=== PATIENT | female | born 1940 | race Caucasian/White ===

== ENCOUNTER 2021-05-24 17:17 | Outpatient (REF) | payer OTHER, MEDICAID, SELFPAY ==
[2021-05-24 17:56] LABS: Abs Immature Grans 0.02 10^3/uL (0.0-0.06); Absolute Basophil Count 0.03 10^3/uL (0.0-0.2); Absolute Eosinophil Count 0.39 10^3/uL (0.0-0.7); Absolute Lymphocyte Count 1.34 10^3/uL (1.2-3.4); Absolute Monocyte Count 0.63 10^3/uL (0.1-0.8); Absolute Neutrophil Count 3.69 10^3/uL (1.2-6.7); Basophils % 0.5; Eosinophils % 6.4; HCT 33.7 % (36.0-46.0); HGB 10.4 g/dL (11.2-15.7); Immature Grans % 0.3; MCH 30.5 pg (27.0-33.0); MCHC 30.9 % (32.0-36.0); MCV 98.8 fL (80-95); MPV 11.2 fL (8.0-11.0); Monocytes % 10.3; Neutrophils % 60.5; Nucleated RBC 0 %; Platelet Count 188 10^3/uL (130-400); RBC 3.41 10^6/uL (3.93-5.22); RDW 14.2 % (11.7-14.6); RDW-SD 51.1 fL
[2021-05-24 18:10] LABS: Iron 56 ug/dL (50-170); Total Iron Binding Capacity 322 ug/dL (250-450); Transferrin Sat 17 % (15-50)
[2021-05-24 18:13] LABS: Hemoglobin A1C 7.8 % (<5.7)
[2021-05-24 18:39] LABS: ALT 56 U/L (14-59); AST 16 U/L (15-37); Albumin 3.3 g/dL (3.4-5.0); Alkaline Phosphatase 119 U/L (46-116); Anion Gap 5.8 mmol/L (3-11); BUN 16 mg/dL (7-18); Bilirubin, Total 0.7 mg/dL (0.2-1.0); CO2 33.2 mmol/L (21.0-32.0); CREATININE 1.4 mg/dL (0.55-1.02); Calcium 8.9 mg/dL (8.5-10.1); Chloride 106 mmol/L (98-107); Estimated GFR 36.27 (mL/min/1.73m2); Folate 9.8 ng/mL (8.6-20.0); Glucose 148 mg/dL (74-106); Potassium 4.9 mmol/L (3.5-5.1); Sodium 145 mmol/L (136-145); TSH (W/Ref FT4) 1.74 uIU/mL (0.36-3.74); Total Protein 6.1 g/dL (6.4-8.2); Vitamin B12 306 pg/mL (193-986)
[2021-05-25 17:13] LABS: Magnesium 1.9 mg/dL (1.7-2.8)
== END 2021-05-24 17:18 | disposition home or self-care (01) ==
LOC: LBN 17:17
PROVIDERS: Visit Provider Nurse Practitioner Gerontology
DX: I50.33 Acute on chronic diastolic (congestive) heart failure (principal); E11.40 Type 2 diabetes mellitus with diabetic neuropathy, unspecified; I25.10 Atherosclerotic heart disease of native coronary artery without angina pectoris
CPT/HCPCS: 80053; 82607; 82746; 83036; 83540; 83550; 83735; 84443; 85025

== ENCOUNTER 2021-05-29 15:47 | Outpatient (REF) | payer OTHER, MEDICAID, SELFPAY ==
[2021-05-29 16:46] LABS: Anion Gap 3.2 mmol/L (3-11); BUN 17 mg/dL (7-18); CO2 35.8 mmol/L (21.0-32.0); CREATININE 1.2 mg/dL (0.55-1.02); Calcium 9.2 mg/dL (8.5-10.1); Chloride 107 mmol/L (98-107); Estimated GFR 43.34 (mL/min/1.73m2); Glucose 112 mg/dL (74-106); NT-proBNP 669 pg/mL (<300); Potassium 4.4 mmol/L (3.5-5.1); Sodium 146 mmol/L (136-145)
== END 2021-05-29 15:48 | disposition home or self-care (01) ==
LOC: LBN 15:47
PROVIDERS: Visit Provider Nurse Practitioner Gerontology
DX: I50.33 Acute on chronic diastolic (congestive) heart failure (principal); I25.10 Atherosclerotic heart disease of native coronary artery without angina pectoris; I73.9 Peripheral vascular disease, unspecified
CPT/HCPCS: 80048; 83880

== ENCOUNTER 2021-06-09 13:41 | Outpatient (CLI) | payer OTHER, MEDICAID, SELFPAY ==
--- NOTE | 2021-06-09 13:45 | RT.EKG_ITS ---
APPROVED REPORT Exam: Resting ECG Reason for Exam: HF, afib Patient Location: O HR:68 bpm ECG Measurements Heart Rate 68 AXIS [place] 205 P 21 QRSd 135 QRS -19 QT 441 T 28 QTc 470 Conclusion Sinus rhythm...normal P axis, V-rate 50- 99 Right bundle branch block...QRSd>120, terminal axis(90,270)
== END 2021-06-09 13:42 | disposition home or self-care (01) ==
LOC: DI.CARD 13:51
PROVIDERS: Visit Provider Internal Medicine Cardiovascular Disease
DX: I10 Essential (primary) hypertension (principal); I48.0 Paroxysmal atrial fibrillation; I50.30 Unspecified diastolic (congestive) heart failure
CPT/HCPCS: 93010

== ENCOUNTER → 2021-06-09 13:41 | Outpatient (BNVA) | payer OTHER, MEDICAID, SELFPAY | PROVIDERS: Visit Provider Internal Medicine Cardiovascular Disease | DX: I48.0 Paroxysmal atrial fibrillation (principal); I11.0 Hypertensive heart disease with heart failure; I50.30 Unspecified diastolic (congestive) heart failure; G47.30 Sleep apnea, unspecified; I25.10 Atherosclerotic heart disease of native coronary artery without angina pectoris | CPT/HCPCS: 93005; 99203 ==

== ENCOUNTER 2021-06-11 16:51 | Outpatient (REF) | payer OTHER, MEDICAID, SELFPAY ==
[2021-06-11 17:44] LABS: ALT 22 U/L (14-59); AST 5 U/L (15-37); Albumin 3.4 g/dL (3.4-5.0); Alkaline Phosphatase 101 U/L (46-116); Anion Gap 6.9 mmol/L (3-11); BUN 23 mg/dL (7-18); Bilirubin, Total 0.6 mg/dL (0.2-1.0); CO2 29.1 mmol/L (21.0-32.0); CREATININE 1.2 mg/dL (0.55-1.02); Calcium 8.9 mg/dL (8.5-10.1); Chloride 104 mmol/L (98-107); Estimated GFR 43.34 (mL/min/1.73m2); Glucose 315 mg/dL (74-106); Potassium 4.4 mmol/L (3.5-5.1); Sodium 140 mmol/L (136-145); Total Protein 6.1 g/dL (6.4-8.2)
== END 2021-06-11 16:52 | disposition home or self-care (01) ==
LOC: LBN 16:51
PROVIDERS: Visit Provider Internal Medicine
DX: I50.33 Acute on chronic diastolic (congestive) heart failure (principal); I25.10 Atherosclerotic heart disease of native coronary artery without angina pectoris; I73.9 Peripheral vascular disease, unspecified
CPT/HCPCS: 80053

== ENCOUNTER 2021-06-28 23:26 | Outpatient (REF) | payer MEDICARE, MEDICAID, SELFPAY ==
[2021-06-28 23:42] LABS: Abs Immature Grans 0.01 10^3/uL (0.0-0.06); Absolute Basophil Count 0.04 10^3/uL (0.0-0.2); Absolute Lymphocyte Count 1.46 10^3/uL (1.2-3.4); Absolute Monocyte Count 0.59 10^3/uL (0.1-0.8); Absolute Neutrophil Count 3.57 10^3/uL (1.2-6.7); Basophils % 0.7; HCT 38.4 % (36.0-46.0); HGB 12.2 g/dL (11.2-15.7); Immature Grans % 0.2; Lymphocytes % 24.5; MCH 29.8 pg (27.0-33.0); MCHC 31.8 % (32.0-36.0); MCV 93.9 fL (80-95); MPV 10.7 fL (8.0-11.0); Monocytes % 9.9; Neutrophils % 59.7; Nucleated RBC 0 %; Platelet Count 246 10^3/uL (130-400); RBC 4.09 10^6/uL (3.93-5.22); RDW 13.1 % (11.7-14.6); WBC 5.97 10^3/uL (4.4-10.8)
[2021-06-28 23:56] LABS: Anion Gap 6.9 mmol/L (3-11); BUN 20 mg/dL (7-18); CO2 30.1 mmol/L (21.0-32.0); CREATININE 1.4 mg/dL (0.55-1.02); Calcium 9.4 mg/dL (8.5-10.1); Chloride 103 mmol/L (98-107); Estimated GFR 36.27 (mL/min/1.73m2); Glucose 182 mg/dL (74-106); Potassium 4.3 mmol/L (3.5-5.1); Sodium 140 mmol/L (136-145)
== END 2021-06-28 23:27 | disposition home or self-care (01) ==
LOC: LBN 23:26
PROVIDERS: Visit Provider Nurse Practitioner Gerontology
DX: I50.33 Acute on chronic diastolic (congestive) heart failure (principal)
CPT/HCPCS: 80048; 85025

== ENCOUNTER 2021-08-02 16:57 | Outpatient (REF) | payer MEDICAID, SELFPAY ==
[2021-08-02 17:39] LABS: Abs Immature Grans 0.03 10^3/uL (0.0-0.06); Absolute Basophil Count 0.04 10^3/uL (0.0-0.2); Absolute Eosinophil Count 0.36 10^3/uL (0.0-0.7); Absolute Lymphocyte Count 1.35 10^3/uL (1.2-3.4); Absolute Monocyte Count 0.48 10^3/uL (0.1-0.8); Absolute Neutrophil Count 3.58 10^3/uL (1.2-6.7); Basophils % 0.7; Eosinophils % 6.2; HCT 38.9 % (36.0-46.0); HGB 12.6 g/dL (11.2-15.7); Immature Grans % 0.5; Lymphocytes % 23.1; MCH 30.7 pg (27.0-33.0); MCHC 32.4 % (32.0-36.0); MCV 94.6 fL (80-95); MPV 10.9 fL (8.0-11.0); Monocytes % 8.2; Neutrophils % 61.3; Nucleated RBC 0 %; Platelet Count 274 10^3/uL (130-400); RBC 4.11 10^6/uL (3.93-5.22); RDW 12.9 % (11.7-14.6); RDW-SD 44.1 fL; WBC 5.84 10^3/uL (4.4-10.8)
[2021-08-02 23:27] LABS: Vitamin B12 925 pg/mL (193-986)
[2021-08-02 23:35] LABS: Hemoglobin A1C 9.2 % (<5.7)
== END 2021-08-02 16:58 | disposition home or self-care (01) ==
LOC: LBN 16:57
PROVIDERS: Visit Provider Internal Medicine
DX: E11.40 Type 2 diabetes mellitus with diabetic neuropathy, unspecified (principal)
CPT/HCPCS: 82306; 82607; 83036; 85025

== ENCOUNTER 2021-09-06 15:23 | Outpatient (REF) | payer MEDICARE, SELFPAY ==
[2021-09-06 17:13] LABS: Abs Immature Grans 0.02 10^3/uL (0.0-0.06); Absolute Basophil Count 0.02 10^3/uL (0.0-0.2); Absolute Eosinophil Count 0.15 10^3/uL (0.0-0.7); Absolute Lymphocyte Count 1.26 10^3/uL (1.2-3.4); Absolute Neutrophil Count 3.29 10^3/uL (1.2-6.7); Basophils % 0.4; Eosinophils % 2.8; HCT 37.9 % (36.0-46.0); HGB 11.9 g/dL (11.2-15.7); Immature Grans % 0.4; Lymphocytes % 23.6; MCH 29.5 pg (27.0-33.0); MCHC 31.4 % (32.0-36.0); MPV 10.9 fL (8.0-11.0); Monocytes % 11.2; Neutrophils % 61.6; Nucleated RBC 0 %; Platelet Count 235 10^3/uL (130-400); RBC 4.03 10^6/uL (3.93-5.22); RDW 13.3 % (11.7-14.6); RDW-SD 45.8 fL; WBC 5.34 10^3/uL (4.4-10.8)
[2021-09-06 18:00] LABS: Anion Gap 10.9 mmol/L (3-11); BUN 29 mg/dL (7-18); CO2 24.1 mmol/L (21.0-32.0); CREATININE 1.4 mg/dL (0.55-1.02); Chloride 107 mmol/L (98-107); Estimated GFR 36.27 (mL/min/1.73m2); Glucose 263 mg/dL (74-106); Potassium 4.6 mmol/L (3.5-5.1); Sodium 142 mmol/L (136-145); TSH (W/Ref FT4) 0.87 uIU/mL (0.36-3.74)
[2021-09-06 18:37] LABS: Hemoglobin A1C 8.3 % (<5.7)
== END 2021-09-06 15:24 | disposition home or self-care (01) ==
LOC: LBN 15:23
PROVIDERS: Visit Provider Internal Medicine
DX: F41.1 Generalized anxiety disorder; R11.2 Nausea with vomiting, unspecified; I50.33 Acute on chronic diastolic (congestive) heart failure
CPT/HCPCS: 80048; 83036; 84443; 85025

== ENCOUNTER 2021-09-19 11:04 | Inpatient (IN) | payer MEDICARE, MEDICAID, SELFPAY ==
[2021-09-19] VITALS (45 sets, daily range): BP systolic 112–147; BP diastolic 55–81; PULSE 66–97; RESP 11–24; TEMP 36.1–36.6; O2SAT 93–99
--- NOTE | 2021-09-19 10:45 | RT.EKG_ITS ---
APPROVED REPORT Exam: Resting ECG Reason for Exam: weakness Patient Location: E HR:78 bpm ECG Measurements Heart Rate 78 AXIS ID [id number] P [id number] QRSd 103 QRS -21 QT 366 T 49 QTc 418 Conclusion unable to appreciate P waves, accele'd V-rate Inferior infarct, old...Q >35mS, II III aVF
--- NOTE | 2021-09-19 11:00 | DI.CT_ITS ---
Exam(s) CT ABDOMEN PELVIS W EXAM: CT ABDOMEN PELVIS W CLINICAL HISTORY: RLQ pain, diarrhea. TECHNIQUE: Imaging Protocol: Axial computed tomography images with coronal and sagittal reformatted images were created and reviewed CONTRAST MATERIAL: Intravenous: Omnipaque 100cc Oral: None COMPARISON: No exams were available for comparison FINDINGS: VISUALIZED LUNG BASES: No nodules nor pleural effusions evident. ABDOMEN: There is free intraperitoneal air. LIVER: There are no focal hepatic lesions evident . GALLBLADDER/BILIARY: The gallbladder surgically absent. CBD diameter is commensurate with patient's post cholecystectomy status. PANCREAS: Pancreas is atrophic. There is a suggestion of a 10 x 9 millimeter cystic structure in the pancreatic body (series 4/image 23). Pancreatic duct is not dilated. SPLEEN: Spleen is not enlarged. No obvious intrasplenic lesions. Splenic and portal veins are paten t. There is no air within the portal venous system. No air within the superior mesenteric vein. ADRENALS: There are no significant adrenal masses. KIDNEYS:No cysts evident. No solid renal masses. No calculi nor hydronephrosis.. ABDOMINAL AORTA: Abdominal aorta is not enlarged. Is peripherally calcified. No aneurysm. Retroaor tic left renal vein is incidentally noted. Celiac artery is patent. Superior mesenteric artery is p atent. It exhibits some calcified plaque on its posterior wall a few cm distal to its origin but no tight stenosis nor embolus evident within this vessel. The in fear year mesenteric artery is patent. LYMPH NODES:There is no retroperitoneal nor paraaortic adenopathy. ABDOMINAL WALL: Simple fat only containing umbilical hernia. No bowel loops therein. There is some subcutaneous air left of center in the abdomen which is most probably related to subcutaneous injecti on. There is fascial left versus suture material over pannus level. No abnormal fluid collection at this level. No significant inguinal hernias. GI: No evidence of bowel obstruction. There is sigmoid diverticulosis. No obvious acute diverticuli tis. The appendix is not seen separate structure there is no obvious appendicitis. However, there a re numerous abnormal appearing small bowel loops which exhibit pneumatosis intestinalis. PELVIS: LYMPH NODES: There is no intrapelvic nor inguinal adenopathy. REPRODUCTIVE: Uterus is surgically absent. There are no abnormal adnexal masses. URINARY BLADDER: No calculi nor obvious masses evident OSSEOUS: No significant osseous lesions. IMPRESSION: 1. Main finding here is free intraperitoneal air and numerous abnormal appearing small bowel loops wh ich exhibit pneumatosis intestinalis. Mesenteric arteries appear patent, including the inferior mese nteric artery. There is no gas within the superior mesenteric vein, portal vein confluence, main por cristopher vein, nor intrahepatic portal veins. 2. There is diverticulosis of the left side of the colon and sigmoid but no obvious acute diverticuli tis 3. Surgical consultation recommended Findings discussed by myself with the ER provider following completion of the study 09/19/2021. RADIATION DOSE DELIVERED: 1,413.6mGy.cm Total DLP DATA REPOSITORY: All CT scans at this facility are submitted to the National Radiology Data Registry (NRDR) Dose Index Registry (DIR) with the [employer] (ACR). RADIATION OPTIMIZATION: All CT scans at this facility use at least one of these dose optimization te chniques: automated exposure control; mA and/or kV adjustment per patient size (includes targeted exa ms where dose is matched to clinical indication); or iterative reconstruction.
--- NOTE | 2021-09-19 11:13 | ED.GENADUL_ITS ---
Discharge Plan Disposition Patient Disposition: [facility] INPATIENT Condition: Serious Discharge Details Clinical Impression: Free intraperitoneal air, Perforated bowel Admit Date/Time: 09/19/21 15:49 Admit Provider: Yaneli Aguilera Attending Provider: Yaneli Aguilera Primary Care Provider: Unknown,Unknown ED Provider: Cristin Arzola Discharge Data Discharge Date/Time-TO BE ENTERED AT DEPARTURE: 09/19/21 16:20 Medical Decision Making Patient is a pleasant 80-year-old female brought in via EMS from [facility]. She is coming in today after having 3 weeks of diarrhea. States that it has been increasing recently. States that she has been having some right lower abdominal discomfort. Denies any vomiting. However, does report that she has been having nausea after eating. Denies any fevers or chills. Past surgical history is pertinent for cholecystectomy, appendectomy, hysterectomy. No change in urinary habits. Denies any blood in her stool. States that she is passing flatus normally. Has been more fatigued recently. Does not believe she has had any antibiotics recently. Patient has tried Imodium for the past 2 days #5, has continued to have multiple bowel movements. States that she had 5 liquid bowel movements today which have been dark in color. Chart review does indicate that patient has had issues with this historically and is questioning if some of this may be associate with an xiety. Past medical history is pertinent for atrial fibrillation, anticoagulated, diastolic heart failure, hypertension, CAD with stent placement, sleep apnea, anxiety. On exam, patient appears nontoxic. She appears slightly dry. Her abdomen is quite round but there really distended or can phonetics. She has hypoactive bowel sounds. Nontender with palpation. She does indicate the right lower quadrant is area of discomfort. I am concerned about potential electrolyte imbalance given the length of time the patient has been having the symptoms. Will obtain baseline labs. She has been having the right lower quadrant pain considered diverticulitis or mass leading to the diarrhea and will obtain CT. With the oral contrast. Patient is comfortable at this time, will not give any further medication but will give small bolus of fluid. As the patient does have a history of CHF, will give a 500 cc bolus and reassess. Patient did not have any pulmonary crackles or lower extremity edema at this time Labs reviewed. No leukocytosis, stable H&H. Creatinine elevated at 1.4, this is baseline for the patient. Troponin WNL. No sigfnicant abnromalities on CMP. Urine without evidence of infection. Contacted by radiologist. He advised that the patient does have free air on imaging. He notes pneumatosis of the small bowel as well as multiple inflamed diverticuli. Questioning patient has a small bowel perforation advises surgical abdomen. We will begin the patient on Zosyn and contact general surgery. Consulted with Dr. Aguilera who advised to admit patient and she will come in to evaluate. Contacted surgery again, she will see patient on the floor and recommended admitting to med surg. Patient has been accompanied by daughter, Mary Tsai today, she can be reached at [phone]. Patient remains stable, comfortable. She received fluids, IV abx and is NPO. HPI General Mode of arrival: EMS . Date/Time Provider Initiated Documentation: 09/19/21 11:10 . Limitations to Documentation: no limitations . Information obtained by: patient, family, RN/MD, EMS, RN notes reviewed and old records reviewed . History of Present Illness 80 year old F presents to the emergency department with the chief complaint of abdminal discomfort, diarrhea, described as moderate, with intensity rated at 4. Quality is described as aching, and is localized to the abdomen. Patient reports no radiation. Patient started experiencing this week(s) (3) and it has been intermittent. No relieving factors improve symptom(s), No exacerbating factors reported . Patient notes loss of appetite and shortness of breath; denies chest pain, cough, fever/chills, headaches, nausea/vomiting and rash. Patient did receive the following treatments prior to arrival, other (immodium) Related Data Home Medications Medication Instructions Recorded Confirmed albuterol sulfate 90 mcg/actuation 2 inh INHALATION Q4H PRN 05/23/21 09/19/21 aerosol inhaler aspirin 81 mg tablet,delayed 81 mg PO DAILY 05/23/21 09/19/21 release atorvastatin 40 mg tablet 40 mg PO DAILY 05/23/21 09/19/21 cetirizine 10 mg tablet 5 mg PO DAILY PRN 05/23/21 09/19/21 cholecalciferol (vitamin D3) 50 100 mcg PO DAILY 05/23/21 09/19/21 mcg (2,000 unit) capsule famotidine 20 mg tablet 20 mg PO DAILY 05/23/21 09/19/21 ferrous sulfate 325 mg (65 mg 325 mg PO DAILY 05/23/21 09/19/21 iron) tablet fluticasone propionate 50 2 spray INTRANASAL DAILY PRN 05/23/21 09/19/21 mcg/actuation nasal spray,suspension insulin aspart U-100 100 unit/mL See Rx Instructions SUBCUT DAILY 05/23/21 09/19/21 (3 mL) subcutaneous pen isosorbide mononitrate 30 mg 30 mg PO DAILY 05/23/21 09/19/21 tablet,extended release 24 hr losartan 25 mg tablet 25 mg PO DAILY 05/23/21 09/19/21 metoclopramide HCl 5 mg tablet 5 mg PO QACHS 05/23/21 09/19/21 nabumetone 750 mg tablet 500 mg PO BID 05/23/21 09/19/21 nitroglycerin 0.4 mg sublingual 0.4 mg SUBLINGUAL Q5-15M PRN 05/23/21 09/19/21 tablet apixaban 2.5 mg tablet 2.5 mg PO BID 06/09/21 09/19/21 budesonide-formoterol HFA 160 2 inh INHALATION BID 06/09/21 09/19/21 mcg-4.5 mcg/actuation aerosol inhaler furosemide 20 mg tablet 20 mg PO DAILY 06/09/21 09/19/21 labetalol 100 mg tablet 100 mg PO TID tab 06/09/21 09/19/21 pregabalin 300 mg capsule 150 mg PO BID cap 06/09/21 09/19/21 tiotropium bromide 2.5 2 inh INHALATION BID g 06/09/21 09/19/21 mcg/actuation mist for inhalation acetaminophen 500 mg PO QHS 09/19/21 09/19/21 acetaminophen 650 mg PO QID 09/19/21 09/19/21 buspirone [BuSpar] 5 mg PO BID 09/19/21 09/19/21 cholestyramine (with sugar) 4 g PO DAILY 09/19/21 09/19/21 [Questran] cyanocobalamin (vitamin B-12) 1,000 mcg SUBCUT QMONTH 09/19/21 09/19/21 [Vitamin B-12] dulaglutide [Trulicity] 3 mg SUBCUT QWEEK 09/19/21 09/19/21 insulin aspart U-100 10 unit SUBCUT AC 09/19/21 09/19/21 insulin detemir U-100 [Levemir 10 unit SUBCUT QHS 09/19/21 09/19/21 Flexpen] insulin detemir U-100 [Levemir 20 unit SUBCUT QAM 09/19/21 09/19/21 U-100 Insulin] melatonin 6 mg PO HS 09/19/21 09/19/21 spironolactone 25 mg PO DAILY 09/19/21 09/19/21 Allergies Allergy/AdvReac Type Severity Reaction Status Date / Time codeine AdvReac Intermediate rash Verified 09/19/21 11:33 General Stated Complaint: Nausea/Vomit/Diar JENNIFER: 3 Review of Systems Constitutional Constitutional: Reports as per HPI, Denies chills, Reports fatigue, Denies fever(s) and Denies headache(s) ENT Ears, Nose, Mouth, and Throat: Denies headache(s) Cardiovascular Cardiovascular: Reports as per HPI, Denies chest pain and Denies dyspnea Respiratory Respiratory: Reports as per HPI, Denies cough and Denies dyspnea Gastrointestinal Gastrointestinal: Reports as per HPI, Reports abdominal pain, Reports change in bowel habits, Reports fecal incontinence, Denies nausea and Denies vomiting Musculoskeletal Musculoskeletal: Reports as per HPI and Denies back pain Integumentary/Breasts Skin/Breast: Reports as per HPI and Denies rash Neurologic Neurologic: Reports as per HPI and Denies headache(s) Endocrine Endocrine: Reports fatigue PFSH All Active Problems (Updated 09/20/21 @ 03:02 by Yaneli Aguilera DO) Free intraperitoneal air (Acute) Perforated bowel (Acute) Sleep apnea (Acute) Coronary artery disease (Chronic) Sleep apnea (Acute) Diastolic heart failure (Acute) Obesity (Chronic) PAF (paroxysmal atrial fibrillation) (Acute) Acute on chronic heart failure (Acute) Retinopathy (Acute) Diabetes mellitus (Chronic) Vitamin D deficiency (Acute) Mixed hyperlipidemia (Acute) JASON (generalized anxiety disorder) (Acute) Depressive disorder (Chronic) HTN (hypertension) with goal to be determined (Acute) Social History Smoking/Tobacco Use Status: Former Tobacco Use Smoking risk assessment performed?: Yes Alcohol Intake: never Drug use: Never Substance use type: does not use Do you feel safe at home: Yes Exam Const General: cooperative, healthy appearing, comfortable, no acute distress, well developed and anxious Nutritional Appearance: well nourished and overweight Orientation: alert and awake [facility] Head: normal to inspection Mouth: mucous membranes dry (appears dry) Resp Effort & Inspection: normal respiratory effort, able to speak in complete sentences and no respiratory distress Auscultation: clear to auscultation bilaterally, no rales, no rhonchi and no wheezes Cardio Rate: regular rate Rhythm: regular rhythm Heart Sounds: S1 normal and S2 normal GI Inspection: normal to inspection, incision (well healed surgical incisions) and obesity Palpation: soft, no hepatosplenomegaly, not firm, no guarding, no masses, no pulsatile masses, nontender and No ascites Percussion: normal to percussion Auscultation: hypoactive bowel sounds Back/Spine/Pelvis Back: no CVA tenderness Skin General skin exam: no rashes or lesions noted Trauma: no lacerations or abrasions Neuro General: patient alert and patient awake Cognition: normal cognition Speech: speech normal Extrem General: normal to inspection, no pedal edema and no calf tenderness Psych Appearance: grossly normal and well kempt Mental Status: mental status grossly normal Speech and Movement: speech and movement normal Course Vital Signs Vital signs: Vital Signs Temperature 36.3 C L 09/19/21 11:06 Pulse 81 09/19/21 11:06 Respiratory Rate 16 09/19/21 11:06 Blood Pressure 132/64 09/19/21 11:06 Pulse Oximetry 95 09/19/21 11:06 Temperature 36.3 C L 09/19/21 11:06 Temperature Source Temporal Artery Scan 09/19/21 11:06 Pulse 81 09/19/21 11:06 Respiratory Rate 16 09/19/21 11:06 Blood Pressure 132/64 09/19/21 11:06 Blood Pressure Position Supine 09/19/21 11:06 Pulse Oximetry 95 09/19/21 11:06 Oxygen Delivery Method Room Air 09/19/21 11:06 Oxygen Flow Rate 0 09/19/21 11:06 Pain Level 4 09/19/21 11:06
[2021-09-19 11:30] LABS: Abs Immature Grans 0.04 10^3/uL (0.0-0.06); Absolute Basophil Count 0.02 10^3/uL (0.0-0.2); Absolute Eosinophil Count 0.23 10^3/uL (0.0-0.7); Absolute Lymphocyte Count 1.44 10^3/uL (1.2-3.4); Absolute Monocyte Count 0.64 10^3/uL (0.1-0.8); Absolute Neutrophil Count 5.52 10^3/uL (1.2-6.7); Basophils % 0.3; Eosinophils % 2.9; HCT 34.9 % (36.0-46.0); HGB 11.4 g/dL (11.2-15.7); Immature Grans % 0.5; Lymphocytes % 18.3; MCH 30.8 pg (27.0-33.0); MCHC 32.7 % (32.0-36.0); MCV 94.3 fL (80-95); MPV 9.7 fL (8.0-11.0); Monocytes % 8.1; Neutrophils % 69.9; Nucleated RBC 0 %; Platelet Count 232 10^3/uL (130-400); RDW 13.3 % (11.7-14.6); RDW-SD 45.5 fL; WBC 7.89 10^3/uL (4.4-10.8)
[2021-09-19 11:50] LABS: ALT 12 U/L (14-59); AST 8 U/L (15-37); Albumin 3.1 g/dL (3.4-5.0); Alkaline Phosphatase 92 U/L (46-116); Anion Gap 9.1 mmol/L (3-11); BUN 29 mg/dL (7-18); Bilirubin, Total 0.7 mg/dL (0.2-1.0); CO2 22.9 mmol/L (21.0-32.0); CREATININE 1.4 mg/dL (0.55-1.02); Calcium 9.2 mg/dL (8.5-10.1); Chloride 108 mmol/L (98-107); Estimated GFR 36.27 (mL/min/1.73m2); Glucose 149 mg/dL (74-106); Magnesium 1.7 mg/dL (1.8-2.4); Potassium 4.2 mmol/L (3.5-5.1); Sodium 140 mmol/L (136-145); Total Protein 6.4 g/dL (6.4-8.2); Troponin I < 50 ng/L (<or=60)
[2021-09-19] MEDS: Lactated Ringers 1,000 ML 500 ML IV (11:52)
[2021-09-19 13:28] LABS: Bilirubin Negative (Negative); Blood Negative (Negative); Clarity Clear (Clear); Glucose Negative (Negative); Ketones Negative (Negative); Leukocyte Esterase Trace (Negative); Nitrite Negative (Negative); Urobilinogen 0.2 EU/dL (Up TO 0.2); pH 5.5 (5-8)
[2021-09-19 13:34] LABS: Bacteria Few HPF (Negative); C & S Indicated? Yes; Casts Negative LPF (Negative); Crystals Negative HPF (Negative); Epithelial Cells Few HPF (Negative); Mucus Negative (Negative); RBC 0-2 HPF (0-2)
[2021-09-19] MEDS: Omnipaque 350 MG/ML 100 ML BTL IJ (13:48)
[2021-09-19] MEDS: Normal Saline Flush 10 ML SYR IVP ×2 (13:49→21:33)
[2021-09-19] MEDS: PIPERACILLIN/TAZO 3.375 GM in Normal Saline 50 ML IVPB (14:56)
[2021-09-19 16:08] LABS: Source Nasal/Nares
[2021-09-19 16:55] LABS: COVID-19 PCR Negative (Negative)
--- NOTE | 2021-09-19 19:08 | W.PM.HP.N ---
Date of service: 09/19/21 Time of Service: 16:53 Assessment and Plan Assessment and plan (1) Free intraperitoneal air: Status: Acute Assessment and plan: -NPO, IVF and bowel rest -IV abx, Zosyn ordered -Re-examine in AM, currently has a benign abdominal exam -Patient understands she may need surgical intervention if she shows signs of clinical decompensation -Consider repeat CT A/P -Hold OAC, type and screen ordered -AM labs ordered -Hospitalist consulted for assistance with medical management (2) Sleep apnea: Status: Acute Qualifiers: Sleep apnea type: unspecified type Qualified Code(s): G47.30 - Sleep apnea, unspecified (3) Coronary artery disease: Status: Chronic Qualifiers: Associated angina: unspecified whether angina present Coronary Disease-Associated Artery/Lesion type: unspecified vessel or lesion type [place] vs. transplanted heart: [place] heart Qualified Code(s): I25.10 - Atherosclerotic heart disease of [place] coronary artery without angina pectoris (4) Sleep apnea: Status: Acute Qualifiers: Sleep apnea type: unspecified type Qualified Code(s): G47.30 - Sleep apnea, unspecified (5) Diastolic heart failure: Status: Acute Qualifiers: Heart failure chronicity: unspecified Qualified Code(s): I50.30 - Unspecified diastolic (congestive) heart failure (6) Obesity: Status: Chronic Qualifiers: Obesity classification: unspecified obesity classification Obesity type: due to excess calories Serious obesity comorbidity presence: unspecified whether serious comorbidity present Qualified Code(s): E66.09 - Other obesity due to excess calories (7) PAF (paroxysmal atrial fibrillation): Status: Acute (8) Diabetes mellitus: Status: Chronic Qualifiers: Diabetes mellitus complication status: with other specified complication Diabetes mellitus shelter insulin use: with parts counterman use Diabetes mellitus type: type 2 Qualified Code(s): E11.69 - Type 2 diabetes mellitus with other specified complication; Z79.4 - termite control service representative (current) use of insulin (9) Vitamin D deficiency: Status: Acute (10) Mixed hyperlipidemia: Status: Acute (11) JASON (generalized anxiety disorder): Status: Acute History of Present Illness Narrative: 80 year old female who was brought to the ER from custodial after 3 weeks of diarrhea and post-prandial nausea. Patient denies any significant abdominal pain but does report some mild discomfort within her lower abdomen. She underwent basic laboratory studies in the ER as well as a CT of her abdomen and pelvis revealing evidence of small bowel pneumatosis as well as a small amount of free air. She did have PO contrast, there is no evidence of extraluminal contrast. Radiologist questioned if this was related to subcutaneous injection and based on the patient's benign clinical appearance could be possible. PFSH All Active Problems (Updated 09/20/21 @ 03:02 by Yaneli Aguilera DO) Free intraperitoneal air (Acute) Perforated bowel (Acute) Sleep apnea (Acute) Coronary artery disease (Chronic) Sleep apnea (Acute) Diastolic heart failure (Acute) Obesity (Chronic) PAF (paroxysmal atrial fibrillation) (Acute) Acute on chronic heart failure (Acute) Retinopathy (Acute) Diabetes mellitus (Chronic) Vitamin D deficiency (Acute) Mixed hyperlipidemia (Acute) JASON (generalized anxiety disorder) (Acute) Depressive disorder (Chronic) HTN (hypertension) with goal to be determined (Acute) Social History Smoking/Tobacco Use Status: Former Tobacco Use Smoking risk assessment performed?: Yes Alcohol Intake: never Drug use: Never Substance use type: does not use Do you feel safe at home: Yes Meds Allergies and Home Medications Allergies Allergy/AdvReac Type Severity Reaction Status Date / Time codeine AdvReac Intermediate rash Verified 09/19/21 11:33 Home Medications Medication Instructions Recorded Confirmed Type albuterol sulfate 90 mcg/actuation 2 inh INHALATION Q4H PRN 05/23/21 09/19/21 History aerosol inhaler aspirin 81 mg tablet,delayed 81 mg PO DAILY 05/23/21 09/19/21 History release atorvastatin 40 mg tablet 40 mg PO DAILY 05/23/21 09/19/21 History cetirizine 10 mg tablet 5 mg PO DAILY PRN 05/23/21 09/19/21 History cholecalciferol (vitamin D3) 50 100 mcg PO DAILY 05/23/21 09/19/21 History mcg (2,000 unit) capsule famotidine 20 mg tablet 20 mg PO DAILY 05/23/21 09/19/21 History ferrous sulfate 325 mg (65 mg 325 mg PO DAILY 05/23/21 09/19/21 History iron) tablet fluticasone propionate 50 2 spray INTRANASAL DAILY PRN 05/23/21 09/19/21 History mcg/actuation nasal spray,suspension insulin aspart U-100 100 unit/mL See Rx Instructions SUBCUT DAILY 05/23/21 09/19/21 History (3 mL) subcutaneous pen isosorbide mononitrate 30 mg 30 mg PO DAILY 05/23/21 09/19/21 History tablet,extended release 24 hr losartan 25 mg tablet 25 mg PO DAILY 05/23/21 09/19/21 History metoclopramide HCl 5 mg tablet 5 mg PO QACHS 05/23/21 09/19/21 History nabumetone 750 mg tablet 500 mg PO BID 05/23/21 09/19/21 History nitroglycerin 0.4 mg sublingual 0.4 mg SUBLINGUAL Q5-15M PRN 05/23/21 09/19/21 History tablet apixaban 2.5 mg tablet 2.5 mg PO BID 06/09/21 09/19/21 History budesonide-formoterol HFA 160 2 inh INHALATION BID 06/09/21 09/19/21 History mcg-4.5 mcg/actuation aerosol inhaler furosemide 20 mg tablet 20 mg PO DAILY 06/09/21 09/19/21 History labetalol 100 mg tablet 100 mg PO TID tab 06/09/21 09/19/21 History pregabalin 300 mg capsule 150 mg PO BID cap 06/09/21 09/19/21 History tiotropium bromide 2.5 2 inh INHALATION BID g 06/09/21 09/19/21 History mcg/actuation mist for inhalation acetaminophen 500 mg PO QHS 09/19/21 09/19/21 History acetaminophen 650 mg PO QID 09/19/21 09/19/21 History buspirone [BuSpar] 5 mg PO BID 09/19/21 09/19/21 History cholestyramine (with sugar) 4 g PO DAILY 09/19/21 09/19/21 History [Questran] cyanocobalamin (vitamin B-12) 1,000 mcg SUBCUT QMONTH 09/19/21 09/19/21 History [Vitamin B-12] dulaglutide [Trulicity] 3 mg SUBCUT QWEEK 09/19/21 09/19/21 History insulin aspart U-100 10 unit SUBCUT AC 09/19/21 09/19/21 History insulin detemir U-100 [Levemir 10 unit SUBCUT Q 09/19/21 09/19/21 History Flexpen] insulin detemir U-100 [Levemir 20 unit SUBCUT QAM 09/19/21 09/19/21 History U-100 Insulin] melatonin 6 mg PO HS 09/19/21 09/19/21 History spironolactone 25 mg PO DAILY 09/19/21 09/19/21 History Exam Const General: cooperative, comfortable and no acute distress Resp Effort & Inspection: normal respiratory effort, no audible wheezes, no cough and no respiratory distress Cardio Jugular venous pressure: no JVD GI Inspection: normal to inspection and non-distended Palpation: soft, no guarding and nontender Percussion: normal to percussion Skin General skin exam: no rashes or lesions noted Results Labs Result diagrams: 09/19/21 11:21 09/19/21 11:21 Labs: Laboratory Results - last 24 hr 09/19/21 09/19/21 09/19/21 11:21 11:21 13:18 WBC 7.89 RBC 3.70 L Hgb 11.4 Hct 34.9 L MCV 94.3 MCH 30.8 MCHC 32.7 RDW 13.3 Plt Count 232 MPV 9.7 Immature Gran % 0.5 Neutrophils % 69.9 Lymphocytes % 18.3 Monocytes % 8.1 Eosinophils % 2.9 Basophils % 0.3 Nucleated RBC % 0 Absolute Neutrophils 5.52 Absolute Lymphocytes 1.44 Absolute Monocytes 0.64 Absolute Eosinophils 0.23 Absolute Basophils 0.02 Sodium 140 Potassium 4.2 Chloride 108 H Carbon Dioxide 22.9 Anion Gap 9.1 BUN 29 H Creatinine 1.4 H Estimated GFR/1.73 m2 36.27 Glucose 149 H Calcium 9.2 Magnesium 1.7 L Total Bilirubin 0.7 AST 8 L ALT 12 L Alkaline Phosphatase 92 Troponin I < 50 Total Protein 6.4 Albumin 3.1 L Urine Color Yellow Urine Clarity Clear Urine pH 5.5 Ur Specific [place] 1.020 Urine Protein Negative Urine Ketones Negative Urine Blood Negative Urine Nitrite Negative Urine Bilirubin Negative Urine Urobilinogen 0.2 Ur Leukocyte Esterase Trace H Urine RBC 0-2 Urine WBC 5-10 Ur Epithelial Cells Few Urine Crystals Negative Urine Bacteria Few Urine Casts Negative Urine Mucus Negative Ur Culture Indicated? Yes Urine Glucose Negative COVID-19 Source SARS-CoV-2 (PCR) 09/19/21 16:00 WBC RBC Hgb Hct MCV MCH MCHC RDW Plt Count MPV Immature Gran % Neutrophils % Lymphocytes % Monocytes % Eosinophils % Basophils % Nucleated RBC % Absolute Neutrophils Absolute Lymphocytes Absolute Monocytes Absolute Eosinophils Absolute Basophils Sodium Potassium Chloride Carbon Dioxide Anion Gap BUN Creatinine Estimated GFR/1.73 m2 Glucose Calcium Magnesium Total Bilirubin AST ALT Alkaline Phosphatase Troponin I Total Protein Albumin Urine Color Urine Clarity Urine pH Ur Specific [place] Urine Protein Urine Ketones Urine Blood Urine Nitrite Urine Bilirubin Urine Urobilinogen Ur Leukocyte Esterase Urine RBC Urine WBC Ur Epithelial Cells Urine Crystals Urine Bacteria Urine Casts Urine Mucus Ur Culture Indicated? Urine Glucose COVID-19 Source Nasal/Nares SARS-CoV-2 (PCR) Negative Last Vital Signs Temp 97.9 F 09/19/21 16:48 Pulse 66 09/19/21 16:48 Resp 16 09/19/21 16:48 BP 144/76 H 09/19/21 16:48 Pulse Ox 94 09/19/21 16:48
[2021-09-19] MEDS: Normal Saline 1,000 ML 50 ML IV (21:32)
[2021-09-20] MEDS: ACETAMINOPHEN 1,000 MG/100 ML BTL 400 MG IVPB (03:07)
[2021-09-20 03:10] VITALS: BP 156/80; PULSE 70; RESP 17; TEMP 36.6; O2SAT 92
[2021-09-20] MEDS: PIPERACILLIN/TAZO 3.375 GM in Normal Saline 50 ML IVPB ×4 (04:35→22:13)
[2021-09-20 07:17] LABS: Abs Immature Grans 0.02 10^3/uL (0.0-0.06); Absolute Basophil Count 0.01 10^3/uL (0.0-0.2); Absolute Eosinophil Count 0.25 10^3/uL (0.0-0.7); Absolute Lymphocyte Count 1.96 10^3/uL (1.2-3.4); Absolute Monocyte Count 0.58 10^3/uL (0.1-0.8); Absolute Neutrophil Count 3.36 10^3/uL (1.2-6.7); Basophils % 0.2; HCT 34.5 % (36.0-46.0); HGB 11.1 g/dL (11.2-15.7); Immature Grans % 0.3; Lymphocytes % 31.7; MCH 29.9 pg (27.0-33.0); MCHC 32.2 % (32.0-36.0); MPV 9.8 fL (8.0-11.0); Monocytes % 9.4; Neutrophils % 54.4; Nucleated RBC 0 %; Platelet Count 214 10^3/uL (130-400); RBC 3.71 10^6/uL (3.93-5.22); RDW 13.5 % (11.7-14.6); RDW-SD 45.8 fL; WBC 6.18 10^3/uL (4.4-10.8)
[2021-09-20 07:31] LABS: Prothrombin Time 10.5 sec (9.3-11.0)
[2021-09-20 07:34] LABS: ALT 14 U/L (14-59); AST 12 U/L (15-37); Alkaline Phosphatase 93 U/L (46-116); Anion Gap 7.1 mmol/L (3-11); BUN 21 mg/dL (7-18); Bilirubin, Total 0.7 mg/dL (0.2-1.0); CO2 25.9 mmol/L (21.0-32.0); CREATININE 1.2 mg/dL (0.55-1.02); Calcium 9.2 mg/dL (8.5-10.1); Chloride 110 mmol/L (98-107); Estimated GFR 43.34 (mL/min/1.73m2); Glucose 118 mg/dL (74-106); Potassium 4.8 mmol/L (3.5-5.1); Sodium 143 mmol/L (136-145); Total Protein 6.4 g/dL (6.4-8.2)
[2021-09-20 07:38] VITALS: BP 169/90; PULSE 74; RESP 16; TEMP 37.9; O2SAT 94
[2021-09-20 07:44] LABS: Magnesium 1.7 mg/dL (1.8-2.4)
--- NOTE | 2021-09-20 08:01 | W.PM.PROGNOT ---
Date of Service Date of service: 09/20/21 Time of Service: 08:02 Assessment and Plan Assessment and plan (1) Free intraperitoneal air: Status: Acute Assessment and plan: Patient has had numerous abdominal surgeries in the past, unable to locate this information within her chart. She has recently relocated to [place] from [place] and resides at the [facility]. Patient reports history of , choecystectomy and appendectomy. She has a large scar midline of her abdomen, unclear what this scar is from. She also has a history of CAD, paroxysmal atrial fibrillation, chronic diastolic heart failure, PAD, HTN, DM and ASHLYN s/p caridac cath and stent placement at [facility] sometime in 2020. - continue NPO, IVF and bowel rest -IV abx, Zosyn ordered -Continues to have a benign abdominal exam this AM -Patient understands she may need surgical intervention if she shows signs of clinical decompensation -Consider repeat CT A/P -Hold OAC, type and screen ordered -Hospitalist consulted for assistance with medical management (2) Sleep apnea: Status: Acute Qualifiers: Sleep apnea type: unspecified type Qualified Code(s): G47.30 - Sleep apnea, unspecified (3) Coronary artery disease: Status: Chronic Qualifiers: Coronary Disease-Associated Artery/Lesion type: unspecified vessel or lesion type [place] vs. transplanted heart: [place] heart Associated angina: unspecified whether angina present Qualified Code(s): I25.10 - Atherosclerotic heart disease of [place] coronary artery without angina pectoris (4) Sleep apnea: Status: Acute Qualifiers: Sleep apnea type: unspecified type Qualified Code(s): G47.30 - Sleep apnea, unspecified (5) Diastolic heart failure: Status: Acute Qualifiers: Heart failure chronicity: unspecified Qualified Code(s): I50.30 - Unspecified diastolic (congestive) heart failure (6) Obesity: Status: Chronic Qualifiers: Obesity type: due to excess calories Obesity classification: unspecified obesity classification Serious obesity comorbidity presence: unspecified whether serious comorbidity present Qualified Code(s): E66.09 - Other obesity due to excess calories (7) PAF (paroxysmal atrial fibrillation): Status: Acute (8) Diabetes mellitus: Status: Chronic Qualifiers: Diabetes mellitus type: type 2 Diabetes 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 She states that she has not had any BMs since her arrive to the hospital. She denies having any abdominal pain, nausea or vomiting. Exam Const General: cooperative, healthy appearing and comfortable Orientation: alert and oriented x3 Resp Effort & Inspection: normal respiratory effort, no audible wheezes and no cough GI Palpation: soft and no guarding Auscultation: hypoactive bowel sounds Objective Last Vital Signs Temp 37.9 C H 09/20/21 07:38 Pulse 74 09/20/21 07:38 Resp 16 09/20/21 07:38 BP 169/90 H 09/20/21 07:38 Pulse Ox 94 09/20/21 07:38 Laboratory Results - last 24 hr 09/19/21 09/19/21 09/19/21 11:21 11:21 13:18 WBC 7.89 RBC 3.70 L Hgb 11.4 Hct 34.9 L MCV 94.3 MCH 30.8 MCHC 32.7 RDW 13.3 Plt Count 232 MPV 9.7 Immature Gran % 0.5 Neutrophils % 69.9 Lymphocytes % 18.3 Monocytes % 8.1 Eosinophils % 2.9 Basophils % 0.3 Nucleated RBC % 0 Absolute Neutrophils 5.52 Absolute Lymphocytes 1.44 Absolute Monocytes 0.64 Absolute Eosinophils 0.23 Absolute Basophils 0.02 PT INR Sodium 140 Potassium 4.2 Chloride 108 H Carbon Dioxide 22.9 Anion Gap 9.1 BUN 29 H Creatinine 1.4 H Estimated GFR/1.73 m2 36.27 Glucose 149 H Calcium 9.2 Magnesium 1.7 L Total Bilirubin 0.7 AST 8 L ALT 12 L Alkaline Phosphatase 92 Troponin I < 50 Total Protein 6.4 Albumin 3.1 L Urine Color Yellow Urine Clarity Clear Urine pH 5.5 Ur Specific [place] 1.020 Urine Protein Negative Urine Ketones Negative Urine Blood Negative Urine Nitrite Negative Urine Bilirubin Negative Urine Urobilinogen 0.2 Ur Leukocyte Esterase Trace H Urine RBC 0-2 Urine WBC 5-10 Ur Epithelial Cells Few Urine Crystals Negative Urine Bacteria Few Urine Casts Negative Urine Mucus Negative Ur Culture Indicated? Yes Urine Glucose Negative COVID-19 Source SARS-CoV-2 (PCR) Patient ABO/Rh Antibody Screen 09/19/21 09/20/21 09/20/21 16:00 06:35 06:35 WBC RBC Hgb Hct MCV MCH MCHC RDW Plt Count MPV Immature Gran % Neutrophils % Lymphocytes % Monocytes % Eosinophils % Basophils % Nucleated RBC % Absolute Neutrophils Absolute Lymphocytes Absolute Monocytes Absolute Eosinophils Absolute Basophils PT 10.5 INR 1.0 Sodium Potassium Chloride Carbon Dioxide Anion Gap BUN Creatinine Estimated GFR/1.73 m2 Glucose Calcium Magnesium 1.7 L Total Bilirubin AST ALT Alkaline Phosphatase Troponin I Total Protein Albumin Urine Color Urine Clarity Urine pH Ur Specific [place] Urine Protein Urine Ketones Urine Blood Urine Nitrite Urine Bilirubin Urine Urobilinogen Ur Leukocyte Esterase Urine RBC Urine WBC Ur Epithelial Cells Urine Crystals Urine Bacteria Urine Casts Urine Mucus Ur Culture Indicated? Urine Glucose COVID-19 Source Nasal/Nares SARS-CoV-2 (PCR) Negative Patient ABO/Rh Antibody Screen 09/20/21 09/20/21 09/20/21 06:35 06:35 06:35 WBC 6.18 RBC 3.71 L Hgb 11.1 L Hct 34.5 L MCV 93.0 MCH 29.9 MCHC 32.2 RDW 13.5 Plt Count 214 MPV 9.8 Immature Gran % 0.3 Neutrophils % 54.4 Lymphocytes % 31.7 Monocytes % 9.4 Eosinophils % 4.0 Basophils % 0.2 Nucleated RBC % 0 Absolute Neutrophils 3.36 Absolute Lymphocytes 1.96 Absolute Monocytes 0.58 Absolute Eosinophils 0.25 Absolute Basophils 0.01 PT INR Sodium 143 Potassium 4.8 Chloride 110 H Carbon Dioxide 25.9 Anion Gap 7.1 BUN 21 H D Creatinine 1.2 H Estimated GFR/1.73 m2 43.34 Glucose 118 H Calcium 9.2 Magnesium Total Bilirubin 0.7 AST 12 L ALT 14 Alkaline Phosphatase 93 Troponin I Total Protein 6.4 Albumin 3.0 L Urine Color Urine Clarity Urine pH Ur Specific [place] Urine Protein Urine Ketones Urine Blood Urine Nitrite Urine Bilirubin Urine Urobilinogen Ur Leukocyte Esterase Urine RBC Urine WBC Ur Epithelial Cells Urine Crystals Urine Bacteria Urine Casts Urine Mucus Ur Culture Indicated? Urine Glucose COVID-19 Source SARS-CoV-2 (PCR) Patient ABO/Rh O Positive Antibody Screen NEGATIVE
[2021-09-20] MEDS: Tiotropium Bromide-Respimat 10 PUFF INH 2 PUFF IH ×2 (08:22→20:24)
[2021-09-20] MEDS: Nabumetone 500 MG TAB PO ×2 (08:28→20:20)
[2021-09-20] MEDS: busPIRone 5 MG TAB PO ×2 (08:28→20:21)
[2021-09-20] MEDS: Labetalol 100 MG TAB PO ×3 (08:28→20:20)
[2021-09-20] MEDS: Spironolactone 25 MG TAB PO (08:28)
[2021-09-20] MEDS: Pregabalin 50 MG CAP 150 MG PO ×2 (08:29→20:20)
[2021-09-20] MEDS: Atorvastatin 40 MG TAB PO (08:29)
[2021-09-20] MEDS: Cholecalciferol (Vitamin D3) 1,000 UNIT TAB 4000 UNITS PO (08:29)
[2021-09-20] MEDS: Isosorbide Mononitrate 30 MG TABCR PO (08:29)
[2021-09-20] MEDS: Losartan 25 MG TAB PO (08:29)
--- NOTE | 2021-09-20 09:14 | PDOC.CMIN ---
- If Service Date Differs Date of service: 09/20/21 Time of Service: 09:14 Care Management Initial Assess REASON FOR HOSPITALIZATION:: Perforated viscous, diarrhea PAST MEDICAL HISTORY/PAST SURGICAL HISTORY:: CAD, sleep apnea PREVIOUS FUNCTIONAL STATUS/SOCIAL/FAMILY SUPPORTS:: Resides at [facility], Paul resides in [place], [place]. CURRENT FUNCTIONAL STATUS:: Nita is being closely monitored at this time. Her diet will be advanced slowly per MD. CM continues to follow. ADVANCE DIRECTIVES:: [facility] on file Has patient been provided with info about the portal/API?: No Did the patient sign up for the portal?: No CODE STATUS:: DNR/DNI INSURANCE COVERAGE / FINANCIAL ISSUES:: Medicare. Medicaid CURRENT HOME/COMMUNITY SERVICES/EQUIPMENT:: SNF: [facility] H&R PRIMARY CARE PHYSICIAN:: Susana POTENTIAL DISCHARGE NEEDS:: Coordinated return to the [facility]. PATIENT/FAMILY EDUCATION NEEDS:: Review of discharge instructions, discuss Ask Me [employer]. ANTICIPATED BARRIERS TO DISCHARGE:: None identified. TRANSPORTATION:: Anticipate W/C Rahul. PLAN:: Nita will return to the [facility] when ready per MD, as soon as tomorrow. Anticipate she will transport via [facility] or with family as she is able to sit and stand and pivot-if W/C van recommended, CM will coordinate through [facility] for the [facility].
[2021-09-20 14:41] VITALS: BP 134/64; PULSE 78; RESP 16; TEMP 36.5; O2SAT 96
[2021-09-20] MEDS: Normal Saline 1,000 ML 50 ML IV (15:30)
--- NOTE | 2021-09-20 16:50 | W.PM.PROGNOT ---
Date of Service Date of service: 09/20/21 Time of Service: 16:50 Subjective Subjective Interval history since last seen: I was asked by general surgery to help manage the patient's diabetes while she is hospitalized for bowel perforation. She is NPO. She has a h/o DM2 diagnosed 20 years ago and was able to tolerate oral diabetic medications in the past. I think she is at low risk of DKA if her long acting insulin is held. I have ordered a sensitive SSI Q6Hrs. Will monitor peripherally. Objective Last Vital Signs Temp 36.5 C 09/20/21 14:41 Pulse 78 09/20/21 14:41 Resp 16 09/20/21 14:41 BP 134/64 09/20/21 14:41 Pulse Ox 96 09/20/21 14:41 Laboratory Results - last 24 hr 09/19/21 09/20/21 09/20/21 16:00 06:35 06:35 WBC RBC Hgb Hct MCV MCH MCHC RDW Plt Count MPV Immature Gran % Neutrophils % Lymphocytes % Monocytes % Eosinophils % Basophils % Nucleated RBC % Absolute Neutrophils Absolute Lymphocytes Absolute Monocytes Absolute Eosinophils Absolute Basophils PT 10.5 INR 1.0 Sodium Potassium Chloride Carbon Dioxide Anion Gap BUN Creatinine Estimated GFR/1.73 m2 Glucose Calcium Magnesium 1.7 L Total Bilirubin AST ALT Alkaline Phosphatase Total Protein Albumin SARS-CoV-2 (PCR) Negative Patient ABO/Rh Antibody Screen 09/20/21 09/20/21 09/20/21 06:35 06:35 06:35 WBC 6.18 RBC 3.71 L Hgb 11.1 L Hct 34.5 L MCV 93.0 MCH 29.9 MCHC 32.2 RDW 13.5 Plt Count 214 MPV 9.8 Immature Gran % 0.3 Neutrophils % 54.4 Lymphocytes % 31.7 Monocytes % 9.4 Eosinophils % 4.0 Basophils % 0.2 Nucleated RBC % 0 Absolute Neutrophils 3.36 Absolute Lymphocytes 1.96 Absolute Monocytes 0.58 Absolute Eosinophils 0.25 Absolute Basophils 0.01 PT INR Sodium 143 Potassium 4.8 Chloride 110 H Carbon Dioxide 25.9 Anion Gap 7.1 BUN 21 H D Creatinine 1.2 H Estimated GFR/1.73 m2 43.34 Glucose 118 H Calcium 9.2 Magnesium Total Bilirubin 0.7 AST 12 L ALT 14 Alkaline Phosphatase 93 Total Protein 6.4 Albumin 3.0 L SARS-CoV-2 (PCR) Patient ABO/Rh O Positive Antibody Screen NEGATIVE
[2021-09-20 23:25] VITALS: BP 152/64; PULSE 72; RESP 16; TEMP 36.9; O2SAT 93
[2021-09-21] MEDS: PIPERACILLIN/TAZO 3.375 GM in Normal Saline 50 ML IVPB ×2 (04:02→10:17)
[2021-09-21 07:32] VITALS: BP 188/84; PULSE 74; RESP 18; TEMP 36.6; O2SAT 93
[2021-09-21] MEDS: Labetalol 100 MG TAB PO ×3 (07:53→20:21)
[2021-09-21] MEDS: Isosorbide Mononitrate 30 MG TABCR PO (07:54)
[2021-09-21] MEDS: Nabumetone 500 MG TAB PO ×2 (07:54→20:21)
[2021-09-21] MEDS: Losartan 25 MG TAB PO (07:54)
[2021-09-21] MEDS: Atorvastatin 40 MG TAB PO (07:54)
[2021-09-21] MEDS: Pregabalin 50 MG CAP 150 MG PO ×2 (07:54→20:21)
[2021-09-21] MEDS: busPIRone 5 MG TAB PO ×2 (07:54→20:21)
[2021-09-21] MEDS: Spironolactone 25 MG TAB PO (07:54)
[2021-09-21] MEDS: Cholecalciferol (Vitamin D3) 1,000 UNIT TAB 4000 UNITS PO (07:54)
[2021-09-21] MEDS: Tiotropium Bromide-Respimat 10 PUFF INH 2 PUFF IH ×2 (08:31→20:20)
--- NOTE | 2021-09-21 08:57 | PGE_ITS ---
Date of Service Date of service: 09/21/21 Time of Service: 08:57 Assessment and Plan Assessment and plan (1) Free intraperitoneal air: Status: Acute Assessment and plan: Patient expresses improvement in her symptoms. Benign abdominal exam. Will trial clear liquid diet this morning. IV abx, Zosyn ordered Continue pulmonary toilet Encouraged activity OOB as tolerated. -Hospitalist consulted for assistance with medical management (2) Sleep apnea: Status: Acute Qualifiers: Sleep apnea type: unspecified type Qualified Code(s): G47.30 - Sleep apnea, unspecified (3) Coronary artery disease: Status: Chronic Qualifiers: Coronary Disease-Associated Artery/Lesion type: unspecified vessel or lesion type [place] vs. transplanted heart: [place] heart Associated angina: unspecified whether angina present Qualified Code(s): I25.10 - Atherosclerotic heart disease of [place] coronary artery without angina pectoris (4) Sleep apnea: Status: Acute Qualifiers: Sleep apnea type: unspecified type Qualified Code(s): G47.30 - Sleep apnea, unspecified (5) Diastolic heart failure: Status: Acute Qualifiers: Heart failure chronicity: unspecified Qualified Code(s): I50.30 - Unspecified diastolic (congestive) heart failure (6) Obesity: Status: Chronic Qualifiers: Obesity type: due to excess calories Obesity classification: unspecified obesity classification Serious obesity comorbidity presence: unspecified whether serious comorbidity present Qualified Code(s): E66.09 - Other obesity due to excess calories (7) PAF (paroxysmal atrial fibrillation): Status: Acute (8) Diabetes mellitus: Status: Chronic Qualifiers: Diabetes mellitus type: type 2 Diabetes 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 She reports that she is feeling better. She denies any abdominal pain, nausea or vomiting. Exam Const General: cooperative, healthy appearing and comfortable Orientation: alert and oriented x3 Resp Effort & Inspection: normal respiratory effort, no audible wheezes and no cough GI Palpation: soft, no guarding and tender in the LLQ Objective Last Vital Signs Temp 36.6 C 09/21/21 07:32 Pulse 74 09/21/21 07:32 Resp 18 09/21/21 07:32 BP 188/84 H 09/21/21 07:32 Pulse Ox 93 09/21/21 07:32
[2021-09-21] MEDS: Insulin Aspart 300 UNITS/3 ML PEN SC ×2 (12:27→18:12)
[2021-09-21] MEDS: Normal Saline 1,000 ML 50 ML IV (13:34)
--- NOTE | 2021-09-21 14:46 | CHAPLAIN ---
Nita is here from the [facility]. She has a daughter who works here, in day surgery. She said she is feeling better. Her daughter has been checking in on her.
[2021-09-21 15:40] VITALS: BP 154/84; PULSE 62; RESP 17; TEMP 36.8; O2SAT 98
[2021-09-21] MEDS: ACETAMINOPHEN 1,000 MG/100 ML BTL 400 MG IVPB (15:40)
[2021-09-21] MEDS: PIPERACILLIN/TAZO 3.375 GM in Normal Saline 100 ML IVPB ×2 (16:25→21:41)
--- NOTE | 2021-09-21 17:23 | CMPROGNOTE_ITS ---
Care Management Progress Note S/O: Nita is getting out of bed as tolerated and is improving, per MD. Anticipate she will return to the [facility] tomorrow if she continues to tolerate diet advancements. CM continues to follow. A: 80 year old female admitted to [facility] 09/19/21 for perforated viscous, diarrhea P: Nita will return to the [facility] when ready per MD. Her daughter, Mary Tsai (an [employer] employee) can be reached at [phone] if needed. Anticipate she will transport via private vehicle with family.
--- NOTE | 2021-09-21 17:23 | PDOC.CMPRO ---
Care Management Progress Note S/O: Nita is getting out of bed as tolerated and is improving, per MD. Anticipate she will return to the [facility] tomorrow if she continues to tolerate diet advancements. CM continues to follow. A: 80 year old female admitted to [facility] 09/19/21 for perforated viscous, diarrhea P: Nita will return to the [facility] when ready per MD. Her daughter, Mary Tsai (an [facility] employee) can be reached at [phone] if needed. Anticipate she will transport via private vehicle with family.
[2021-09-21 22:27] LABS: C Diff PCR Negative (Negative)
[2021-09-21 23:27] VITALS: BP 160/79; PULSE 63; RESP 20; TEMP 36.7; O2SAT 96
[2021-09-22] MEDS: ACETAMINOPHEN 1,000 MG/100 ML BTL 400 MG IVPB (02:44)
[2021-09-22] MEDS: Normal Saline Flush 10 ML SYR IVP ×2 (02:45→19:48)
[2021-09-22] MEDS: PIPERACILLIN/TAZO 3.375 GM in Normal Saline 100 ML IVPB ×2 (03:20→10:25)
[2021-09-22 07:25] VITALS: BP 163/79; PULSE 68; RESP 17; TEMP 36.8; O2SAT 95
--- NOTE | 2021-09-22 08:17 | W.PM.PROGNOT ---
Documented by User: DEENA Wiseman 09/22/21 08:18 Date of Service Date of service: 09/22/21 Time of Service: 08:17 Assessment and Plan Assessment and plan (1) Free intraperitoneal air: Status: Acute Assessment and plan: Benign abdominal exam. Diarrhea and nausea this morning. IV abx, Zosyn ordered Continue pulmonary toilet Encouraged activity OOB as tolerated. -Hospitalist consulted for assistance with medical management (2) Sleep apnea: Status: Acute Qualifiers: Sleep apnea type: unspecified type Qualified Code(s): G47.30 - Sleep apnea, unspecified (3) Coronary artery disease: Status: Chronic Qualifiers: Associated angina: unspecified whether angina present Coronary Disease-Associated Artery/Lesion type: unspecified vessel or lesion type [place] vs. transplanted heart: [place] heart Qualified Code(s): I25.10 - Atherosclerotic heart disease of [place] coronary artery without angina pectoris (4) Sleep apnea: Status: Acute Qualifiers: Sleep apnea type: unspecified type Qualified Code(s): G47.30 - Sleep apnea, unspecified (5) Diastolic heart failure: Status: Acute Qualifiers: Heart failure chronicity: unspecified Qualified Code(s): I50.30 - Unspecified diastolic (congestive) heart failure (6) Obesity: Status: Chronic Qualifiers: Obesity classification: unspecified obesity classification Obesity type: due to excess calories Serious obesity comorbidity presence: unspecified whether serious comorbidity present Qualified Code(s): E66.09 - Other obesity due to excess calories (7) PAF (paroxysmal atrial fibrillation): Status: Acute (8) Diabetes mellitus: Status: Chronic Qualifiers: Diabetes mellitus complication status: with other specified complication Diabetes mellitus senior care insulin use: with general utility maintenance repairer use Diabetes mellitus type: type 2 Qualified Code(s): E11.69 - Type 2 diabetes mellitus with other specified complication; Z79.4 - marble installer (current) use of insulin (9) Vitamin D deficiency: Status: Acute (10) Mixed hyperlipidemia: Status: Acute (11) JASON (generalized anxiety disorder): Status: Acute Subjective Subjective Interval history since last seen: Patient reports that she has had diarrhea and nausea this morning. Denies any fevers or chills. Denies having any abdominal pain. Exam Const General: cooperative, healthy appearing and comfortable Orientation: alert and oriented x3 Resp Effort & Inspection: normal respiratory effort, no audible wheezes and no cough GI Palpation: soft, no guarding and nontender Objective Last Vital Signs Temp 36.8 C 09/22/21 07:25 Pulse 68 09/22/21 07:25 Resp 17 09/22/21 07:25 BP 163/79 H 09/22/21 07:25 Pulse Ox 95 09/22/21 07:25 Laboratory Results - last 24 hr 09/21/21 20:40 Stl C.difficile Tox PCR Negative Documented by User: Muriel Calero, DO 09/22/21 19:13 Assessment and Plan Assessment and plan (1) Free intraperitoneal air: Status: Acute Assessment and plan: -Patient has longstanding diarrhea. She says she has had a lifelong. She will go for days and have no bowel movement and then will have multiple liquid bowel movements daily. This has been lifelong. She has had multiple full work-ups for this and no ones ever found etiology. She takes Imodium on a regular basis she also takes a lot of Tums for heartburn and indigestion. Her daughter has problems with chronic diarrhea as well. She does admit to developing constipation and having to strain times. We discussed the importance of avoiding constipation and straining to move the bowels. She has been in the [facility] since April. Prior to going into the [facility] she also was hospitalized in [place] for episode of abdominal pain and diarrhea. Patient is on clear as to what the disease process was occurring at that point. Her daughter is with her today. We did review her med list and discuss her meds extensively. There have been no changes in her medications lately. She did refuse to take the Metamucil today. She has been eating a regular diabetic diet. Her last A1c was 8.3. She has been diabetic for many years. Diarrhea is multifactorial. Not exactly certain what was going on when she did come in through the ER. We will continue the antibiotics. She did have free air and pneumatosis. She is an extremely poor candidate for surgery. Most likely she had some type of incomplete bowel obstruction that has resolved. She also does have a lot of diverticula. She has no pain now. She had times loose bowel movements on shift supervisor. Nothing substantial today. She has no abdominal pain at this point. I discussed with her the importance of dietary fiber. We will try again today and see how her bowels are doing tomorrow. There is no family of inflammatory bowel disease. Her constipation diarrhea have been longstanding. She was anemic prior to coming into the hospital Hopefully plan discharge tomorrow (2) Perforated bowel: Status: Acute (3) Chronic diarrhea: Status: Acute
[2021-09-22] MEDS: Labetalol 100 MG TAB PO ×3 (08:22→19:50)
[2021-09-22] MEDS: Cholecalciferol (Vitamin D3) 1,000 UNIT TAB 4000 UNITS PO (08:22)
[2021-09-22] MEDS: Atorvastatin 40 MG TAB PO (08:23)
[2021-09-22] MEDS: Isosorbide Mononitrate 30 MG TABCR PO (08:23)
[2021-09-22] MEDS: Spironolactone 25 MG TAB PO (08:23)
[2021-09-22] MEDS: Nabumetone 500 MG TAB PO ×2 (08:23→19:50)
[2021-09-22] MEDS: Pregabalin 50 MG CAP 150 MG PO ×2 (08:23→19:50)
[2021-09-22] MEDS: busPIRone 5 MG TAB PO ×2 (08:24→19:50)
[2021-09-22] MEDS: Losartan 25 MG TAB PO (08:24)
[2021-09-22] MEDS: Tiotropium Bromide-Respimat 10 PUFF INH 2 PUFF IH ×2 (09:40→19:47)
--- NOTE | 2021-09-22 10:51 | PDOC.CMPRO ---
- If Service Date Differs Date of service: 09/22/21 Time of Service: 10:51 Care Management Progress Note S/O: Nita was sitting up in a chair when CM met with her. She was pleasant and interacted well with CM. She stated that she had diarrhea early this morning but was feeling better at the time of the visit. She talked about living at [facility] and acknowledged that it has been very hard for her. She misses being in her own home, especially during the Mel[place] season. She shared that she loves to decorate for the holidays and this year she was not able to do that. She also misses her family. One of her grand daughters lived with her for 7 years and now has a baby that Nita has not seen yet. CM will continue to follow. A: 80 year old female admitted to [facility] 09/19/21 for perforated viscous, diarrhea P: Nita will return to the [facility] when ready per MD. Her daughter, Mary Tsai (an [employer] [facility] [employer] employee) can be reached at [phone] if needed. Anticipate she will transport via private vehicle with family. CM will continue to assess for discharge planning concerns.
[2021-09-22] MEDS: Insulin Aspart 300 UNITS/3 ML PEN SC ×4 (12:53→21:23)
[2021-09-22] MEDS: Normal Saline 1,000 ML 50 ML IV (13:18)
[2021-09-22 15:24] VITALS: BP 131/82; PULSE 67; RESP 15; TEMP 37.1; O2SAT 96
[2021-09-22] MEDS: PIPERACILLIN/TAZO 4.5 GM in Normal Saline 100 ML IVPB (19:49)
[2021-09-22] MEDS: Psyllium PKT 1 EACH PO (19:49)
[2021-09-22 23:05] VITALS: BP 164/78; PULSE 61; RESP 15; TEMP 36.6; O2SAT 96
[2021-09-23] MEDS: PIPERACILLIN/TAZO 4.5 GM in Normal Saline 100 ML IVPB ×2 (03:30→11:39)
[2021-09-23] MEDS: Normal Saline Flush 10 ML SYR IVP (03:31)
[2021-09-23 07:34] VITALS: BP 172/80; PULSE 76; RESP 14; TEMP 36.7; O2SAT 94
[2021-09-23] MEDS: Pregabalin 50 MG CAP 150 MG PO (08:35)
[2021-09-23] MEDS: Spironolactone 25 MG TAB PO (08:35)
[2021-09-23] MEDS: Losartan 25 MG TAB PO (08:35)
[2021-09-23] MEDS: busPIRone 5 MG TAB PO (08:35)
[2021-09-23] MEDS: Labetalol 100 MG TAB PO (08:36)
[2021-09-23] MEDS: Nabumetone 500 MG TAB PO (08:36)
[2021-09-23] MEDS: Atorvastatin 40 MG TAB PO (08:36)
[2021-09-23] MEDS: Isosorbide Mononitrate 30 MG TABCR PO (08:36)
[2021-09-23] MEDS: Cholecalciferol (Vitamin D3) 1,000 UNIT TAB 4000 UNITS PO (08:36)
[2021-09-23] MEDS: Tiotropium Bromide-Respimat 10 PUFF INH 2 PUFF IH (08:37)
[2021-09-23] MEDS: Insulin Aspart 300 UNITS/3 ML PEN SC ×2 (08:37→12:35)
--- NOTE | 2021-09-23 10:26 | DSE_ITS ---
Date of service: 09/23/21 Time of Service: 10:26 DS: Diagnosis Discharge Diagnosis (1) Free intraperitoneal air: Status: Acute (2) Perforated bowel: Status: Acute (3) Chronic diarrhea: Status: Acute Discharge Plan Disposition Patient Disposition: [facility] Condition: Serious Discharge Details Reason For Visit: Perforated Viscous, Diarrhea Admit Date/Time: 09/19/21 15:49 Admit Provider: Yaneli Aguilera Attending Provider: Yaneli Aguilera Primary Care Provider: Unknown,Unknown Hospital Course Hospital Course: see addendum Home Meds and New Rx's Prescriptions: New Bio-K plus 50 billion cell capsule,delayed release(DR/EC) 1 cap PO DAILY Qty: 30 RF: 0 Metamucil [facility] Fiber 3.4 gram/5.8 gram powder 5.616112 g PO DAILY Qty: 660 RF: 12 Continued apixaban 2.5 mg tablet 2.5 mg PO BID RF: 0 furosemide [Lasix] 20 mg tablet 20 mg PO DAILY RF: 0 budesonide-formoterol [Symbicort] 160-4.5 mcg/actuation HFA aerosol inhaler 2 inh inhalation BID RF: 0 aspirin [Adult Low Dose Aspirin] 81 mg tablet,delayed release (DR/EC) 81 mg PO DAILY RF: 0 atorvastatin 40 mg tablet 40 mg PO DAILY RF: 0 cetirizine [All Day Allergy (cetirizine)] 10 mg tablet 5 mg PO DAILY PRNRF: 0 famotidine 20 mg tablet 20 mg PO DAILY RF: 0 ferrous sulfate 325 mg (65 mg iron) tablet 325 mg PO DAILY RF: 0 fluticasone propionate 50 mcg/actuation spray,suspension 2 spray intranasal DAILY PRNRF: 0 isosorbide mononitrate 30 mg tablet extended release 24 hr 30 mg PO DAILY RF: 0 losartan 25 mg tablet 25 mg PO DAILY RF: 0 nabumetone 750 mg tablet 500 mg PO BID RF: 0 nitroglycerin 0.4 mg tablet, sublingual 0.4 mg sublingual Q5-15M PRNRF: 0 metoclopramide HCl 5 mg tablet 5 mg PO QACHS RF: 0 albuterol sulfate [Ventolin HFA] 90 mcg/actuation HFA aerosol inhaler 2 inh inhalation Q4H PRNRF: 0 cholecalciferol (vitamin D3) 50 mcg (2,000 unit) capsule 100 mcg PO DAILY RF: 0 insulin aspart U-100 100 unit/mL (3 mL) insulin pen See Rx Instructions subcut DAILY RF: 0 labetalol 100 mg tablet 100 mg PO TID RF: 0 pregabalin 300 mg capsule 150 mg PO BID RF: 0 Spiriva Respimat 2.5 mcg/actuation mist 2 inh inhalation BID RF: 0 acetaminophen 325 mg Tablet 650 mg PO QID RF: 0 melatonin 3 mg Tablet 6 mg PO HS RF: 0 acetaminophen 500 mg Tablet 500 mg PO QHS RF: 0 spironolactone 25 mg Tablet 25 mg PO DAILY RF: 0 cyanocobalamin (vitamin B-12) 1,000 mcg/mL Solution 1,000 mcg SUBCUT QMONTH RF: 0 buspirone 5 mg Tablet 5 mg PO BID RF: 0 insulin aspart U-100 100 unit/mL (3 mL) Insulin Pen 10 unit SUBCUT AC RF: 0 cholestyramine (with sugar) [Questran] 4 gram Powder 4 g PO DAILY RF: 0 Levemir U-100 Insulin 100 unit/mL Solution 20 unit SUBCUT QAM RF: 0 insulin detemir U-100 100 unit/mL (3 mL) Insulin Pen 10 unit SUBCUT QHS RF: 0 Trulicity 3 mg/0.5 mL Pen Injector 3 mg SUBCUT QWEEK RF: 0 Discharge Instructions Additional Instructions: activity to tolerance continue carb controlled diet f/u surgery clinic in 1 weeks time. my office will call on 09/26 to schedule appt. no further abx require. please keep accurate record of BM pro-biotic for 30 days Fiber product daily Stand Alone Forms: Nursing Discharge Form Referrals: Muriel Calero, [OSTEOPATHIC DOCTOR] - (Office will call on Sunday09/26/2021 to make a follow up appointment) Activity:: see above Equipment/Supplies:: No Equipment Needed Diet:: Carb Counting Discharge Orders Discharge Orders: Discharge Order (Routine); Ordered 09/23/21 Ordered By: Muriel Calero DS: Summary Time Spent with Patient providing and/or coordinating discharge services: Less than 30 minutes Status at Discharge Functional status at discharge: wheelchair bound Overall status at discharge: patient is progressing back to baseline Mental Status: mental status grossly normal Speech and Movement: speech and movement normal Mood: congruent mood Affect: normal affect Exam Psych Mental Status: mental status grossly normal Speech and Movement: speech and movement normal Mood: congruent mood Affect: normal affect DS: Data Vitals/I&O Vitals and I&O: Vital Signs Temperature 36.7 C 09/23/21 07:34 Temperature Source Tympanic 09/23/21 07:34 Pulse 76 09/23/21 07:34 Pulse Rhythm Regular 09/23/21 05:49 Pulse 70 09/19/21 16:10 Respiratory Rate 14 09/23/21 07:34 Respiratory Effort 09/23/21 05:49 Respiratory Depth Normal 09/23/21 05:49 Respiratory Pattern Normal 09/23/21 05:49 Blood Pressure 172/80 H 09/23/21 07:34 Blood Pressure Mean 65 09/19/21 16:01 Blood Pressure Position Supine 09/19/21 11:06 Pulse Oximetry 94 09/23/21 07:34 Oxygen Delivery Method Room Air 09/23/21 07:34 Oxygen Flow Rate 0 09/23/21 07:34 Pain Level 0 09/23/21 07:34 Comment 09/21/21 23:27 Intake & Output 09/22/21 09/22/21 09/23/21 11:59 23:59 11:59 Intake Total 1200 / 1660 460 / 1660 700 / 700 Output Total 200 / 200 500 / 500 Balance 1200 / 1460 260 / 1460 200 / 200 Intake: IV 1200 / 1300 100 / 1300 300 / 300 Oral 360 / 360 400 / 400 Output: Urine 200 / 200 500 / 500 Other: Urine Color Yellow Urine Appearance Clear Clear Clear Urine Odor Normal Normal Stool Occult Blood Negative Stool Size Small Stool Characteristics Soft Voiding Methods Toilet Toilet Toilet Data Completed and Pending Labs on day of discharge: Labs from last 24 hours 09/23/21 09/23/21 04:00 04:00 Stool Description Pending Stool Calprotectin Pending Stool Ova & Parasites Pending [facility] All Active Problems (Updated 09/22/21 @ 19:06 by Muriel Calero DO) Chronic diarrhea (Acute) Free intraperitoneal air (Acute) Perforated bowel (Acute) Sleep apnea (Acute) Coronary artery disease (Chronic) Sleep apnea (Acute) Diastolic heart failure (Acute) Obesity (Chronic) PAF (paroxysmal atrial fibrillation) (Acute) Acute on chronic heart failure (Acute) Retinopathy (Acute) Diabetes mellitus (Chronic) Vitamin D deficiency (Acute) Mixed hyperlipidemia (Acute) JASON (generalized anxiety disorder) (Acute) Depressive disorder (Chronic) HTN (hypertension) with goal to be determined (Acute) Social History Smoking/Tobacco Use Status: Former Tobacco Use Smoking risk assessment performed?: Yes Alcohol Intake: never Drug use: Never Substance use type: does not use Do you feel safe at home: Yes
--- NOTE | 2021-09-23 10:36 | PGE_ITS ---
Date of Service Date of service: 09/23/21 Time of Service: 10:36 Assessment and Plan Assessment and plan (1) Chronic diarrhea: Status: Acute Assessment and plan: -multifactorial related to medications/post braden/DM/JASON prob IBS cont fiber therapy probiotics since she was on abx she has been on tums and immodium chronically. She can continue these medications. also consider starting cholestyramine (2) Free intraperitoneal air: Status: Acute (3) Perforated bowel: Status: Acute Assessment and plan: etiology unclear. resolved w/ abx. Pt is a poor candidate for sx based on her comorbidities. d/c to [facility] f/u next week in sx clinic no changes in medications 20 mins spent on direct pt care 40 mins w/ charting (4) Coronary artery disease: Status: Chronic Qualifiers: Coronary Disease-Associated Artery/Lesion type: unspecified vessel or lesion type [place] vs. transplanted heart: [place] heart Associated angina: unspecified whether angina present Qualified Code(s): I25.10 - Atherosclerotic heart disease of [place] coronary artery without angina pectoris (5) Sleep apnea: Status: Acute Qualifiers: Sleep apnea type: unspecified type Qualified Code(s): G47.30 - Sleep apnea, unspecified (6) Diastolic heart failure: Status: Acute Qualifiers: Heart failure chronicity: unspecified Qualified Code(s): I50.30 - Unspecified diastolic (congestive) heart failure (7) Obesity: Status: Chronic Qualifiers: Obesity type: due to excess calories Obesity classification: unspecified obesity classification Serious obesity comorbidity presence: unspecified whether serious comorbidity present Qualified Code(s): E66.09 - Other obesity due to excess calories (8) PAF (paroxysmal atrial fibrillation): Status: Acute (9) Acute on chronic heart failure: Status: Acute (10) Retinopathy: Status: Acute (11) Diabetes mellitus: Status: Chronic Qualifiers: Diabetes mellitus type: type 2 Diabetes mellitus supervisor intermediates insulin use: with supervisor intermediates use Diabetes mellitus complication status: with other specified complication Qualified Code(s): E11.69 - Type 2 diabetes mellitus with other specified complication; Z79.4 - emt intermediate (current) use of insulin (12) Mixed hyperlipidemia: Status: Acute (13) JASON (generalized anxiety disorder): Status: Acute (14) Depressive disorder: Status: Chronic (15) HTN (hypertension) with goal to be determined: Status: Acute Subjective Subjective Interval history since last seen: Pt is doing well. no headaches. No CP or SOB. no productive cough. no dysuria. no leg pain or swelling. She is not having any abomdinal pain. She is tolerating a regular diet. she is not having any BM today. BS are in 150-160's Exam GI Inspection: large pannus and obesity Palpation: soft and nontender Auscultation: normal bowel sounds Objective Last Vital Signs Temp 36.7 C 09/23/21 07:34 Pulse 76 09/23/21 07:34 Resp 14 09/23/21 07:34 BP 172/80 H 09/23/21 07:34 Pulse Ox 94 09/23/21 07:34
--- NOTE | 2021-09-23 11:32 | PDOC.CMDIS ---
- If Service Date Differs Date of service: 09/23/21 Time of Service: 11:32 LACE Index Scoring Tool - Questions: Length of Stay (in days): 4 - 6 Acuity (Admit via E.D.?): Yes Comorbidities: Diabetes w/o Complication, Congestive Heart Failure, Liver or Renal Disease E.D. Visits: 1 - Answers: Total Score: 13 Risk of Readmission: High Risk Care Management Discharge Reason for Hospitalization: Perforated viscous, diarrhea Discharge Plan: Nita will return to the [facility] where she resides. She will transport with family via private vehicle and follow up with the facility providers. Patient/Family Education Needs: Review of discharge instructions, discuss Ask Me Three. Services Needed at Discharge: Care Home Facility
[2021-09-27 15:42] LABS: Calprotectin 125 mcg/g
== END 2021-09-23 13:01 | disposition intermediate care facility (04) | DRG 394 ==
LOC: ER 15:44 → MS 16:24
PROVIDERS: Physical Therapy Assistant; Surgery; Admitting Provider Surgery; Emergency Provider Physician Assistant; Visit Provider Surgery
DX: K63.1 Perforation of intestine (nontraumatic) (principal); I50.30 Unspecified diastolic (congestive) heart failure; Z68.41 Body mass index [BMI] 40.0-44.9, adult; G47.30 Sleep apnea, unspecified; I25.10 Atherosclerotic heart disease of native coronary artery without angina pectoris; I48.0 Paroxysmal atrial fibrillation; I11.0 Hypertensive heart disease with heart failure; E66.09 Other obesity due to excess calories; E11.69 Type 2 diabetes mellitus with other specified complication; E55.9 Vitamin D deficiency, unspecified; E78.2 Mixed hyperlipidemia; F41.1 Generalized anxiety disorder; E11.319 Type 2 diabetes mellitus with unspecified diabetic retinopathy without macular edema; F32.9 Major depressive disorder, single episode, unspecified; Z79.4 Long term (current) use of insulin; Z87.891 Personal history of nicotine dependence; K52.9 Noninfective gastroenteritis and colitis, unspecified
CPT/HCPCS: 36415; 80053; 86850; 86900; 86901; 87081; 87493; 87635; 93005; 94640; 96361; 96365; 99222; 99232; 99238; 99285; 74177; 81003; 81015; 83630; 83735; 83993; 84484; 85025; 85610; 87086; 87177; 93010; J0131; J2543; J3490

== ENCOUNTER → 2021-10-07 11:54 | Outpatient (BNVA) | payer MEDICARE, MEDICAID, SELFPAY | PROVIDERS: Visit Provider Surgery | DX: K52.9 Noninfective gastroenteritis and colitis, unspecified (principal) | CPT/HCPCS: 99212; 99442 ==

== ENCOUNTER 2021-10-10 19:24 | Outpatient (REF) | payer SELFPAY ==
[2021-10-11 20:28] LABS: Campylobacter PCR Negative (Negative); Salmonella PCR Negative (Negative); Shiga Toxin PCR Negative (Negative); Shigella/Enteroinvasive Ecoli Negative (Negative)
== END 2021-10-10 19:25 | disposition home or self-care (01) ==
LOC: LBN 19:24
PROVIDERS: Referring Provider Internal Medicine; Visit Provider Surgery
DX: K52.89 Other specified noninfective gastroenteritis and colitis (principal); K63.1 Perforation of intestine (nontraumatic)
CPT/HCPCS: 87505; 87177

== ENCOUNTER 2021-10-11 19:58 | Outpatient (REF) | payer SELFPAY ==
[2021-10-11 16:51] LABS: Abs Immature Grans 0.03 10^3/uL (0.0-0.06); Absolute Basophil Count 0.03 10^3/uL (0.0-0.2); Absolute Eosinophil Count 0.32 10^3/uL (0.0-0.7); Absolute Lymphocyte Count 1.49 10^3/uL (1.2-3.4); Absolute Monocyte Count 0.59 10^3/uL (0.1-0.8); Absolute Neutrophil Count 3.59 10^3/uL (1.2-6.7); Basophils % 0.5; Eosinophils % 5.3; HCT 36.7 % (36.0-46.0); HGB 11.4 g/dL (11.2-15.7); Immature Grans % 0.5; Lymphocytes % 24.6; MCH 29.7 pg (27.0-33.0); MCHC 31.1 % (32.0-36.0); MCV 95.6 fL (80-95); MPV 10.8 fL (8.0-11.0); Monocytes % 9.8; Neutrophils % 59.3; Nucleated RBC 0 %; Platelet Count 248 10^3/uL (130-400); RBC 3.84 10^6/uL (3.93-5.22); RDW 13.9 % (11.7-14.6); RDW-SD 48.5 fL; WBC 6.05 10^3/uL (4.4-10.8)
[2021-10-11 17:19] LABS: Iron 91 ug/dL (50-170)
[2021-10-11 17:36] LABS: ALT 16 U/L (14-59); AST 12 U/L (15-37); Albumin 3.3 g/dL (3.4-5.0); Alkaline Phosphatase 107 U/L (46-116); BUN 21 mg/dL (7-18); Bilirubin, Total 0.9 mg/dL (0.2-1.0); CREATININE 1.4 mg/dL (0.55-1.02); Calcium 9.3 mg/dL (8.5-10.1); Chloride 105 mmol/L (98-107); Estimated GFR 36.27 (mL/min/1.73m2); Ferritin 73 ng/mL (8-252); Folate 14.3 ng/mL (8.6-20.0); Glucose 191 mg/dL (74-106); Magnesium 1.6 mg/dL (1.8-2.4); Potassium 4.5 mmol/L (3.5-5.1); Sodium 140 mmol/L (136-145); TSH (W/Ref FT4) 0.65 uIU/mL (0.36-3.74); Total Protein 6.2 g/dL (6.4-8.2); Vitamin B12 845 pg/mL (193-986)
== END 2021-10-11 19:59 | disposition home or self-care (01) ==
LOC: LBN 19:58
PROVIDERS: Visit Provider Internal Medicine
DX: I50.33 Acute on chronic diastolic (congestive) heart failure (principal); E11.40 Type 2 diabetes mellitus with diabetic neuropathy, unspecified; I25.10 Atherosclerotic heart disease of native coronary artery without angina pectoris; I73.9 Peripheral vascular disease, unspecified; E78.5 Hyperlipidemia, unspecified; I10 Essential (primary) hypertension; R11.2 Nausea with vomiting, unspecified
CPT/HCPCS: 80053; 82607; 82728; 82746; 83540; 83735; 84443; 85025

== ENCOUNTER → 2021-11-08 09:23 | Outpatient (BNVA) | payer MEDICARE, MEDICAID, SELFPAY | PROVIDERS: Visit Provider Internal Medicine Cardiovascular Disease | DX: I25.10 Atherosclerotic heart disease of native coronary artery without angina pectoris (principal); I50.30 Unspecified diastolic (congestive) heart failure; I48.0 Paroxysmal atrial fibrillation; G47.30 Sleep apnea, unspecified | CPT/HCPCS: 99214; 99213 ==

== ENCOUNTER 2021-12-08 01:55 | Outpatient (CLI) | payer MEDICARE, MEDICAID, SELFPAY ==
--- NOTE | 2021-12-08 | DI.RAD_ITS ---
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 TECHNIQUE: 2D digital imaging was performed. COMPARISON: No exams were available for comparison FINDINGS: Four views There is no evidence of fracture or prominent joint effusion. However, there are degenerative change s with [id number] narrowing of the medial compartment evident on the weight-bearing view. Lateral compartment exhibits normal height. Significant degenerative changes also evident in the patellofemo ral compartment. No osseous lesions. IMPRESSION: Advanced narrowing of the medial compartment. Resultant Verus deformity DATA REPOSITORY: RADIATION DOSE DELIVERED:
== END 2021-12-08 02:15 ==
PROVIDERS: Visit Provider Nurse Practitioner Gerontology
DX: M25.562 Pain in left knee (principal); M17.12 Unilateral primary osteoarthritis, left knee; R26.2 Difficulty in walking, not elsewhere classified
CPT/HCPCS: 73564

== ENCOUNTER 2022-03-14 17:59 | Outpatient (REF) | payer MEDICARE, MEDICAID, SELFPAY ==
[2022-03-14 16:40] LABS: Abs Immature Grans 0.09 10^3/uL (0.0-0.06); Absolute Basophil Count 0.02 10^3/uL (0.0-0.2); Absolute Lymphocyte Count 1.13 10^3/uL (1.2-3.4); Absolute Neutrophil Count 7.86 10^3/uL (1.2-6.7); Basophils % 0.2; HCT 33.9 % (36.0-46.0); Immature Grans % 0.9; Lymphocytes % 11.6; MCH 30.7 pg (27.0-33.0); MCHC 32.4 % (32.0-36.0); MCV 95 fL (80-95); MPV 10.9 fL (8.0-11.0); Monocytes % 6.2; Neutrophils % 81.1; Platelet Count 303 10^3/uL (130-400); RBC 3.58 10^6/uL (3.93-5.22); RDW 13.2 % (11.7-14.6); RDW-SD 45.4 fL
[2022-03-14 17:46] LABS: ALT 20 U/L (14-59); AST 11 U/L (15-37); Albumin 3.2 g/dL (3.4-5.0); Alkaline Phosphatase 87 U/L (46-116); Anion Gap 8.8 mmol/L (3-11); BUN 25 mg/dL (7-18); Bilirubin, Total 0.5 mg/dL (0.2-1.0); CO2 28.2 mmol/L (21.0-32.0); CREATININE 1.5 mg/dL (0.55-1.02); Calcium 8.8 mg/dL (8.5-10.1); Chloride 100 mmol/L (98-107); Estimated GFR 33.41 (mL/min/1.73m2); Glucose 230 mg/dL (74-106); NT-proBNP 616 pg/mL (<300); Sodium 137 mmol/L (136-145); Total Protein 6.3 g/dL (6.4-8.2)
== END 2022-03-14 18:00 | disposition home or self-care (01) ==
LOC: LBN 17:59
PROVIDERS: PCP Internal Medicine; Visit Provider Nurse Practitioner Gerontology
DX: I50.33 Acute on chronic diastolic (congestive) heart failure (principal); I25.10 Atherosclerotic heart disease of native coronary artery without angina pectoris; I48.0 Paroxysmal atrial fibrillation; I10 Essential (primary) hypertension; E11.40 Type 2 diabetes mellitus with diabetic neuropathy, unspecified
CPT/HCPCS: 80053; 83880; 85025

== ENCOUNTER 2022-03-21 14:47 | Emergency (ER) | payer MEDICARE, MEDICAID, SELFPAY ==
[2022-03-21] VITALS (33 sets, daily range): BP systolic 94–168; BP diastolic 48–143; PULSE 57–71; RESP 12–31; TEMP 36.4; O2SAT 94–98
--- NOTE | 2022-03-21 14:30 | RT.EKG_ITS ---
APPROVED REPORT Exam: Resting ECG Reason for Exam: AMS, Shoulder Pain Patient Location: E HR:62 bpm ECG Measurements Heart Rate 62 AXIS DE 225 P 18 QRSd 142 QRS 4 QT 440 T 36 QTc 447 Conclusion Sinus rhythm...normal P axis, V-rate 60- 99 Borderline prolonged DE interval...DE >212, V-rate 50- 90 Right bundle branch block...QRSd>120, terminal axis(90,270) Inferior infarct, old...Q >35mS, II III aVF. Sinus. 1mm ST elevation in aVF. RBBB. No STEMI. I have reviewed and interpreted ECG and agree with software generated interpretation.
--- NOTE | 2022-03-21 14:45 | DI.CT_ITS ---
Exam(s) CT HEAD WO EXAM: CT HEAD WO CLINICAL HISTORY: AMS, Left sided weakness. TECHNIQUE: Imaging Protocol: Axial computed tomography images with coronal and sagittal reformatted images were created and reviewed COMPARISON: No exams were available for comparison FINDINGS: Ventricles and Extra axial spaces: Normal in size and morphology for the patient's age. Hemorrhage: None. Cerebral parenchyma: There are areas of decreased attenuation in the white matter most consistent wit h small vessel ischemic disease. No acute territorial infarct is seen. Midline shift: None. Brainstem/Cerebellum: Normal. Calvarium: Normal. Visualized Paranasal sinuses/Mastoids: Clear. Soft Tissues: Unremarkable. IMPRESSION: 1. No acute intracranial process. 2. Results of this exam have been verbally communicated with provider. RADIATION DOSE DELIVERED: 930.5mGy.cm Total DLP DATA REPOSITORY: All CT scans at this facility are submitted to the National Radiology Data Registry (NRDR) Dose Index Registry (DIR) with the [employer] ([employer]). RADIATION OPTIMIZATION: All CT scans at this facility use at least one of these dose optimization te chniques: automated exposure control; mA and/or kV adjustment per patient size (includes targeted exa ms where dose is matched to clinical indication); or iterative reconstruction.
--- NOTE | 2022-03-21 15:00 | DI.RAD_ITS ---
Exam(s) XR PORTABLE CHEST AP EXAM: XR PORTABLE CHEST AP CLINICAL HISTORY: AMS, Chest Pain TECHNIQUE: 2D digital imaging was performed of the chest. One image was obtained. An AP view was ob tained. COMPARISON: No exams were available for comparison FINDINGS: MEDIASTINUM: Normal. HEART: Normal. PULMONARY VASCULATURE: Normal. LUNGS: Increased lung markings in the left lung base. PLEURAL SPACE: No pleural effusion or pneumothorax. BONE:Within normal limits for the patient's age. OTHER FINDINGS:Normal. IMPRESSION: Increased lung markings in the left base. Pneumonia or atelectasis is considered. Correlate clinica lly. DATA REPOSITORY: RADIATION DOSE DELIVERED:
--- NOTE | 2022-03-21 15:15 | ED.GENADUL_ITS ---
Discharge Plan Disposition Patient Disposition: HOME Condition: Stable Discharge Details Clinical Impression: Hypoglycemia, AMS (altered mental status), Renal disease Primary Care Provider: Janeen Weldon ED Provider: Pat Melo Home Meds and New Rx's Prescriptions: Continued apixaban 2.5 mg tablet 2.5 mg PO BID furosemide [Lasix] 20 mg tablet 40 mg PO DAILY budesonide-formoterol [Symbicort] 160-4.5 mcg/actuation HFA aerosol inhaler 2 inh inhalation BID aspirin [Adult Low Dose Aspirin] 81 mg tablet,delayed release (DR/EC) 81 mg PO DAILY atorvastatin 40 mg tablet 40 mg PO DAILY cetirizine [All Day Allergy (cetirizine)] 10 mg tablet 5 mg PO DAILY PRN famotidine 20 mg tablet 20 mg PO DAILY ferrous sulfate 325 mg (65 mg iron) tablet 325 mg PO DAILY fluticasone propionate 50 mcg/actuation spray,suspension 2 spray intranasal DAILY PRN Rx Instructions: administer into each nostril isosorbide mononitrate 30 mg tablet extended release 24 hr 30 mg PO DAILY losartan 25 mg tablet 25 mg PO DAILY nabumetone 750 mg tablet 500 mg PO BID nitroglycerin 0.4 mg tablet, sublingual 0.4 mg sublingual Q5-15M PRN Rx Instructions: do not exceed 3 doses per episode metoclopramide HCl 5 mg tablet 5 mg PO QACHS albuterol sulfate [Ventolin HFA] 90 mcg/actuation HFA aerosol inhaler 2 inh inhalation Q4H PRN cholecalciferol (vitamin D3) 50 mcg (2,000 unit) capsule 4,000 unit PO DAILY insulin aspart U-100 100 unit/mL (3 mL) insulin pen See Rx Instructions subcut DAILY Rx Instructions: per ss. labetalol 100 mg tablet 100 mg PO TID pregabalin 300 mg capsule 175 mg PO BID Spiriva Respimat 2.5 mcg/actuation mist 2 inh inhalation BID acetaminophen 325 mg Tablet 650 mg PO QID melatonin 3 mg Tablet 6 mg PO HS acetaminophen 500 mg Tablet 1,000 mg PO TID spironolactone 25 mg Tablet 25 mg PO DAILY cyanocobalamin (vitamin B-12) 1,000 mcg/mL Solution 1,000 mcg SUBCUT QMONTH buspirone 5 mg Tablet 5 mg PO BID insulin aspart U-100 100 unit/mL (3 mL) Insulin Pen 10 unit SUBCUT AC Rx Instructions: hold if under 100. cholestyramine (with sugar) [Questran] 4 gram Powder 4 g PO DAILY Levemir U-100 Insulin 100 unit/mL Solution 20 unit SUBCUT QAM insulin detemir U-100 100 unit/mL (3 mL) Insulin Pen 10 unit SUBCUT QHS Trulicity 3 mg/0.5 mL Pen Injector 1.5 mg SUBCUT QWEEK Bio-K plus 50 billion cell capsule,delayed release(DR/EC) 1 cap PO DAILY Qty: 30 0RF Rx Instructions: take for 30 days than discontinue Metamucil [facility] Fiber 3.4 gram/5.8 gram powder [id number] g PO DAILY Qty: 660 12RF Rx Instructions: w/ 8 oz of liquid ondansetron HCl 4 mg tablet 1 tab PO DAILY Trelegy Ellipta 100-62.5-25 mcg blister with device 1 inh INHALATION QID Discharge Instructions Instructions: Altered Mental Status (ED) Additional Instructions: Decrease your short acting insulin by 2 units with each, otherwise continue Your sliding scale Talk to your doctor as you are likely becoming hypoglycemic or you are having low blood sugar it is unclear you may have had a mini stroke or transient ischemic attack, however if feeling marked improvement with improvement of your blood glucose Your MRI of your brain and neck were negative for stroke Reassessment recommended tomorrow Please return immediately should you have new or worsening complaints Referrals: Janeen Weldon [Primary Care Provider] - Discharge Data Discharge Date/Time-TO BE ENTERED AT DEPARTURE: 03/21/22 21:24 Medical Decision Making <Lee Ann Clinton NP - Last Filed: 03/22/22 23:29> Work-up ordered including EKG, serial troponins, CT head, chest x-ray. Differential diagnosis includes but not limited to CVA, NE, NSTEMI, hypoglycemia. Patient does present with a DNR/DNI order with a do not transfer orders and comfort measures only. Patient's daughter is here at bedside. I will discuss plan of care with patient and family to determine if they're agreeable. Care is to be handed off to oncoming provider DEENA Gardner pending work-up and disposition. Medical Records Medical records reviewed: Yes I reviewed the patient's medical records. <DEENA Gardner - Last Filed: 03/21/22 21:52> Work-up ordered including EKG, serial troponins, CT head, chest x-ray. Differential diagnosis includes but not limited to CVA, NE, NSTEMI, hypoglycemia. Patient does present with a DNR/DNI order with a do not transfer orders and comfort measures only. Patient's daughter is here at bedside. I will discuss plan of care with patient and family to determine if they're agreeable. Care is to be handed off to oncoming provider DEENA Gardner pending work-up and disposition. care accepted in transfer from pending CT scan and mom Patient with MRI and MRA that did not show acute abnormality Patient has notable hypoglycemia, 63, this was supplemented with juice and patient will repeat sugar Patient reported marked improvement in symptoms Urinalysis does not show obvious evidence of infection MRI results were reviewed with Dr. Rodriguez and virtual radiology revealed Patient has a known focal neurological exam and is at her baseline [place] the differentials including TIA versus hypoglycemia and patient feels comfortable being discharged back to the [facility] where she has full level of care Patient is DNR/DNI comfort measures only and I did confirm with daughter and patient that she did want definitive evaluation I also recommended she speak with her provider regarding the new transfer order as she was transferred here with her symptoms Patient discharged home in stable condition with stable vital with improvement in symptoms She will need to decrease her insulin as this is likely contributing to her hypoglycemia in the presence of chronic kidney disease mild elevation in her baseline renal disease repeat blood glucose 160 Return precautions discussed and patient and daughter's understanding HPI <Lee Ann Clinton NP - Last Filed: 03/22/22 23:29> General Mode of arrival: EMS . Date/Time Provider Initiated Documentation: 03/21/22 14:56 . Limitations to Documentation: no limitations and altered mental status . Information obtained by: patient, RN/MD ([facility] staff), EMS, RN notes reviewed and old records reviewed . HPI Narrative: 81-year-old female presents to the ER via EMS after acute onset of altered mental status, left-sided weakness and slurred speech, and somnolence. Patient reports that they were playing [employer] game when she stood up and had a severe sharp pain in the back of her neck. She reports that radiates up to her head and her left side of her face feels funny. She denies any chest pain shortness of breath denies any nausea vomiting diarrhea. She does have some slightly weak left motor exam. Decreased left-sided shoulder shrug, no significant facial droop, she does have noted slurred speech pupils are 2 mm and sluggish bilaterally, she does have decreased left-sided leg lift. No pronator drift. She is alert and oriented x3. GCS is 14. [facility] 116. Past medical history includes coronary artery disease, sleep apnea, diastolic heart failure, obesity, paroxysmal atrial fibrillation ablation, acute on chronic heart failure, insulin dependant diabetes, generalized anxiety disorder, hypertension hyperlipidemia. She does have a history of cardiac cath and artery stent in 2019. She does take apixaban daily. Related Data Home Medications Medication Instructions Recorded Confirmed albuterol sulfate 90 mcg/actuation 2 inh inhalation Q4H PRN 05/23/21 03/21/22 aerosol inhaler (Ventolin HFA) aspirin 81 mg tablet,delayed 81 mg PO DAILY 05/23/21 01/12/22 release (Adult Low Dose Aspirin) atorvastatin 40 mg tablet 40 mg PO DAILY 05/23/21 03/21/22 cetirizine 10 mg tablet (All Day 5 mg PO DAILY PRN 05/23/21 03/21/22 Allergy (cetirizine)) cholecalciferol (vitamin D3) 50 4,000 unit PO DAILY 05/23/21 03/21/22 mcg (2,000 unit) capsule famotidine 20 mg tablet 20 mg PO DAILY 05/23/21 03/21/22 ferrous sulfate 325 mg (65 mg 325 mg PO DAILY 05/23/21 01/12/22 iron) tablet fluticasone propionate 50 2 spray intranasal DAILY PRN 05/23/21 03/21/22 mcg/actuation nasal spray,suspension insulin aspart U-100 100 unit/mL See Rx Instructions subcut DAILY 05/23/21 03/21/22 (3 mL) subcutaneous pen isosorbide mononitrate 30 mg 30 mg PO DAILY 05/23/21 03/21/22 tablet,extended release 24 hr losartan 25 mg tablet 25 mg PO DAILY 05/23/21 03/21/22 metoclopramide HCl 5 mg tablet 5 mg PO QACHS 05/23/21 03/21/22 nabumetone 750 mg tablet 500 mg PO BID 05/23/21 03/21/22 nitroglycerin 0.4 mg sublingual 0.4 mg sublingual Q5-15M PRN 05/23/21 03/21/22 tablet apixaban 2.5 mg tablet 2.5 mg PO BID 06/09/21 03/21/22 budesonide-formoterol HFA 160 2 inh inhalation BID 06/09/21 03/21/22 mcg-4.5 mcg/actuation aerosol inhaler (Symbicort) furosemide 20 mg tablet (Lasix) 40 mg PO DAILY 06/09/21 03/21/22 labetalol 100 mg tablet 100 mg PO TID 06/09/21 03/21/22 pregabalin 300 mg capsule 175 mg PO BID 06/09/21 01/12/22 tiotropium bromide 2.5 2 inh inhalation BID 06/09/21 03/21/22 mcg/actuation mist for inhalation (Spiriva Respimat) acetaminophen 325 mg tablet 650 mg PO QID 09/19/21 01/12/22 acetaminophen 500 mg tablet 1,000 mg PO TID 09/19/21 01/12/22 buspirone 5 mg tablet 5 mg PO BID 09/19/21 01/12/22 cholestyramine (with sugar) 4 gram 4 g PO DAILY 09/19/21 01/12/22 oral powder (Questran) cyanocobalamin (vitamin B-12) 1,000 mcg subcut QMONTH 09/19/21 03/21/22 1,000 mcg/mL injection solution dulaglutide 3 mg/0.5 mL 1.5 mg subcut QWEEK 09/19/21 01/12/22 subcutaneous pen injector (Trulicity) insulin aspart U-100 100 unit/mL 10 unit subcut AC 09/19/21 03/21/22 (3 mL) subcutaneous pen insulin detemir U-100 100 unit/mL 10 unit subcut QHS 09/19/21 01/12/22 (3 mL) subcutaneous pen insulin detemir U-100 100 unit/mL 20 unit subcut QAM 09/19/21 03/21/22 subcutaneous solution (Levemir U-100 Insulin) melatonin 3 mg tablet 6 mg PO HS 09/19/21 03/21/22 spironolactone 25 mg tablet 25 mg PO DAILY 09/19/21 03/21/22 L. acidophilus,casei,rhamnosus 50 1 cap PO DAILY #30 caps 09/23/21 01/12/22 billion cell capsule,delayed release (Bio-K plus) psyllium husk (aspartame) 3.4 5.727829 g PO DAILY #660 grams 09/23/21 01/12/22 gram/5.8 gram oral powder (Metamucil [facility] Fiber) fluticasone fur. 100 mcg-umeclid 1 inh inhalation QID 03/21/22 03/21/22 62.5 mcg-vilant 25 mcg inhalat.powder (Trelegy Ellipta) ondansetron HCl 4 mg tablet 1 tab PO DAILY 03/21/22 03/21/22 Previous Rx's Medication Instructions Recorded L. acidophilus,casei,rhamnosus 50 1 cap PO DAILY #30 caps 09/23/21 billion cell capsule,delayed release (Bio-K plus) psyllium husk (aspartame) 3.4 5.614463 g PO DAILY #660 grams 09/23/21 gram/5.8 gram oral powder (Metamucil [facility] Fiber) Allergies Allergy/AdvReac Type Severity Reaction Status Date / Time codeine AdvReac Intermediate rash Verified 03/21/22 14:56 General Stated Complaint: GenMedical JENNIFER: 3 Review of Systems <Lee Ann Clinton NP - Last Filed: 03/22/22 23:29> Constitutional Constitutional: Reports as per HPI, Reports fatigue, Reports headache(s) and Reports weakness Eyes Eyes: Reports blurry vision and Reports change in vision ENT Ears, Nose, Mouth, and Throat: Reports headache(s) Cardiovascular Cardiovascular: Denies chest pain and Denies dyspnea Respiratory Respiratory: Denies chest congestion, Denies cough, Denies dyspnea and Denies wheezing Gastrointestinal Gastrointestinal: Denies abdominal pain, Denies diarrhea, Denies nausea and Denies vomiting Neurologic Neurologic: Reports as per HPI, Reports abnormal speech, Reports headache(s), Reports radicular pain, Denies convulsions and Reports weakness Endocrine Endocrine: Reports fatigue Allergic/Immunologic Allergic/Immunologic: Denies wheezing PFSH <Lee Ann Clinton NP - Last Filed: 03/22/22 23:29> All Active Problems (Updated 03/21/22 @ 20:41 by DEENA Gardner) Hypoglycemia (Acute) AMS (altered mental status) (Acute) Renal disease (Acute) Chronic diarrhea (Acute) Coronary artery disease (Chronic) Sleep apnea (Acute) severe ASHLYN sleep study 11/10/21 at [facility], CPAP therapy suggested RH Diastolic heart failure (Acute) Obesity (Chronic) PAF (paroxysmal atrial fibrillation) (Acute) Acute on chronic heart failure (Acute) Diabetes mellitus (Chronic) Medical History Depressive disorder JASON (generalized anxiety disorder) HTN (hypertension) with goal to be determined Mixed hyperlipidemia Retinopathy Vitamin D deficiency Surgical History H/O heart artery stent (~2019) [facility] History of cardiac cath (~2019) Social History Smoking/Tobacco Use Status: Former Tobacco Use Smoking risk assessment performed?: Yes Alcohol Intake: never Drug use: Never Substance use type: does not use Do you feel safe at home: Yes Exam <Lee Ann Clinton NP - Last Filed: 03/22/22 23:29> Narrative Exam Narrative: Constitutional: Alert and oriented x3. Appears stated age. Obese body habitus. Head: Normocephalic, no trauma. Eyes: Pupils PERRL, pupils are 2 mm pinpoint and brisk bilaterally, Red reflex noted, EOM's intact. Eyelids symmetrical without lesions, discharge, or swelling. ENT: Bilateral TM's WNL, External ear normal to inspection, no mastoid TTP, swelling, or erythema, Nasal turbinates WNL, no nasal discharge. Normal dentition, Posterior pharynx WNL, no exudate. Chest: RRR, Normal S1, S2, distal pulses intact. Resp: Lungs clear to auscultation bilaterally, no wheezes, rales, or rhonchi. Abdomen: Soft, non-distended, Normoactive bowel sounds all 4 quads. Musculoskeletal: Unable to assess gait. Skin: No suspicious rashes or lesions. Capillary refill less than 2 sec. GCS initially 14. Neurologic: Headaches, decreased left-sided shrug, decreased left-sided legs left, slurred speech. Hematologic/Lymphatic: No ecchymosis, no lymphadenopathy. Course <Lee Ann Clinton NP - Last Filed: 03/22/22 23:29> Vital Signs Vital signs: Vital Signs Temperature 36.4 C L 03/21/22 14:51 Pulse 65 03/21/22 14:51 Respiratory Rate 14 03/21/22 14:51 Blood Pressure 94/48 L 03/21/22 14:51 Pulse Oximetry 95 03/21/22 14:51 Temperature 36.4 C L 03/21/22 14:51 Temperature Source Temporal Artery Scan 03/21/22 14:51 Pulse 65 03/21/22 14:51 Respiratory Rate 14 03/21/22 14:51 Respiratory Effort Non-Labored 03/21/22 14:56 Respiratory Depth Normal 03/21/22 14:56 Respiratory Pattern Normal 03/21/22 14:56 Blood Pressure 94/48 L 03/21/22 14:51 Blood Pressure Position Supine 03/21/22 14:51 Pulse Oximetry 95 03/21/22 14:51 Oxygen Delivery Method Room Air 03/21/22 14:51 Oxygen Flow Rate 0 03/21/22 14:51 Sign Out <Lee Ann Clinton NP - Last Filed: 03/22/22 23:29> Sign Out Data: Sign Out Comment: AMS, Pending Troponin, labs, CXR. From QUAN, DNR, DNI, Differential, CVA, NE, Last updated by Lee Ann Clinton NP at 03/21/22 15:50
--- NOTE | 2022-03-21 15:45 | DI.MRI_ITS ---
Exam(s) MR BRAIN WO EXAM: MR BRAIN WO CLINICAL HISTORY: slurred speech, moscoso, vision change TECHNIQUE: Multiplanar multisequence MRI of the brain was performed. COMPARISON: MR MR ANGIO BRAIN WO from 03/21/2022 FINDINGS: VENTRICLES AND EXTRA AXIAL SPACES: Normal in size and morphology for the patient's age. MIDLINE SHIFT: None. CEREBRAL PARENCHYMA: No focus of restricted diffusion to suggest acute infarct. No space-occupying le chelsie identified. There are areas of hyperintense signal seen in the white matter consistent with smal l vessel ischemic disease. HEMORRHAGE: None. BRAINSTEM/CEREBELLUM: Normal. CALVARIUM: Normal. VISUALIZED PARANASAL SINUSES/MASTOIDS:Clear. [place]: Normal flow void. PITUITARY GLAND: Note is made of an empty sella. OTHER FINDINGS: None. IMPRESSION: 1. No acute infarct. No acute intracranial process. 2. Results of this exam have been verbally communicated with provider. DATA REPOSITORY:
--- NOTE | 2022-03-21 15:57 | DI.MRI_ITS ---
Exam(s) MR ANGIO BRAIN WO CLINICAL HISTORY: slurred speech, vision change, moscoso. TECHNIQUE: Multiplanar multisequence MRA of the brain was performed. COMPARISON: None. FINDINGS: Carotid Arteries: No aneurysm, occlusion or significant stenosis. Anterior Cerebral Arteries: Right: No aneurysm, occlusion or significant stenosis. Left: No aneurysm, occlusion or significant stenosis. Middle Cerebral Arteries: Right: No aneurysm, occlusion or significant stenosis. Left: No aneurysm, occlusion or significant stenosis. Posterior Cerebral Arteries: Right: No aneurysm, occlusion or significant stenosis. Left: No aneurysm, occlusion or significant stenosis. Vertebral Arteries: Right: No aneurysm, occlusion or significant stenosis. Left: No aneurysm, occlusion or significant stenosis. Basilar Artery: No aneurysm, occlusion or significant stenosis. IMPRESSION: 1. Normal MRA examination of the [place]. 2. Results of this exam have been verbally communicated with provider. DATA REPOSITORY:
--- NOTE | 2022-03-21 15:57 | DI.MRI_ITS ---
Exam(s) MR ANGIO NECK WO EXAM: MR ANGIO NECK WO CLINICAL HISTORY: slurred speech, vision change,, moscoso. TECHNIQUE: Multiplanar multisequence MRA of the Neck was performed. COMPARISON: No exams were available for comparison FINDINGS: The examination is limited due to patient motion artifact. Common Carotid: Right: No dissection, occlusion or significant stenosis. Left: No dissection, occlusion or significant stenosis. External Carotid: Right: No evidence of occlusion or significant stenosis. Left: No evidence of occlusion or significant stenosis. Internal Carotid: Right: No dissection, occlusion or significant stenosis. Left: No dissection, occlusion or significant stenosis. Vertebral Artery: Right: No dissection, occlusion or significant stenosis. Left: No dissection, occlusion or significant stenosis. The visualized paraspinal soft tissues are unremarkable. IMPRESSION: 1. No evidence of dissection, occlusion or significant stenosis. 2. The examination is limited due to patient motion artifact. DATA REPOSITORY:
[2022-03-21 16:23] LABS: Absolute Basophil Count 0.03 10^3/uL (0.0-0.2); Absolute Lymphocyte Count 1.87 10^3/uL (1.2-3.4); Absolute Monocyte Count 1.09 10^3/uL (0.1-0.8); Absolute Neutrophil Count 6.27 10^3/uL (1.2-6.7); Basophils % 0.3; Eosinophils % 4.1; HCT 35.9 % (36.0-46.0); HGB 11.5 g/dL (11.2-15.7); Lymphocytes % 19.2; MCH 30.5 pg (27.0-33.0); MCV 95 fL (80-95); MPV 10.1 fL (8.0-11.0); Monocytes % 11.2; Neutrophils % 64.2; Platelet Count 301 10^3/uL (130-400); RBC 3.77 10^6/uL (3.93-5.22); RDW 13.3 % (11.7-14.6); RDW-SD 45.6 fL; WBC 9.76 10^3/uL (4.4-10.8)
[2022-03-21 16:34] LABS: ALT 24 U/L (14-59); AST 11 U/L (15-37); Albumin 3.3 g/dL (3.4-5.0); Alkaline Phosphatase 76 U/L (46-116); Anion Gap 6.3 mmol/L (3-11); BUN 27 mg/dL (7-18); Bilirubin, Total 0.7 mg/dL (0.2-1.0); CO2 32.7 mmol/L (21.0-32.0); CREATININE 1.7 mg/dL (0.55-1.02); Calcium 9.2 mg/dL (8.5-10.1); Chloride 101 mmol/L (98-107); Estimated GFR 28.92 (mL/min/1.73m2); Glucose 69 mg/dL (74-106); Potassium 4.4 mmol/L (3.5-5.1); Sodium 140 mmol/L (136-145); Total Protein 6.5 g/dL (6.4-8.2); Troponin I < 50 ng/L (<or=60)
--- NOTE | 2022-03-21 17:27 | DI.VRAD_ITS ---
PROCEDURE INFORMATION: Exam: MRA Neck Without Contrast Exam date and time: 03/21/2022 4:24 PM Age: 81 years old Clinical indication: Speech disturbance and visual disturbance; Slurred speech; Type not specified; Additional info: Poor image quality due to motion and body habitus TECHNIQUE: Imaging protocol: Magnetic resonance angiography of the neck without contrast. [id number] (TOF) technique was utilized for this exam. COMPARISON: CT HEAD WO 03/21/2022 3:22 PM FINDINGS: Poor image quality due to motion artifact. Right common carotid artery: No stenosis. No dissection or occlusion. Right internal carotid artery: No obvious hemodynamically significant stenosis of the extracranial segment. No dissection or occlusion. Right external carotid artery: No stenosis. No dissection or occlusion of the origin. Right vertebral artery: No stenosis. No dissection or occlusion. Left common carotid artery: No stenosis. No dissection or occlusion. Left internal carotid artery: No obvious hemodynamically significant stenosis of the extracranial segment. No dissection or occlusion. Left external carotid artery: No stenosis. No dissection or occlusion of the origin. Left vertebral artery: No stenosis. No dissection or occlusion. IMPRESSION: No obvious hemodynamically significant stenosis or occlusion. Mition limited study. REFERENCES: NASCET CRITERIA. The degree of internal carotid artery stenosis is based on NASCET criteria. Normal is no stenosis. Mild is less than 50% stenosis. Moderate is 50-69% stenosis. Severe is 70% to 99% stenosis. Total occlusion is no detectable patent lumen. Dictated and Authenticated by: David Johnson MD. Ordering:TYRELL Stewart MD
[2022-03-21] MEDS: Acetaminophen 325 MG TAB 650 MG PO (17:55)
[2022-03-21 17:56] LABS: Bilirubin Small (Negative); Blood Negative (Negative); Clarity Clear (Clear); Glucose Negative (Negative); Ketones 15 mg/dL (Negative); Leukocyte Esterase Negative (Negative); Nitrite Negative (Negative); Specific Gravity 1.025 (1.005-1.025); Urobilinogen 0.2 EU/dL (Up TO 0.2); pH 5.5 (5-8)
--- NOTE | 2022-03-21 18:00 | RT.EKG_ITS ---
APPROVED REPORT Exam: Resting ECG Reason for Exam: sara Patient Location: E HR:57 bpm ECG Measurements Heart Rate 57 AXIS UT 219 P 21 QRSd 151 QRS -1 QT 464 T 38 QTc 454 Conclusion Sinus bradycardia...rate< 60 Borderline prolonged UT interval...UT >212, V-rate 50- 90 Right bundle branch block...QRSd>120, terminal axis(90,270). Inferior infarct, old...Q >35mS, II III aVF. Sinus. RBBB. No STEMI. No significant change from previous EKG. I have reviewed and interpreted ECG and agree with software generated interpretation.
[2022-03-21 18:19] LABS: NT-proBNP 834 pg/mL (<300)
[2022-03-21 18:41] LABS: Bacteria Negative HPF (Negative); C & S Indicated? Yes; Casts Negative LPF (Negative); Crystals Negative HPF (Negative); Epithelial Cells Negative HPF (Negative); Mucus Negative (Negative); Other Cells Few Transitional (Negative); RBC 0-2 HPF (0-2)
[2022-03-21 19:59] LABS: Troponin I < 50 ng/L (<or=60)
== END 2022-03-21 21:24 | disposition home or self-care (01) ==
PROVIDERS: Registered Nurse Emergency; Emergency Provider Physician Assistant; PCP Internal Medicine
DX: R41.82 Altered mental status, unspecified (principal); R47.81 Slurred speech; E11.649 Type 2 diabetes mellitus with hypoglycemia without coma; M25.512 Pain in left shoulder; R53.1 Weakness; R29.818 Other symptoms and signs involving the nervous system; I13.0 Hypertensive heart and chronic kidney disease with heart failure and stage 1 through stage 4 chronic kidney disease, or unspecified chronic kidney disease; E11.22 Type 2 diabetes mellitus with diabetic chronic kidney disease; N18.9 Chronic kidney disease, unspecified; I50.33 Acute on chronic diastolic (congestive) heart failure
CPT/HCPCS: 36416; 51701; 70544; 70547; 80053; 82962; 93005; 99285; 70450; 70551; 71045; 81003; 81015; 83735; 83880; 84484; 85025; 87086; 93010; 99284

== ENCOUNTER 2022-03-21 17:52 | Outpatient (REF) | payer MEDICARE, MEDICAID, SELFPAY | END 2022-03-21 17:53 | disposition home or self-care (01) | LOC: LBN 17:52 | PROVIDERS: PCP Internal Medicine; Visit Provider Nurse Practitioner Gerontology ==

== ENCOUNTER 2022-03-28 17:04 | Outpatient (REF) | payer MEDICARE, MEDICAID, SELFPAY ==
[2022-03-28 17:58] LABS: Abs Immature Grans 0.02 10^3/uL (0.0-0.06); Absolute Basophil Count 0.05 10^3/uL (0.0-0.2); Absolute Eosinophil Count 0.32 10^3/uL (0.0-0.7); Absolute Lymphocyte Count 1.11 10^3/uL (1.2-3.4); Absolute Monocyte Count 0.83 10^3/uL (0.1-0.8); Absolute Neutrophil Count 4.31 10^3/uL (1.2-6.7); Basophils % 0.8; Eosinophils % 4.8; HCT 34.4 % (36.0-46.0); HGB 11.1 g/dL (11.2-15.7); Immature Grans % 0.3; Lymphocytes % 16.7; MCH 30.7 pg (27.0-33.0); MCHC 32.3 % (32.0-36.0); MCV 95 fL (80-95); MPV 10.6 fL (8.0-11.0); Monocytes % 12.5; Neutrophils % 64.9; Platelet Count 291 10^3/uL (130-400); RBC 3.61 10^6/uL (3.93-5.22); RDW 13.3 % (11.7-14.6); RDW-SD 47.2 fL; WBC 6.64 10^3/uL (4.4-10.8)
[2022-03-28 18:41] LABS: ALT 26 U/L (14-59); AST 11 U/L (15-37); Albumin 3.2 g/dL (3.4-5.0); Alkaline Phosphatase 91 U/L (46-116); BUN 21 mg/dL (7-18); Bilirubin, Total 0.4 mg/dL (0.2-1.0); CREATININE 1.6 mg/dL (0.55-1.02); Calcium 9.5 mg/dL (8.5-10.1); Chloride 99 mmol/L (98-107); Estimated GFR 31.01 (mL/min/1.73m2); Glucose 207 mg/dL (74-106); NT-proBNP 237 pg/mL (<300); Potassium 4.7 mmol/L (3.5-5.1); Sodium 138 mmol/L (136-145); Total Protein 6.2 g/dL (6.4-8.2)
== END 2022-03-28 17:05 | disposition home or self-care (01) ==
LOC: LBN 17:04
PROVIDERS: PCP Internal Medicine; Visit Provider Nurse Practitioner Gerontology
DX: E11.40 Type 2 diabetes mellitus with diabetic neuropathy, unspecified (principal); I50.33 Acute on chronic diastolic (congestive) heart failure; R53.1 Weakness; I10 Essential (primary) hypertension; I73.9 Peripheral vascular disease, unspecified
CPT/HCPCS: 80053; 83880; 85025

== ENCOUNTER 2022-04-10 14:32 | Outpatient (REF) | payer MEDICARE, MEDICAID, SELFPAY ==
[2022-04-10 16:49] LABS: Anion Gap 11.3 mmol/L (3-11); BUN 29 mg/dL (7-18); CO2 29.7 mmol/L (21.0-32.0); CREATININE 2.2 mg/dL (0.55-1.02); Calcium 9.4 mg/dL (8.5-10.1); Calculated LDL 61 mg/dL (<100); Chloride 100 mmol/L (98-107); Cholesterol 150 mg/dL (<200); Estimated GFR 21.48 (mL/min/1.73m2); Glucose 211 mg/dL (74-106); HDL Cholesterol 39 mg/dL (40-60); Sodium 141 mmol/L (136-145); Triglyceride 252 mg/dL (<150)
[2022-04-10 17:15] LABS: Hemoglobin A1C 7.3 % (<5.7)
== END 2022-04-10 14:33 | disposition home or self-care (01) ==
LOC: LBN 14:32
PROVIDERS: PCP Internal Medicine; Visit Provider Nurse Practitioner Gerontology
DX: E11.69 Type 2 diabetes mellitus with other specified complication (principal); I10 Essential (primary) hypertension; E78.5 Hyperlipidemia, unspecified
CPT/HCPCS: 80048; 80061; 83036

== ENCOUNTER 2022-05-02 19:42 | Outpatient (REF) | payer MEDICARE, MEDICAID, SELFPAY ==
[2022-05-02 20:12] LABS: ALT 13 U/L (14-59); AST 16 U/L (15-37); Albumin 3.2 g/dL (3.4-5.0); Alkaline Phosphatase 94 U/L (46-116); Anion Gap 11.6 mmol/L (3-11); BUN 31 mg/dL (7-18); Bilirubin, Total 0.4 mg/dL (0.2-1.0); CO2 25.4 mmol/L (21.0-32.0); CREATININE 1.5 mg/dL (0.55-1.02); Calcium 9.2 mg/dL (8.5-10.1); Chloride 103 mmol/L (98-107); Estimated GFR 33.41 (mL/min/1.73m2); Glucose 245 mg/dL (74-106); Potassium 5.2 mmol/L (3.5-5.1); Sodium 140 mmol/L (136-145); Total Protein 6.5 g/dL (6.4-8.2)
== END 2022-05-02 19:43 | disposition home or self-care (01) ==
LOC: LBN 19:42
PROVIDERS: PCP Internal Medicine; Visit Provider Nurse Practitioner Gerontology
DX: E11.40 Type 2 diabetes mellitus with diabetic neuropathy, unspecified (principal); I25.10 Atherosclerotic heart disease of native coronary artery without angina pectoris; E66.01 Morbid (severe) obesity due to excess calories; J84.9 Interstitial pulmonary disease, unspecified; M62.81 Muscle weakness (generalized)
CPT/HCPCS: 80053

== ENCOUNTER 2022-05-08 16:14 | Outpatient (REF) | payer MEDICARE, MEDICAID, SELFPAY ==
[2022-05-08 16:30] LABS: Abs Immature Grans 0.04 10^3/uL (0.0-0.06); Absolute Basophil Count 0.03 10^3/uL (0.0-0.2); Absolute Eosinophil Count 0.42 10^3/uL (0.0-0.7); Absolute Lymphocyte Count 1.63 10^3/uL (1.2-3.4); Absolute Monocyte Count 0.78 10^3/uL (0.1-0.8); Absolute Neutrophil Count 3.45 10^3/uL (1.2-6.7); Basophils % 0.5; Eosinophils % 6.6; HCT 33.6 % (36.0-46.0); HGB 10.9 g/dL (11.2-15.7); Immature Grans % 0.6; Lymphocytes % 25.7; MCH 30.3 pg (27.0-33.0); MCHC 32.4 % (32.0-36.0); MCV 93 fL (80-95); MPV 10.3 fL (8.0-11.0); Monocytes % 12.3; Neutrophils % 54.3; Platelet Count 310 10^3/uL (130-400); RDW-SD 44.4 fL; WBC 6.35 10^3/uL (4.4-10.8)
[2022-05-08 17:08] LABS: ALT 18 U/L (14-59); AST 13 U/L (15-37); Albumin 3.2 g/dL (3.4-5.0); Alkaline Phosphatase 91 U/L (46-116); Anion Gap 10.2 mmol/L (3-11); BUN 31 mg/dL (7-18); Bilirubin, Total 0.2 mg/dL (0.2-1.0); CO2 24.8 mmol/L (21.0-32.0); CREATININE 1.7 mg/dL (0.55-1.02); Calcium 8.9 mg/dL (8.5-10.1); Chloride 104 mmol/L (98-107); Estimated GFR 28.92 (mL/min/1.73m2); Glucose 211 mg/dL (74-106); Potassium 4.8 mmol/L (3.5-5.1); Sodium 139 mmol/L (136-145); TSH (W/Ref FT4) 0.74 uIU/mL (0.36-3.74); Total Protein 6.4 g/dL (6.4-8.2)
[2022-05-09 08:03] LABS: NT-proBNP 139 pg/mL (<300)
== END 2022-05-08 16:15 | disposition home or self-care (01) ==
LOC: LBN 16:14
PROVIDERS: PCP Internal Medicine; Visit Provider Nurse Practitioner Gerontology
DX: R53.1 Weakness (principal); K66.8 Other specified disorders of peritoneum; K52.9 Noninfective gastroenteritis and colitis, unspecified; K63.1 Perforation of intestine (nontraumatic)
CPT/HCPCS: 80053; 83880; 84443; 85025

== ENCOUNTER → 2022-05-09 09:33 | Outpatient (BNVA) | payer MEDICARE, MEDICAID, SELFPAY | PROVIDERS: PCP Internal Medicine; Referring Provider Internal Medicine; Visit Provider Internal Medicine Cardiovascular Disease | DX: Z99.89 Dependence on other enabling machines and devices (principal); Z79.01 Long term (current) use of anticoagulants; I25.10 Atherosclerotic heart disease of native coronary artery without angina pectoris; I50.30 Unspecified diastolic (congestive) heart failure; I48.0 Paroxysmal atrial fibrillation; G47.30 Sleep apnea, unspecified | CPT/HCPCS: 99214; 99213 ==

== ENCOUNTER 2022-05-24 14:33 | Outpatient (REF) | payer MEDICARE, MEDICAID, SELFPAY ==
[2022-05-24 15:23] LABS: ALT 15 U/L (14-59); AST 9 U/L (15-37); Albumin 3.6 g/dL (3.4-5.0); Alkaline Phosphatase 97 U/L (46-116); Anion Gap 6.6 mmol/L (3-11); BUN 26 mg/dL (7-18); Bilirubin, Total 0.3 mg/dL (0.2-1.0); CO2 28.4 mmol/L (21.0-32.0); CREATININE 1.5 mg/dL (0.55-1.02); Calcium 9.8 mg/dL (8.5-10.1); Chloride 101 mmol/L (98-107); Estimated GFR 35.01 (mL/min/1.73m2); Glucose 217 mg/dL (74-106); Potassium 4.7 mmol/L (3.5-5.1); Sodium 136 mmol/L (136-145); Total Protein 6.9 g/dL (6.4-8.2)
== END 2022-05-24 14:34 | disposition home or self-care (01) ==
LOC: LBN 14:33
PROVIDERS: PCP Internal Medicine; Visit Provider Nurse Practitioner Gerontology
DX: E11.40 Type 2 diabetes mellitus with diabetic neuropathy, unspecified (principal); R53.1 Weakness; I25.10 Atherosclerotic heart disease of native coronary artery without angina pectoris
CPT/HCPCS: 80053

== ENCOUNTER 2022-06-06 21:40 | Outpatient (REF) | payer MEDICARE, MEDICAID, SELFPAY ==
[2022-06-06 17:53] LABS: Abs Immature Grans 0.02 10^3/uL (0.0-0.06); Absolute Basophil Count 0.01 10^3/uL (0.0-0.2); Absolute Lymphocyte Count 0.66 10^3/uL (1.2-3.4); Absolute Monocyte Count 0.13 10^3/uL (0.1-0.8); Absolute Neutrophil Count 5.95 10^3/uL (1.2-6.7); Basophils % 0.1; HCT 38.6 % (36.0-46.0); HGB 12.6 g/dL (11.2-15.7); Immature Grans % 0.3; Lymphocytes % 9.7; MCH 29.4 pg (27.0-33.0); MCHC 32.6 % (32.0-36.0); MCV 90 fL (80-95); MPV 10.2 fL (8.0-11.0); Monocytes % 1.9; Platelet Count 308 10^3/uL (130-400); RBC 4.28 10^6/uL (3.93-5.22); RDW 13.3 % (11.7-14.6); RDW-SD 43.8 fL; WBC 6.77 10^3/uL (4.4-10.8)
[2022-06-06 18:34] LABS: ALT 23 U/L (14-59); AST 9 U/L (15-37); Albumin 3.4 g/dL (3.4-5.0); Alkaline Phosphatase 90 U/L (46-116); Anion Gap 7.7 mmol/L (3-11); BUN 43 mg/dL (7-18); Bilirubin, Total 0.4 mg/dL (0.2-1.0); CO2 27.3 mmol/L (21.0-32.0); CREATININE 1.9 mg/dL (0.55-1.02); Calcium 9.1 mg/dL (8.5-10.1); Chloride 100 mmol/L (98-107); Estimated GFR 26.36 (mL/min/1.73m2); Glucose 308 mg/dL (74-106); NT-proBNP 157 pg/mL (<300); Potassium 5.3 mmol/L (3.5-5.1); Sodium 135 mmol/L (136-145); Total Protein 6.8 g/dL (6.4-8.2)
== END 2022-06-06 21:41 | disposition home or self-care (01) ==
LOC: LBN 21:40
PROVIDERS: PCP Internal Medicine; Visit Provider Nurse Practitioner Gerontology
DX: I50.33 Acute on chronic diastolic (congestive) heart failure (principal); I48.0 Paroxysmal atrial fibrillation; E11.40 Type 2 diabetes mellitus with diabetic neuropathy, unspecified; I10 Essential (primary) hypertension; E66.01 Morbid (severe) obesity due to excess calories
CPT/HCPCS: 80053; 83880; 85025

== ENCOUNTER 2022-06-13 22:47 | Outpatient (REF) | payer SELFPAY ==
[2022-06-13 20:01] LABS: Abs Immature Grans 0.06 10^3/uL (0.0-0.06); Absolute Basophil Count 0.02 10^3/uL (0.0-0.2); Absolute Lymphocyte Count 0.33 10^3/uL (1.2-3.4); Absolute Monocyte Count 0.36 10^3/uL (0.1-0.8); Absolute Neutrophil Count 6.15 10^3/uL (1.2-6.7); Basophils % 0.3; HCT 40.4 % (36.0-46.0); Immature Grans % 0.9; Lymphocytes % 4.8; MCH 29.6 pg (27.0-33.0); MCHC 32.2 % (32.0-36.0); MCV 92 fL (80-95); Monocytes % 5.2; Neutrophils % 88.8; RBC 4.39 10^6/uL (3.93-5.22); RDW 13.1 % (11.7-14.6); RDW-SD 44.2 fL; WBC 6.92 10^3/uL (4.4-10.8)
[2022-06-13 20:21] LABS: ALT 22 U/L (14-59); AST 16 U/L (15-37); Albumin 3.2 g/dL (3.4-5.0); Alkaline Phosphatase 68 U/L (46-116); Anion Gap 12.9 mmol/L (3-11); BUN 72 mg/dL (7-18); Bilirubin, Total 0.3 mg/dL (0.2-1.0); CO2 20.1 mmol/L (21.0-32.0); CREATININE 1.8 mg/dL (0.55-1.02); Calcium 8.9 mg/dL (8.5-10.1); Chloride 95 mmol/L (98-107); Estimated GFR 28.13 (mL/min/1.73m2); Glucose 454 mg/dL (74-106); NT-proBNP 521 pg/mL (<300); Potassium 5.4 mmol/L (3.5-5.1); Sodium 128 mmol/L (136-145); Total Protein 6.4 g/dL (6.4-8.2)
[2022-06-13 20:22] LABS: Hemoglobin A1C 9.6 % (<5.7)
== END 2022-06-13 22:48 | disposition home or self-care (01) ==
LOC: LBN 22:47
PROVIDERS: PCP Internal Medicine; Visit Provider Nurse Practitioner Gerontology
DX: E11.40 Type 2 diabetes mellitus with diabetic neuropathy, unspecified (principal); I50.33 Acute on chronic diastolic (congestive) heart failure; I10 Essential (primary) hypertension; I25.10 Atherosclerotic heart disease of native coronary artery without angina pectoris; I48.0 Paroxysmal atrial fibrillation
CPT/HCPCS: 80053; 83036; 83880; 85025

== ENCOUNTER 2022-06-19 17:19 | Outpatient (REF) | payer MEDICARE, MEDICAID, SELFPAY ==
[2022-06-19 19:47] LABS: Bilirubin Color Interference (Negative); Blood Color Interference (Negative); Clarity Sl Cloudy (Clear); Glucose Color Interference mg/dL (Negative); Ketones Color Interference mg/dL (Negative); Leukocyte Esterase Color Interference (Negative); Nitrite Color Interference (Negative); Specific Gravity 1.009 (1.005-1.025); Urobilinogen Color Interference EU/dL (Up TO 0.2)
[2022-06-19 19:57] LABS: Bacteria Many HPF (Negative); Casts Negative LPF (Negative); Crystals Negative HPF (Negative); Epithelial Cells Negative HPF (Negative); Mucus Negative (Negative); Other Cells Few Renal (Negative); RBC Negative HPF (0-2); WBC >50 HPF (0-5)
[2022-06-19 19:58] LABS: C & S Indicated? C&S Done As Ordered
== END 2022-06-19 17:20 | disposition home or self-care (01) ==
LOC: LBN 17:19
PROVIDERS: PCP Internal Medicine
DX: E11.40 Type 2 diabetes mellitus with diabetic neuropathy, unspecified (principal); I50.33 Acute on chronic diastolic (congestive) heart failure; I10 Essential (primary) hypertension; E78.5 Hyperlipidemia, unspecified; R30.9 Painful micturition, unspecified
CPT/HCPCS: 87077; 81003; 81015; 87086; 87186

== ENCOUNTER 2022-06-20 18:48 | Outpatient (REF) | payer MEDICARE, MEDICAID, SELFPAY ==
[2022-06-20 22:16] LABS: Anion Gap 8.8 mmol/L (3-11); BUN 42 mg/dL (7-18); CO2 24.2 mmol/L (21.0-32.0); Calcium 9.2 mg/dL (8.5-10.1); Chloride 100 mmol/L (98-107); Estimated GFR 24.79 (mL/min/1.73m2); Glucose 326 mg/dL (74-106); Sodium 133 mmol/L (136-145)
== END 2022-06-20 18:49 | disposition home or self-care (01) ==
LOC: LBN 18:48
PROVIDERS: PCP Internal Medicine; Visit Provider Nurse Practitioner Gerontology
DX: R68.89 Other general symptoms and signs (principal)
CPT/HCPCS: 80048

== ENCOUNTER 2022-06-27 12:41 | Outpatient (REF) | payer MEDICARE, MEDICAID, SELFPAY ==
[2022-06-27 17:55] LABS: Anion Gap 12.3 mmol/L (3-11); BUN 23 mg/dL (7-18); CO2 23.7 mmol/L (21.0-32.0); CREATININE 1.7 mg/dL (0.55-1.02); Calcium 9.4 mg/dL (8.5-10.1); Chloride 99 mmol/L (98-107); Estimated GFR 30.13 (mL/min/1.73m2); Glucose 254 mg/dL (74-106); NT-proBNP 310 pg/mL (<300); Potassium 5.2 mmol/L (3.5-5.1); Sodium 135 mmol/L (136-145)
== END 2022-06-27 12:42 | disposition home or self-care (01) ==
LOC: LBN 12:41
PROVIDERS: PCP Internal Medicine; Visit Provider Nurse Practitioner Gerontology
DX: E11.40 Type 2 diabetes mellitus with diabetic neuropathy, unspecified (principal); G47.30 Sleep apnea, unspecified; I50.33 Acute on chronic diastolic (congestive) heart failure; I48.0 Paroxysmal atrial fibrillation; I25.10 Atherosclerotic heart disease of native coronary artery without angina pectoris; J84.9 Interstitial pulmonary disease, unspecified
CPT/HCPCS: 80048; 83880

== ENCOUNTER → 2022-06-30 01:00 | Outpatient (CLI) | payer MEDICARE, MEDICAID, SELFPAY ==
--- OUTSIDE RECORDS SUMMARY | 2022-06-30 01:06 | XMS_ITS | Encounter Summary ---
:[address] [facility] Address [address] [place] [address] Care Team Providers Name Role Phone Unavailable Primary Care Provider Unavailable Encounter Details Date Type Department Care Team Description 05/24/2021 Lab Requisition [facility] Outr Resulting Lab, Pathology & Laboratory Provider [facility] [address] [place] [address] Social History Tobacco Use Types Packs/Day Years Used Date Never Assessed Sex Assigned at Date Recorded Not on file documented as of this encounter Plan of Treatment Not on filedocumented as of this encounter Procedures Procedure Name Priority Date/Time Associated Diagnosis Comme nts MAGNESIUM Routine 05/24/2021 13:40 EDT Results for this procedure are i n the results section . documented in this encounter Results MAGNESIUM (05/24/2021 13:40 EDT) Pathologist Sig nature Magnesium 1.9 1.7 - 2.8 mg/dL [facility] Specimen Blood - Venous blood (substance) Performing Organization Address City/State/ZIP Code Phon e Number [facility] [address] [place] [address] SERVICES documented in this encounter Visit Diagnoses Not on filedocumented in this encounter
--- OUTSIDE RECORDS SUMMARY | 2022-06-30 01:06 | XMS_ITS | Encounter Summary ---
:1940 Author Organization [facility] Address [address] [place] [address] Care Team Providers Name Role Phone Unavailable Primary Care Provider Unavailable Encounter Details Date Type Department Care Team Description 09/23/2021 Lab Requisition [facility] Outr Resulting Lab, Pathology & Laboratory Provider [facility] [address] [place] [address] Social History Tobacco Use Types Packs/Day Years Used Date Never Assessed Sex Assigned at Date Recorded Not on file documented as of this encounter Plan of Treatment Not on filedocumented as of this encounter Procedures Procedure Name Priority Date/Time Associated Diagnosis Comme nts OVA/PARASITE EXAM Routine 09/23/2021 4:00 EST Res ults for this procedure are i n the results section. documented in this encounter Results OVA/PARASITE EXAM (09/23/2021 4:00 EST) Pathologist Sig nature Parasite No ova and parasites [facility] seen. [facility] Specimen Feces - Specimen from rectum (specimen) Narrative [facility] - 09/26/2021 14:27 EST (If Cryptosporidium, Cyclospora, or Micr osporidium are suspected, specific tests must be requested.) Single negative specimen does not rule out the possibility of a parasitic infection. Performing Organization Address City/State/ZIP Code Phon e Number [facility] [address] [place] [address] SERVICES documented in this encounter Visit Diagnoses Not on filedocumented in this encounter
--- OUTSIDE RECORDS SUMMARY | 2022-06-30 01:06 | XMS_ITS | Clinical Summary ---
:1940 Author Organization [facility] Address [address] [place] [address] Care Team Providers Name Role Phone Unavailable Primary Care Provider Unavailable Social History Tobacco Use Types Packs/Day Years Used Date Never Assessed Sex Assigned at Date Recorded Not on file Plan of Treatment Health Maintenance Due Date Last Done Comments Hepatitis C Screen 1940 COVID-19 Vaccine (1) 1946 Fall Risk Screening 2006
--- NOTE | 2022-06-30 09:19 | DI.CT_ITS ---
Exam(s) CT HEAD WO EXAM: CT HEAD WO CLINICAL HISTORY: CHANGE IN MENTAL STATUS AND MEMORY. TECHNIQUE: Imaging Protocol: Axial computed tomography images with coronal and sagittal reformatted images were created and reviewed COMPARISON: CT CT HEAD WO from 03/21/2022 FINDINGS: There are no skull fractures. Mild fluid evident in the right sphenoid sinus. Remainder of the par anasal sinuses are clear as are the mastoid air cells and no fluid in the middle ear cavities. There is no evidence of intracranial hemorrhage, mass effect, or shift of midline structures. There are no extra-axial fluid collections. The ventricles are not enlarged or shifted and there is no blo od within the ventricular system nor within the basal cisterns. There is mild bilateral periventricular hypodensity consistent with chronic small vessel disease. No obvious acute territorial infarct. IMPRESSION: No acute intracranial findings on this noninfused CT scan of the brain. Mild periventricular white matter ischemic changes, similar to previous. This is again noted be most prominent around the frontal horns of the lateral ventricles. RADIATION DOSE DELIVERED: 827.58mGy.cm Total DLP DATA REPOSITORY: All CT scans at this facility are submitted to the National Radiology Data Registry (NRDR) Dose Index Registry (DIR) with the [employer] (A[employer]). RADIATION OPTIMIZATION: All CT scans at this facility use at least one of these dose optimization te chniques: automated exposure control; mA and/or kV adjustment per patient size (includes targeted exa ms where dose is matched to clinical indication); or iterative reconstruction.
== END ==
PROVIDERS: PCP Internal Medicine; Visit Provider Nurse Practitioner Gerontology
DX: G93.89 Other specified disorders of brain (principal)
CPT/HCPCS: 70450

== ENCOUNTER 2022-07-04 16:00 | Outpatient (REF) | payer MEDICARE, MEDICAID, SELFPAY ==
[2022-07-04 16:17] LABS: Abs Immature Grans 0.13 10^3/uL (0.0-0.06); Absolute Basophil Count 0.04 10^3/uL (0.0-0.2); Absolute Eosinophil Count 0.27 10^3/uL (0.0-0.7); Absolute Lymphocyte Count 0.94 10^3/uL (1.2-3.4); Absolute Monocyte Count 0.77 10^3/uL (0.1-0.8); Absolute Neutrophil Count 1.88 10^3/uL (1.2-6.7); Eosinophils % 6.7; HCT 32.2 % (36.0-46.0); HGB 10.2 g/dL (11.2-15.7); Immature Grans % 3.2; Lymphocytes % 23.3; MCH 29.2 pg (27.0-33.0); MCHC 31.7 % (32.0-36.0); MCV 92 fL (80-95); MPV 10.1 fL (8.0-11.0); Monocytes % 19.1; Neutrophils % 46.7; Nucleated RBC 0.5 % (0.0-0.3); Platelet Count 412 10^3/uL (130-400); RBC 3.49 10^6/uL (3.93-5.22); RDW 14.4 % (11.7-14.6); RDW-SD 48.5 fL; WBC 4.03 10^3/uL (4.4-10.8)
[2022-07-04 17:40] LABS: ALT 16 U/L (14-59); AST 12 U/L (15-37); Albumin 2.7 g/dL (3.4-5.0); Alkaline Phosphatase 93 U/L (46-116); Anion Gap 5.8 mmol/L (3-11); BUN 23 mg/dL (7-18); Bilirubin, Total 0.2 mg/dL (0.2-1.0); CO2 34.2 mmol/L (21.0-32.0); CREATININE 1.5 mg/dL (0.55-1.02); Calcium 9.4 mg/dL (8.5-10.1); Chloride 100 mmol/L (98-107); Estimated GFR 35.01 (mL/min/1.73m2); Glucose 219 mg/dL (74-106); NT-proBNP 460 pg/mL (<300); Potassium 4.4 mmol/L (3.5-5.1); Sodium 140 mmol/L (136-145); Total Protein 5.7 g/dL (6.4-8.2)
== END 2022-07-04 16:01 | disposition home or self-care (01) ==
LOC: LBN 16:00
PROVIDERS: PCP Internal Medicine; Visit Provider Nurse Practitioner Gerontology
DX: R68.89 Other general symptoms and signs (principal); E11.40 Type 2 diabetes mellitus with diabetic neuropathy, unspecified; I50.33 Acute on chronic diastolic (congestive) heart failure
CPT/HCPCS: 80053; 83880; 85025

== ENCOUNTER 2022-07-07 16:44 | Outpatient (REF) | payer MEDICARE, MEDICAID, SELFPAY ==
--- OUTSIDE RECORDS SUMMARY | 2022-07-07 16:46 | XMS_ITS | Clinical Summary ---
:1940 Author Organization [facility] Address [address] [place] [address] Care Team Providers Name Role Phone Unavailable Primary Care Provider Unavailable Social History Tobacco Use Types Packs/Day Years Used Date Never Assessed Sex Assigned at Date Recorded Not on file Plan of Treatment Health Maintenance Due Date Last Done Comments Hepatitis C Screen 1940 COVID-19 Vaccine (1) 1946 Fall Risk Screening 2006
--- OUTSIDE RECORDS SUMMARY | 2022-07-07 16:47 | XMS_ITS | Encounter Summary ---
:1940 Author Organization [facility] Address [address] [place] [address] Care Team Providers Name Role Phone Unavailable Primary Care Provider Unavailable Encounter Details Date Type Department Care Team Description 05/24/2021 Lab Requisition [facility] Outr Resulting Lab, Pathology & Laboratory Provider [facility] [address] [place] [address] Social History Tobacco Use Types Packs/Day Years [...] nature Magnesium 1.9 1.7 - 2.8 mg/dL [facility] Specimen Blood - Venous blood (substance) Performing Organization Address City/State/ZIP Code Phon e Number [facility] [address] [place] [address] SERVICES documented in this encounter Visit Diagnoses Not on filedocumented in this encounter
--- OUTSIDE RECORDS SUMMARY | 2022-07-07 16:47 | XMS_ITS | Encounter Summary ---
:1940 Author Organization [facility] Address [address] [place] [address] Care Team Providers Name Role Phone Unavailable Primary Care Provider Unavailable Encounter Details Date Type Department Care Team Description 10/11/[address] [facility] Outr Resulting Lab, Pathology & Laboratory Provider [facility] [address] [place] [address] Social History Tobacco Use Types Packs/Day Years Used Date Never Assessed Sex Assigned at Date Recorded Not on file documented as of this encounter Plan of Treatment Not on filedocumented as of this encounter Procedures Procedure Name Priority Date/Time Associated Diagnosis Comme nts FECAL BACTERIAL Routine 10/10/2021 9:36 EST Resul ts for this PATHOGENS BY PCR procedure a re in the results section. documented in this encounter Results FECAL BACTERIAL PATHOGENS BY PCR (10/10/2021 9:36 EST) Pathologist Sig nature Salmonella PCR Negative Negative [facility] Shigella/Enteroinvasive Negative Negative [facility] E. coli LABORATORY SERVICES [facility]AMPY[facility]CTER PCR Negative Negative [facility] Shiga Toxin PCR Negative Negative [facility] Specimen Feces - Specimen from rectum (specimen) Performing Organization Address City/State/ZIP Code Phon e Number [facility] [address] [place] [address] SERVICES documented in this encounter Visit Diagnoses Not on filedocumented in this encounter
--- OUTSIDE RECORDS SUMMARY | 2022-07-07 16:47 | XMS_ITS | Encounter Summary ---
:1940 Author Organization [facility] Address [address] [place] [address] Care Team Providers Name Role Phone Unavailable Primary Care Provider Unavailable Encounter Details Date Type Department Care Team Description 10/11/2021 Lab Requisition [facility] Outr Resulting Lab, Pathology & Laboratory Provider [facility] [address] [place] [address] Social History Tobacco Use Types Packs/Day Years Used Date Never Assessed Sex Assigned at Date Recorded Not on file documented as of this encounter Plan of Treatment Not on filedocumented as of this encounter Procedures Procedure Name Priority Date/Time Associated Diagnosis Comme nts OVA/PARASITE EXAM Routine 10/10/2021 9:36 EST Res ults for this procedure are i n the results section. documented in this encounter Results OVA/PARASITE EXAM (10/10/2021 9:36 EST) Pathologist Sig nature Parasite No ova and parasites [facility] seen. LABORATORY SERVICES Specimen Feces - Specimen from rectum (specimen) Narrative [facility] - 10/13/2021 11:15 EST (If Cryptosporidium, Cyclospora, or Micr osporidium are suspected, specific tests must be requested.) Single negative specimen does not rule out the possibility of a parasitic infection. Performing Organization Address City/State/ZIP Code Phon e Number [facility] [address] [place] [address] SERVICES documented in this encounter Visit Diagnoses Not on filedocumented in this encounter
[2022-07-07 19:03] LABS: Bilirubin Negative (Negative); Blood Negative (Negative); Clarity Sl Cloudy (Clear); Glucose Negative (Negative); Ketones Negative (Negative); Leukocyte Esterase Negative (Negative); Nitrite Negative (Negative); Specific Gravity 1.015 (1.005-1.025); Urobilinogen 0.2 EU/dL (Up TO 0.2)
== END 2022-07-07 16:45 | disposition home or self-care (01) ==
LOC: LBN 16:44
PROVIDERS: PCP Internal Medicine; Visit Provider Nurse Practitioner Gerontology
DX: R35.0 Frequency of micturition (principal)
CPT/HCPCS: 81003; 87086

== ENCOUNTER 2022-07-11 12:53 | Emergency (ER) | payer MEDICARE, MEDICAID, SELFPAY ==
[2022-07-11] VITALS (19 sets, daily range): BP systolic 126–158; BP diastolic 67–73; PULSE 78–90; RESP 0–24; TEMP 36.6–37; O2SAT 89–100
--- NOTE | 2022-07-11 13:15 | DI.RAD_ITS ---
Exam(s) XR PORTABLE CHEST AP EXAM: XR PORTABLE CHEST AP CLINICAL HISTORY: cough, r/o acute disease TECHNIQUE: 2D digital imaging was performed of the chest. One image was obtained. An AP view was ob tained. COMPARISON: CR XR PORTABLE CHEST AP from 03/21/2022 FINDINGS: MEDIASTINUM: Normal. HEART: Normal. PULMONARY VASCULATURE: Normal. LUNGS: There is an ill-defined infiltrate in the right lung predominantly peripherally. PLEURAL SPACE: No pleural effusion or pneumothorax. BONE:Within normal limits for the patient's age. OTHER FINDINGS:Normal. IMPRESSION: Right lung infiltrate suspicious for pneumonia. DATA REPOSITORY: RADIATION DOSE DELIVERED:
--- NOTE | 2022-07-11 13:30 | ED.GENADUL_ITS ---
Discharge Plan Disposition Patient Disposition: HOME Condition: Stable Discharge Details Clinical Impression: Pneumonia Primary Care Provider: Janeen Weldon ED Provider: Loren Bull Home Meds and New Rx's Prescriptions: New prednisone 20 mg tablet See Rx Instructions .ROUTE .COMPLEX Qty: 18 0RF Rx Instructions: Take 3 tabs daily for 3 days, then 2 tabs daily for 3 days, then 1 tab daily for 3 days. levofloxacin 750 mg tablet 750 mg PO DAILY 5 Days Qty: 5 0RF albuterol sulfate 90 mcg/actuation HFA aerosol inhaler 2 puff inhalation Q6H PRN (Reason: shortness of breath or wheezing) Qty: 8.5 0RF Continued apixaban 2.5 mg tablet 2.5 mg PO BID furosemide [Lasix] 20 mg tablet 60 mg PO DAILY atorvastatin 40 mg tablet 40 mg PO DAILY famotidine 20 mg tablet 20 mg PO DAILY fluticasone propionate 50 mcg/actuation spray,suspension 2 spray intranasal DAILY PRN Rx Instructions: administer into each nostril isosorbide mononitrate 30 mg tablet extended release 24 hr 30 mg PO DAILY losartan 25 mg tablet 25 mg PO DAILY nitroglycerin 0.4 mg tablet, sublingual 0.4 mg sublingual Q5-15M PRN Rx Instructions: do not exceed 3 doses per episode metoclopramide HCl 5 mg tablet 5 mg PO QACHS albuterol sulfate [Ventolin HFA] 90 mcg/actuation HFA aerosol inhaler 2 inh inhalation BID cholecalciferol (vitamin D3) 50 mcg (2,000 unit) capsule 4,000 unit PO DAILY insulin aspart U-100 100 unit/mL (3 mL) insulin pen See Rx Instructions subcut DAILY Rx Instructions: per ss. labetalol 100 mg tablet 100 mg PO TID melatonin 3 mg Tablet 6 mg PO HS cyanocobalamin (vitamin B-12) 1,000 mcg/mL Solution 1,000 mcg SUBCUT QMONTH insulin aspart U-100 100 unit/mL (3 mL) Insulin Pen 10 unit SUBCUT AC Rx Instructions: hold if under 100. Levemir U-100 Insulin 100 unit/mL Solution 14 unit SUBCUT QHS Trulicity 3 mg/0.5 mL Pen Injector 1.5 mg SUBCUT QWEEK Metamucil [facility] Fiber 3.4 gram/5.8 gram powder 5.860998 g PO DAILY Qty: 660 12RF Rx Instructions: w/ 8 oz of liquid cetirizine 5 mg Tablet 5 mg PO DAILY famotidine 20 mg Tablet 20 mg PO DAILY benzonatate 100 mg Capsule 200 mg PO TID MDD 600 ferrous sulfate 325 mg (65 mg iron) Tablet 325 mg PO DAILY polyethylene glycol 3350 [Miralax] 17 gram/dose Powder 17 g PO DAILY escitalopram oxalate [Lexapro] 10 mg Tablet 10 mg PO DAILY pregabalin [Lyrica] 50 mg Capsule 50 mg PO BID lidocaine 4 % Adhesive Patch,Medicated 1 patch TOPICAL DAILY tramadol 50 mg Tablet 50 mg PO Q6H PRN acetaminophen 500 mg Tablet 1,000 mg PO TID albuterol sulfate 90 mcg/actuation Hfa Aerosol Inhaler 2 puff INHALATION Q6H PRN ondansetron HCl 4 mg tablet 1 tab PO DAILY Trelegy Ellipta 100-62.5-25 mcg blister with device 1 inh INHALATION QID Discharge Instructions Instructions: Pneumonia (ED) Additional Instructions: Your x-ray today revealed that you likely have a right sided pneumonia. Your COVID test today is negative. It is recommended to drink plenty of fluids and get plenty of rest. You are being sent home with prescriptions for antibiotics and steroids to take as directed until finished and an inhaler to use as needed and directed for shortness of breath or wheezing. It is recommended to use 1 to 2 L of nasal cannula oxygen to keep your oxygen saturation above 92% if needed. Follow-up with your primary care doctor in 1 week. Return to the emergency department with any worsening or new concerning symptoms. Discharge Data Discharge Physician: Loren Bull Medical Decision Making 81-year-old female with a history of morbid obesity, hypertension, hyperlipidemia, sleep apnea, diabetes, paroxysmal atrial fibrillation, COPD, CHF presents from the [facility] for nonproductive cough and shortness of breath for the past few days. She had also admitted to feeling confusion since long COVID last year. States this is no worse than usual. Oxygen saturation 93% on 5 L on arrival. She is speaking in full sentences and appears nontoxic. She has diffuse wheezing throughout and crackles in the bases. She has less than 1+ pitting edema bilateral lower extremities. She is afebrile. Differential diagnosis includes acute COPD, acute CHF, COVID, pneumonia. We will obtain screening labs, portable chest x-ray, COVID swab and give DuoNeb and steroids. Patient placed on high flow nasal cannula by nursing and being monitored by respiratory. As she states her confusion has been chronic since last year and there is no acute worsening, do not feel indication for CT head imaging is history of presentation does not appear consistent with acute CVA or meningitis at this time. Labs and imaging reviewed. Normal white blood cell count. Lactate 1.2. Magnesium 1.5, will replete. Troponin negative. BNP 639. COVID-negative. Chest x-ray feels consistent with a right sided pneumonia. CT head negative. Patient reassessed and she feels better and is declining any neb treatment. Patient taken off nasal cannula oxygen and remained 92 to 93% on room air. Her breath sounds have improved throughout. Discussed with patient and daughter at bedside that we currently have no bed availability but an attempt to transfer elsewhere. Daughter states she would prefer patient go back to the [facility] rather than transfer to another hospital. Disposition decision made weighing the risks and benefits of hospitalization versus outpatient treatment, the risk for further decompensation, and the patient's wishes. Daughter also expressed concern about her occasional confusion. Discussed that her CT head is negative and with a presentation of respiratory symptoms with a diagnosis of pneumonia, confusion can be present in the setting of infection. Also discussed the possibility of a UTI but that we are already treating pneumonia with Levaquin and can obtain a urine sample but daughter declined. Advised to follow up with the primary care doctor for re-evaluation. Usual and c ustomary return precautions given prior to discharge. Medical Records Medical records reviewed: Yes I reviewed the patient's medical records. Imaging Data Radiologic Study: Radiologist's impression: XR PORTABLE CHEST AP CLINICAL HISTORY:? cough, r/o acute disease TECHNIQUE:? 2D digital imaging was performed of the chest. One image was obtained.? An AP view was obtained. COMPARISON:? CR XR PORTABLE CHEST AP from 03/21/2022 FINDINGS: MEDIASTINUM: Normal.? HEART: Normal. PULMONARY VASCULATURE: Normal. LUNGS: There is an ill-defined infiltrate in the right lung predominantly peripherally. ? PLEURAL SPACE: No pleural effusion or pneumothorax. BONE:Within normal limits for the patient's age. OTHER FINDINGS:Normal.? IMPRESSION: Right lung infiltrate suspicious for pneumonia.? CT HEAD WO CLINICAL HISTORY: ? confusion, r/o acute disease. ? TECHNIQUE:? Imaging Protocol: Axial computed tomography images with coronal and sagittal reformatted images were created and reviewed COMPARISON:? CT CT HEAD WO from 06/30/2022 FINDINGS: Ventricles and Extra axial spaces: Normal in size and morphology for the patient's age. Hemorrhage: None. Cerebral parenchyma: There is no evidence of an acute territorial infarct.? T here are areas of decreased attenuation in the white matter consistent with small vessel ischemic disease.? Midline shift: None. Brainstem/Cerebellum: Normal. Calvarium: Normal. Visualized Paranasal sinuses/Mastoids: Clear. Soft Tissues: Unremarkable. IMPRESSION: 1. No acute intracranial process. 2. Findings were discussed with the emergency department at 3:25 p.m. on 07/11/2022. Lab Data Lab results reviewed: Yes I reviewed the patient's lab results. Labs: 07/11/22 15:17 Blood Blood Culture - Pending 07/11/22 14:50 Blood Blood Culture - Pending Laboratory Tests Range/Units 07/11/22 07/11/22 07/11/22 13:20 13:35 13:35 WBC (4.4-10.8) 10^3/uL 5.80 RBC (3.93-5.22) 10^6/uL 3.60 L Hgb (11.2-15.7) g/dL 10.5 L Hct (36.0-46.0) % 33.2 L MCV (80-95) fL 92 MCH (27.0-33.0) pg 29.2 MCHC (32.0-36.0) % 31.6 L RDW (11.7-14.6) % 14.5 Plt Count (130-400) 10^3/uL 416 H MPV (8.0-11.0) fL 9.4 Immature Gran % 1.6 Neutrophils % 60.1 Lymphocytes % 21.6 Monocytes % 14.1 Eosinophils % 1.7 Basophils % 0.9 Nucleated RBC % (0.0-0.3) % 0.0 Absolute Neutrophils (1.2-6.7) 10^3/uL 3.49 Absolute Lymphocytes (1.2-3.4) 10^3/uL 1.25 Absolute Monocytes (0.1-0.8) 10^3/uL 0.82 H Absolute Eosinophils (0.0-0.7) 10^3/uL 0.10 Absolute Basophils (0.0-0.2) 10^3/uL 0.05 VBG Lactate (0.6-1.4) mmol/L Sodium (136-145) mmol/L 138 Potassium (3.5-5.1) mmol/L 4.2 Chloride (98-107) mmol/L 100 Carbon Dioxide (21.0-32.0) mmol/L 33.9 H Anion Gap (3-11) mmol/L 4.1 BUN (7-18) mg/dL 18 Creatinine (0.55-1.02) mg/dL 1.3 H Est GFR (CKD-EPI 2020) (mL/min/1.73m2) 41.57 Glucose (74-106) mg/dL 210 H Calcium (8.5-10.1) mg/dL 9.7 Magnesium (1.8-2.4) mg/dL 1.5 L Total Bilirubin (0.2-1.0) mg/dL 0.2 AST (15-37) U/L 14 L ALT (14-59) U/L 18 Alkaline Phosphatase (46-116) U/L 97 Troponin I (<or=60) ng/L < 50 NT-Pro-B Natriuret Pep (<300) pg/mL Total Protein (6.4-8.2) g/dL 6.6 Albumin (3.4-5.0) g/dL 2.7 L COVID-19 Source Nasal/Nares SARS-CoV-2 (PCR) (Negative) Negative Range/Units 07/11/22 07/11/22 13:35 15:17 WBC (4.4-10.8) 10^3/uL RBC (3.93-5.22) 10^6/uL Hgb (11.2-15.7) g/dL Hct (36.0-46.0) % MCV (80-95) fL MCH (27.0-33.0) pg MCHC (32.0-36.0) % RDW (11.7-14.6) % Plt Count (130-400) 10^3/uL MPV (8.0-11.0) fL Immature Gran % Neutrophils % Lymphocytes % Monocytes % Eosinophils % Basophils % Nucleated RBC % (0.0-0.3) % Absolute Neutrophils (1.2-6.7) 10^3/uL Absolute Lymphocytes (1.2-3.4) 10^3/uL Absolute Monocytes (0.1-0.8) 10^3/uL Absolute Eosinophils (0.0-0.7) 10^3/uL Absolute Basophils (0.0-0.2) 10^3/uL VBG Lactate (0.6-1.4) mmol/L 1.2 Sodium (136-145) mmol/L Potassium (3.5-5.1) mmol/L Chloride (98-107) mmol/L Carbon Dioxide (21.0-32.0) mmol/L Anion Gap (3-11) mmol/L BUN (7-18) mg/dL Creatinine (0.55-1.02) mg/dL Est GFR (CKD-EPI 2020) (mL/min/1.73m2) Glucose (74-106) mg/dL Calcium (8.5-10.1) mg/dL Magnesium (1.8-2.4) mg/dL Total Bilirubin (0.2-1.0) mg/dL AST (15-37) U/L ALT (14-59) U/L Alkaline Phosphatase (46-116) U/L Troponin I (<or=60) ng/L NT-Pro-B Natriuret Pep (<300) pg/mL 639 H Total Protein (6.4-8.2) g/dL Albumin (3.4-5.0) g/dL COVID-19 Source SARS-CoV-2 (PCR) (Negative) ECG Data Attestation: I personally reviewed and interpreted this ECG (s) as follows: HPI General Mode of arrival: ambulatory . Date/Time Provider Initiated Documentation: 07/11/22 13:47 . Limitations to Documentation: no limitations . Information obtained by: patient . HPI Narrative: Pt is an 81yo F w/ a h/o COPD, CHF, hypertension, hyperlipidemia, diabetes, paroxysmal atrial fibrillation, obesity, sleep apnea, coronary artery disease presents from the [facility] for cough, shortness of breath with crackles noted on exam. EMS reported that patient reported hallucinations and confusion. Patient states she has felt confusion since diagnosed with COVID last year and states this is not new. She states her cough is mainly dry. She admits to shortness of breath that is worse with exertion. She states she normally does not lie flat at night for quite some time now. She states she usually uses a walker but has been using a wheelchair due to increased weakness and shortness of breath with exertion. She denies any fever, chest pain, abdominal pain. EMS reportedly gave patient a DuoNeb and was noted to have an oxygen saturation of 97% on 5L. Related Data Home Medications Medication Instructions Recorded Confirmed albuterol sulfate 90 mcg/actuation 2 inh inhalation BID 05/23/21 07/11/22 aerosol inhaler (Ventolin HFA) atorvastatin 40 mg tablet 40 mg PO DAILY 05/23/21 07/11/22 cholecalciferol (vitamin D3) 50 4,000 unit PO DAILY 05/23/21 07/11/22 mcg (2,000 unit) capsule famotidine 20 mg tablet 20 mg PO DAILY 05/23/21 07/11/22 fluticasone propionate 50 2 spray intranasal DAILY PRN 05/23/21 07/11/22 mcg/actuation nasal spray,suspension insulin aspart U-100 100 unit/mL See Rx Instructions subcut DAILY 05/23/21 07/11/22 (3 mL) subcutaneous pen isosorbide mononitrate 30 mg 30 mg PO DAILY 05/23/21 07/11/22 tablet,extended release 24 hr losartan 25 mg tablet 25 mg PO DAILY 05/23/21 07/11/22 metoclopramide HCl 5 mg tablet 5 mg PO QACHS 05/23/21 07/11/22 nitroglycerin 0.4 mg sublingual 0.4 mg sublingual Q5-15M PRN 05/23/21 07/11/22 tablet apixaban 2.5 mg tablet 2.5 mg PO BID 06/09/21 07/11/22 labetalol 100 mg tablet 100 mg PO TID 06/09/21 07/11/22 cyanocobalamin (vitamin B-12) 1,000 mcg subcut QMONTH 09/19/21 07/11/22 1,000 mcg/mL injection solution dulaglutide 3 mg/0.5 mL 1.5 mg subcut QWEEK 09/19/21 07/11/22 subcutaneous pen injector (Trulicity) insulin aspart U-100 100 unit/mL 10 unit subcut AC 09/19/21 07/11/22 (3 mL) subcutaneous pen insulin detemir U-100 100 unit/mL 14 unit subcut QHS 09/19/21 07/11/22 subcutaneous solution (Levemir U-100 Insulin) melatonin 3 mg tablet 6 mg PO HS 09/19/21 07/11/22 psyllium husk (aspartame) 3.4 5.722729 g PO DAILY #660 grams 09/23/21 07/11/22 gram/5.8 gram oral powder (Metamucil [facility] Fiber) fluticasone fur. 100 mcg-umeclid 1 inh inhalation QID 03/21/22 07/11/22 62.5 mcg-vilant 25 mcg inhalat.powder (Trelegy Ellipta) ondansetron HCl 4 mg tablet 1 tab PO DAILY 03/21/22 07/11/22 furosemide 20 mg tablet (Lasix) 60 mg PO DAILY 05/09/22 07/11/22 acetaminophen 500 mg tablet 1,000 mg PO TID 07/11/22 07/11/22 albuterol sulfate 90 mcg/actuation 2 puff inhalation Q6H PRN 07/11/22 07/11/22 aerosol inhaler albuterol sulfate 90 mcg/actuation 2 puff inhalation Q6H PRN 07/11/22 aerosol inhaler shortness of breath or wheezing #8.5 grams benzonatate 100 mg capsule 200 mg PO TID 07/11/22 07/11/22 cetirizine 5 mg tablet 5 mg PO DAILY 07/11/22 07/11/22 escitalopram oxalate 10 mg tablet 10 mg PO DAILY 07/11/22 07/11/22 (Lexapro) famotidine 20 mg tablet 20 mg PO DAILY 07/11/22 07/11/22 ferrous sulfate 325 mg (65 mg 325 mg PO DAILY 07/11/22 07/11/22 iron) tablet levofloxacin 750 mg tablet 750 mg PO DAILY 5 days #5 tabs 07/11/22 lidocaine 4 % topical patch 1 patch topical DAILY 07/11/22 07/11/22 polyethylene glycol 3350 17 17 g PO DAILY 07/11/22 07/11/22 gram/dose oral powder (Miralax) prednisone 20 mg tablet See Rx Instructions .Route 07/11/22 .COMPLEX #18 tabs pregabalin 50 mg capsule (Lyrica) 50 mg PO BID 07/11/22 07/11/22 tramadol 50 mg tablet 50 mg PO Q6H PRN 07/11/22 07/11/22 Previous Rx's Medication Instructions Recorded psyllium husk (aspartame) 3.4 5.958178 g PO DAILY #660 grams 09/23/21 gram/5.8 gram oral powder (Metamucil [facility] Fiber) albuterol sulfate 90 mcg/actuation 2 puff inhalation Q6H PRN 07/11/22 aerosol inhaler shortness of breath or wheezing #8.5 grams levofloxacin 750 mg tablet 750 mg PO DAILY 5 days #5 tabs 07/11/22 prednisone 20 mg tablet See Rx Instructions .Route 07/11/22 .COMPLEX #18 tabs Allergies Allergy/AdvReac Type Severity Reaction Status Date / Time codeine AdvReac Intermediate rash Verified 07/11/22 13:11 General Stated Complaint: RespSymp JENNIFER: 3 Review of Systems All systems reviewed & are unremarkable except as noted in HPI and below Constitutional Constitutional: Reports as per HPI, Denies chills and Denies fever(s) Eyes Eyes: Denies blurry vision ENT Ears, Nose, Mouth, and Throat: Denies dizziness, Denies sore throat and Denies throat swelling Cardiovascular Cardiovascular: Denies chest pain and Reports dyspnea Respiratory Respiratory: Reports cough and Reports dyspnea Gastrointestinal Gastrointestinal: Denies abdominal pain, Denies diarrhea and Denies vomiting Genitourinary Genitourinary: Denies hematuria and Denies dysuria Musculoskeletal Musculoskeletal: Denies back pain and Denies numbness Integumentary/Breasts Skin/Breast: Denies lesions and Denies rash Neurologic Neurologic: Denies dizziness, Denies localized weakness and Denies numbness Allergic/Immunologic Allergic/Immunologic: Denies throat swelling [facility] All Active Problems (Updated 07/11/22 @ 16:03 by Loren Bull DO) Pneumonia (Acute) Chronic diarrhea (Acute) Coronary artery disease (Chronic) Sleep apnea (Acute) severe ASHLYN sleep study 11/10/21 at [facility], CPAP therapy suggested RH Diastolic heart failure (Acute) Obesity (Chronic) PAF (paroxysmal atrial fibrillation) (Acute) Acute on chronic heart failure (Acute) Diabetes mellitus (Chronic) Medical History Depressive disorder JASON (generalized anxiety disorder) HTN (hypertension) with goal to be determined Mixed hyperlipidemia Retinopathy Vitamin D deficiency Surgical History H/O heart artery stent (~2019) [facility] History of cardiac cath (~2019) Social History Smoking/Tobacco Use Status: Former Tobacco Use Smoking risk assessment performed?: Yes Alcohol Intake: never Drug use: Never Substance use type: does not use Do you feel safe at home: Yes Exam Const General: cooperative and no acute distress Orientation: alert, awake and oriented x3 HENMT Head: normal to inspection Face and sinus: normal facial exam Eyes General: appearance normal, both eyes and all related structures Pupils: PERRL EOM: EOM intact bilaterally Neck Neck: normal visual inspection and No submandibular swelling Lymphatic: no lymphadenopathy noted Chest Chest: normal inspection of the chest and no tenderness Resp Effort & Inspection: normal respiratory effort and able to speak in complete sentences Auscultation: crackles bilaterally throughout and wheezes expiratory wheezes and inspiratory wheezes Cardio Rate: regular rate Rhythm: regular rhythm GI Inspection: normal to inspection Palpation: soft, not firm, not rigid and nontender Auscultation: normal bowel sounds Back/Spine/Pelvis Thoracic/Lumbar Spine: thoracic and lumbar spine normal to inspection Pelvis: no pain with anterior-posterior compression Skin General skin exam: no rashes or lesions noted Neuro General: patient alert, patient awake and patient oriented x3 Cognition: normal cognition Speech: speech normal Motor: muscle tone normal throughout Sensory Exam: no sensory deficits noted Extrem General: normal to inspection, full ROM, capillary refill normal, no calf tenderness bilaterally and edema Laterality: bilateral (<1+ pitting edema b/l lower extremities) Psych Appearance: grossly normal Mental Status: mental status grossly normal Speech and Movement: speech and movement normal Affect: normal affect Course Vital Signs Vital signs: Respiratory Effort 07/11/22 13:04 Pain Level 0 07/11/22 12:54
[2022-07-11] MEDS: Albuterol/Ipratropium 3 ML UPD VIAL (13:33)
[2022-07-11] MEDS: Albuterol/Ipratropium 3 ML UPD VIAL UPD (13:33)
[2022-07-11 13:41] LABS: Abs Immature Grans 0.09 10^3/uL (0.0-0.06); Absolute Basophil Count 0.05 10^3/uL (0.0-0.2); Absolute Lymphocyte Count 1.25 10^3/uL (1.2-3.4); Absolute Monocyte Count 0.82 10^3/uL (0.1-0.8); Absolute Neutrophil Count 3.49 10^3/uL (1.2-6.7); Basophils % 0.9; Eosinophils % 1.7; HCT 33.2 % (36.0-46.0); HGB 10.5 g/dL (11.2-15.7); Immature Grans % 1.6; Lymphocytes % 21.6; MCH 29.2 pg (27.0-33.0); MCHC 31.6 % (32.0-36.0); MCV 92 fL (80-95); MPV 9.4 fL (8.0-11.0); Monocytes % 14.1; Neutrophils % 60.1; Platelet Count 416 10^3/uL (130-400); RDW 14.5 % (11.7-14.6); RDW-SD 47.7 fL
--- NOTE | 2022-07-11 13:45 | RT.EKG_ITS ---
APPROVED REPORT Exam: Resting ECG Reason for Exam: sob Patient Location: E HR:83 bpm ECG Measurements Heart Rate 83 AXIS DC 223 P 13 QRSd 153 QRS -7 QT 418 T 33 QTc 479 Conclusion Sinus rhythm...normal P axis, V-rate 60- 99 Prolonged DC interval...DC >220, V-rate 50- 90 Right bundle branch block...QRSd>120, terminal axis(90,270). Sinus. PVCs. RBBB. No STEMI. I have reviewed and interpreted ECG and agree with software generated interpretation.
[2022-07-11 14:06] LABS: ALT 18 U/L (14-59); AST 14 U/L (15-37); Albumin 2.7 g/dL (3.4-5.0); Alkaline Phosphatase 97 U/L (46-116); Anion Gap 4.1 mmol/L (3-11); BUN 18 mg/dL (7-18); Bilirubin, Total 0.2 mg/dL (0.2-1.0); CO2 33.9 mmol/L (21.0-32.0); CREATININE 1.3 mg/dL (0.55-1.02); Calcium 9.7 mg/dL (8.5-10.1); Chloride 100 mmol/L (98-107); Estimated GFR 41.57 (mL/min/1.73m2); Glucose 210 mg/dL (74-106); Magnesium 1.5 mg/dL (1.8-2.4); Potassium 4.2 mmol/L (3.5-5.1); Sodium 138 mmol/L (136-145); Total Protein 6.6 g/dL (6.4-8.2); Troponin I < 50 ng/L (<or=60)
[2022-07-11 14:10] LABS: Source Nasal/Nares
--- NOTE | 2022-07-11 14:30 | DI.CT_ITS ---
Exam(s) CT HEAD WO EXAM: CT HEAD WO CLINICAL HISTORY: confusion, r/o acute disease. TECHNIQUE: Imaging Protocol: Axial computed tomography images with coronal and sagittal reformatted images were created and reviewed COMPARISON: CT CT HEAD WO from 06/30/2022 FINDINGS: Ventricles and Extra axial spaces: Normal in size and morphology for the patient's age. Hemorrhage: None. Cerebral parenchyma: There is no evidence of an acute territorial infarct. There are areas of decrea sed attenuation in the white matter consistent with small vessel ischemic disease. Midline shift: None. Brainstem/Cerebellum: Normal. Calvarium: Normal. Visualized Paranasal sinuses/Mastoids: Clear. Soft Tissues: Unremarkable. IMPRESSION: 1. No acute intracranial process. 2. Findings were discussed with the emergency department at 3:25 p.m. on 07/11/2022. RADIATION DOSE DELIVERED: 855.43mGy.cm Total DLP DATA REPOSITORY: All CT scans at this facility are submitted to the National Radiology Data Registry (NRDR) Dose Index Registry (DIR) with the [employer] (A[employer]). RADIATION OPTIMIZATION: All CT scans at this facility use at least one of these dose optimization te chniques: automated exposure control; mA and/or kV adjustment per patient size (includes targeted exa ms where dose is matched to clinical indication); or iterative reconstruction.
[2022-07-11] MEDS: Albuterol 2.5 MG/3 ML INH SOLN VIAL 5 MG UPD (14:31)
[2022-07-11 14:46] LABS: COVID-19 PCR Negative (Negative)
[2022-07-11 14:55] LABS: NT-proBNP 639 pg/mL (<300)
[2022-07-11 15:24] LABS: Lactate 1.2 mmol/L (0.6-1.4)
[2022-07-11] MEDS: levoFLOXacin 750 MG/150 ML BAG 100 MG IVPB (15:25)
== END 2022-07-11 17:31 | disposition home or self-care (01) ==
PROVIDERS: Emergency Provider Physician Assistant; PCP Internal Medicine
DX: J18.9 Pneumonia, unspecified organism (principal); R41.0 Disorientation, unspecified; I11.0 Hypertensive heart disease with heart failure; I50.9 Heart failure, unspecified; J44.9 Chronic obstructive pulmonary disease, unspecified; I48.91 Unspecified atrial fibrillation; E11.9 Type 2 diabetes mellitus without complications; R60.0 Localized edema; Z20.822 Contact with and (suspected) exposure to COVID-19; Z79.51 Long term (current) use of inhaled steroids; Z79.4 Long term (current) use of insulin; Z87.891 Personal history of nicotine dependence; Z95.5 Presence of coronary angioplasty implant and graft
CPT/HCPCS: 80053; 87040; 87635; 93005; 94640; 96365; 99284; 99285; 70450; 71045; 83605; 83735; 83880; 84484; 85025; 93010; J1956; J7613; J7620

== ENCOUNTER 2022-07-11 15:38 | Outpatient (REF) | payer MEDICARE, MEDICAID, SELFPAY ==
[2022-07-13 10:22] LABS: Lyme Ab w Rflx to Lyme Confirm Negative (Negative)
[2022-07-13 15:31] LABS: ANA Interpretation Negative (Negative)
== END 2022-07-11 15:39 | disposition home or self-care (01) ==
LOC: LBN 15:38
PROVIDERS: PCP Internal Medicine; Visit Provider Nurse Practitioner Gerontology
DX: I10 Essential (primary) hypertension (principal); E11.40 Type 2 diabetes mellitus with diabetic neuropathy, unspecified; R35.0 Frequency of micturition; Z01.84 Encounter for antibody response examination
CPT/HCPCS: 86038; 86618

== ENCOUNTER 2022-07-18 16:45 | Outpatient (REF) | payer SELFPAY ==
[2022-07-18 18:11] LABS: Absolute Basophil Count 0.01 10^3/uL (0.0-0.2); Absolute Lymphocyte Count 0.96 10^3/uL (1.2-3.4); Absolute Neutrophil Count 6.64 10^3/uL (1.2-6.7); Basophils % 0.1; HCT 38.3 % (36.0-46.0); HGB 11.8 g/dL (11.2-15.7); Immature Grans % 1.2; Lymphocytes % 11.3; MCH 28.7 pg (27.0-33.0); MCHC 30.8 % (32.0-36.0); MCV 93 fL (80-95); MPV 10.4 fL (8.0-11.0); Monocytes % 9.4; Platelet Count 344 10^3/uL (130-400); RBC 4.11 10^6/uL (3.93-5.22); RDW-SD 50.7 fL; WBC 8.51 10^3/uL (4.4-10.8)
[2022-07-18 19:05] LABS: ALT 19 U/L (14-59); AST 14 U/L (15-37); Albumin 3.2 g/dL (3.4-5.0); Alkaline Phosphatase 75 U/L (46-116); Anion Gap 7.9 mmol/L (3-11); BUN 36 mg/dL (7-18); Bilirubin, Total 0.4 mg/dL (0.2-1.0); CO2 30.1 mmol/L (21.0-32.0); Calcium 9.8 mg/dL (8.5-10.1); Chloride 97 mmol/L (98-107); Estimated GFR 24.79 (mL/min/1.73m2); Glucose 360 mg/dL (74-106); Potassium 4.6 mmol/L (3.5-5.1); Sodium 135 mmol/L (136-145)
[2022-07-19 09:47] LABS: NT-proBNP 1183 pg/mL (<300)
[2022-07-19 11:40] LABS: Vitamin D 25 Total 47.3 ng/mL (30-100)
== END 2022-07-18 16:46 | disposition home or self-care (01) ==
LOC: LBN 16:45
PROVIDERS: PCP Internal Medicine; Visit Provider Nurse Practitioner Gerontology
DX: E11.40 Type 2 diabetes mellitus with diabetic neuropathy, unspecified (principal); I10 Essential (primary) hypertension; R35.0 Frequency of micturition
CPT/HCPCS: 80053; 82306; 83880; 85025

== ENCOUNTER 2022-07-21 16:57 | Outpatient (REF) | payer MEDICARE, MEDICAID, SELFPAY ==
--- OUTSIDE RECORDS SUMMARY | 2022-07-21 16:58 | XMS_ITS | Encounter Summary ---
:1940 Author Organization [facility] Address [address] [place] [address] Care Team Providers Name Role Phone Unavailable Primary Care Provider Unavailable Encounter Details Date Type Department Care Team Description 07/12/2022 Lab Requisition [facility] Outr Resulting Lab, Pathology & Laboratory Provider [facility] [address] [place] [address] Social History Tobacco Use Types Packs/Day Years Used Date Never Assessed Sex Assigned at Date Recorded Not on file documented as of this encounter Plan of Treatment Not on filedocumented as of this encounter Procedures Procedure Name Priority Date/Time Associated Diagnosis Comme nts LYME AB Routine 07/11/2022 10:55 Results for this EDT procedure are i n the results section. ANTI NUCLEAR AB Routine 07/11/2022 10:55 Results for this (VICKI), IFA EDT procedure are i n the results section. documented in this encounter Results LYME AB (07/11/2022 10:55 EDT) Pathologist Sig nature Lyme Ab Negative Negative [facility] Specimen Blood - Venous blood (substance) Performing Organization Address City/[facility] Code Phon e Number [facility] [address] [place] [address] SERVICES ANTI NUCLEAR AB (VICKI), IFA (07/11/2022 10:55 EDT) Pathologist Sig nature VICKI Interpretation Negative Negative [facility] Specimen Blood - Venous blood (substance) Narrative [facility] - 07/13/2022 15:26 EDT Results were obtained with the [employer] NOV A Lite HEp-2 VICKI Kit by indirect immunofluorescence. Performing Organization Address City/[facility] Code Phon e Number [facility] [address] [place] [address] SERVICES documented in this encounter Visit Diagnoses Not on filedocumented in this encounter
--- OUTSIDE RECORDS SUMMARY | 2022-07-21 16:58 | XMS_ITS | Encounter Summary ---
:1940 Author Organization [facility] Address [address] [place] [address] Care Team Providers Name Role Phone Unavailable Primary Care Provider Unavailable Encounter Details Date Type Department Care Team Description 09/23/2021 Lab Requisition [facility] Outr Resulting Lab, Pathology & Laboratory Provider [facility] [address] [place] [address] Social History Tobacco Use Types Packs/Day Years [...] Parasite No ova and parasites [facility] seen. [facility] Specimen Feces - Specimen from rectum (specimen) Narrative [facility] - 09/26/2021 14:27 EST (If Cryptosporidium, Cyclospora, or Micr osporidium are suspected, specific tests must be requested.) Single negative specimen does not rule out the possibility of a parasitic infection. Performing Organization Address City/State/ZIP Code Phon e Number [facility] [address] [place] [address] SERVICES documented in this encounter Visit Diagnoses Not on filedocumented in this encounter
--- OUTSIDE RECORDS SUMMARY | 2022-07-21 16:58 | XMS_ITS | Clinical Summary ---
:1940 Author Organization [facility] Address [address] [place] [address] Care Team Providers Name Role Phone Unavailable Primary Care Provider Unavailable Encounters Date Type Specialty Care Team Description 07/12/2022 Lab Requisition Clinical Laboratory Outr Resulting Lab , Provider from Last 3 Months Social History Tobacco Use Types Packs/Day Years Used Date Never Assessed Sex Assigned at Date Recorded Not on file Plan of Treatment Health Maintenance Due Date Last Done Comments Hepatitis C Screen 1940 COVID-19 Vaccine (1) 1945 Fall Risk Screening 2006 Procedures Procedure Name Priority Date/Time Associated Diagnosis Comme nts LYME AB Routine 07/11/2022 10:55 Results for this EDT procedure are i n the results section. ANTI NUCLEAR AB Routine 07/11/2022 10:55 Results for this (VICKI), IFA EDT procedure are i n the results section. from Last 3 Months Results LYME AB (07/11/2022 10:55 EDT) Pathologist Sig nature Lyme Ab Negative Negative [facility] Specimen Blood - Venous blood (substance) Performing Organization Address [facility] Code Phon e Number [facility] [address] [place] [address] SERVICES ANTI NUCLEAR AB (VICKI), IFA (07/11/2022 10:55 EDT) Pathologist Sig nature VICKI Interpretation Negative Negative [facility] Specimen Blood - Venous blood (substance) Narrative [facility] - 07/13/2022 15:26 EDT Results were obtained with the [employer] NOV A Lite HEp-2 VICKI Kit by indirect immunofluorescence. Performing Organization Address City/[facility]/ZIP Code Phon e Number [facility] [address] [place] [address] SERVICES from Last 3 Months
--- OUTSIDE RECORDS SUMMARY | 2022-07-21 16:58 | XMS_ITS | Encounter Summary ---
:1940 Author Organization [facility] Address [address] [place] [address] Care Team Providers Name Role Phone Unavailable Primary Care Provider Unavailable Encounter Details Date Type Department Care Team Description 10/11/2021 Lab Requisition [facility] Outr Resulting Lab, Pathology & Laboratory Provider [facility] [address] [place] [address] Social History Tobacco Use Types Packs/Day Years [...] Pathologist Sig nature Salmonella PCR Negative Negative [facility] Shigella/Enteroinvasive Negative Negative [facility] E. coli LABORATORY SERVICES HN LAB CAMPYLOBACTER PCR Negative Negative [facility] Shiga Toxin PCR Negative Negative [facility] Specimen Feces - Specimen from rectum (specimen) Performing Organization Address City/State/ZIP Code Phon e Number [facility] [address] [place] [address] SERVICES documented in this encounter Visit Diagnoses Not on filedocumented in this encounter
--- OUTSIDE RECORDS SUMMARY | 2022-07-21 16:58 | XMS_ITS | Encounter Summary ---
:1940 Author Organization [facility] Address [address] [place] [address] Care Team Providers Name Role Phone Unavailable Primary Care Provider Unavailable Encounter Details Date Type Department Care Team Description 05/24/2021 Lab Requisition [facility] Outr Resulting Lab, Pathology & Laboratory Provider [facility] [address] [place] [address] Social History Tobacco Use Types Packs/Day Years [...] nature Magnesium 1.9 1.7 - 2.8 mg/dL [facility] Specimen Blood - Venous blood (substance) Performing Organization Address City/State/ZIP Code Phon e Number [facility] [address] [place] [address] SERVICES documented in this encounter Visit Diagnoses Not on filedocumented in this encounter
[2022-07-21 17:58] LABS: Abs Immature Grans 0.06 10^3/uL (0.0-0.06); Absolute Basophil Count 0.03 10^3/uL (0.0-0.2); Absolute Eosinophil Count 0.05 10^3/uL (0.0-0.7); Absolute Lymphocyte Count 1.18 10^3/uL (1.2-3.4); Absolute Monocyte Count 0.77 10^3/uL (0.1-0.8); Absolute Neutrophil Count 5.57 10^3/uL (1.2-6.7); Basophils % 0.4; Eosinophils % 0.7; HCT 37.8 % (36.0-46.0); HGB 11.5 g/dL (11.2-15.7); Immature Grans % 0.8; Lymphocytes % 15.4; MCH 29.2 pg (27.0-33.0); MCHC 30.4 % (32.0-36.0); MCV 96 fL (80-95); MPV 10.4 fL (8.0-11.0); Monocytes % 10.1; Neutrophils % 72.6; Platelet Count 235 10^3/uL (130-400); RBC 3.94 10^6/uL (3.93-5.22); RDW 15.1 % (11.7-14.6); RDW-SD 53.1 fL; WBC 7.66 10^3/uL (4.4-10.8)
[2022-07-21 18:23] LABS: ALT 20 U/L (14-59); AST 16 U/L (15-37); Alkaline Phosphatase 66 U/L (46-116); Anion Gap 5.2 mmol/L (3-11); BUN 30 mg/dL (7-18); Bilirubin, Total 0.3 mg/dL (0.2-1.0); CO2 31.8 mmol/L (21.0-32.0); CREATININE 1.5 mg/dL (0.55-1.02); Calcium 9.1 mg/dL (8.5-10.1); Chloride 99 mmol/L (98-107); Estimated GFR 35.01 (mL/min/1.73m2); Glucose 220 mg/dL (74-106); NT-proBNP 259 pg/mL (<300); Potassium 4.6 mmol/L (3.5-5.1); Sodium 136 mmol/L (136-145); Total Protein 5.6 g/dL (6.4-8.2)
== END 2022-07-21 16:58 | disposition home or self-care (01) ==
LOC: LBN 16:57
PROVIDERS: PCP Internal Medicine; Visit Provider Nurse Practitioner Gerontology
DX: I50.33 Acute on chronic diastolic (congestive) heart failure (principal); E78.5 Hyperlipidemia, unspecified; R68.89 Other general symptoms and signs; R53.1 Weakness
CPT/HCPCS: 80053; 83880; 85025

== ENCOUNTER 2022-07-27 18:23 | Outpatient (REF) | payer SELFPAY ==
[2022-07-27 18:09] LABS: ALT 17 U/L (14-59); AST 16 U/L (15-37); Albumin 3.2 g/dL (3.4-5.0); Alkaline Phosphatase 75 U/L (46-116); Anion Gap 7.5 mmol/L (3-11); BUN 17 mg/dL (7-18); Bilirubin, Total 0.5 mg/dL (0.2-1.0); CO2 31.5 mmol/L (21.0-32.0); CREATININE 1.1 mg/dL (0.55-1.02); Calcium 9.1 mg/dL (8.5-10.1); Chloride 105 mmol/L (98-107); Glucose 171 mg/dL (74-106); Potassium 4.4 mmol/L (3.5-5.1); Sodium 144 mmol/L (136-145)
== END 2022-07-27 18:24 | disposition home or self-care (01) ==
LOC: LBN 18:23
PROVIDERS: PCP Internal Medicine; Visit Provider Nurse Practitioner Gerontology
DX: I50.22 Chronic systolic (congestive) heart failure (principal); E78.5 Hyperlipidemia, unspecified; R68.89 Other general symptoms and signs; R63.5 Abnormal weight gain; R53.83 Other fatigue
CPT/HCPCS: 80053

== ENCOUNTER 2022-08-16 15:41 | Outpatient (REF) | payer MEDICARE, MEDICAID, SELFPAY ==
[2022-08-16 16:35] LABS: Abs Immature Grans 0.03 10^3/uL (0.0-0.06); Absolute Basophil Count 0.05 10^3/uL (0.0-0.2); Absolute Eosinophil Count 0.13 10^3/uL (0.0-0.7); Absolute Lymphocyte Count 1.33 10^3/uL (1.2-3.4); Absolute Monocyte Count 0.79 10^3/uL (0.1-0.8); Absolute Neutrophil Count 4.76 10^3/uL (1.2-6.7); Basophils % 0.7; Eosinophils % 1.8; HCT 38.9 % (36.0-46.0); HGB 11.7 g/dL (11.2-15.7); Immature Grans % 0.4; Lymphocytes % 18.8; MCH 29.4 pg (27.0-33.0); MCHC 30.1 % (32.0-36.0); MCV 98 fL (80-95); MPV 9.8 fL (8.0-11.0); Monocytes % 11.1; Neutrophils % 67.2; Platelet Count 268 10^3/uL (130-400); RBC 3.98 10^6/uL (3.93-5.22); RDW 15.1 % (11.7-14.6); WBC 7.09 10^3/uL (4.4-10.8)
[2022-08-16 17:00] LABS: ALT 15 U/L (14-59); AST 8 U/L (15-37); Albumin 3.3 g/dL (3.4-5.0); Alkaline Phosphatase 87 U/L (46-116); Anion Gap 6.2 mmol/L (3-11); BUN 20 mg/dL (7-18); Bilirubin, Total 0.4 mg/dL (0.2-1.0); CO2 30.8 mmol/L (21.0-32.0); CREATININE 1.3 mg/dL (0.55-1.02); Calcium 9.2 mg/dL (8.5-10.1); Chloride 103 mmol/L (98-107); Estimated GFR 41.57 (mL/min/1.73m2); Glucose 240 mg/dL (74-106); Magnesium 1.9 mg/dL (1.8-2.4); NT-proBNP 418 pg/mL (<300); Sodium 140 mmol/L (136-145); Total Protein 6.2 g/dL (6.4-8.2)
== END 2022-08-16 15:42 | disposition home or self-care (01) ==
LOC: LBN 15:41
PROVIDERS: PCP Internal Medicine; Visit Provider Nurse Practitioner Gerontology
DX: I50.22 Chronic systolic (congestive) heart failure (principal); J18.8 Other pneumonia, unspecified organism; R68.89 Other general symptoms and signs; R73.09 Other abnormal glucose; R79.89 Other specified abnormal findings of blood chemistry
CPT/HCPCS: 80053; 83735; 83880; 85025

== ENCOUNTER → 2022-09-06 13:07 | Outpatient (BNVA) | payer MEDICARE, MEDICAID, SELFPAY | PROVIDERS: PCP Internal Medicine; Referring Provider Internal Medicine; Visit Provider Physical Therapy Assistant | DX: I48.0 Paroxysmal atrial fibrillation (principal); G47.33 Obstructive sleep apnea (adult) (pediatric); E66.9 Obesity, unspecified; L72.3 Sebaceous cyst; L08.9 Local infection of the skin and subcutaneous tissue, unspecified | CPT/HCPCS: 99213 ==

== ENCOUNTER → 2022-09-21 08:20 | Outpatient (BNVA) | payer MEDICARE, MEDICAID, SELFPAY | PROVIDERS: PCP Internal Medicine; Referring Provider Internal Medicine; Visit Provider Physical Therapy Assistant | DX: L72.3 Sebaceous cyst (principal); L08.9 Local infection of the skin and subcutaneous tissue, unspecified | CPT/HCPCS: 99442 ==

== ENCOUNTER 2022-10-04 17:47 | Outpatient (REF) | payer MEDICARE, MEDICAID, SELFPAY ==
[2022-10-04 18:33] LABS: Abs Immature Grans 0.02 10^3/uL (0.0-0.06); Absolute Basophil Count 0.04 10^3/uL (0.0-0.2); Absolute Eosinophil Count 0.23 10^3/uL (0.0-0.7); Absolute Lymphocyte Count 1.76 10^3/uL (1.2-3.4); Absolute Neutrophil Count 4.06 10^3/uL (1.2-6.7); Basophils % 0.6; Eosinophils % 3.4; HCT 40.7 % (36.0-46.0); HGB 12.6 g/dL (11.2-15.7); Immature Grans % 0.3; Lymphocytes % 25.8; MCH 29.6 pg (27.0-33.0); MCV 96 fL (80-95); Monocytes % 10.3; Neutrophils % 59.6; Platelet Count 310 10^3/uL (130-400); RBC 4.26 10^6/uL (3.93-5.22); RDW 13.3 % (11.7-14.6); WBC 6.81 10^3/uL (4.4-10.8)
[2022-10-04 18:55] LABS: Iron 66 ug/dL (50-170); Total Iron Binding Capacity 342 ug/dL (250-450); Transferrin Sat 19 % (15-50)
[2022-10-04 19:21] LABS: Vitamin D 25 Total 42.6 ng/mL (30-100)
[2022-10-04 19:32] LABS: ALT 14 U/L (14-59); AST 13 U/L (15-37); Albumin 3.6 g/dL (3.4-5.0); Alkaline Phosphatase 103 U/L (46-116); Anion Gap 8.6 mmol/L (3-11); BUN 14 mg/dL (7-18); Bilirubin, Total 0.3 mg/dL (0.2-1.0); CO2 32.4 mmol/L (21.0-32.0); CREATININE 1.2 mg/dL (0.55-1.02); Calcium 9.4 mg/dL (8.5-10.1); Chloride 100 mmol/L (98-107); Estimated GFR 45.76 (mL/min/1.73m2); Ferritin 45 ng/mL (8-252); Glucose 133 mg/dL (74-106); Sodium 141 mmol/L (136-145); Total Protein 6.5 g/dL (6.4-8.2); Vitamin B12 1574 pg/mL (193-986)
[2022-10-04 19:53] LABS: NT-proBNP 405 pg/mL (<300)
== END 2022-10-04 17:48 | disposition home or self-care (01) ==
LOC: LBN 17:47
PROVIDERS: PCP Internal Medicine; Visit Provider Nurse Practitioner Gerontology
DX: I50.33 Acute on chronic diastolic (congestive) heart failure (principal); E11.40 Type 2 diabetes mellitus with diabetic neuropathy, unspecified; E55.9 Vitamin D deficiency, unspecified; J21.0 Acute bronchiolitis due to respiratory syncytial virus; D51.8 Other vitamin B12 deficiency anemias; J44.0 Chronic obstructive pulmonary disease with (acute) lower respiratory infection
CPT/HCPCS: 80053; 82306; 82607; 82728; 83036; 83540; 83550; 83880; 85025

== ENCOUNTER 2022-10-17 19:36 | Outpatient (REF) | payer MEDICARE, MEDICAID, SELFPAY ==
[2022-10-17 18:26] LABS: ESR 31 mm/hr (0-30)
[2022-10-17 18:52] LABS: C-Reactive Protein 1.03 mg/dL (0.0-0.3)
[2022-10-18 17:34] LABS: Rheumatoid Factor <8.6 IU/mL (<12.0)
[2022-10-19 10:18] LABS: Cyclic Citrullinated Peptide <2.5 U/mL (<5.0)
== END 2022-10-17 19:37 | disposition home or self-care (01) ==
LOC: LBN 19:36
PROVIDERS: PCP Internal Medicine; Visit Provider Nurse Practitioner Gerontology
DX: R68.89 Other general symptoms and signs (principal)
CPT/HCPCS: 85652; 86200; 86140; 86431

== ENCOUNTER → 2022-10-26 12:52 | Outpatient (BNVA) | payer MEDICARE, MEDICAID, SELFPAY | PROVIDERS: PCP Internal Medicine; Referring Provider Nurse Practitioner Gerontology; Visit Provider Psychiatry & Neurology Neurology | DX: Z86.16 Personal history of COVID-19 (principal); I10 Essential (primary) hypertension; E11.9 Type 2 diabetes mellitus without complications; R25.1 Tremor, unspecified; M79.605 Pain in left leg | CPT/HCPCS: 99215 ==

== ENCOUNTER 2022-12-21 14:04 | Outpatient (REF) | payer MEDICARE, MEDICAID, SELFPAY ==
--- OUTSIDE RECORDS SUMMARY | 2022-12-21 14:06 | XMS_ITS | Continuity of Care Document ---
Author Name Unknown Organization [facility] Address [address] [place] [address] Encounter [facility] NBR [id number] Date(s): 07/27/22 - 07/27/22 [facility] [address] [place], [place] [address] Encounter Diagnosis Osteoarthritis of right knee(Discharge Diagnosis) - 07/27/22 PVD (peripheral vascular disease)(Discharge Diagnosis) - 07/27/22 Left ventricular diastolic dysfunction(Discharge Diagnosis) - 07/27/22 Heart failure, diastolic(Discharge Diagnosis) - 07/27/22 Discharge Disposition: Home or Self Care Attending Physician: Molly Manzano APRN Allergies, Adverse Reactions, Alerts Substance Reaction Severity Status codeine Unknown Unknown Active Functional Status 07/27/22 Recent Travel History No recent travel Medications !-Spiriva Respimat 28 ACT 2.5 mcg/inh inhalation aerosol 2 Unknown, 0 Refill(s) Start Date: 07/27/22 Status: Ordered albuterol 90 mcg/inh aerosol inhaler 18 g, 0 Refill(s) Start Date: 07/27/22 Status: Ordered atorvastatin 40 mg oral tablet 1 Unknown, 0 Refill(s) Start Date: 07/27/22 Status: Ordered budesonide-formoterol 160 mcg-4.5 mcg/inh inhalation aerosol 10 g, 0 Refill(s) Start Date: 07/27/22 Status: Ordered calcium (as carbonate) 500 mg oral tablet 1 Unknown, 0 Refill(s) Start Date: 07/27/22 Status: Ordered cetirizine 5 mg oral tablet 30 unknown unit, 0 Refill(s) Start Date: 07/27/22 Status: Ordered dextromethorphan/APAP/diphenhydramine QID, 1 Unknown, 0 Refill(s) Start Date: 07/27/22 Status: Ordered diclofenac 1% topical gel 0 Refill(s) Start Date: 07/27/22 Status: Ordered Eliquis 2.5 mg oral tablet 28 tab, 0 Refill(s) Start Date: 07/27/22 Status: Ordered famotidine 20 mg oral tablet 30 tab, 0 Refill(s) Start Date: 07/27/22 Status: Ordered fluticasone 0.05% with emollients topical kit 0 Refill(s) Start Date: 07/27/22 Status: Ordered furosemide 20 mg oral tablet 14 tab, 0 Refill(s) Start Date: 07/27/22 Status: Ordered isosorbide mononitrate 30 mg oral tablet, extended release 30 tab, 0 Refill(s) Start Date: 07/27/22 Status: Ordered labetalol 100 mg oral tablet 90 tab, 0 Refill(s) Start Date: 07/27/22 Status: Ordered Levemir FlexTouch 100 units/mL subcutaneous solution 0 Refill(s) Start Date: 07/27/22 Status: Ordered losartan 50 mg oral tablet 15 tab, 0 Refill(s) Start Date: 07/27/22 Status: Ordered melatonin 3 mg oral tablet 1 Unknown, 0 Refill(s) Start Date: 07/27/22 Status: Ordered nabumetone 500 mg oral tablet 60 tab, 0 Refill(s) Start Date: 07/27/22 Status: Ordered nitroglycerin 0.4 mg sublingual tablet 0 Refill(s) Start Date: 07/27/22 Status: Ordered NovoLOG FlexPen 100 units/mL injectable solution 0 Refill(s) Start Date: 07/27/22 Status: Ordered ondansetron 4 mg oral tablet, disintegrating 1 Unknown, 0 Refill(s) Start Date: 07/27/22 Status: Ordered pregabalin 150 mg oral capsule 60 cap, 0 Refill(s) Start Date: 07/27/22 Status: Ordered Reglan 5 mg oral tablet BID, 1 Unknown, 0 Refill(s) Start Date: 07/27/22 Status: Ordered spironolactone 25 mg oral tablet 30 tab, 0 Refill(s) Start Date: 07/27/22 Status: Ordered Trulicity Pen 1.5 mg/0.5 mL subcutaneous solution 2 mL, 0 Refill(s) Start Date: 07/27/22 Status: Ordered Vitamin B-12 500 mcg oral tablet 1 Unknown, 0 Refill(s) Start Date: 07/27/22 Status: Ordered Vitamin D3 1000 intl units oral tablet 1 Unknown, 0 Refill(s) Start Date: 07/27/22 Status: Ordered Problem List Condition Confirmation Course Effective Dates Status H ealth Status Informant Heart failure, diastolic Confirmed Active Left ventricular diastolic dysfunction Confirmed Active Osteoarthritis of left knee joint Confirmed Active PVD (peripheral vascular disease) Confirmed Active Pulmonary emphysema Confirmed Active Vital Signs Most recent to oldest [Reference Range]: 1 Peripheral Pulse Rate [60-100 bpm] 86 bp m (07/27/22 11:16 AM) Blood Pressure [90-140/60-90 mmHg] 138/7 2mmHg (07/27/22 11:16 AM) Weight 104.33 kg (07/27/22 11:16 AM) Weight Measured (lbs) 230.008 lb (07/27/22 11:16 AM) Height 152.40 cm (07/27/22 11:16 AM) Height/Length Measured (inches) 60 inch (07/27/22 11:16 AM) BSA Measured 2.1 m2 (07/27/22 11:16 AM) Body Mass Index 44.92 kg/m2 (07/27/22 11:16 AM) Social History Social History Type Response Sex Unknown
[2022-12-21 14:24] LABS: Abs Immature Grans 0.05 10^3/uL (0.0-0.06); Absolute Basophil Count 0.03 10^3/uL (0.0-0.2); Absolute Lymphocyte Count 1.11 10^3/uL (1.2-3.4); Absolute Monocyte Count 0.37 10^3/uL (0.1-0.8); Absolute Neutrophil Count 6.84 10^3/uL (1.2-6.7); Basophils % 0.4; HCT 41.8 % (36.0-46.0); HGB 13.5 g/dL (11.2-15.7); Immature Grans % 0.6; Lymphocytes % 13.2; MCH 29.2 pg (27.0-33.0); MCHC 32.3 % (32.0-36.0); MCV 91 fL (80-95); MPV 9.9 fL (8.0-11.0); Monocytes % 4.4; Neutrophils % 81.4; Platelet Count 266 10^3/uL (130-400); RBC 4.62 10^6/uL (3.93-5.22); RDW 13.1 % (11.7-14.6); RDW-SD 43.1 fL
[2022-12-21 14:49] LABS: ALT 17 U/L (14-59); AST 10 U/L (15-37); Albumin 3.6 g/dL (3.4-5.0); Alkaline Phosphatase 116 U/L (46-116); Anion Gap 6.9 mmol/L (3-11); BUN 20 mg/dL (7-18); Bilirubin, Total 0.2 mg/dL (0.2-1.0); CO2 33.1 mmol/L (21.0-32.0); CREATININE 1.5 mg/dL (0.55-1.02); Calcium 9.5 mg/dL (8.5-10.1); Chloride 97 mmol/L (98-107); Estimated GFR 34.79 (mL/min/1.73m2); Glucose 365 mg/dL (74-106); NT-proBNP 1552 pg/mL (<300); Potassium 4.3 mmol/L (3.5-5.1); Sodium 137 mmol/L (136-145)
== END 2022-12-21 14:05 | disposition home or self-care (01) ==
LOC: LBN 14:04
PROVIDERS: PCP Internal Medicine; Visit Provider Nurse Practitioner Gerontology
DX: J06.9 Acute upper respiratory infection, unspecified (principal); J44.9 Chronic obstructive pulmonary disease, unspecified; I50.33 Acute on chronic diastolic (congestive) heart failure
CPT/HCPCS: 80053; 83880; 85025

== ENCOUNTER → 2023-01-30 09:34 | Outpatient (BNVA) | payer MEDICARE, MEDICAID, SELFPAY | PROVIDERS: PCP Internal Medicine; Visit Provider Internal Medicine Cardiovascular Disease | DX: I25.10 Atherosclerotic heart disease of native coronary artery without angina pectoris (principal); G47.30 Sleep apnea, unspecified; I50.30 Unspecified diastolic (congestive) heart failure; I48.0 Paroxysmal atrial fibrillation | CPT/HCPCS: 99214 ==

== ENCOUNTER 2023-01-30 17:24 | Outpatient (REF) | payer MEDICARE, MEDICAID, SELFPAY ==
[2023-01-30 17:36] LABS: Abs Immature Grans 0.03 10^3/uL (0.0-0.06); Absolute Basophil Count 0.03 10^3/uL (0.0-0.2); Absolute Eosinophil Count 0.12 10^3/uL (0.0-0.7); Absolute Lymphocyte Count 1.75 10^3/uL (1.2-3.4); Absolute Monocyte Count 0.61 10^3/uL (0.1-0.8); Absolute Neutrophil Count 4.14 10^3/uL (1.2-6.7); Basophils % 0.4; Eosinophils % 1.8; HCT 38.9 % (36.0-46.0); HGB 12.4 g/dL (11.2-15.7); Immature Grans % 0.4; Lymphocytes % 26.2; MCH 29.6 pg (27.0-33.0); MCHC 31.9 % (32.0-36.0); MCV 93 fL (80-95); MPV 10.3 fL (8.0-11.0); Monocytes % 9.1; Neutrophils % 62.1; Platelet Count 255 10^3/uL (130-400); RBC 4.19 10^6/uL (3.93-5.22); RDW 14.2 % (11.7-14.6); WBC 6.68 10^3/uL (4.4-10.8)
[2023-01-30 17:46] LABS: ALT 24 U/L (14-59); AST 11 U/L (15-37); Albumin 3.3 g/dL (3.4-5.0); Alkaline Phosphatase 86 U/L (46-116); Anion Gap 5.4 mmol/L (3-11); BUN 16 mg/dL (7-18); Bilirubin, Total 0.3 mg/dL (0.2-1.0); CO2 33.6 mmol/L (21.0-32.0); CREATININE 1.4 mg/dL (0.55-1.02); Calcium 9.4 mg/dL (8.5-10.1); Chloride 101 mmol/L (98-107); Glucose 271 mg/dL (74-106); Magnesium 1.9 mg/dL (1.8-2.4); Potassium 4.2 mmol/L (3.5-5.1); Sodium 140 mmol/L (136-145); TSH (W/Ref FT4) 1.22 uIU/mL (0.36-3.74); Total Protein 6.2 g/dL (6.4-8.2)
[2023-01-30 18:00] LABS: Vitamin D 25 Total 46.3 ng/mL (30-100)
[2023-01-30 18:11] LABS: Hemoglobin A1C 9.3 % (<5.7)
[2023-01-31 10:50] LABS: Vitamin B12 1202 pg/mL (193-986)
== END 2023-01-30 17:25 | disposition home or self-care (01) ==
LOC: LBN 17:24
PROVIDERS: PCP Internal Medicine; Visit Provider Nurse Practitioner Gerontology
DX: E11.40 Type 2 diabetes mellitus with diabetic neuropathy, unspecified (principal); R53.83 Other fatigue; I50.33 Acute on chronic diastolic (congestive) heart failure; I10 Essential (primary) hypertension; D51.8 Other vitamin B12 deficiency anemias; E55.9 Vitamin D deficiency, unspecified
CPT/HCPCS: 80053; 82306; 82607; 83036; 83735; 84443; 85025

== ENCOUNTER 2023-02-12 12:57 | Outpatient (REF) | payer MEDICARE, MEDICAID, SELFPAY ==
[2023-02-13 13:57] LABS: Vitamin B12 622 pg/mL (193-986)
== END 2023-02-12 12:58 | disposition home or self-care (01) ==
LOC: LBN 12:57
PROVIDERS: PCP Internal Medicine; Visit Provider Legal Medicine
DX: D51.8 Other vitamin B12 deficiency anemias (principal); R53.1 Weakness; I48.0 Paroxysmal atrial fibrillation
CPT/HCPCS: 82607

== ENCOUNTER 2023-04-17 19:27 | Outpatient (REF) | payer MEDICARE, MEDICAID, SELFPAY ==
[2023-04-17 18:12] LABS: Abs Immature Grans 0.02 10^3/uL (0.0-0.06); Absolute Basophil Count 0.04 10^3/uL (0.0-0.2); Absolute Eosinophil Count 0.12 10^3/uL (0.0-0.7); Absolute Lymphocyte Count 1.66 10^3/uL (1.2-3.4); Absolute Monocyte Count 0.48 10^3/uL (0.1-0.8); Absolute Neutrophil Count 3.88 10^3/uL (1.2-6.7); Basophils % 0.6; Eosinophils % 1.9; HCT 42.6 % (36.0-46.0); HGB 13.5 g/dL (11.2-15.7); Immature Grans % 0.3; Lymphocytes % 26.8; MCH 30.9 pg (27.0-33.0); MCHC 31.7 % (32.0-36.0); MCV 98 fL (80-95); Monocytes % 7.7; Neutrophils % 62.7; Platelet Count 289 10^3/uL (130-400); RBC 4.37 10^6/uL (3.93-5.22)
[2023-04-17 18:32] LABS: ALT 14 U/L (14-59); AST 13 U/L (15-37); Albumin 3.6 g/dL (3.4-5.0); Alkaline Phosphatase 102 U/L (46-116); BUN 14 mg/dL (7-18); Bilirubin, Total 0.3 mg/dL (0.2-1.0); CREATININE 1.3 mg/dL (0.55-1.02); Calcium 9.4 mg/dL (8.5-10.1); Chloride 104 mmol/L (98-107); Estimated GFR 41.31 (mL/min/1.73m2); Glucose 164 mg/dL (74-106); Potassium 4.6 mmol/L (3.5-5.1); Sodium 144 mmol/L (136-145); Total Protein 6.2 g/dL (6.4-8.2)
== END 2023-04-17 19:28 | disposition home or self-care (01) ==
LOC: LBN 19:27
PROVIDERS: PCP Internal Medicine; Visit Provider Nurse Practitioner Gerontology
DX: G89.4 Chronic pain syndrome (principal); I50.9 Heart failure, unspecified
CPT/HCPCS: 80053; 85025

== ENCOUNTER 2023-06-11 17:19 | Outpatient (REF) | payer MEDICARE, MEDICAID, SELFPAY ==
[2023-06-11 19:57] LABS: Abs Immature Grans 0.03 10^3/uL (0.0-0.06); Absolute Basophil Count 0.04 10^3/uL (0.0-0.2); Absolute Eosinophil Count 0.17 10^3/uL (0.0-0.7); Absolute Lymphocyte Count 1.47 10^3/uL (1.2-3.4); Absolute Monocyte Count 0.62 10^3/uL (0.1-0.8); Absolute Neutrophil Count 4.49 10^3/uL (1.2-6.7); Basophils % 0.6; Eosinophils % 2.5; HCT 40.4 % (36.0-46.0); HGB 12.9 g/dL (11.2-15.7); Immature Grans % 0.4; Lymphocytes % 21.6; MCH 31.1 pg (27.0-33.0); MCHC 31.9 % (32.0-36.0); MCV 97 fL (80-95); MPV 10.4 fL (8.0-11.0); Monocytes % 9.1; Neutrophils % 65.8; Platelet Count 259 10^3/uL (130-400); RBC 4.15 10^6/uL (3.93-5.22); RDW 12.5 % (11.7-14.6); RDW-SD 44.7 fL; WBC 6.82 10^3/uL (4.4-10.8)
[2023-06-11 20:03] LABS: ALT 16 U/L (14-59); AST 15 U/L (15-37); Albumin 3.4 g/dL (3.4-5.0); Alkaline Phosphatase 105 U/L (46-116); Anion Gap 7.5 mmol/L (3-11); BUN 16 mg/dL (7-18); Bilirubin, Total 0.2 mg/dL (0.2-1.0); CO2 31.5 mmol/L (21.0-32.0); CREATININE 1.2 mg/dL (0.55-1.02); Calcium 9.5 mg/dL (8.5-10.1); Chloride 99 mmol/L (98-107); Estimated GFR 45.48 (mL/min/1.73m2); Glucose 265 mg/dL (74-106); Potassium 4.6 mmol/L (3.5-5.1); Sodium 138 mmol/L (136-145); Total Protein 6.2 g/dL (6.4-8.2)
[2023-06-11 20:46] LABS: Hemoglobin A1C 8.3 % (<5.7)
== END 2023-06-11 17:20 | disposition home or self-care (01) ==
LOC: LBN 17:19
PROVIDERS: PCP Internal Medicine; Visit Provider Nurse Practitioner Gerontology
DX: E11.40 Type 2 diabetes mellitus with diabetic neuropathy, unspecified (principal); R68.89 Other general symptoms and signs; I10 Essential (primary) hypertension; I48.0 Paroxysmal atrial fibrillation
CPT/HCPCS: 80053; 83036; 85025

== ENCOUNTER 2023-09-14 14:08 | Outpatient (REF) | payer MEDICARE, MEDICAID, SELFPAY ==
[2023-09-14 14:48] LABS: Abs Immature Grans 0.02 10^3/uL (0.0-0.06); Absolute Basophil Count 0.04 10^3/uL (0.0-0.2); Absolute Eosinophil Count 0.16 10^3/uL (0.0-0.7); Absolute Lymphocyte Count 1.88 10^3/uL (1.2-3.4); Absolute Monocyte Count 0.61 10^3/uL (0.1-0.8); Absolute Neutrophil Count 5.37 10^3/uL (1.2-6.7); Basophils % 0.5; HCT 38.8 % (36.0-46.0); HGB 12.5 g/dL (11.2-15.7); Immature Grans % 0.2; Lymphocytes % 23.3; MCH 30.3 pg (27.0-33.0); MCHC 32.2 % (32.0-36.0); MCV 94 fL (80-95); MPV 10.1 fL (8.0-11.0); Monocytes % 7.5; Neutrophils % 66.5; Platelet Count 270 10^3/uL (130-400); RBC 4.13 10^6/uL (3.93-5.22); RDW 12.7 % (11.7-14.6); RDW-SD 43.8 fL; WBC 8.08 10^3/uL (4.4-10.8)
[2023-09-14 15:12] LABS: ALT 16 U/L (14-59); AST 12 U/L (15-37); Albumin 3.4 g/dL (3.4-5.0); Alkaline Phosphatase 104 U/L (46-116); Anion Gap 6.8 mmol/L (3-11); BUN 18 mg/dL (7-18); Bilirubin, Total 0.4 mg/dL (0.2-1.0); CO2 31.2 mmol/L (21.0-32.0); CREATININE 1.2 mg/dL (0.55-1.02); Calcium 9.1 mg/dL (8.5-10.1); Chloride 102 mmol/L (98-107); Estimated GFR 45.48 (mL/min/1.73m2); Glucose 217 mg/dL (74-106); NT-proBNP 552 pg/mL (<300); Potassium 4.7 mmol/L (3.5-5.1); Sodium 140 mmol/L (136-145); TSH (W/Ref FT4) 1.55 uIU/mL (0.36-3.74); Total Protein 6.4 g/dL (6.4-8.2)
[2023-09-14 15:52] LABS: Vitamin B12 607 pg/mL (193-986)
[2023-09-15 00:14] LABS: Magnesium 2.1 mg/dL (1.8-2.4)
== END 2023-09-14 14:09 | disposition home or self-care (01) ==
LOC: LBN 14:08
PROVIDERS: PCP Internal Medicine; Visit Provider Nurse Practitioner Gerontology
DX: I50.33 Acute on chronic diastolic (congestive) heart failure (principal); D51.9 Vitamin B12 deficiency anemia, unspecified; N18.31 Chronic kidney disease, stage 3a; R53.82 Chronic fatigue, unspecified; E78.5 Hyperlipidemia, unspecified; E83.42 Hypomagnesemia; I11.0 Hypertensive heart disease with heart failure
CPT/HCPCS: 80053; 82607; 83735; 83880; 84443; 85025

== ENCOUNTER 2023-12-14 13:24 | Emergency (ER) | payer MEDICARE, MEDICAID, SELFPAY ==
[2023-12-14] VITALS (29 sets, daily range): BP systolic 132–206; BP diastolic 63–107; PULSE 66–76; RESP 14–20; TEMP 36.7; O2SAT 90–100
--- NOTE | 2023-12-14 13:15 | RT.EKG_ITS ---
APPROVED REPORT Exam: Resting ECG Reason for Exam: Chest pain Patient Location: E HR:68 bpm ECG Measurements Heart Rate 68 AXIS RI 73 P 0 QRSd 147 QRS -30 QT 425 T 24 QTc 453 Conclusion Sinus rhythm. 68 normal axis RBBB no stemi
--- NOTE | 2023-12-14 13:48 | DI.CT_ITS ---
Exam(s) CT CHEST PE ABD PELVIS W EXAM: CT CHEST PE ABD PELVIS W CLINICAL HISTORY: epigastric and right chest pain. TECHNIQUE: Imaging Protocol: Axial CT angiography was performed with multi-slice acquisition and m ulti-planar and/or 3D reconstructions. CONTRAST MATERIAL: Intravenous: Omnipaque 350 Contrast volume:100 ml Oral: None COMPARISON: CT CT ABDOMEN PELVIS W from 09/19/2021 CR XR PORTABLE CHEST AP from 07/11/2022 FINDINGS: CHEST: PULMONARY ARTERIES: There are no intra-arterial filling defects to suggest the presence of acute pulm onary emboli. LUNGS: There is some chronic appearing interstitial disease both lung peña. No honeycombing. No c onfluent infiltrates.. There are no pleural effusions. MEDIASTINUM: There is no hilar nor mediastinal adenopathy. Moderate size hiatal hernia.Enlarged thyro id gland. CARDIAC: Heart size is upper normal. There is no pericardial effusion. There is no significant shif t of the interventricular septum.Caliber of the thoracic aorta is within normal limits. No evidence of aortic dissection OSSEOUS: No significant osseous lesions.No fractures.. ABDOMEN: There is no ascites. In moderate size hiatal hernia. LIVER: There are no focal hepatic lesions nor dilatation of intrahepatic ducts. GALLBLADDER/BILIARY: Gallbladder surgically absent. CBD diameter is commensurate with post cholecyst ectomy status and patient's age. PANCREAS: The pancreas is atrophic. There are no ominous pancreatic masses. Pancreatic duct is not significantly enlarged. SPLEEN: Spleen is not enlarged. There are no intrasplenic lesions. Small splenule noted. Splenic an d portal veins are patent. ADRENALS: There are no significant adrenal masses. KIDNEYS:There are tiny nonobstructive calculi in the kidneys. No cysts nor solid renal masses. Retr oaortic left renal vein incidentally noted.. ABDOMINAL AORTA: Abdominal aorta is calcified but not enlarged. LYMPH NODES: There is no retroperitoneal or para-aortic adenopathy. ABDOMINAL WALL/GI: No evidence of significant anterior abdominal wall hernia. No bowel obstruction. PELVIS: LYMPH NODES: There is no intrapelvic nor inguinal adenopathy. GI: No evidence of appendicitis.There is sigmoid diverticulosis but no evidence of obvious acute dive rticulitis. URINARY BLADDER: There is diffuse thickening of the urinary bladder wall noted. No radiopaque calcul i seen within the bladder lumen. REPRODUCTIVE: Uterus surgically absent. There are no abnormal adnexal masses. No free fluid in the pelvis. OSSEOUS: No significant osseous lesions. No fractures. Multilevel chronic advanced degenerative disc disease. IMPRESSION: 1. No evidence of acute pulmonary emboli nor pulmonary infarction. 2. There are no pleural effusions.Chronic interstitial lung disease noted 3. Small bilateral nonobstructive calculi in the kidneys. No hydronephrosis. 4. Previous cholecystectomy and hysterectomy. No bowel obstruction 5. Sigmoid diverticulosis without evidence of acute diverticulitis. 6. Moderate size hiatal hernia. RADIATION DOSE DELIVERED: Total DLP DATA REPOSITORY: All CT scans at this facility are submitted to the National Radiology Data Registry (NRDR) Dose Index Registry (DIR) with the [employer] (ACR). RADIATION OPTIMIZATION: All CT scans at this facility use at least one of these dose optimization te chniques: automated exposure control; mA and/or kV adjustment per patient size (includes targeted exa ms where dose is matched to clinical indication); or iterative reconstruction.
[2023-12-14 14:08] LABS: Abs Immature Grans 0.03 10^3/uL (0.0-0.06); Absolute Basophil Count 0.04 10^3/uL (0.0-0.2); Absolute Eosinophil Count 0.19 10^3/uL (0.0-0.7); Absolute Lymphocyte Count 1.78 10^3/uL (1.2-3.4); Absolute Monocyte Count 0.52 10^3/uL (0.1-0.8); Absolute Neutrophil Count 3.28 10^3/uL (1.2-6.7); Basophils % 0.7; Eosinophils % 3.3; HCT 39.2 % (36.0-46.0); HGB 12.3 g/dL (11.2-15.7); Immature Grans % 0.5; Lymphocytes % 30.5; MCH 30.1 pg (27.0-33.0); MCHC 31.4 % (32.0-36.0); MCV 96 fL (80-95); MPV 9.5 fL (8.0-11.0); Monocytes % 8.9; Neutrophils % 56.1; Platelet Count 245 10^3/uL (130-400); RBC 4.09 10^6/uL (3.93-5.22); RDW 12.9 % (11.7-14.6); RDW-SD 45.2 fL; WBC 5.84 10^3/uL (4.4-10.8)
[2023-12-14] MEDS: Albuterol/Ipratropium 3 ML UPD VIAL UPD (14:09)
[2023-12-14] MEDS: methylPREDNISolone SUCC 125 MG VIAL 80 MG IVP (14:15)
[2023-12-14 14:34] LABS: ALT 16 U/L (14-59); AST 8 U/L (15-37); Albumin 3.2 g/dL (3.4-5.0); Alkaline Phosphatase 98 U/L (46-116); Anion Gap 6.3 mmol/L (3-11); BUN 19 mg/dL (7-18); Bilirubin, Total 0.3 mg/dL (0.2-1.0); CO2 32.7 mmol/L (21.0-32.0); CREATININE 1.3 mg/dL (0.55-1.02); Calcium 9.1 mg/dL (8.5-10.1); Chloride 100 mmol/L (98-107); Estimated GFR 41.06 (mL/min/1.73m2); Glucose 266 mg/dL (74-106); Lipase 56 U/L (16-77); Magnesium 1.9 mg/dL (1.8-2.4); NT-proBNP 1130 pg/mL (<300); Potassium 4.3 mmol/L (3.5-5.1); Sodium 139 mmol/L (136-145); Total Protein 6.6 g/dL (6.4-8.2); Troponin I < 50 ng/L (< or =60)
[2023-12-14] MEDS: Normal Saline - Diluent 50 ML VIAL IJ (14:48)
[2023-12-14] MEDS: Omnipaque 350 MG/ML 100 ML BTL IJ (14:56)
[2023-12-14 15:02] LABS: COVID-19 PCR Negative (Negative); Influenza A PCR Negative (Negative); Influenza B PCR Negative (Negative); RSV PCR Negative (Negative)
[2023-12-14 15:05] LABS: Source Nasopharynx
--- NOTE | 2023-12-14 16:08 | W.ED.GENAD ---
Discharge Plan Disposition Patient Disposition: Home Condition: Stable Discharge Details Clinical Impression: CHF (congestive heart failure), Bronchitis Primary Care Provider: Janeen Weldon ED Provider: Pat Melo Home Meds and New Rx's Prescriptions: New doxycycline hyclate 100 mg capsule 100 mg PO BID Qty: 14 0RF prednisone 20 mg tablet 40 mg PO ONCE Qty: 10 0RF furosemide [Lasix] 20 mg tablet 60 mg PO ONCE Qty: 12 0RF Continued Trulicity 1.5 mg/0.5 mL pen injector 1.5 mg subcut QWEEK escitalopram oxalate 10 mg tablet 10 mg PO DAILY buspirone 10 mg tablet 10 mg PO BID ondansetron HCl 4 mg tablet 4 mg PO DAILY magnesium oxide 400 mg magnesium capsule 400 mg PO BID Scot-Tussin Diabetes 10 mg/5 mL liquid 10 mg PO Q4H PRN apixaban 2.5 mg tablet 2.5 mg PO BID furosemide [Lasix] 20 mg tablet 40 mg PO BID atorvastatin 40 mg tablet 40 mg PO DAILY isosorbide mononitrate 30 mg tablet extended release 24 hr 30 mg PO DAILY nitroglycerin 0.4 mg tablet, sublingual 0.4 mg sublingual Q5-15M PRN Rx Instructions: do not exceed 3 doses per episode albuterol sulfate [Ventolin HFA] 90 mcg/actuation HFA aerosol inhaler 2 inh inhalation BID cholecalciferol (vitamin D3) 50 mcg (2,000 unit) capsule 4,000 unit PO DAILY labetalol 100 mg tablet 100 mg PO TID loperamide 2 mg capsule 2 mg PO Q6H PRN Antacid Calcium 215 mg calcium (500 mg) tablet,chewable 215 mg PO BID PRN Levemir FlexTouch U100 Insulin 100 unit/mL (3 mL) insulin pen 14 unit subcut QHS metoclopramide HCl 5 mg tablet 5 mg PO TID insulin aspart U-100 [Novolog U-100 Insulin aspart] 100 unit/mL solution See Rx Instructions subcut QAC PRN Rx Instructions: subcutaneously before meals PRN; losartan 25 mg tablet 50 mg PO DAILY melatonin 3 mg Tablet 6 mg PO HS cyanocobalamin (vitamin B-12) 1,000 mcg/mL Solution 1,000 mcg SUBCUT QMONTH Trulicity 3 mg/0.5 mL Pen Injector 1.5 mg SUBCUT QWEEK Metamucil [facility] Fiber 3.4 gram/5.8 gram powder 5.626307 g PO DAILY Qty: 660 12RF Rx Instructions: w/ 8 oz of liquid ferrous sulfate 325 mg (65 mg iron) Tablet 325 mg PO DAILY escitalopram oxalate [Lexapro] 10 mg Tablet 10 mg PO DAILY pregabalin [Lyrica] 50 mg Capsule 50 mg PO BID acetaminophen 500 mg Tablet 1,000 mg PO TID albuterol sulfate 90 mcg/actuation HFA aerosol inhaler 2 puff inhalation Q6H PRN (Reason: shortness of breath or wheezing) Qty: 8.5 0RF famotidine 20 mg tablet 40 mg PO BID polyethylene glycol 3350 [Miralax] 17 gram/dose powder 17 g PO DAILY PRN tramadol 50 mg tablet 50 mg PO BID Eliquis 2.5 mg tablet 2.5 mg PO BID Trelegy Ellipta 100-62.5-25 mcg blister with device 1 inh INHALATION QID Discharge Instructions Instructions: Heart Failure (ED), Acute Bronchitis (ED) Additional Instructions: Take the antibiotics as prescribed Increase your Lasix to 60 mg a day for the next 4 days Use nebulizer or inhaler, 2 puffs or 1 inhalation every 4 hours while awake Yogurt daily while on the antibiotic Please be reassessed by her primary care physician on Sunday and return earlier should you have new or worsening complaints Discharge Data Discharge Date/Time-TO BE ENTERED AT DEPARTURE: 12/14/23 16:35 HPI General Date/Time Provider Initiated Documentation: 12/14/23 13:33. HPI Narrative: This 83-year-old female presents with right-sided abdominal pain chest pain that started A week ago with coughing. Patient states that she had COVID approximately a month ago has been sick ever since. They were concerned with the persistent coughing and pain which is why they sent her here for assessment. Patient denies any fever or chills. She states she has some mild increase in shortness of breath. She denies any weight gain or calf pain or swelling. Related Data Home Medications Medication Instructions Recorded Confirmed albuterol sulfate 90 mcg/actuation 2 inh inhalation BID 05/23/21 12/14/23 aerosol inhaler (Ventolin HFA) atorvastatin 40 mg tablet 40 mg PO DAILY 05/23/21 12/14/23 cholecalciferol (vitamin D3) 50 4,000 unit PO DAILY 05/23/21 12/14/23 mcg (2,000 unit) capsule isosorbide mononitrate 30 mg 30 mg PO DAILY 05/23/21 12/14/23 tablet,extended release 24 hr nitroglycerin 0.4 mg sublingual 0.4 mg sublingual Q5-15M PRN 05/23/21 12/14/23 tablet apixaban 2.5 mg tablet 2.5 mg PO BID 06/09/21 12/14/23 labetalol 100 mg tablet 100 mg PO TID 06/09/21 12/14/23 cyanocobalamin (vitamin B-12) 1,000 mcg subcut QMONTH 09/19/21 12/14/23 1,000 mcg/mL injection solution dulaglutide 3 mg/0.5 mL 1.5 mg subcut QWEEK 09/19/21 12/14/23 subcutaneous pen injector (Trulicity) melatonin 3 mg tablet 6 mg PO HS 09/19/21 12/14/23 psyllium husk (aspartame) 3.4 5.981280 g PO DAILY #660 grams 09/23/21 12/14/23 gram/5.8 gram oral powder (Metamucil [facility] Fiber) fluticasone fur. 100 mcg-umeclid 1 inh inhalation QID 03/21/22 12/14/23 62.5 mcg-vilant 25 mcg inhalat.powder (Trelegy Ellipta) acetaminophen 500 mg tablet 1,000 mg PO TID 07/11/22 12/14/23 albuterol sulfate 90 mcg/actuation 2 puff inhalation Q6H PRN 07/11/22 12/14/23 aerosol inhaler shortness of breath or wheezing #8.5 grams escitalopram oxalate 10 mg tablet 10 mg PO DAILY 07/11/22 12/14/23 (Lexapro) ferrous sulfate 325 mg (65 mg 325 mg PO DAILY 07/11/22 12/14/23 iron) tablet pregabalin 50 mg capsule (Lyrica) 50 mg PO BID 07/11/22 12/14/23 calcium carbonate 215 mg calcium 215 mg PO BID PRN 09/07/22 12/14/23 (500 mg) chewable tablet (Antacid Calcium) insulin detemir U-100 100 unit/mL 14 unit subcut QHS 09/07/22 12/14/23 (3 mL) subcutaneous pen (Levemir FlexTouch U-100 Insulin) loperamide 2 mg capsule 2 mg PO Q6H PRN 09/07/22 12/14/23 buspirone 10 mg tablet 10 mg PO BID 10/26/22 12/14/23 dextromethorphan HBr 10 mg/5 mL 10 mg PO Q4H PRN 10/26/22 12/14/23 oral liquid (Scot-Tussin Diabetes) famotidine 20 mg tablet 40 mg PO BID 10/26/22 12/14/23 furosemide 20 mg tablet (Lasix) 40 mg PO BID 10/26/22 12/14/23 magnesium oxide 400 mg PO BID 10/26/22 12/14/23 metoclopramide HCl 5 mg tablet 5 mg PO TID 10/26/22 12/14/23 ondansetron HCl 4 mg tablet 4 mg PO DAILY 10/26/22 12/14/23 polyethylene glycol 3350 17 17 g PO DAILY PRN 10/26/22 12/14/23 gram/dose oral powder (Miralax) tramadol 50 mg tablet 50 mg PO BID 10/26/22 12/14/23 dulaglutide 1.5 mg/0.5 mL 1.5 mg subcut QWEEK 01/30/23 12/14/23 subcutaneous pen injector (Trulicity) escitalopram oxalate 10 mg tablet 10 mg PO DAILY 01/30/23 12/14/23 insulin aspart U-100 100 unit/mL See Rx Instructions subcut QAC PRN 01/30/23 12/14/23 subcutaneous solution (Novolog U-100 Insulin aspart) losartan 25 mg tablet 50 mg PO DAILY 01/30/23 12/14/23 apixaban 2.5 mg tablet (Eliquis) 2.5 mg PO BID 12/14/23 12/14/23 doxycycline hyclate 100 mg capsule 100 mg PO BID #14 caps 12/14/23 furosemide 20 mg tablet (Lasix) 60 mg (3 x 20 mg) PO ONCE #12 tabs 12/14/23 prednisone 20 mg tablet 40 mg (2 x 20 mg) PO ONCE #10 tabs 12/14/23 Previous Rx's Medication Instructions Recorded psyllium husk (aspartame) 3.4 5.428890 g PO DAILY #660 grams 09/23/21 gram/5.8 gram oral powder (Metamucil [facility] Fiber) albuterol sulfate 90 mcg/actuation 2 puff inhalation Q6H PRN 07/11/22 aerosol inhaler shortness of breath or wheezing #8.5 grams doxycycline hyclate 100 mg capsule 100 mg PO BID #14 caps 12/14/23 furosemide 20 mg tablet (Lasix) 60 mg (3 x 20 mg) PO ONCE #12 tabs 12/14/23 prednisone 20 mg tablet 40 mg (2 x 20 mg) PO ONCE #10 tabs 12/14/23 Allergies Allergy/AdvReac Type Severity Reaction Status Date / Time codeine AdvReac Intermediate rash Verified 12/14/23 13:31 General Stated Complaint: Abd Prob JENNIFER: 3 Course Vital Signs Vital signs: Vital Signs Temperature 36.7 C 12/14/23 13:25 Pulse 76 12/14/23 13:25 Respiratory Rate 20 12/14/23 13:25 Blood Pressure 164/76 H 12/14/23 13:25 Pulse Oximetry 94 12/14/23 13:25 Temperature 36.7 C 12/14/23 14:46 Pulse 76 12/14/23 14:46 Respiratory Rate 20 12/14/23 14:46 Respiratory Effort Normal, Non-Labored 12/14/23 14:46 Blood Pressure 164/76 H 12/14/23 14:46 Blood Pressure Position Sitting 12/14/23 14:46 Pulse Oximetry 94 12/14/23 14:46 Oxygen Delivery Method Room Air 12/14/23 14:46 Oxygen Flow Rate 0 12/14/23 13:25 Pain Level 8 12/14/23 13:25 Lab/Test Results Lab/Test Results: Laboratory Tests Range/Units 12/14/23 12/14/23 12/14/23 14:00 14:00 14:06 WBC (4.4-10.8) 10^3/uL 5.84 RBC (3.93-5.22) 10^6/uL 4.09 Hgb (11.2-15.7) g/dL 12.3 Hct (36.0-46.0) % 39.2 MCV (80-95) fL 96 H MCH (27.0-33.0) pg 30.1 MCHC (32.0-36.0) % 31.4 L RDW (11.7-14.6) % 12.9 Plt Count (130-400) 10^3/uL 245 MPV (8.0-11.0) fL 9.5 Immature Gran % 0.5 Neutrophils % 56.1 Lymphocytes % 30.5 Monocytes % 8.9 Eosinophils % 3.3 Basophils % 0.7 Nucleated RBC % (0.0-0.3) % 0.0 Absolute Neutrophils (1.2-6.7) 10^3/uL 3.28 Absolute Lymphocytes (1.2-3.4) 10^3/uL 1.78 Absolute Monocytes (0.1-0.8) 10^3/uL 0.52 Absolute Eosinophils (0.0-0.7) 10^3/uL 0.19 Absolute Basophils (0.0-0.2) 10^3/uL 0.04 Sodium (136-145) mmol/L 139 Potassium (3.5-5.1) mmol/L 4.3 Chloride (98-107) mmol/L 100 Carbon Dioxide (21.0-32.0) mmol/L 32.7 H Anion Gap (3-11) mmol/L 6.3 BUN (7-18) mg/dL 19 H Creatinine (0.55-1.02) mg/dL 1.3 H Est GFR (CKD-EPI 2020) (mL/min/1.73m2) 41.06 Glucose (74-106) mg/dL 266 H Calcium (8.5-10.1) mg/dL 9.1 Magnesium (1.8-2.4) mg/dL 1.9 Cancelled Total Bilirubin (0.2-1.0) mg/dL 0.3 AST (15-37) U/L 8 L ALT (14-59) U/L 16 Alkaline Phosphatase (46-116) U/L 98 Troponin I (< or =60) ng/L < 50 NT-Pro-B Natriuret Pep (<300) pg/mL 1130 H Total Protein (6.4-8.2) g/dL 6.6 Albumin (3.4-5.0) g/dL 3.2 L Lipase (16-77) U/L 56 COVID-19 Source Nasopharynx SARS-CoV-2 (PCR) (Negative) Negative Influenza Type A (PCR) (Negative) Negative Influenza Type B (PCR) (Negative) Negative RSV (PCR) (Negative) Negative Medical Decision Making 83-year-old female in no acute distress, resting comfortably, reportedly comfort measures only, does request treatment Alert and oriented x 4 No hypoxia, given nebs as patient does have some wheezing decreased movement, no respiratory distress Given DuoNeb, reports improvement in pain and shortness of breath Given Solu-Medrol, patient with history of COPD Cardiac rate rhythm regular, no rebound or guarding abdominal exam, mild tenderness to right upper quadrant on assessment Alert and oriented x 4, 1+ edema to bilateral lower extremities, distal pulses intact, no crackles at bases of lungs Clinically lower suspicion for pneumonia, suspect symptoms are likely secondary to COPD and possible involvement of CHF, mild elevation in BNP, patient is on baseline Lasix, will increase from 40-60 for the next several days Electrolytes stable Glucose mildly elevated at 266, patient will continue with sliding scale CT chest abdomen and pelvis did not show evidence of acute abnormality, specifically no evidence of intra-abdominal process or pneumonia Patient will be placed on steroids for suspected COPD exacerbation and mild increase in Lasix for the next several days Will place patient on doxycycline for COPD exacerbation and will need for recheck in 48 hours Of note, patient was written for discharge and ambulance was called and it was noted that patient was hypertensive, she removed her 2:00 dosing of labetalol, labetalol was administered in the emergency department, patient has no symptoms related to this hypertension and upon arrival her blood pressure was stable for her per her daughter who is in the room Clinical evidence consistent with hypertensive emergency Patient given low threshold to return should she have new or worsening complaints, she is exhibiting no respiratory distress or hypoxia here, will treat for COPD and CHF and reassess closely in the outpatient setting, stable for discharge back to the [facility] at time of assessment Quality:SDOH Health Related Social Needs: No Data to Display [facility] All Active Problems (Updated 12/14/23 @ 16:05 by DEENA Gardner) Bronchitis (Acute) CHF (congestive heart failure) (Chronic) Left leg pain (Acute) Tremor (Acute) Infected sebaceous cyst of skin (Acute) Chronic diarrhea (Acute) Coronary artery disease (Chronic) Sleep apnea (Acute) severe ASHLYN sleep study 11/10/21 at [facility], CPAP therapy suggested RH Diastolic heart failure (Acute) Obesity (Chronic) PAF (paroxysmal atrial fibrillation) (Acute) Acute on chronic heart failure (Acute) Diabetes mellitus (Chronic) Medical History CHF (congestive heart failure) Colitis COPD (chronic obstructive pulmonary disease) Depressive disorder JASON (generalized anxiety disorder) Gastroenteritis HTN (hypertension) with goal to be determined Mixed hyperlipidemia Nausea and vomiting in adult Retinopathy Type 2 diabetes mellitus Vitamin D deficiency Surgical History H/O heart artery stent (~2019) [facility] History of cardiac cath (~2019) Family History Sister Diabetes Hyperlipidemia Hypertension Social History Smoking/Tobacco Use Status: Former Tobacco Use Smoking risk assessment performed?: Yes Alcohol Intake: never Drug use: Never Substance use type: does not use Number of Children: 4 What is your relationship status?: Panel score (0-1 are the most socially isolated patients): 0 Do you feel safe at home: Yes
[2023-12-14 16:28] LABS: Bilirubin Negative (Negative); Blood Trace-intact (Negative); Clarity Sl Cloudy (Clear); Glucose Negative (Negative); Ketones Negative (Negative); Leukocyte Esterase Moderate (Negative); Nitrite Negative (Negative); Urobilinogen 0.2 mg/dL (Up to 0.2)
[2023-12-14] MEDS: Doxycycline Hyclate 100 MG CAP PO (16:34)
[2023-12-14] MEDS: Labetalol 100 MG TAB PO (16:34)
[2023-12-14 16:39] LABS: Bacteria Many HPF (Negative); C & S Indicated? Yes; Casts Negative LPF (Negative); Crystals Negative HPF (Negative); Epithelial Cells Few HPF (Negative); Mucus Negative (Negative); RBC 0-2 HPF (0-2); WBC 20-50 HPF (0-5)
== END 2023-12-14 16:35 | disposition home or self-care (01) ==
PROVIDERS: Emergency Provider Physician Assistant; PCP Internal Medicine
DX: J40 Bronchitis, not specified as acute or chronic (principal); I11.0 Hypertensive heart disease with heart failure; I50.33 Acute on chronic diastolic (congestive) heart failure; I25.10 Atherosclerotic heart disease of native coronary artery without angina pectoris; J44.9 Chronic obstructive pulmonary disease, unspecified; I48.91 Unspecified atrial fibrillation; I45.19 Other right bundle-branch block; E11.9 Type 2 diabetes mellitus without complications; Z11.52 Encounter for screening for COVID-19; Z95.5 Presence of coronary angioplasty implant and graft; Z79.4 Long term (current) use of insulin; Z79.85 Long-term (current) use of injectable non-insulin antidiabetic drugs; Z79.01 Long term (current) use of anticoagulants; Z87.891 Personal history of nicotine dependence
CPT/HCPCS: 71275; 74177; 80053; 83690; 87077; 87637; 93005; 96374; 99285; 81003; 81015; 83735; 83880; 84484; 85025; 87086; 87186; 93010; J2930; J3490; J7620

== ENCOUNTER 2023-12-17 18:17 | Outpatient (REF) | payer MEDICARE, MEDICAID, SELFPAY ==
[2023-12-17 20:16] LABS: Ferritin 108 ng/mL (8-252)
== END 2023-12-17 18:18 | disposition home or self-care (01) ==
LOC: LBN 18:17
PROVIDERS: PCP Internal Medicine; Visit Provider Nurse Practitioner Gerontology
DX: E11.40 Type 2 diabetes mellitus with diabetic neuropathy, unspecified (principal); I50.33 Acute on chronic diastolic (congestive) heart failure
CPT/HCPCS: 82728; 83036

== ENCOUNTER 2024-01-08 18:00 | Outpatient (REF) | payer MEDICARE, MEDICAID, SELFPAY ==
[2024-01-08 18:54] LABS: Abs Immature Grans 0.03 10^3/uL (0.0-0.06); Absolute Basophil Count 0.02 10^3/uL (0.0-0.2); Absolute Eosinophil Count 0.04 10^3/uL (0.0-0.7); Absolute Lymphocyte Count 2.86 10^3/uL (1.2-3.4); Absolute Monocyte Count 0.72 10^3/uL (0.1-0.8); Absolute Neutrophil Count 4.48 10^3/uL (1.2-6.7); Basophils % 0.2; Eosinophils % 0.5; HGB 13.5 g/dL (11.2-15.7); Immature Grans % 0.4; Lymphocytes % 35.1; MCH 30.7 pg (27.0-33.0); MCHC 32.9 % (32.0-36.0); MCV 93 fL (80-95); MPV 10.5 fL (8.0-11.0); Monocytes % 8.8; Platelet Count 252 10^3/uL (130-400); RDW 12.9 % (11.7-14.6); RDW-SD 44.4 fL; WBC 8.15 10^3/uL (4.4-10.8)
[2024-01-08 19:12] LABS: ALT 26 U/L (14-59); AST 11 U/L (15-37); Albumin 3.3 g/dL (3.4-5.0); Alkaline Phosphatase 93 U/L (46-116); BUN 25 mg/dL (7-18); Bilirubin, Total 0.3 mg/dL (0.2-1.0); CREATININE 1.4 mg/dL (0.55-1.02); Calcium 8.8 mg/dL (8.5-10.1); Chloride 100 mmol/L (98-107); Estimated GFR 37.56 (mL/min/1.73m2); Glucose 236 mg/dL (74-106); NT-proBNP 3592 pg/mL (<300); Potassium 4.4 mmol/L (3.5-5.1); Sodium 142 mmol/L (136-145)
== END 2024-01-08 18:01 | disposition home or self-care (01) ==
LOC: LBN 18:00
PROVIDERS: PCP Internal Medicine; Visit Provider Nurse Practitioner Gerontology
DX: I50.33 Acute on chronic diastolic (congestive) heart failure (principal); I11.0 Hypertensive heart disease with heart failure; R11.2 Nausea with vomiting, unspecified
CPT/HCPCS: 80053; 83880; 85025

== ENCOUNTER 2024-01-14 17:19 | Outpatient (REF) | payer MEDICARE, MEDICAID, SELFPAY ==
[2024-01-14 18:03] LABS: ALT 20 U/L (14-59); AST 13 U/L (15-37); Albumin 3.2 g/dL (3.4-5.0); Alkaline Phosphatase 90 U/L (46-116); Anion Gap 7.1 mmol/L (3-11); BUN 18 mg/dL (7-18); Bilirubin, Total 0.3 mg/dL (0.2-1.0); CO2 31.9 mmol/L (21.0-32.0); CREATININE 1.4 mg/dL (0.55-1.02); Calcium 8.8 mg/dL (8.5-10.1); Chloride 103 mmol/L (98-107); Estimated GFR 37.56 (mL/min/1.73m2); Glucose 193 mg/dL (74-106); NT-proBNP 695 pg/mL (<300); Potassium 4.4 mmol/L (3.5-5.1); Sodium 142 mmol/L (136-145)
== END 2024-01-14 17:20 | disposition home or self-care (01) ==
LOC: LBN 17:19
PROVIDERS: PCP Internal Medicine; Visit Provider Nurse Practitioner Gerontology
DX: I50.9 Heart failure, unspecified (principal); N18.9 Chronic kidney disease, unspecified
CPT/HCPCS: 80053; 83880

== ENCOUNTER → 2024-01-29 09:55 | Outpatient (BNVA) | payer MEDICARE, MEDICAID, SELFPAY | PROVIDERS: PCP Internal Medicine; Visit Provider Internal Medicine Cardiovascular Disease | DX: J44.9 Chronic obstructive pulmonary disease, unspecified (principal); I25.10 Atherosclerotic heart disease of native coronary artery without angina pectoris; I48.0 Paroxysmal atrial fibrillation; G47.30 Sleep apnea, unspecified | CPT/HCPCS: 99213 ==

== ENCOUNTER 2024-01-29 17:00 | Outpatient (REF) | payer MEDICARE, MEDICAID, SELFPAY ==
[2024-01-29 17:49] LABS: Bilirubin Negative (Negative); Blood Negative (Negative); Clarity Sl Cloudy (Clear); Glucose Negative (Negative); Ketones Negative (Negative); Leukocyte Esterase Trace (Negative); Nitrite Negative (Negative); Urobilinogen 0.2 mg/dL (Up to 0.2)
[2024-01-29 17:55] LABS: Bacteria Rare HPF (Negative); C & S Indicated? C&S Done As Ordered; Casts Negative LPF (Negative); Crystals Negative HPF (Negative); Epithelial Cells Few HPF (Negative); Mucus Negative (Negative); Other Cells Few Renal (Negative); RBC Negative HPF (0-2)
== END 2024-01-29 17:01 | disposition home or self-care (01) ==
LOC: LBN 17:00
PROVIDERS: PCP Internal Medicine; Visit Provider Nurse Practitioner Gerontology
DX: R30.0 Dysuria (principal); B96.89 Other specified bacterial agents as the cause of diseases classified elsewhere
CPT/HCPCS: 81003; 81015; 87086

== ENCOUNTER → 2024-02-11 14:08 | Outpatient (BNVA) | payer MEDICARE, MEDICAID, SELFPAY | PROVIDERS: PCP Internal Medicine; Referring Provider Internal Medicine; Visit Provider Psychiatry & Neurology Neurology | DX: R25.1 Tremor, unspecified (principal); M79.605 Pain in left leg | CPT/HCPCS: 99214 ==

== ENCOUNTER 2024-02-11 19:38 | Outpatient (REF) | payer MEDICARE, MEDICAID, SELFPAY ==
[2024-02-11 18:10] LABS: Abs Immature Grans 0.01 10^3/uL (0.0-0.06); Absolute Basophil Count 0.04 10^3/uL (0.0-0.2); Absolute Eosinophil Count 0.08 10^3/uL (0.0-0.7); Absolute Lymphocyte Count 1.95 10^3/uL (1.2-3.4); Absolute Monocyte Count 0.65 10^3/uL (0.1-0.8); Absolute Neutrophil Count 5.01 10^3/uL (1.2-6.7); Basophils % 0.5 %; HCT 40.8 % (36.0-46.0); HGB 13.2 g/dL (11.2-15.7); Immature Grans % 0.1 %; Lymphocytes % 25.2 %; MCH 30.7 pg (27.0-33.0); MCHC 32.4 % (32.0-36.0); MCV 95 fL (80-95); MPV 9.9 fL (8.0-11.0); Monocytes % 8.4 %; Neutrophils % 64.8 %; Platelet Count 295 10^3/uL (130-400); RDW 12.9 % (11.7-14.6); RDW-SD 45.1 fL; WBC 7.74 10^3/uL (4.4-10.8)
[2024-02-11 18:18] LABS: ALT 21 U/L (14-59); AST 11 U/L (15-37); Albumin 3.5 g/dL (3.4-5.0); Alkaline Phosphatase 92 U/L (46-116); Anion Gap 6.8 mmol/L (3-11); BUN 22 mg/dL (7-18); Bilirubin, Total 0.4 mg/dL (0.2-1.0); CO2 32.2 mmol/L (21.0-32.0); CREATININE 1.2 mg/dL (0.55-1.02); Calcium 9.5 mg/dL (8.5-10.1); Chloride 102 mmol/L (98-107); Estimated GFR 45.19 (mL/min/1.73m2); Glucose 142 mg/dL (74-106); Potassium 4.1 mmol/L (3.5-5.1); Sodium 141 mmol/L (136-145); Total Protein 6.4 g/dL (6.4-8.2)
[2024-02-11 18:26] LABS: Hemoglobin A1C 8.7 % (<5.7)
== END 2024-02-11 19:39 | disposition home or self-care (01) ==
LOC: LBN 19:38
PROVIDERS: PCP Internal Medicine; Visit Provider Nurse Practitioner Gerontology
DX: E11.9 Type 2 diabetes mellitus without complications (principal)
CPT/HCPCS: 80053; 83036; 85025

== ENCOUNTER → 2024-02-28 10:05 | Outpatient (BNVA) | payer MEDICARE, MEDICAID, SELFPAY | PROVIDERS: PCP Internal Medicine; Referring Provider Internal Medicine; Visit Provider Physician Assistant Surgical | DX: J44.9 Chronic obstructive pulmonary disease, unspecified (principal); G47.33 Obstructive sleep apnea (adult) (pediatric) | CPT/HCPCS: 99215 ==

== ENCOUNTER 2024-05-12 19:34 | Outpatient (REF) | payer MEDICARE, MEDICAID, SELFPAY ==
[2024-05-12 19:07] LABS: Hemoglobin A1C 8.7 % (<5.7)
[2024-05-12 19:11] LABS: ALT 23 U/L (14-59); AST 10 U/L (15-37); Albumin 3.3 g/dL (3.4-5.0); Alkaline Phosphatase 102 U/L (46-116); Anion Gap 7.6 mmol/L (3-11); BUN 26 mg/dL (7-18); CO2 32.4 mmol/L (21.0-32.0); CREATININE 1.5 mg/dL (0.55-1.02); Calcium 9.3 mg/dL (8.5-10.1); Chloride 102 mmol/L (98-107); Estimated GFR 34.58 (mL/min/1.73m2); Glucose 179 mg/dL (74-106); Potassium 4.3 mmol/L (3.5-5.1); Sodium 142 mmol/L (136-145); TSH (W/Ref FT4) 1.17 uIU/mL (0.36-3.74); Vitamin B12 1042 pg/mL (193-986)
== END 2024-05-12 19:35 | disposition home or self-care (01) ==
LOC: LBN 19:34
PROVIDERS: PCP Internal Medicine; Referring Provider Nurse Practitioner Gerontology; Visit Provider Nurse Practitioner Gerontology
DX: E11.40 Type 2 diabetes mellitus with diabetic neuropathy, unspecified (principal); J06.9 Acute upper respiratory infection, unspecified; E03.9 Hypothyroidism, unspecified
CPT/HCPCS: 80053; 82607; 83036; 84443

== ENCOUNTER 2024-05-13 12:36 | Emergency (ER) | payer MEDICARE, MEDICAID, SELFPAY ==
[2024-05-13] VITALS (17 sets, daily range): BP systolic 102–184; BP diastolic 55–102; PULSE 66–80; RESP 14–22; TEMP 37.3; O2SAT 92–95
--- NOTE | 2024-05-13 12:45 | DI.RAD_ITS ---
Exam(s) XR TIB/FIB LT XR PELVIS AP XR FEMUR LT EXAM: XR PELVIS AP and XR femur LT and XR tib/fib LT CLINICAL HISTORY: fall left leg pain. TECHNIQUE: 2D digital imaging was performed.Six images were obtained. COMPARISON: CR XR FEMUR LT from 05/13/2024 CR XR TIB/FIB LT from 05/13/2024 FINDINGS: BONES: No acute fracture is present. No bony destructive lesion is seen. JOINTS: No dislocation present. Marked tricompartment degenerative changes are seen the left knee larisa racterized by joint space narrowing and osteophytes. The ankle joint is well maintained. SOFT TISSUE: Atherosclerotic calcification is present. IMPRESSION: 1. No acute fracture or dislocation is present. 2. 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 DATA REPOSITORY: RADIATION DOSE DELIVERED:
--- NOTE | 2024-05-13 12:45 | RT.EKG_ITS ---
APPROVED REPORT Exam: Resting ECG Reason for Exam: dizzy Patient Location: E HR:77 bpm ECG Measurements Heart Rate 77 AXIS NC 193 P 2 QRSd 158 QRS -14 QT 447 T 19 QTc 506 Conclusion Sinus rhythm...normal P axis, V-rate 60- 99 Right bundle branch block...QRSd>120, terminal axis(90,270) Inferior infarct, old...Q >35mS, II III aVF sinus rhythm, RBBB
--- NOTE | 2024-05-13 12:45 | DI.CT_ITS ---
Exam(s) CT CHEST PE CTA EXAM: CT CHEST PE CTA CLINICAL HISTORY: syncope, RBBB. TECHNIQUE: Imaging Protocol: Axial CT angiography was performed with multi-slice acquisition and mu lti-planar reconstructions as well as axial, coronal and sagittal MIP reconstructions. CONTRAST MATERIAL: Intravenous: Omnipaque 350 Contrast volume:100 ml COMPARISON: CT CT CHEST PE ABD PELVIS W from 12/14/2023 FINDINGS: Pulmonary Arteries: No evidence of filling defect to suggest pulmonary emboli. Tracheobronchial tree: No mucous plugging. Mediastinum and Janae: No dominant adenopathy or fluid collection. Small to moderate size hiatal her fred. Pulmonary parenchyma: No consolidation or dominant measurable mass. Chronic interstitial changes, g reater peripherally and at the lung bases. Pleura: No effusion or pneumothorax. Heart: The heart is mildly dilated. Moderate coronary artery calcifications are seen. Aorta: Thoracic aorta non-dilated. No dissection. Upper abdomen: No acute findings. Bones: Degenerative changes in the spine. Tubes, Catheters, and Lines: None Soft tissues: Unremarkable. IMPRESSION: No evidence of pulmonary embolism or other acute abnormality.. RADIATION DOSE DELIVERED: Total DLP DATA REPOSITORY: All CT scans at this facility are submitted to the National Radiology Data Registry (NRDR) Dose Index Registry (DIR) with the [employer] ([employer]). RADIATION OPTIMIZATION: All CT scans at this facility use at least one of these dose optimization te chniques: automated exposure control; mA and/or kV adjustment per patient size (includes targeted exa ms where dose is matched to clinical indication); or iterative reconstruction.
--- NOTE | 2024-05-13 12:57 | DI.CT_ITS ---
Exam(s) CT HEAD CERVICAL SPINE WO EXAM: CT HEAD CERVICAL SPINE WO CLINICAL HISTORY: syncope on AC. TECHNIQUE: Imaging Protocol: Axial computed tomography images with coronal and sagittal reformatted images were created and reviewed COMPARISON: CT CT HEAD WO from 07/11/2022 FINDINGS: Head CT Ventricles and Extra axial spaces: Normal in size and morphology for the patient's age. Hemorrhage: None. Cerebral parenchyma: No evidence of mass or acute infarct. Mild atrophy consistent with the patien t's age. Mild white matter changes of small vessel disease. Midline shift: None. Brainstem/Cerebellum: Normal. Calvarium: Normal. Visualized Paranasal sinuses/Mastoids: Clear. Soft tissues: Unremarkable. Cervical Spine CT BONES: Vertebral body heights are maintained. Alignment is normal. There is no evidence of acute frac ture. Degenerative disc changes and facet degenerative changes are seen, most prominent at C6-7.. SOFT TISSUES: No paraspinal hematoma. The airway appears intact. No pneumothorax is seen at the lung apices. IMPRESSION: Head CT: No acute abnormality. C-spine CT: Degenerative changes, no acute abnormality. RADIATION DOSE DELIVERED: Total DLP DATA REPOSITORY: All CT scans at this facility are submitted to the National Radiology Data Registry (NRDR) Dose Index Registry (DIR) with the [employer] ([employer]). RADIATION OPTIMIZATION: All CT scans at this facility use at least one of these dose optimization te chniques: automated exposure control; mA and/or kV adjustment per patient size (includes targeted exa ms where dose is matched to clinical indication); or iterative reconstruction.
[2024-05-13 13:17] LABS: Abs Immature Grans 0.04 10^3/uL (0.0-0.06); Absolute Basophil Count 0.03 10^3/uL (0.0-0.2); Absolute Eosinophil Count 0.15 10^3/uL (0.0-0.7); Absolute Lymphocyte Count 1.84 10^3/uL (1.2-3.4); Absolute Monocyte Count 0.87 10^3/uL (0.1-0.8); Absolute Neutrophil Count 7.34 10^3/uL (1.2-6.7); Basophils % 0.3 %; Eosinophils % 1.5 %; HCT 42.4 % (36.0-46.0); HGB 13.5 g/dL (11.2-15.7); Immature Grans % 0.4 %; Lymphocytes % 17.9 %; MCHC 31.8 % (32.0-36.0); MCV 94 fL (80-95); MPV 9.6 fL (8.0-11.0); Monocytes % 8.5 %; Neutrophils % 71.4 %; Platelet Count 270 10^3/uL (130-400); RDW 12.6 % (11.7-14.6); RDW-SD 43.9 fL; WBC 10.27 10^3/uL (4.4-10.8)
[2024-05-13] MEDS: Normal Saline 500 ML 1000 ML IV (13:20)
--- NOTE | 2024-05-13 13:21 | ED.GENADUL_ITS ---
Discharge Plan Disposition Patient Disposition: Home Condition: Improving Discharge Details Chief Complaint: Dizzy/Sync Clinical Impression: Fatigue Primary Care Provider: Janeen Weldon ED Provider: Tian Marie Home Meds and New Rx's Prescriptions: No Action escitalopram oxalate 10 mg tablet 10 mg PO DAILY ondansetron HCl 4 mg tablet 4 mg PO DAILY Scot-Tussin Diabetes 10 mg/5 mL liquid 10 mg PO Q4H PRN apixaban 2.5 mg tablet 2.5 mg PO BID insulin glargine [Basaglar KwikPen U-100 Insulin] 100 unit/mL (3 mL) insulin pen 48 unit subcut QAM Patient Comments: 01/30/24 per [facility] med list also 14 units QPM. RH tramadol 50 mg tablet 100 mg PO QHS buspirone 10 mg tablet 5 mg PO BID Patient Comments: 01/30/24 per [facility] med list RH acetaminophen 500 mg tablet 500 mg PO TID losartan 25 mg tablet 25 mg PO DAILY Patient Comments: 01/30/24 [facility] Trelegy Ellipta 100-62.5-25 mcg blister with device 1 inh INHALATION DAILY Patient Comments: 01/30/24 [facility] isosorbide mononitrate 30 mg tablet extended release 24 hr 30 mg PO DAILY omeprazole 20 mg capsule,delayed release(DR/EC) 20 mg PO HS Ozempic 0.25 mg or 0.5 mg (2 mg/3 mL) pen injector 0.25 mg subcut QWEEK Rx Instructions: for 4 weeks Biotene Dry Mouth Oral Rinse Mouthwash 15 ml mucous membrane BID-QID PRN Rx Instructions: swish for 15-30 secs , then spit out; do not swallow furosemide [Lasix] 20 mg tablet 60 mg PO BID insulin glargine [Basaglar KwikPen U-100 Insulin] 100 unit/mL (3 mL) insulin pen 14 unit subcut QPM insulin glargine [Basaglar KwikPen U-100 Insulin] 100 unit/mL (3 mL) insulin pen 48 unit subcut QAM insulin aspart U-100 100 unit/mL (3 mL) insulin pen 4 unit subcut TID ipratropium-albuterol 0.5 mg-3 mg(2.5 mg base)/3 mL solution for nebulization 3 ml inhalation BID atorvastatin 40 mg tablet 40 mg PO DAILY nitroglycerin 0.4 mg tablet, sublingual 0.4 mg sublingual Q5-15M PRN Rx Instructions: do not exceed 3 doses per episode albuterol sulfate [Ventolin HFA] 90 mcg/actuation HFA aerosol inhaler 2 inh inhalation BID cholecalciferol (vitamin D3) 50 mcg (2,000 unit) capsule 4,000 unit PO DAILY labetalol 100 mg tablet 100 mg PO TID loperamide 2 mg capsule 2 mg PO Q6H PRN Antacid Calcium 215 mg calcium (500 mg) tablet,chewable 215 mg PO BID PRN insulin aspart U-100 [Novolog U-100 Insulin aspart] 100 unit/mL solution See Rx Instructions subcut QAC PRN Rx Instructions: subcutaneously before meals PRN; fluticasone propionate 50 mcg/actuation spray,suspension See Rx Instructions intranasal DIRECTED Rx Instructions: intranasally as directed; administer into each nostril metoclopramide HCl 5 mg tablet 5 mg PO BID cyanocobalamin (vitamin B-12) 1,000 mcg/mL Solution 1,000 mcg SUBCUT QMONTH pregabalin [Lyrica] 50 mg Capsule 50 mg PO BID polyethylene glycol 3350 [Miralax] 17 gram/dose powder 17 g PO DAILY PRN Breztri Aerosphere 160-9-4.8 mcg/actuation HFA aerosol inhaler 2 inh INHALATION BID Discharge Instructions Instructions: Fatigue, Syncope (Fainting) (DC) Additional Instructions: Please follow closely with your primary care physician. Return to the emergency department for any worsening symptoms HPI General Date/Time Provider Initiated Documentation: 05/13/24 12:52 . HPI Narrative: 83-year-old female history of diabetes CHF COPD presents after legs gave out from under her yesterday at the [facility], possible loss of consciousness, collapsed to the ground denies head pain but does have some neck discomfort, denies chest pain shortness of breath abdominal pain, does have some bruising and pain to her left knee and leg Related Data Home Medications ?Medication ?Instructions ?Recorded ?Confirmed albuterol sulfate 90 mcg/actuation 2 inh inhalation BID 05/23/21 05/13/24 aerosol inhaler (Ventolin HFA) atorvastatin 40 mg tablet 40 mg PO DAILY 05/23/21 05/13/24 cholecalciferol (vitamin D3) 50 4,000 unit PO DAILY 05/23/21 05/13/24 mcg (2,000 unit) capsule nitroglycerin 0.4 mg sublingual 0.4 mg sublingual Q5-15M PRN 05/23/21 05/13/24 tablet apixaban 2.5 mg tablet 2.5 mg PO BID 06/09/21 05/13/24 labetalol 100 mg tablet 100 mg PO TID 06/09/21 05/13/24 cyanocobalamin (vitamin B-12) 1,000 mcg subcut QMONTH 09/19/21 05/13/24 1,000 mcg/mL injection solution pregabalin 50 mg capsule (Lyrica) 50 mg PO BID 07/11/22 05/13/24 calcium carbonate (Antacid Calcium) 215 mg PO BID PRN 09/07/22 05/13/24 loperamide 2 mg capsule 2 mg PO Q6H PRN 09/07/22 05/13/24 dextromethorphan HBr 10 mg/5 mL 10 mg PO Q4H PRN 10/26/22 05/13/24 oral liquid (Scot-Tussin Diabetes) ondansetron HCl 4 mg tablet 4 mg PO DAILY 10/26/22 05/13/24 polyethylene glycol 3350 17 17 g PO DAILY PRN 10/26/22 05/13/24 gram/dose oral powder (Miralax) escitalopram oxalate 10 mg tablet 10 mg PO DAILY 01/30/23 05/13/24 insulin aspart U-100 100 unit/mL See Rx Instructions subcut QAC PRN 01/30/23 05/13/24 subcutaneous solution (Novolog U-100 Insulin aspart) acetaminophen 500 mg tablet 500 mg PO TID 01/30/24 05/13/24 buspirone 10 mg tablet 5 mg PO BID 01/30/24 05/13/24 fluticasone fur. 100 mcg-umeclid 1 inh inhalation DAILY 01/30/24 05/13/24 62.5 mcg-vilant 25 mcg inhalat.powder (Trelegy Ellipta) insulin glargine 100 unit/mL (3 48 unit subcut QAM 01/30/24 05/13/24 mL) subcutaneous pen (Basaglar KwikPen U-100 Insulin) isosorbide mononitrate 30 mg 30 mg PO DAILY 01/30/24 05/13/24 tablet,extended release 24 hr losartan 25 mg tablet 25 mg PO DAILY 01/30/24 05/13/24 tramadol 50 mg tablet 100 mg PO QHS 01/30/24 05/13/24 fluticasone propionate 50 See Rx Instructions intranasal 02/08/24 05/13/24 mcg/actuation nasal DIRECTED spray,suspension furosemide 20 mg tablet (Lasix) 60 mg PO BID 02/28/24 05/13/24 insulin aspart U-100 100 unit/mL 4 unit subcut TID 02/28/24 05/13/24 (3 mL) subcutaneous pen insulin glargine 100 unit/mL (3 14 unit subcut QPM 02/28/24 05/13/24 mL) subcutaneous pen (Basaglar KwikPen U-100 Insulin) insulin glargine 100 unit/mL (3 48 unit subcut QAM 02/28/24 05/13/24 mL) subcutaneous pen (Basaglar KwikPen U-100 Insulin) ipratropium 0.5 mg-albuterol 3 mg 3 ml inhalation BID 02/28/24 05/13/24 (2.5 mg base)/3 mL nebulization soln metoclopramide HCl 5 mg tablet 5 mg PO BID 02/28/24 05/13/24 omeprazole 20 mg capsule,delayed 20 mg PO HS 02/28/24 05/13/24 release saliva substitute combo no.9 15 ml mucous membrane BID-QID PRN 02/28/24 05/13/24 (Biotene Dry Mouth Oral Rinse mouthwash) semaglutide 0.25 mg or 0.5 mg (2 0.25 mg subcut QWEEK 02/28/24 05/13/24 mg/3 mL) subcutaneous pen injector (Ozempic) budesonide 160 mcg-glycopyr 9 2 inh inhalation BID 05/13/24 05/13/24 mcg-formot 4.8 mcg/actuation HFA inhaler (Breztri Aerosphere) Allergies Allergy/AdvReac Type Severity Reaction Status Date / Time codeine AdvReac Intermediate rash Verified 05/13/24 12:41 General Stated Complaint: Dizzy/Sync JENNIFER: 3 Exam Narrative Exam Narrative: Alert oriented interactive no acute distress Moist mucous membranes tolerating secretions normal voice No resp distress speaking full sentences Moving all extremities without deficit 5 out of 5 strength no ataxia, normal speech no cranial nerve deficits Some ecchymosis to lateral left knee and tib-fib region without crepitus deformity or laxity Warm well-perfused extremities soft compartments No midline spinal tenderness crepitus step-off or deformity Course Vital Signs Vital signs: Vital Signs Pulse Oximetry 93 05/13/24 12:38 Temperature 37.3 C 05/13/24 12:41 Temperature Source Temporal Artery Scan 05/13/24 12:41 Pulse 77 05/13/24 12:46 Pulse 78 05/13/24 13:00 Respiratory Rate 22 05/13/24 13:00 Respiratory Effort Normal, Non-Labored 05/13/24 12:44 Blood Pressure 122/74 05/13/24 12:46 Blood Pressure Mean 89 05/13/24 12:46 Blood Pressure Position Supine 05/13/24 12:41 Pulse Oximetry 92 05/13/24 13:00 Oxygen Delivery Method Room Air 05/13/24 12:41 Oxygen Flow Rate 0 05/13/24 12:41 Pain Level 8 05/13/24 12:41 Lab/Test Results Lab/Test Results: Laboratory Tests Range/Units 05/13/24 13:06 WBC (4.4-10.8) 10^3/uL 10.27 RBC (3.93-5.22) 10^6/uL 4.50 Hgb (11.2-15.7) g/dL 13.5 Hct (36.0-46.0) % 42.4 MCV (80-95) fL 94 MCH (27.0-33.0) pg 30.0 MCHC (32.0-36.0) % 31.8 L RDW (11.7-14.6) % 12.6 Plt Count (130-400) 10^3/uL 270 MPV (8.0-11.0) fL 9.6 Immature Gran % % 0.4 Neutrophils % % 71.4 Lymphocytes % % 17.9 Monocytes % % 8.5 Eosinophils % % 1.5 Basophils % % 0.3 Nucleated RBC % (0.0-0.3) % 0.0 Absolute Neutrophils (1.2-6.7) 10^3/uL 7.34 H Absolute Lymphocytes (1.2-3.4) 10^3/uL 1.84 Absolute Monocytes (0.1-0.8) 10^3/uL 0.87 H Absolute Eosinophils (0.0-0.7) 10^3/uL 0.15 Absolute Basophils (0.0-0.2) 10^3/uL 0.03 Medical Decision Making 83-year-old female presents after collapse/syncope yesterday at the [facility], ecchymosis to left lateral knee and leg, mild neck discomfort without midline spinal tenderness step-off crepitus or deformity, neurologically intact without deficit, hemodynamically stable afebrile nontoxic no chest pain shortness of breath or abdominal pain, noted to have right bundle branch block on EKG, must consider PE given syncope and right bundle branch block, muscles consider atypical ACS lower suspicion for aortic pathology, must also consider dehydration versus electrolyte derangement versus vasovagal versus orthostatic event versus viral illness versus UTI. Screening labs imaging light fluid CT chest x-ray pelvis and left lower extremity close reassessment 16: 18 patient resting comfortably no acute distress labs imaging unremarkable. Quality:[facility] Health Related Social Needs: No Data to Display [facility] All Active Problems (Updated 05/13/24 @ 16:21 by Tian Marie MD) Fatigue (Acute) ASHLYN (obstructive sleep apnea) (Chronic) Acute bronchitis (Acute) Hypertensive heart disease (Acute) with heart failure Acute gastritis without bleeding (Acute) Chronic obstructive pulmonary disease with (acute) lower respiratory infection ( Acute) Cough (Acute) Cognitive communication deficit (Acute) Zoster without complications (Acute) Hyperlipidemia (Acute) Peripheral vascular disease (Chronic) Spinal stenosis (Acute) Allergic rhinitis (Acute) Insomnia (Acute) Osteoarthritis of knee (Acute) Chronic kidney disease (CKD) (Chronic) stage 3 Left leg pain (Acute) Tremor (Acute) Infected sebaceous cyst of skin (Acute) Chronic diarrhea (Acute) Coronary artery disease (Chronic) Sleep apnea (Acute) severe ASHLYN sleep study 11/10/21 at [facility], CPAP therapy suggested RH Diastolic heart failure (Acute) Obesity (Chronic) PAF (paroxysmal atrial fibrillation) (Acute) Acute on chronic heart failure (Acute) Diabetes mellitus (Chronic) Medical History COPD (chronic obstructive pulmonary disease) Type 2 diabetes mellitus Nausea and vomiting in adult CHF (congestive heart failure) Colitis Gastroenteritis Retinopathy Vitamin D deficiency Mixed hyperlipidemia JASON (generalized anxiety disorder) Depressive disorder HTN (hypertension) with goal to be determined Surgical History H/O heart artery stent (~2019) [facility] History of cardiac cath (~2019) Family History Sister Diabetes Hyperlipidemia Hypertension Social History Smoking/Tobacco Use Status: Former Tobacco Use Smoking risk assessment performed?: Yes Alcohol Intake: never Drug use: Never Substance use type: does not use Housing: fpc Number of Children: 4 What is your relationship status?: Panel score (0-1 are the most socially isolated patients): 0 Do you feel safe at home: Yes
[2024-05-13 13:28] LABS: BE (Venous) 3 mmol/L (-2-3); HCO3 (Venous) 29 mmol/L (23-28); O2 Sat (Venous) 52 %; TCO2 (Venous) 31 mmol/L (24-29); pCO2 (Venous) 55 mmHg (41-51); pH (Venous) 7.34 (7.31-7.41); pO2 (Venous) 30 mmHg
[2024-05-13] MEDS: Normal Saline - Diluent 50 ML VIAL IJ (13:32)
[2024-05-13] MEDS: Omnipaque 350 MG/ML 100 ML BTL IJ (13:34)
[2024-05-13 13:55] LABS: ALT 18 U/L (14-59); AST 7 U/L (15-37); Albumin 3.3 g/dL (3.4-5.0); Alkaline Phosphatase 104 U/L (46-116); Anion Gap 6.5 mmol/L (3-11); BUN 37 mg/dL (7-18); Bilirubin, Total 0.69 mg/dL (0.2-1.0); CO2 31.5 mmol/L (21.0-32.0); CREATININE 2.3 mg/dL (0.55-1.02); Chloride 98 mmol/L (98-107); Glucose 320 mg/dL (74-106); Lipase 17 U/L (16-77); NT-proBNP 832 pg/mL (<300); Sodium 136 mmol/L (136-145); TSH (W/Ref FT4) 1.02 uIU/mL (0.36-3.74); Total Protein 6.8 g/dL (6.4-8.2); Troponin I < 50 ng/L (< or =60)
[2024-05-13 14:02] LABS: COVID-19 PCR Negative (Negative); Influenza A PCR Negative (Negative); Influenza B PCR Negative (Negative); RSV PCR Negative (Negative)
[2024-05-13 14:03] LABS: Source Nasopharynx
[2024-05-13 14:05] LABS: Calcium 9.1 mg/dL (8.5-10.1)
[2024-05-13 14:11] LABS: Prothrombin Time 10.4 sec (9.1-11.1)
[2024-05-13 16:10] LABS: Bilirubin Negative (Negative); Blood Negative (Negative); Clarity Clear (Clear); Glucose Negative (Negative); Ketones Negative (Negative); Leukocyte Esterase Negative (Negative); Nitrite Negative (Negative); Specific Gravity 1.015 (1.005-1.025); Urobilinogen 0.2 mg/dL (Up to 0.2)
== END 2024-05-13 17:19 | disposition home or self-care (01) ==
PROVIDERS: Emergency Provider Emergency Medicine; PCP Internal Medicine
DX: R53.83 Other fatigue (principal); I11.0 Hypertensive heart disease with heart failure; I50.32 Chronic diastolic (congestive) heart failure; J44.9 Chronic obstructive pulmonary disease, unspecified; E78.5 Hyperlipidemia, unspecified; I48.0 Paroxysmal atrial fibrillation; E11.9 Type 2 diabetes mellitus without complications; I45.19 Other right bundle-branch block; Z79.02 Long term (current) use of antithrombotics/antiplatelets; Z79.4 Long term (current) use of insulin; Z87.891 Personal history of nicotine dependence; W18.39XA Other fall on same level, initial encounter; Y93.89 Activity, other specified; Y92.098 Other place in other non-institutional residence as the place of occurrence of the external cause
CPT/HCPCS: 71275; 73552; 80053; 82805; 83690; 87637; 93005; 96360; 96361; 99285; 70450; 72125; 72170; 73590; 81003; 83735; 83880; 84443; 84484; 85025; 85610; 85730; 93010; J3490

== ENCOUNTER 2024-05-20 18:08 | Outpatient (REF) | payer MEDICARE, MEDICAID, SELFPAY ==
[2024-05-20 21:15] LABS: HCT 38.8 % (36.0-46.0); HGB 12.1 g/dL (11.2-15.7); Lymphocytes % 20.5 %; MCH 29.7 pg (27.0-33.0); MCHC 31.2 % (32.0-36.0); MCV 95 fL (80-95); MPV 10.2 fL (8.0-11.0); Platelet Count 262 10^3/uL (130-400); RBC 4.07 10^6/uL (3.93-5.22); RDW 12.8 % (11.7-14.6); RDW-SD 44.8 fL; WBC 7.31 10^3/uL (4.4-10.8)
[2024-05-20 21:16] LABS: Abs Immature Grans 0.03 10^3/uL (0.0-0.06); Absolute Basophil Count 0.04 10^3/uL (0.0-0.2); Absolute Monocyte Count 0.65 10^3/uL (0.1-0.8); Absolute Neutrophil Count 4.89 10^3/uL (1.2-6.7); Basophils % 0.5 %; Eosinophils % 2.7 %; Immature Grans % 0.4 %; Monocytes % 8.9 %
[2024-05-20 21:32] LABS: ALT 17 U/L (14-59); AST 15 U/L (15-37); Albumin 3.2 g/dL (3.4-5.0); Alkaline Phosphatase 98 U/L (46-116); Anion Gap 6.9 mmol/L (3-11); BUN 16 mg/dL (7-18); Bilirubin, Total 0.34 mg/dL (0.2-1.0); CO2 32.1 mmol/L (21.0-32.0); CREATININE 1.4 mg/dL (0.55-1.02); Calcium 9.4 mg/dL (8.5-10.1); Chloride 102 mmol/L (98-107); Estimated GFR 37.56 (mL/min/1.73m2); Glucose 227 mg/dL (74-106); NT-proBNP 1203 pg/mL (<300); Potassium 4.3 mmol/L (3.5-5.1); Sodium 141 mmol/L (136-145)
== END 2024-05-20 18:09 | disposition home or self-care (01) ==
LOC: LBN 18:08
PROVIDERS: PCP Internal Medicine; Visit Provider Nurse Practitioner Gerontology
DX: I50.33 Acute on chronic diastolic (congestive) heart failure (principal)
CPT/HCPCS: 80053; 83880; 85025

== ENCOUNTER 2024-06-02 19:35 | Outpatient (REF) | payer MEDICARE, MEDICAID, SELFPAY ==
[2024-06-02 18:36] LABS: ALT 16 U/L (14-59); AST 11 U/L (15-37); Albumin 3.1 g/dL (3.4-5.0); Alkaline Phosphatase 114 U/L (46-116); Anion Gap 4.5 mmol/L (3-11); BUN 16 mg/dL (7-18); Bilirubin, Total 0.28 mg/dL (0.2-1.0); CO2 32.5 mmol/L (21.0-32.0); CREATININE 1.3 mg/dL (0.55-1.02); Calcium 9.2 mg/dL (8.5-10.1); Chloride 100 mmol/L (98-107); Estimated GFR 41.06 (mL/min/1.73m2); Glucose 355 mg/dL (74-106); NT-proBNP 784 pg/mL (<300); Potassium 4.4 mmol/L (3.5-5.1); Sodium 137 mmol/L (136-145)
== END 2024-06-02 19:36 | disposition home or self-care (01) ==
LOC: LBN 19:35
PROVIDERS: PCP Internal Medicine; Visit Provider Nurse Practitioner Gerontology
DX: I50.22 Chronic systolic (congestive) heart failure (principal)
CPT/HCPCS: 80053; 83880

== ENCOUNTER → 2024-06-05 13:10 | Outpatient (BNVA) | payer MEDICARE, MEDICAID, SELFPAY | PROVIDERS: PCP Internal Medicine; Referring Provider Internal Medicine; Visit Provider Physician Assistant Surgical | DX: J44.0 Chronic obstructive pulmonary disease with (acute) lower respiratory infection (principal); J44.9 Chronic obstructive pulmonary disease, unspecified; G47.33 Obstructive sleep apnea (adult) (pediatric) | CPT/HCPCS: 99214 ==

== ENCOUNTER 2024-06-13 02:03 | Outpatient (CLI) | payer MEDICARE, MEDICAID, SELFPAY ==
[2024-06-13] MEDS: Levalbuterol HFA 15 GM INH 4 PUFF IH (09:13)
[2024-06-13] MEDS: Inhaler, Assist Device 1 EACH MC (09:13)
--- NOTE | 2024-06-13 12:08 | W.PFT ---
Date of service: 06/13/24 Time of Service: 08:03 Pulmonary Function Test Result Requesting Provider Susana Thomas Indications: COPD, recent LRI. Former 90+ pack year smoker, quit 30 years ago. Test done on maintenance Breztri; DuoNeb and albuterol withheld before the test. Interpretation Spirometry: Spirometry pre and postbronchodilator showed: 1. Moderate airway obstruction in the prebronchodilator test, completely normalized after bronchodilator, which is diagnostic for asthma (reactive airways disease). 2. Positive response to bronchodilator. 3. The radioactivity technician comments indicated a good patient effort. Significant variability was noted on the flow-volume loop morphologies, due to patient factors. 4. The test [place] [employer] standards of spirometry. Lung Volumes: Lung volume studies by plethysmography showed: 1. No evidence of clinically restriction or hyperinflation. 2. There was a mild nonspecific decrease in SVC and IVC. This is not of concern as the FVC normalized after bronchodilator. Diffusion Capacity: DLCO by single breath carbon monoxide technique showed: 1. Moderately decreased gas exchange, which normalized when adjusted for lung volumes. 2. Clinical and radiographic correlation is recommended. This was an abnormal finding. 3. Consider rechecking with a new hemoglobin measurement and correction for hemoglobin concentration. Impression Moderate airway obstruction at baseline which normalized after bronchodilator, diagnostic for asthma. Good but variable patient effort.
== END 2024-06-13 02:04 | disposition home or self-care (01) ==
LOC: RT 02:03
PROVIDERS: PCP Internal Medicine; Visit Provider Physician Assistant Surgical
DX: J45.909 Unspecified asthma, uncomplicated (principal); Z87.891 Personal history of nicotine dependence
CPT/HCPCS: 00123; 94060; 94726; 94729

== ENCOUNTER 2024-08-11 15:07 | Outpatient (REF) | payer MEDICARE, MEDICAID, SELFPAY ==
[2024-08-11 15:42] LABS: Abs Immature Grans 0.01 10^3/uL (0.0-0.06); Absolute Basophil Count 0.04 10^3/uL (0.0-0.2); Absolute Eosinophil Count 0.25 10^3/uL (0.0-0.7); Absolute Lymphocyte Count 1.52 10^3/uL (1.2-3.4); Absolute Monocyte Count 0.51 10^3/uL (0.1-0.8); Absolute Neutrophil Count 4.73 10^3/uL (1.2-6.7); Basophils % 0.6 %; Eosinophils % 3.5 %; HCT 42.1 % (36.0-46.0); HGB 13.3 g/dL (11.2-15.7); Immature Grans % 0.1 %; Lymphocytes % 21.5 %; MCH 29.4 pg (27.0-33.0); MCHC 31.6 % (32.0-36.0); MCV 93 fL (80-95); MPV 10.2 fL (8.0-11.0); Monocytes % 7.2 %; Neutrophils % 67.1 %; Platelet Count 248 10^3/uL (130-400); RBC 4.52 10^6/uL (3.93-5.22); RDW 13.4 % (11.7-14.6); RDW-SD 45.4 fL; WBC 7.06 10^3/uL (4.4-10.8)
[2024-08-11 17:16] LABS: ALT 17 U/L (14-59); AST 10 U/L (15-37); Albumin 3.4 g/dL (3.4-5.0); Alkaline Phosphatase 113 U/L (46-116); Anion Gap 7.6 mmol/L (3-11); BUN 18 mg/dL (7-18); Bilirubin, Total 0.32 mg/dL (0.2-1.0); CO2 33.4 mmol/L (21.0-32.0); CREATININE 1.4 mg/dL (0.55-1.02); Chloride 102 mmol/L (98-107); Estimated GFR 37.56 (mL/min/1.73m2); Glucose 255 mg/dL (74-106); NT-proBNP 669 pg/mL (<300); Potassium 3.9 mmol/L (3.5-5.1); Sodium 143 mmol/L (136-145); Total Protein 6.5 g/dL (6.4-8.2)
== END 2024-08-11 15:08 | disposition home or self-care (01) ==
LOC: LBN 15:07
PROVIDERS: PCP Internal Medicine; Visit Provider Nurse Practitioner Gerontology
DX: J44.1 Chronic obstructive pulmonary disease with (acute) exacerbation (principal)
CPT/HCPCS: 80053; 83880; 85025

== ENCOUNTER 2024-08-18 18:58 | Outpatient (REF) | payer MEDICARE, MEDICAID, SELFPAY ==
[2024-08-18 19:56] LABS: ALT 23 U/L (14-59); AST 12 U/L (15-37); Albumin 3.5 g/dL (3.4-5.0); Alkaline Phosphatase 98 U/L (46-116); Anion Gap 8.4 mmol/L (3-11); BUN 36 mg/dL (7-18); Bilirubin, Total 0.43 mg/dL (0.2-1.0); CO2 32.6 mmol/L (21.0-32.0); CREATININE 1.7 mg/dL (0.55-1.02); Chloride 98 mmol/L (98-107); Estimated GFR 29.76 (mL/min/1.73m2); Glucose 353 mg/dL (74-106); Potassium 3.9 mmol/L (3.5-5.1); Sodium 139 mmol/L (136-145); Total Protein 6.4 g/dL (6.4-8.2)
== END 2024-08-18 18:59 | disposition home or self-care (01) ==
LOC: LBN 18:58
PROVIDERS: PCP Internal Medicine; Visit Provider Nurse Practitioner Gerontology
DX: N18.31 Chronic kidney disease, stage 3a (principal)
CPT/HCPCS: 80053

== ENCOUNTER → 2024-09-09 10:57 | Outpatient (BNVA) | payer MEDICARE, MEDICAID, SELFPAY | PROVIDERS: PCP Internal Medicine; Referring Provider Internal Medicine; Visit Provider Physician Assistant Surgical | DX: J44.9 Chronic obstructive pulmonary disease, unspecified (principal); G47.33 Obstructive sleep apnea (adult) (pediatric) | CPT/HCPCS: 99214 ==

== ENCOUNTER 2024-12-03 23:42 | Outpatient (REF) | payer MEDICARE, MEDICAID, SELFPAY ==
[2024-12-03 23:25] LABS: Abs Immature Grans 0.04 10^3/uL (0.0-0.06); Absolute Basophil Count 0.03 10^3/uL (0.0-0.2); Absolute Eosinophil Count 0.16 10^3/uL (0.0-0.7); Absolute Lymphocyte Count 1.96 10^3/uL (1.2-3.4); Absolute Monocyte Count 0.68 10^3/uL (0.1-0.8); Absolute Neutrophil Count 5.96 10^3/uL (1.2-6.7); Basophils % 0.3 %; Eosinophils % 1.8 %; HCT 44.6 % (36.0-46.0); Immature Grans % 0.5 %; Lymphocytes % 22.2 %; MCH 29.6 pg (27.0-33.0); MCHC 31.4 % (32.0-36.0); MCV 94 fL (80-95); MPV 10.4 fL (8.0-11.0); Monocytes % 7.7 %; Neutrophils % 67.5 %; Platelet Count 261 10^3/uL (130-400); RBC 4.73 10^6/uL (3.93-5.22); RDW 13.1 % (11.7-14.6); WBC 8.83 10^3/uL (4.4-10.8)
[2024-12-03 23:43] LABS: Anion Gap 7.1 mmol/L (3-11); BUN 43 mg/dL (7-18); CO2 35.9 mmol/L (21.0-32.0); CREATININE 1.8 mg/dL (0.55-1.02); Calcium 9.6 mg/dL (8.5-10.1); Chloride 99 mmol/L (98-107); Estimated GFR 27.78 (mL/min/1.73m2); Glucose 349 mg/dL (74-106); NT-proBNP 553 pg/mL (<300); Potassium 3.7 mmol/L (3.5-5.1); Sodium 142 mmol/L (136-145)
== END 2024-12-03 23:43 | disposition home or self-care (01) ==
LOC: LBO 23:42
PROVIDERS: PCP Internal Medicine; Visit Provider Nurse Practitioner Gerontology
DX: I50.22 Chronic systolic (congestive) heart failure (principal); E87.8 Other disorders of electrolyte and fluid balance, not elsewhere classified
CPT/HCPCS: 80048; 83880; 85025

== ENCOUNTER 2024-12-09 13:59 | Inpatient (IN) | payer MEDICARE, MEDICAID, SELFPAY ==
[2024-12-09] VITALS (92 sets, daily range): BP systolic 115–190; BP diastolic 68–119; PULSE 81–196; RESP 10–28; TEMP 36.6–36.8; O2SAT 88–97
--- NOTE | 2024-12-09 13:58 | DI.RAD_ITS ---
Exam(s) XR PORTABLE CHEST AP EXAM: XR PORTABLE CHEST AP CLINICAL HISTORY: sob TECHNIQUE: 2D digital imaging was performed of the chest. One image was obtained. An AP view was ob tained. COMPARISON: CR XR PORTABLE CHEST AP from 07/11/2022 FINDINGS: The patient is rotated. MEDIASTINUM: Normal. HEART: The heart size is at the upper limits of normal. PULMONARY VASCULATURE: Normal. LUNGS: There is prominence diffusely of the interstitial lung markings. No focal consolidating infil trates are definitely appreciated. The left lung base is not well visualized secondary to patient po sitioning. PLEURAL SPACE: No pleural effusion or pneumothorax. BONE:Within normal limits for the patient's age. OTHER FINDINGS:Normal. IMPRESSION: 1. Exam limited by patient positioning. 2. Mild prominence of the interstitial markings in the lungs bilaterally. This may represent interst itial edema or pneumonitis. 3. Heart at the upper limits of normal in size. DATA REPOSITORY: RADIATION DOSE DELIVERED:
[2024-12-09] MEDS: Furosemide 100 MG/10 ML VIAL 80 MG IVP (14:35)
[2024-12-09 14:38] LABS: BE (Venous) 10 mmol/L (-2-3); HCO3 (Venous) 34 mmol/L (23-28); O2 Sat (Venous) 86 %; TCO2 (Venous) 31 mmol/L (24-29); pCO2 (Venous) 52 mmHg (41-51); pH (Venous) 7.43 (7.31-7.41); pO2 (Venous) 49 mmHg
[2024-12-09 14:41] LABS: Abs Immature Grans 0.02 10^3/uL (0.0-0.06); Absolute Basophil Count 0.04 10^3/uL (0.0-0.2); Absolute Eosinophil Count 0.27 10^3/uL (0.0-0.7); Absolute Lymphocyte Count 1.17 10^3/uL (1.2-3.4); Absolute Monocyte Count 0.87 10^3/uL (0.1-0.8); Absolute Neutrophil Count 4.69 10^3/uL (1.2-6.7); Basophils % 0.6 %; Eosinophils % 3.8 %; HCT 40.4 % (36.0-46.0); Immature Grans % 0.3 %; Lymphocytes % 16.6 %; MCHC 32.2 % (32.0-36.0); MCV 93 fL (80-95); MPV 10.4 fL (8.0-11.0); Monocytes % 12.3 %; Neutrophils % 66.4 %; Platelet Count 210 10^3/uL (130-400); RBC 4.34 10^6/uL (3.93-5.22); RDW-SD 44.7 fL; WBC 7.06 10^3/uL (4.4-10.8)
--- NOTE | 2024-12-09 14:52 | RESPIRATORY ---
12/09/2024 Pt placed on BIPAP for WOB 10/5 24%. Pt states chest pain, RN notified. Pt is has coarse breath sounds with some wheeze. MD to order nebulizer.
[2024-12-09 15:09] LABS: ALT 17 U/L (14-59); AST 12 U/L (15-37); Albumin 3.2 g/dL (3.4-5.0); Alkaline Phosphatase 114 U/L (46-116); Anion Gap 5.2 mmol/L (3-11); BUN 25 mg/dL (7-18); Bilirubin, Total 0.3 mg/dL (0.2-1.0); CO2 34.8 mmol/L (21.0-32.0); CREATININE 1.6 mg/dL (0.55-1.02); Calcium 9.2 mg/dL (8.5-10.1); Chloride 101 mmol/L (98-107); Glucose 299 mg/dL (74-106); Magnesium 1.9 mg/dL (1.8-2.4); NT-proBNP 498 pg/mL (<300); Potassium 3.9 mmol/L (3.5-5.1); Sodium 141 mmol/L (136-145); Total Protein 6.7 g/dL (6.4-8.2); Troponin I 9 ng/L (<or=51)
[2024-12-09 15:24] LABS: COVID-19 PCR Negative (Negative); Influenza A PCR Negative (Negative); Influenza B PCR Negative (Negative); RSV PCR Negative (Negative)
[2024-12-09 15:25] LABS: Source Nasopharynx
--- NOTE | 2024-12-09 16:04 | HPE_ITS ---
<Statement entered by Enrique Cervantes - 12/10/24 08:23> I personally interviewed and examined Ms. Carlson in the emergency room after it was determined she would be admitted to the ICU. I discussed the case with Sarah Doan [employer] and we decided to add treatment for COPD given the picture did suggest CHF but it wasn't totally clear and she also had wheezing on exam. I agreed there is no respiratory indication for antibiotics at his point. Date of service: 12/09/24 Time of Service: 16:04 Assessment and Plan Assessment and plan (1) Hypoxic respiratory failure: Status: Acute Assessment and plan: On presentation - new O2 requirement with use of NIV Wean O2 and NIV as tolerated for sat 88-92% Most likely d/t point 2 VS PE as the patient is on Eliquis for atrial fibrillation and also resolving with supplemental O2 W/o fever, leukocytosis , coughing , sputum production most likely not COPD exacerbation or pneumonia. Moreover URVP was negative Considering POCUS when available (2) CHF exacerbation: Status: Acute Assessment and plan: XR pointing to interstitial edema with reported orthopnea, despite the lack of swelling in the lower ext., we might consider a worsening of her diastolic heart failure. faint cardiac wheezing Will continue IV lasix while being cautious with dosing d/t CKD BMP in AM CPAP/BIPAP (3) PAF (paroxysmal atrial fibrillation): Status: Acute Assessment and plan: On eliquis and home beta susan (4) Hyperlipidemia: Status: Acute Assessment and plan: No on medicine opt (5) Chronic kidney disease (CKD): Status: Chronic Assessment and plan: Stable will continue to monitor BMP in AM (6) Sleep apnea: Status: Acute Assessment and plan: CPAP at home Continue CPAP/BIPAP as per RT for CHF (7) COPD (chronic obstructive pulmonary disease): Assessment and plan: On home medicine regimen with Breztri PRN nebs This might be d/t an exacerbation of her COPD: will add methylprednisolone 125 mg x1 then daily prednisone taper- will hold off antibiotics for now (8) HTN (hypertension): Status: Chronic Assessment and plan: On home med regimen (9) Diabetes mellitus: Status: Chronic Assessment and plan: Gluc AC & HS w home dose bolus insulin and SSI coverage discussed with Dr. Cervantes History of Present Illness History of Present Illness Chief Complaint: Shortness of breath Narrative: This 84 years old female patient with a PMHx of COPD, diastolic heart failure, CAD, On home CPAP for ASHLYN, hypoventiilation, obesity, atrial fibrillation on apixaban, HTN, CKD, hyperlipidemia , DM II, presented to the ED via EMS from the [facility] today for evaluation of shortness of breath starting a couple of weeks ago and worsening today. non-tachycardic, normotensive , afebrile , hypoxic with Sat 86% resolving with NIV in the ED, the patient reported blurred vision, headache, shortness of breath,orthopnea, diarrhea; denied chest pain, cough, increased sputum production,nausea, vomiting, dysuria. Workup in the ED showed increased bilat interstitial marking pointing to interstitial edema VS pneumonitis. CBC and chemistry were unremarkable with Cr at 1.6 closed to baseline 1.4. The patient was admitted to the medical surgical floor w telemetry to the hospitalist service for working diagnostic of exacerbation of CHF with possible worsening systolic function, hypoxic respiratory failure, SOB. DNR/DNI status confirmed. Review of Systems All systems reviewed & are unremarkable except as noted in HPI and below PFSH All Active Problems (Updated 12/09/24 @ 17:40 by Sarah Doan APRN) CHF exacerbation (Acute) Hypoxic respiratory failure (Acute) HTN (hypertension) (Chronic) ASHLYN (obstructive sleep apnea) (Chronic) Acute bronchitis (Acute) Hypertensive heart disease (Acute) with heart failure Acute gastritis without bleeding (Acute) Chronic obstructive pulmonary disease with (acute) lower respiratory infection (Acute) Cough (Acute) Cognitive communication deficit (Acute) Zoster without complications (Acute) Hyperlipidemia (Acute) Peripheral vascular disease (Chronic) Spinal stenosis (Acute) Allergic rhinitis (Acute) Insomnia (Acute) Osteoarthritis of knee (Acute) Chronic kidney disease (CKD) (Chronic) stage 3 Left leg pain (Acute) Tremor (Acute) Infected sebaceous cyst of skin (Acute) Chronic diarrhea (Acute) Coronary artery disease (Chronic) Sleep apnea (Acute) severe ASHLYN sleep study 11/10/21 at [facility], CPAP therapy suggested RH Diastolic heart failure (Acute) Obesity (Chronic) PAF (paroxysmal atrial fibrillation) (Acute) Acute on chronic heart failure (Acute) Diabetes mellitus (Chronic) Medical History COPD (chronic obstructive pulmonary disease) Type 2 diabetes mellitus Nausea and vomiting in adult CHF (congestive heart failure) Colitis Gastroenteritis Retinopathy Vitamin D deficiency Mixed hyperlipidemia JASON (generalized anxiety disorder) Depressive disorder HTN (hypertension) with goal to be determined Surgical History H/O heart artery stent (~2019) [facility] History of cardiac cath (~2019) Family History Sister Diabetes Hyperlipidemia Hypertension Social History Smoking/Tobacco Use Status: Former Tobacco Use Smoking risk assessment performed?: Yes Alcohol Intake: never Drug use: Never Substance use type: does not use Housing: custodial Number of Children: 4 What is your relationship status?: Panel score (0-1 are the most socially isolated patients): 0 Do you feel safe at home: Yes Additional Social history: [facility] Med[facility] Allergies and Home Medications Allergies Allergy/AdvReac Type Severity Reaction Status Date / Time codeine AdvReac Intermediate rash Verified 12/09/24 15:12 Home Medications ?Medication ?Instructions ?Recorded ?Confirmed ?Type albuterol sulfate 90 mcg/actuation 2 inh inhalation BID 05/23/21 12/09/24 History aerosol inhaler (Ventolin HFA) atorvastatin 40 mg tablet 40 mg PO DAILY 05/23/21 12/09/24 History cholecalciferol (vitamin D3) 50 4,000 unit PO DAILY 05/23/21 12/09/24 History mcg (2,000 unit) capsule nitroglycerin 0.4 mg sublingual 0.4 mg sublingual Q5-15M PRN 05/23/21 12/09/24 History tablet labetalol 100 mg tablet 100 mg PO TID 06/09/21 12/09/24 History cyanocobalamin (vitamin B-12) 1,000 mcg subcut QMONTH 09/19/21 12/09/24 History 1,000 mcg/mL injection solution calcium carbonate (Antacid Calcium) 215 mg PO BID PRN 09/07/22 12/09/24 History loperamide 2 mg capsule 2 mg PO Q6H PRN 09/07/22 12/09/24 History dextromethorphan HBr 10 mg/5 mL 10 mg PO Q4H PRN 10/26/22 12/09/24 History oral liquid (Scot-Tussin Diabetes) ondansetron HCl 4 mg tablet 4 mg PO DAILY 10/26/22 12/09/24 History polyethylene glycol 3350 17 17 g PO DAILY PRN 10/26/22 12/09/24 History gram/dose oral powder (Miralax) escitalopram oxalate 10 mg tablet 10 mg PO DAILY 01/30/23 12/09/24 History insulin aspart U-100 100 unit/mL See Rx Instructions subcut QAC PRN 01/30/23 12/09/24 History subcutaneous solution (Novolog U-100 Insulin aspart) buspirone 10 mg tablet 5 mg PO BID 01/30/24 12/09/24 History insulin glargine 100 unit/mL (3 48 unit subcut QAM 01/30/24 12/09/24 History mL) subcutaneous pen (Basaglar KwikPen U-100 Insulin) isosorbide mononitrate 30 mg 30 mg PO DAILY 01/30/24 12/09/24 History tablet,extended release 24 hr tramadol 50 mg tablet 100 mg PO QHS 01/30/24 12/09/24 History fluticasone propionate 50 See Rx Instructions intranasal 02/08/24 12/09/24 History mcg/actuation nasal DIRECTED spray,suspension insulin aspart U-100 100 unit/mL 4 unit subcut TID 02/28/24 12/09/24 History (3 mL) subcutaneous pen insulin glargine 100 unit/mL (3 14 unit subcut QPM 02/28/24 12/09/24 History mL) subcutaneous pen (Basaglar KwikPen U-100 Insulin) insulin glargine 100 unit/mL (3 48 unit subcut QAM 02/28/24 12/09/24 History mL) subcutaneous pen (Basaglar KwikPen U-100 Insulin) ipratropium 0.5 mg-albuterol 3 mg 3 ml inhalation BID 02/28/24 12/09/24 History (2.5 mg base)/3 mL nebulization soln metoclopramide HCl 5 mg tablet 5 mg PO BID 02/28/24 12/09/24 History omeprazole 20 mg capsule,delayed 20 mg PO HS 02/28/24 12/09/24 History release saliva substitute combo no.9 15 ml mucous membrane BID-QID PRN 02/28/24 12/09/24 History (Biotene Dry Mouth Oral Rinse mouthwash) budesonide 160 mcg-glycopyr 9 2 inh inhalation BID 05/13/24 12/09/24 History mcg-formot 4.8 mcg/actuation HFA inhaler (Breztri Aerosphere) Saccharomyces boulardii 250 mg 250 mg PO DAILY 06/05/24 12/09/24 History capsule (Daily Probiotic (S. boulardii)) apixaban 2.5 mg tablet 5 mg PO BID 06/05/24 12/09/24 History acetaminophen 500 mg tablet 1,000 mg PO TID 09/09/24 12/09/24 History dulaglutide 1.5 mg/0.5 mL 1.5 mg subcut QWEEK 09/09/24 12/09/24 History subcutaneous pen injector (Trulicity) melatonin 3 mg tablet 3 mg PO HS 09/09/24 12/09/24 History pregabalin 50 mg capsule (Lyrica) 50 mg PO TID 09/09/24 12/09/24 History torsemide 20 mg tablet 20 mg PO BID 09/09/24 12/09/24 History Exam Narrative Exam Narrative: Constitutional Frail elderly patient looking of stated age with labered breathing on NIV; obese body habitus HENMT: Facial structures with normal appearance Eyes: Well aligned, non-icteric sclera . Neck: no JVD Neuro:alert and oriented X3 , non-focal Resp: labored breathing, coarse breath sounds to LL; R>L, faint exp wheezing upper chest L> R Cardio: regular rhythm, S1, S2, no murmur, capillary refill<3 sec., positive bilateral radial and pedal pulses, no edema GI:Large,not distended, semi-firm tender, bowel sounds are present : Negative Costovertebral Back/spine/Pelvis: back tenderness, normal alignment Integumentary: No skin lesions or rash to exposed skin Extremities: generalized weakness Psych: RASS 0 to 1, anxious affect . Results Labs 12/09/24 14:30 12/09/24 14:30 Labs: Laboratory Results - last 24 hr 12/09/24 12/09/24 14:25 14:30 WBC 7.06 RBC 4.34 Hgb 13.0 Hct 40.4 MCV 93 MCH 30.0 MCHC 32.2 RDW 13.0 Plt Count 210 MPV 10.4 Immature Gran % 0.3 Neutrophils % 66.4 Lymphocytes % 16.6 Monocytes % 12.3 Eosinophils % 3.8 Basophils % 0.6 Nucleated RBC % 0.0 Absolute Neutrophils 4.69 Absolute Lymphocytes 1.17 L Absolute Monocytes 0.87 H Absolute Eosinophils 0.27 Absolute Basophils 0.04 VBG pH 7.43 H VBG pCO2 52 H VBG pO2 49 VBG HCO3 34 H VBG Total CO2 31 H VBG O2 Saturation 86 VBG Base Excess 10 H Sodium 141 Potassium 3.9 Chloride 101 Carbon Dioxide 34.8 H Anion Gap 5.2 BUN 25 H Creatinine 1.6 H Est GFR (CKD-EPI 2020) 31.80 Glucose 299 H Calcium 9.2 Magnesium 1.9 Total Bilirubin 0.3 AST 12 L ALT 17 Alkaline Phosphatase 114 Troponin I 9 NT-Pro-B Natriuret Pep 498 H Total Protein 6.7 Albumin 3.2 L COVID-19 Source Nasopharynx SARS-CoV-2 (PCR) Negative Influenza Type A (PCR) Negative Influenza Type B (PCR) Negative RSV (PCR) Negative Last Vital Signs Temp 36.8 C 12/09/24 14:33 Pulse 82 12/09/24 14:33 Resp 22 12/09/24 14:33 BP 149/69 H 12/09/24 14:33 Pulse Ox 92 12/09/24 14:33 Time Spent Time spent with Patient: >75 minutes Time was spent: preparing to see the patient(eg.review tests), obtaining and/or reviewing separately otained hiistory, ordering medications,tests, procedures, referring, communicating with other health patient care technician instructor, indepentently interpreting results, counseling the patient and care coordination
[2024-12-09] MEDS: Albuterol 2.5 MG/3 ML INH SOLN VIAL UPD (16:14)
[2024-12-09 16:18] LABS: Troponin I 9 ng/L (<or=51)
--- NOTE | 2024-12-09 16:45 | RT.EKG_ITS ---
APPROVED REPORT Exam: Resting ECG Reason for Exam: QT prolongation, shortness of breath Patient Location: E HR:85 bpm ECG Measurements Heart Rate 85 AXIS DE 99 P 0 QRSd 164 QRS 11 QT 427 T 45 QTc 509 Conclusion Sinus rhythm 85 RBBB no stemi
--- NOTE | 2024-12-09 19:13 | W.PCEDHO ---
Registration Status: Primary Language: Preferred Language: ED Information & Data Chief Complaint SOB 12/09/24 14:33 Chief Complaint SOB 12/09/24 14:05 Triage Note congestion/cough started 12/09/24 14:05 this AM, wet crackles throughout. Given duonebs @ [facility], flu/covid swab was negative. EMS gave 1 duoneb and started CPAP Medical / Surgical History (Last Reviewed 02/11/24 @ 14:53 by Melinda Molina MD) COPD (chronic obstructive pulmonary disease) Type 2 diabetes mellitus Nausea and vomiting in adult CHF (congestive heart failure) Colitis Gastroenteritis Retinopathy Vitamin D deficiency Mixed hyperlipidemia JASON (generalized anxiety disorder) Depressive disorder HTN (hypertension) with goal to be determined (Last Reviewed 02/11/24 @ 14:53 by Melinda Molina MD) H/O heart artery stent (~2019) History of cardiac cath (~2019) Most Recent Vital Signs Temperature 36.8 C 12/09/24 14:33 Temperature Source Temporal Artery Scan 12/09/24 14:33 Pulse 87 12/09/24 18:40 Pulse 86 12/09/24 18:40 Respiratory Rate 22 12/09/24 18:44 Respiratory Effort Short of Breath, Labored, Accessory Muscle Use 12/09/24 18:44 Respiratory Depth Normal 12/09/24 18:44 Respiratory Pattern Normal 12/09/24 18:44 Blood Pressure 181/68 H 12/09/24 17:47 Blood Pressure Mean 103 12/09/24 17:47 Blood Pressure Position Sitting 12/09/24 14:33 Pulse Oximetry 94 12/09/24 18:40 Oxygen Delivery Method Cpap 12/09/24 16:14 Fraction of Inspired Oxygen (FIO2) 24 12/09/24 16:16 Pain Level 0 12/09/24 14:33 Comment in no distress 12/09/24 14:33 Allergies codeine Adverse Reaction (Intermediate, Verified 12/09/24 15:12) rash Precautions Isolation PUI 12/09/24 14:33 IV IV Catheter Type [Left Forearm Peripheral IV ] IV Catheter Gauge [Left 18 Forearm] Diagnostics 12/09/24 12/09/24 12/09/24 Range/Units 17:16 15:32 14:30 WBC 7.06 (4.4-10.8) 10^3/uL RBC 4.34 (3.93-5.22) 10^6/uL Hgb 13.0 (11.2-15.7) g/dL Hct 40.4 (36.0-46.0) % MCV 93 (80-95) fL MCH 30.0 (27.0-33.0) pg MCHC 32.2 (32.0-36.0) % RDW 13.0 (11.7-14.6) % Plt Count 210 (130-400) 10^3/uL MPV 10.4 (8.0-11.0) fL Immature Gran % 0.3 % Neutrophils % 66.4 % Lymphocytes % 16.6 % Monocytes % 12.3 % Eosinophils % 3.8 % Basophils % 0.6 % Nucleated RBC % 0.0 (0.0-0.3) % Absolute Neutrophils 4.69 (1.2-6.7) 10^3/uL Absolute Lymphocytes 1.17 L (1.2-3.4) 10^3/uL Absolute Monocytes 0.87 H (0.1-0.8) 10^3/uL Absolute Eosinophils 0.27 (0.0-0.7) 10^3/uL Absolute Basophils 0.04 (0.0-0.2) 10^3/uL VBG pH 7.43 H (7.31-7.41) VBG pCO2 52 H (41-51) mmHg VBG pO2 49 mmHg VBG HCO3 34 H (23-28) mmol/L VBG Total CO2 31 H (24-29) mmol/L VBG O2 Saturation 86 % VBG Base Excess 10 H (-2-3) mmol/L Sodium 141 (136-145) mmol/L Potassium 3.9 (3.5-5.1) mmol/L Chloride 101 (98-107) mmol/L Carbon Dioxide 34.8 H (21.0-32.0) mmol/L Anion Gap 5.2 (3-11) mmol/L BUN 25 H (7-18) mg/dL Creatinine 1.6 H (0.55-1.02) mg/dL Est GFR (CKD-EPI 2020) 31.80 (mL/min/1.73m2) Glucose 299 H (74-106) mg/dL Calcium 9.2 (8.5-10.1) mg/dL Magnesium 1.9 (1.8-2.4) mg/dL Total Bilirubin 0.3 (0.2-1.0) mg/dL AST 12 L (15-37) U/L ALT 17 (14-59) U/L Alkaline Phosphatase 114 (46-116) U/L Troponin I Pending 9 9 (<or=51) ng/L NT-Pro-B Natriuret Pep 498 H (<300) pg/mL Total Protein 6.7 (6.4-8.2) g/dL Albumin 3.2 L (3.4-5.0) g/dL COVID-19 Source SARS-CoV-2 (PCR) (Negative) Influenza Type A (PCR) (Negative) Influenza Type B (PCR) (Negative) RSV (PCR) (Negative) 12/09/24 Range/Units 14:25 WBC (4.4-10.8) 10^3/uL RBC (3.93-5.22) 10^6/uL Hgb (11.2-15.7) g/dL Hct (36.0-46.0) % MCV (80-95) fL MCH (27.0-33.0) pg MCHC (32.0-36.0) % RDW (11.7-14.6) % Plt Count (130-400) 10^3/uL MPV (8.0-11.0) fL Immature Gran % % Neutrophils % % Lymphocytes % % Monocytes % % Eosinophils % % Basophils % % Nucleated RBC % (0.0-0.3) % Absolute Neutrophils (1.2-6.7) 10^3/uL Absolute Lymphocytes (1.2-3.4) 10^3/uL Absolute Monocytes (0.1-0.8) 10^3/uL Absolute Eosinophils (0.0-0.7) 10^3/uL Absolute Basophils (0.0-0.2) 10^3/uL VBG pH (7.31-7.41) VBG pCO2 (41-51) mmHg VBG pO2 mmHg VBG HCO3 (23-28) mmol/L VBG Total CO2 (24-29) mmol/L VBG O2 Saturation % VBG Base Excess (-2-3) mmol/L Sodium (136-145) mmol/L Potassium (3.5-5.1) mmol/L Chloride (98-107) mmol/L Carbon Dioxide (21.0-32.0) mmol/L Anion Gap (3-11) mmol/L BUN (7-18) mg/dL Creatinine (0.55-1.02) mg/dL Est GFR (CKD-EPI 2020) (mL/min/1.73m2) Glucose (74-106) mg/dL Calcium (8.5-10.1) mg/dL Magnesium (1.8-2.4) mg/dL Total Bilirubin (0.2-1.0) mg/dL AST (15-37) U/L ALT (14-59) U/L Alkaline Phosphatase (46-116) U/L Troponin I (<or=51) ng/L NT-Pro-B Natriuret Pep (<300) pg/mL Total Protein (6.4-8.2) g/dL Albumin (3.4-5.0) g/dL COVID-19 Source Nasopharynx SARS-CoV-2 (PCR) Negative (Negative) Influenza Type A (PCR) Negative (Negative) Influenza Type B (PCR) Negative (Negative) RSV (PCR) Negative (Negative) Intake and Output - 24 Hour Total 12/09/24 13:32 thru 12/09/24 16:05 Weight 108.409 kg Other: Comment pure wick in place, pt given IV lasix. Falls Risk Assessment History of Falls Previous History 12/09/24 14:33 Contributing Factors Confusion,Unstable, 12/09/24 14:33 Impairments,Incontinence, Medications Ambulatory Aids Uses ambulatory device + 12/09/24 14:33 Tubes/Lines With any additional score 12/09/24 14:33 Gait Evaluation W/any additional score 12/09/24 14:33 Cognition Cognitive impairment 12/09/24 14:33 Fall Total Score 115 12/09/24 14:33 Level of Risk Maximum Risk 12/09/24 14:33 Problems (Last Reviewed 02/11/24 @ 14:53 by Melinda Molina MD) CHF exacerbation (Acute) Hypoxic respiratory failure (Acute) HTN (hypertension) (Chronic) Chronic obstructive pulmonary disease with (acute) lower respiratory infection (Acute) Hyperlipidemia (Acute) Chronic kidney disease (CKD) (Chronic) Sleep apnea (Acute) PAF (paroxysmal atrial fibrillation) (Acute) Diabetes mellitus (Chronic) Notes 12/09/24 14:52 Respiratory by Thu Oliver 12/09/2024 Pt placed on BIPAP for WOB 10/5 24%. Pt states chest pain, RN notified. Pt is has coarse breath sounds with some wheeze. MD to order nebulizer. Initialized on 12/09/24 14:52 - END OF NOTE v v v v v v v v v Sending and/or Receiving Nurses: Please use comment section below to note any information pertinent to the patient hand-off not included above. Information / Comments: Report received from: Pérez
[2024-12-09 19:33] LABS: Troponin I 10 ng/L (<or=51)
--- NOTE | 2024-12-09 20:12 | ED.GENADUL_ITS ---
Discharge Plan Disposition Patient Disposition: Admit to [facility] Condition: Stable Discharge Details Chief Complaint: SOB Clinical Impression: Acute on chronic heart failure, CHF exacerbation, Hypoxic respiratory failure Admit Date/Time: 12/09/24 16:35 Admit Provider: Enrique Cervantes Attending Provider: Enrique Cervantes Primary Care Provider: Janeen Weldon ED Provider: Juanito Jeter [facility] General Date/Time Provider Initiated Documentation: 12/09/24 14:06 . Limitations to Documentation: physical limitation . Information obtained by: EMS and old records reviewed . HPI Narrative: 84-year-old female with past medical history of hypertension, ASHLYN on CPAP at night, CKD, cognitive deficits, CHF, diabetes, A-fib on anticoagulant presents for evaluation difficulty breathing. Patient stays at the [facility] and they were concerned about her increased work of breathing today. They performed viral testing which was negative. And then they called EMS when her symptoms did not improve after breathing treatments. It is unknown how many breathing treatments he received prior to EMS arrival. On EMS arrival they noted that she had oxygen saturations in the 80s. They noted that she had significant increased work of breathing and accessory muscle use. They gave the patient 1 DuoNeb prior to arrival and then the patient was placed on CPAP. They report that after placing the patient on CPAP, she did have an improvement in her work of breathing and oxygenation. Related Data Home Medications ?Medication ?Instructions ?Recorded ?Confirmed albuterol sulfate 90 mcg/actuation 2 inh inhalation BID 05/23/21 12/09/24 aerosol inhaler (Ventolin HFA) atorvastatin 40 mg tablet 40 mg PO DAILY 05/23/21 12/09/24 cholecalciferol (vitamin D3) 50 4,000 unit PO DAILY 05/23/21 12/09/24 mcg (2,000 unit) capsule nitroglycerin 0.4 mg sublingual 0.4 mg sublingual Q5-15M PRN 05/23/21 12/09/24 tablet labetalol 100 mg tablet 100 mg PO TID 06/09/21 12/09/24 cyanocobalamin (vitamin B-12) 1,000 mcg subcut QMONTH 09/19/21 12/09/24 1,000 mcg/mL injection solution calcium carbonate (Antacid Calcium) 215 mg PO BID PRN 09/07/22 12/09/24 loperamide 2 mg capsule 2 mg PO Q6H PRN 09/07/22 12/09/24 dextromethorphan HBr 10 mg/5 mL 10 mg PO Q4H PRN 10/26/22 12/09/24 oral liquid (Scot-Tussin Diabetes) ondansetron HCl 4 mg tablet 4 mg PO DAILY 10/26/22 12/09/24 polyethylene glycol 3350 17 17 g PO DAILY PRN 10/26/22 12/09/24 gram/dose oral powder (Miralax) escitalopram oxalate 10 mg tablet 10 mg PO DAILY 01/30/23 12/09/24 insulin aspart U-100 100 unit/mL See Rx Instructions subcut QAC PRN 01/30/23 12/09/24 subcutaneous solution (Novolog U-100 Insulin aspart) buspirone 10 mg tablet 5 mg PO BID 01/30/24 12/09/24 insulin glargine 100 unit/mL (3 48 unit subcut QAM 01/30/24 12/09/24 mL) subcutaneous pen (Basaglar KwikPen U-100 Insulin) isosorbide mononitrate 30 mg 30 mg PO DAILY 01/30/24 12/09/24 tablet,extended release 24 hr tramadol 50 mg tablet 100 mg PO QHS 01/30/24 12/09/24 fluticasone propionate 50 See Rx Instructions intranasal 02/08/24 12/09/24 mcg/actuation nasal DIRECTED spray,suspension insulin aspart U-100 100 unit/mL 4 unit subcut TID 02/28/24 12/09/24 (3 mL) subcutaneous pen insulin glargine 100 unit/mL (3 14 unit subcut QPM 02/28/24 12/09/24 mL) subcutaneous pen (Basaglar KwikPen U-100 Insulin) insulin glargine 100 unit/mL (3 48 unit subcut QAM 02/28/24 12/09/24 mL) subcutaneous pen (Basaglar KwikPen U-100 Insulin) ipratropium 0.5 mg-albuterol 3 mg 3 ml inhalation BID 02/28/24 12/09/24 (2.5 mg base)/3 mL nebulization soln metoclopramide HCl 5 mg tablet 5 mg PO BID 02/28/24 12/09/24 omeprazole 20 mg capsule,delayed 20 mg PO HS 02/28/24 12/09/24 release saliva substitute combo no.9 15 ml mucous membrane BID-QID PRN 02/28/24 12/09/24 (Biotene Dry Mouth Oral Rinse mouthwash) budesonide 160 mcg-glycopyr 9 2 inh inhalation BID 05/13/24 12/09/24 mcg-formot 4.8 mcg/actuation HFA inhaler (Breztri Aerosphere) Saccharomyces boulardii 250 mg 250 mg PO DAILY 06/05/24 12/09/24 capsule (Daily Probiotic (S. boulardii)) apixaban 2.5 mg tablet 5 mg PO BID 06/05/24 12/09/24 acetaminophen 500 mg tablet 1,000 mg PO TID 09/09/24 12/09/24 dulaglutide 1.5 mg/0.5 mL 1.5 mg subcut QWEEK 09/09/24 12/09/24 subcutaneous pen injector (Trulicity) melatonin 3 mg tablet 3 mg PO HS 09/09/24 12/09/24 pregabalin 50 mg capsule (Lyrica) 50 mg PO TID 09/09/24 12/09/24 torsemide 20 mg tablet 20 mg PO BID 09/09/24 12/09/24 Allergies Allergy/AdvReac Type Severity Reaction Status Date / Time codeine AdvReac Intermediate rash Verified 12/09/24 15:12 General Stated Complaint: SOB JENNIFER: 3 Exam Narrative Exam Narrative: Review of Systems: All systems reviewed & are unremarkable except as noted in HPI and below Well-developed, no acute distress NCAT RRR no murmur No increased work of breathing, currently on CPAP, oxygen saturations in the mid 90s, crackles throughout Mild abdominal distention Extremities w/o edema Course Vital Signs Vital signs: Vital Signs Pulse 89 12/09/24 14:05 Respiratory Rate 22 12/09/24 14:05 Blood Pressure 144/106 H 12/09/24 14:05 Pulse Oximetry 96 12/09/24 14:05 Temperature 36.8 C 12/09/24 14:33 Temperature Source Temporal Artery Scan 12/09/24 14:33 Pulse 87 12/09/24 19:11 Pulse 87 12/09/24 19:11 Respiratory Rate 17 03/18/25 19:11 Respiratory Effort Short of Breath, Labored, Accessory Muscle Use 12/09/24 18:44 Respiratory Depth Normal 12/09/24 18:44 Respiratory Pattern Normal 12/09/24 18:44 Blood Pressure 151/104 H 12/09/24 19:11 Blood Pressure Mean 114 12/09/24 19:11 Blood Pressure Position Sitting 12/09/24 14:33 Pulse Oximetry 94 12/09/24 19:11 Oxygen Delivery Method Cpap 12/09/24 16:14 Fraction of Inspired Oxygen (FIO2) 24 12/09/24 16:16 Pain Level 0 12/09/24 14:33 Comment in no distress 12/09/24 14:33 Lab/Test Results Lab/Test Results: Laboratory Tests Range/Units 12/09/24 12/09/24 12/09/24 14:25 14:30 15:32 WBC (4.4-10.8) 10^3/uL 7.06 RBC (3.93-5.22) 10^6/uL 4.34 Hgb (11.2-15.7) g/dL 13.0 Hct (36.0-46.0) % 40.4 MCV (80-95) fL 93 MCH (27.0-33.0) pg 30.0 MCHC (32.0-36.0) % 32.2 RDW (11.7-14.6) % 13.0 Plt Count (130-400) 10^3/uL 210 MPV (8.0-11.0) fL 10.4 Immature Gran % % 0.3 Neutrophils % % 66.4 Lymphocytes % % 16.6 Monocytes % % 12.3 Eosinophils % % 3.8 Basophils % % 0.6 Nucleated RBC % (0.0-0.3) % 0.0 Absolute Neutrophils (1.2-6.7) 10^3/uL 4.69 Absolute Lymphocytes (1.2-3.4) 10^3/uL 1.17 L Absolute Monocytes (0.1-0.8) 10^3/uL 0.87 H Absolute Eosinophils (0.0-0.7) 10^3/uL 0.27 Absolute Basophils (0.0-0.2) 10^3/uL 0.04 VBG pH (7.31-7.41) 7.43 H VBG pCO2 (41-51) mmHg 52 H VBG pO2 mmHg 49 VBG HCO3 (23-28) mmol/L 34 H VBG Total CO2 (24-29) mmol/L 31 H VBG O2 Saturation % 86 VBG Base Excess (-2-3) mmol/L 10 H Sodium (136-145) mmol/L 141 Potassium (3.5-5.1) mmol/L 3.9 Chloride (98-107) mmol/L 101 Carbon Dioxide (21.0-32.0) mmol/L 34.8 H Anion Gap (3-11) mmol/L 5.2 BUN (7-18) mg/dL 25 H Creatinine (0.55-1.02) mg/dL 1.6 H Est GFR (CKD-EPI 2020) (mL/min/1.73m2) 31.80 Glucose (74-106) mg/dL 299 H Calcium (8.5-10.1) mg/dL 9.2 Magnesium (1.8-2.4) mg/dL 1.9 Total Bilirubin (0.2-1.0) mg/dL 0.3 AST (15-37) U/L 12 L ALT (14-59) U/L 17 Alkaline Phosphatase (46-116) U/L 114 Troponin I (<or=51) ng/L 9 9 NT-Pro-B Natriuret Pep (<300) pg/mL 498 H Total Protein (6.4-8.2) g/dL 6.7 Albumin (3.4-5.0) g/dL 3.2 L COVID-19 Source Nasopharynx SARS-CoV-2 (PCR) (Negative) Negative Influenza Type A (PCR) (Negative) Negative Influenza Type B (PCR) (Negative) Negative RSV (PCR) (Negative) Negative Medical Decision Making Emergent evaluation of respiratory distress. Initial differential includes CHF exacerbation, COPD, respiratory failure, infectious etiology like viral illness or pneumonia. The patient is afebrile and it has responded nicely to the BiPAP. She does have crackles throughout her lungs, but on chart review I do not see a prior echocardiogram in the documentation. She was kept on the BiPAP and given IV Lasix though she had not started diuresing in the emergency department. Lab work was obtained. No leukocytosis or anemia. Her VBG demonstrates some mild hypercarbia but appears to be fairly well compensated. Her renal function is at baseline. Mild hyperglycemia without evidence of DKA. Her BNP is in the 400s which she has had significantly higher values in the past. Viral testing is negative. Chest x-ray was obtained and reviewed, it does appear consistent with pulmonary edema. Given her oxygen requirement and BiPAP requirement, the patient will be admitted to hospital medicine for further management. Quality:[facility] Related Social Needs: No Data to Display [facility] All Active Problems (Updated 12/09/24 @ 20:19 by Juanito Jeter MD) CHF exacerbation (Acute) Hypoxic respiratory failure (Acute) HTN (hypertension) (Chronic) ASHLYN (obstructive sleep apnea) (Chronic) Acute bronchitis (Acute) Hypertensive heart disease (Acute) with heart failure Acute gastritis without bleeding (Acute) Chronic obstructive pulmonary disease with (acute) lower respiratory infection (Acute) Cough (Acute) Cognitive communication deficit (Acute) Zoster without complications (Acute) Hyperlipidemia (Acute) Peripheral vascular disease (Chronic) Spinal stenosis (Acute) Allergic rhinitis (Acute) Insomnia (Acute) Osteoarthritis of knee (Acute) Chronic kidney disease (CKD) (Chronic) stage 3 Left leg pain (Acute) Tremor (Acute) Infected sebaceous cyst of skin (Acute) Chronic diarrhea (Acute) Coronary artery disease (Chronic) Sleep apnea (Acute) severe ASHLYN sleep study 11/10/21 at [facility], CPAP therapy suggested RH Diastolic heart failure (Acute) Obesity (Chronic) PAF (paroxysmal atrial fibrillation) (Acute) Acute on chronic heart failure (Acute) Diabetes mellitus (Chronic) Medical History COPD (chronic obstructive pulmonary disease) Type 2 diabetes mellitus Nausea and vomiting in adult CHF (congestive heart failure) Colitis Gastroenteritis Retinopathy Vitamin D deficiency Mixed hyperlipidemia JASON (generalized anxiety disorder) Depressive disorder HTN (hypertension) with goal to be determined Surgical History H/O heart artery stent (~2019) [facility] History of cardiac cath (~2019) Family History Sister Diabetes Hyperlipidemia Hypertension Social History Smoking/Tobacco Use Status: Former Tobacco Use Smoking risk assessment performed?: Yes Alcohol Intake: never Drug use: Never Substance use type: does not use Housing: [facility] Number of Children: 4 What is your relationship status?: Panel score (0-1 are the most socially isolated patients): 0 Do you feel safe at home: Yes Additional Social history: Sobeida
[2024-12-09] MEDS: Acetaminophen 500 MG TAB 1000 MG PO (21:02)
[2024-12-09] MEDS: Omeprazole 20 MG CAPCR PO (21:02)
[2024-12-09] MEDS: Labetalol 100 MG TAB PO (21:02)
[2024-12-09] MEDS: Melatonin 3 MG TAB PO (21:02)
[2024-12-09] MEDS: methylPREDNISolone SUCC 125 MG VIAL IVP (21:03)
[2024-12-09] MEDS: Pregabalin 50 MG CAP PO (21:03)
[2024-12-09] MEDS: busPIRone 5 MG TAB PO (21:03)
[2024-12-09] MEDS: Normal Saline Flush 10 ML SYR IVP ×2 (21:03→21:04)
[2024-12-09] MEDS: traMADol 50 MG TAB 100 MG PO ×2 (21:03→21:16)
[2024-12-09] MEDS: Albuterol/Ipratropium 3 ML UPD VIAL UPD (21:03)
[2024-12-09] MEDS: Apixaban 2.5 MG TAB 5 MG PO (21:03)
[2024-12-09] MEDS: Metoclopramide 10 MG TAB 5 MG PO (21:14)
[2024-12-09] MEDS: Insulin Aspart 300 UNITS/3 ML PEN SC (21:15)
[2024-12-09] MEDS: Insulin Glargine 300 UNITS/3 ML PEN 14 UNITS SC (21:15)
[2024-12-09 22:09] LABS: Bilirubin Negative (Negative); Blood Negative (Negative); Clarity Clear (Clear); Glucose Negative (Negative); Ketones Negative (Negative); Leukocyte Esterase Trace (Negative); Nitrite Negative (Negative); Urobilinogen 0.2 mg/dL (Up to 0.2); pH 5.5 (5-8)
[2024-12-09 22:17] LABS: Bacteria Negative HPF (Negative); C & S Indicated? No; Casts Negative LPF (Negative); Crystals Negative HPF (Negative); Epithelial Cells Negative HPF (Negative); Mucus Negative (Negative); RBC Negative HPF (0-2); WBC 0-2 HPF (0-5)
[2024-12-10] VITALS (127 sets, daily range): BP systolic 114–246; BP diastolic 53–222; PULSE 58–177; RESP 5–45; TEMP 36.5–37; O2SAT 81–97
--- NOTE | 2024-12-10 | DI.CT_ITS ---
Exam(s) CT CHEST WO EXAM: CT CHEST WO CLINICAL HISTORY: hypoxia. TECHNIQUE: Imaging protocol: Axial computed tomography images were obtained and coronal and sagittal reformatted images were created and reviewed. Lung Computer Aided Detection (CAD) was utilized. COMPARISON: CT CT CHEST PE CTA from 05/13/2024 CR XR PORTABLE CHEST AP from 12/09/2024 FINDINGS: The examination is limited due to patient motion artifact. Tracheobronchial tree: There is mild bronchial wall thickening and mucous plugging seen in the lower lobes. No bronchiectasis is present. Pulmonary parenchyma: There are few scattered pulmonary nodules present. The largest is in the right upper lobe and measures 5 mm (series 2, image 57). There are no focal consolidating infiltrates pre sent. Mediastinum and Janae: No dominant adenopathy or fluid collection. The esophagus is unremarkable.There is a moderate size hiatal hernia. Thyroid gland: Unremarkable. Pleura: No effusion or pneumothorax. Heart: Cardiomegaly. There is 3 vessel coronary artery calcification. No pericardial effusion. Aorta: Thoracic aorta non-dilated. Atherosclerotic calcification is present. Upper abdomen: Status post cholecystectomy. Lymph nodes: Within normal limits. Soft tissues: Unremarkable. Bones:Within normal limits for the patient's age. IMPRESSION: 1. Bronchial wall thickening with mucous plugging. This can be seen with bronchitis. 2. No focal consolidating infiltrates are seen. 3. Scattered pulmonary nodules. The largest measures 5 mm. Solid nodules smaller than 6 mm do not require routine follow-up in all patients with high clinical r isk; however, some nodules smaller than 6 mm with suspicious morphology, upper lobe location, or both may warrant follow-up at 12 months (grade 2A; weak recommendation, high-quality evidence). (Kinga et al., 2017) Single solid noncalcified nodules. ???Solid nodules smaller than 6 mm (those 5 mm or smaller) do not require routine follow-up in patients at low risk (grade 1C; strong recommendation, low- or very-low- quality evidence). (Annahoreyes et al., 2017) Unexpected findings RADIATION DOSE DELIVERED: 357.79mGy.cm Total DLP 357.79mGy.cm Total DLP DATA REPOSITORY: All CT scans at this facility are submitted to the National Radiology Data Registry (NRDR) Dose Index Registry (DIR) with the [employer] (A[employer]). RADIATION OPTIMIZATION: All CT scans at this facility use at least one of these dose optimization te chniques: automated exposure control; mA and/or kV adjustment per patient size (includes targeted exa ms where dose is matched to clinical indication); or iterative reconstruction.
[2024-12-10] MEDS: Albuterol/Ipratropium 3 ML UPD VIAL UPD ×4 (03:12→19:39)
--- NOTE | 2024-12-10 07:09 | NUR.NOTE ---
Addendum entered by Alethea Washburn 12/10/24 14:06: Duplicate EKG order cancelled. Dr. Jeter aware. Original Note: Access chart to reconcile EKG orders with EKG's in [place]. Nursing Note:
[2024-12-10 08:36] LABS: BE (Venous) 10 mmol/L (-2-3); HCO3 (Venous) 35 mmol/L (23-28); pCO2 (Venous) 56 mmHg (41-51); pH (Venous) 7.41 (7.31-7.41); pO2 (Venous) 72 mmHg
[2024-12-10 08:45] LABS: O2 Sat (Venous) > 99 %
[2024-12-10] MEDS: Metoclopramide 10 MG TAB 5 MG PO ×2 (08:48→15:28)
[2024-12-10] MEDS: Acetaminophen 500 MG TAB 1000 MG PO ×3 (08:50→19:36)
[2024-12-10] MEDS: predniSONE 20 MG TAB 40 MG PO (08:51)
[2024-12-10] MEDS: Cholecalciferol (Vitamin D3) 1,000 UNIT TAB 4000 UNITS PO (08:51)
[2024-12-10] MEDS: Lactobacillus Acidophilus CAP 1 CAP PO (08:52)
[2024-12-10] MEDS: Atorvastatin 40 MG TAB PO (08:52)
[2024-12-10] MEDS: Escitalopram 10 MG TAB PO (08:52)
[2024-12-10] MEDS: Pregabalin 50 MG CAP PO ×3 (08:53→19:34)
[2024-12-10] MEDS: Isosorbide Mononitrate 30 MG TABCR PO (08:53)
[2024-12-10] MEDS: busPIRone 5 MG TAB PO ×2 (08:54→19:34)
[2024-12-10] MEDS: Labetalol 100 MG TAB PO ×3 (08:54→19:34)
[2024-12-10] MEDS: Insulin Aspart 300 UNITS/3 ML PEN SC ×3 (08:55→17:26)
[2024-12-10] MEDS: Furosemide 100 MG/10 ML VIAL 80 MG IVP (08:55)
[2024-12-10 08:56] LABS: Anion Gap 6.5 mmol/L (3-11); BUN 27 mg/dL (7-18); CO2 35.5 mmol/L (21.0-32.0); CREATININE 1.5 mg/dL (0.55-1.02); Calcium 9.7 mg/dL (8.5-10.1); Chloride 101 mmol/L (98-107); Estimated GFR 34.36 (mL/min/1.73m2); Glucose 352 mg/dL (74-106); Sodium 143 mmol/L (136-145)
[2024-12-10] MEDS: Normal Saline Flush 10 ML SYR IVP ×2 (08:57→19:39)
--- NOTE | 2024-12-10 09:10 | INITIAL_ITS ---
Date of service: 12/10/24 Time of Service: 09:10 Care Management Initial Assmt Initial Assessment Reason for Hospitalization: CHF, pulmonary congestion Functional Status/Living Situation Patient Presentation: Nita was in [place] when CM attempted to meet with her; CM met with her daughter, Mary, who is her guardian. Mary stated that she met with Cheryl, Palliative care, today and made a plan regarding her discharge. If Nita improves with treatment, she will return to the [facility], where she resides. If she does not respond to treatment, Mary will bring her to her home with hospice support. During the palliative consult it was established that Nita is a DNR/DNI (per her COLST), and wants transfer and treatment, but would avoid invasive interventions. She is working with RT, on max supports for her respiratory failure, per report. CM will continue to follow. Town of Residence: [place] Resides with: Other (SNF- the [facility]) Significant Other/Family: Local Caregiver/Guardian: Co Guardians: Mary Tsai and Clarisa Wyman Natural Supports: Nita has supportive family members including children and grandchildren Employment Status: Retired Instrumental Activities of Daily Living (ADLs): Requires support Medications Medication Management: No Issues/Barriers identified (SNF supports medication needs) Physical Functioning/Mobility Assistive Device: Nita has access to any necessary equipment at the [facility], where she resides Advance Directives Advance Directives: Do you have an Advance Directive: N 09/19/21 11:14 AD On File at [facility]: N 09/19/21 11:14 Date Asked 12/09/24 12/09/24 14:02 AD Date Reviewed COLST On File at [facility] Yes 09/20/21 03:53 COLST Date Scanned 12/10/24 12/10/24 13:41 Code Status Resuscitation Status DNR/DNI Insurance Coverage/Financial Issues Insurance: [facility] Care Team Visit Care Team Role Provider Type Janeen Weldon Primary Care Provider NON-[facility] STAFF PHYSICIAN Kiana Balderrama RDN, [facility] Other Providers MOLECULAR GENETIC PATHOLOGIST Apolinar Miller RDN Other Providers MOLECULAR GENETIC PATHOLOGIST Juanito Jeter MD Emergency Provider [facility] STAFF PHYSICIAN nErique Cervantes Admit Provider [facility] STAFF PHYSICIAN Attending Provider Discharge Potential Discharge Needs: Other (coordinated return to SNF) Anticipated Barriers to Discharge: None Identified Patient/Family Education Needs: Review discharge instructions, discuss Ask Me Three Transportation: Private vehicle Plan: Anticipate Nita will return to the [facility], where she resides, once medically cleared. She will likely transport via private vehicle by family vs w/c van, depending on mobility at time of discharge. She will follow up with her PCP and discharge plan of care. CM will continue to follow. Social Determinants of Health Screening Will the Patient Participate in the Screening?: Unable to obtain Social Determinants of Health Comments(HIOH Details): pt at skilled nursing reports its okay there, Its not bad PFSH All Active Problems (Updated 12/10/24 @ 16:31 by Cheryl Gracia NP) Palliative care patient (Acute) Goals of care, counseling/discussion (Acute) CHF exacerbation (Acute) Hypoxic respiratory failure (Acute) HTN (hypertension) (Chronic) ASHLYN (obstructive sleep apnea) (Chronic) Acute bronchitis (Acute) Hypertensive heart disease (Acute) with heart failure Acute gastritis without bleeding (Acute) Chronic obstructive pulmonary disease with (acute) lower respiratory infection (Acute) Cough (Acute) Cognitive communication deficit (Acute) Zoster without complications (Acute) Hyperlipidemia (Acute) Peripheral vascular disease (Chronic) Spinal stenosis (Acute) Allergic rhinitis (Acute) Insomnia (Acute) Osteoarthritis of knee (Acute) Chronic kidney disease (CKD) (Chronic) stage 3 Left leg pain (Acute) Tremor (Acute) Infected sebaceous cyst of skin (Acute) Chronic diarrhea (Acute) Coronary artery disease (Chronic) Sleep apnea (Acute) severe ASHLYN sleep study 11/10/21 at [facility], CPAP therapy suggested RH Diastolic heart failure (Acute) Obesity (Chronic) PAF (paroxysmal atrial fibrillation) (Acute) Acute on chronic heart failure (Acute) Diabetes mellitus (Chronic) Medical History COPD (chronic obstructive pulmonary disease) Type 2 diabetes mellitus Nausea and vomiting in adult CHF (congestive heart failure) Colitis Gastroenteritis Retinopathy Vitamin D deficiency Mixed hyperlipidemia JASON (generalized anxiety disorder) Depressive disorder HTN (hypertension) with goal to be determined Surgical History H/O heart artery stent (~2019) [facility] History of cardiac cath (~2019) Family History Sister Diabetes Hyperlipidemia Hypertension Social History Smoking/Tobacco Use Status: Former Tobacco Use Smoking risk assessment performed?: Yes Alcohol Intake: never Drug use: Never Substance use type: does not use Housing: skilled nursing Number of Children: 4 What is your relationship status?: Panel score (0-1 are the most socially isolated patients): 0 Do you feel safe at home: Yes Additional Social history: Sobeida
[2024-12-10] MEDS: Budesonide/Formoterol 160/4.5 6 GM 60 PUFF INH IH ×2 (09:23→19:40)
[2024-12-10] MEDS: Tiotropium Bromide-Respimat 10 PUFF INH 2 PUFF IH (09:23)
[2024-12-10] MEDS: Apixaban 2.5 MG TAB 5 MG PO ×2 (09:46→19:36)
[2024-12-10] MEDS: Insulin Glargine 300 UNITS/3 ML PEN 48 UNITS SC (09:51)
[2024-12-10] MEDS: Albuterol 2.5 MG/3 ML INH SOLN VIAL UPD (09:55)
--- NOTE | 2024-12-10 11:05 | PGE_ITS ---
Date of Service Date of service: 12/10/24 Time of Service: 09:05 Assessment and Plan Assessment and plan (1) Hypoxic respiratory failure: Status: Acute Assessment and plan: On presentation - new O2 requirement with use of NIV Contine O2 and NIV as tolerated for sat 88-92% She is hypercarbic chornically, VBG done in ED c/w overventilation (based on HC03 her baseline pCO2 should be around 60) Most c/w CHF as cause, but COPD appears to be contributing. see below. Considering POCUS when available for lungs (2) CHF exacerbation: Status: Acute Assessment and plan: XR pointing to interstitial edema with reported orthopnea, mildly elevated BNaP, most c/w diastolic CHF Will continue IV lasix, adding nitro drip this morning with severe HTN, lowering afterload should help decongest. CPAP/BIPAP formal echocardiogram pending (3) PAF (paroxysmal atrial fibrillation): Status: Acute Assessment and plan: On eliquis and home beta susan (4) Chronic kidney disease (CKD): Status: Chronic Assessment and plan: Stable despite diuresis, will continue to monitor (5) Sleep apnea: Status: Acute Assessment and plan: CPAP at home. Also element of OHS. Continue CPAP/BIPAP as per RT for CHF (6) COPD (chronic obstructive pulmonary disease): Assessment and plan: On home medicine regimen, plus prednisone. with Breztri (sub LAMA/LABA/ICS here) PRN nebs No fever or increase sputum, no antibiotics for now (7) HTN (hypertension): Status: Chronic Assessment and plan: On home med regimen, BP high, increasing diuresis and adding nitro drip as above (8) Diabetes mellitus: Status: Chronic Assessment and plan: Gluc AC & HS w home dose basal bolus insulin and SSI coverage Sugars have been high, increase basal and make SSI high dose. (9) Goals of care, counseling/discussion: Status: Acute Assessment and plan: We need to clarify goals of care and if indeed her care should be comfort focused. Will address with family when they arrive, palliative consult placed. Subjective Subjective Patient reports: denies diarrhea, nausea, vomiting or fever Interval history since last seen: Events: Severe HTN overnight wiht systolics around 200, not treated. On bipap overnight Daughter/DPOA called, apparently there is MAIL HANDLER ASSISTANT directive in past She states her breathing feels a little better this morning, though still SOB. Per her daughter she was only recently on oxygen at [facility], only for the past 2 weeks. Exam Narrative Exam Narrative: GEN: Alert and oriented, BiPAP in place. No acute distress at rest. LUNGS: course crackles bilaterally posterior bases, diffuse expiratory wheezing. CV: Irregularly irregular with 1/6 murmur, no gallops, or rubs. ABD: soft, nontender and nondistended. EXT: no cyanosis, clubbing, warm. Trace geno edema PSYCH: normal mood and affect Objective Last Vital Signs Temp 37.0 C 12/10/24 09:43 Pulse 85 12/10/24 08:51 Resp 14 12/10/24 08:51 BP 162/104 H 12/10/24 09:43 Pulse Ox 92 12/10/24 08:51 Laboratory Results - last 24 hr 12/09/24 12/09/24 12/09/24 14:25 14:30 15:32 WBC 7.06 RBC 4.34 Hgb 13.0 Hct 40.4 MCV 93 MCH 30.0 MCHC 32.2 RDW 13.0 Plt Count 210 MPV 10.4 Immature Gran % 0.3 Neutrophils % 66.4 Lymphocytes % 16.6 Monocytes % 12.3 Eosinophils % 3.8 Basophils % 0.6 Nucleated RBC % 0.0 Absolute Neutrophils 4.69 Absolute Lymphocytes 1.17 L Absolute Monocytes 0.87 H Absolute Eosinophils 0.27 Absolute Basophils 0.04 VBG pH 7.43 H VBG pCO2 52 H VBG pO2 49 VBG HCO3 34 H VBG Total CO2 31 H VBG O2 Saturation 86 VBG Base Excess 10 H Sodium 141 Potassium 3.9 Chloride 101 Carbon Dioxide 34.8 H Anion Gap 5.2 BUN 25 H Creatinine 1.6 H Est GFR (CKD-EPI 2020) 31.80 Glucose 299 H Calcium 9.2 Magnesium 1.9 Total Bilirubin 0.3 AST 12 L ALT 17 Alkaline Phosphatase 114 Troponin I 9 9 NT-Pro-B Natriuret Pep 498 H Total Protein 6.7 Albumin 3.2 L Urine Color Urine Clarity Urine pH Ur Specific [place] Urine Protein Urine Ketones Urine Blood Urine Nitrite Urine Bilirubin Urine Urobilinogen Ur Leukocyte Esterase Urine RBC Urine WBC Ur Epithelial Cells Urine Crystals Urine Bacteria Urine Casts Urine Mucus Ur Culture Indicated? Urine Glucose COVID-19 Source Nasopharynx SARS-CoV-2 (PCR) Negative Influenza Type A (PCR) Negative Influenza Type B (PCR) Negative RSV (PCR) Negative 12/09/24 12/09/24 12/10/24 19:12 20:25 08:30 WBC RBC Hgb Hct MCV MCH MCHC RDW Plt Count MPV Immature Gran % Neutrophils % Lymphocytes % Monocytes % Eosinophils % Basophils % Nucleated RBC % Absolute Neutrophils Absolute Lymphocytes Absolute Monocytes Absolute Eosinophils Absolute Basophils VBG pH 7.41 VBG pCO2 56 H VBG pO2 72 VBG HCO3 35 H VBG Total CO2 VBG O2 Saturation > 99 VBG Base Excess 10 H Sodium 143 Potassium 4.0 Chloride 101 Carbon Dioxide 35.5 H Anion Gap 6.5 BUN 27 H Creatinine 1.5 H Est GFR (CKD-EPI 2020) 34.36 Glucose 352 H Calcium 9.7 Magnesium Total Bilirubin AST ALT Alkaline Phosphatase Troponin I 10 NT-Pro-B Natriuret Pep Total Protein Albumin Urine Color Yellow Urine Clarity Clear Urine pH 5.5 Ur Specific [place] 1.010 Urine Protein Negative Urine Ketones Negative Urine Blood Negative Urine Nitrite Negative Urine Bilirubin Negative Urine Urobilinogen 0.2 Ur Leukocyte Esterase Trace H Urine RBC Negative Urine WBC 0-2 Ur Epithelial Cells Negative Urine Crystals Negative Urine Bacteria Negative Urine Casts Negative Urine Mucus Negative Ur Culture Indicated? No Urine Glucose Negative COVID-19 Source SARS-CoV-2 (PCR) Influenza Type A (PCR) Influenza Type B (PCR) RSV (PCR) Time Spent with Patient Time Spent with Patient: >50 minutes Time was spent: preparing to see the patient(eg.review tests), obtaining and/or reviewing separately otained hiistory, ordering medications,tests, procedures, referring, communicating with other health career technical supervisor, indepentently int erpreting results, counseling the patient and care coordination
[2024-12-10] MEDS: Miconazole 2% Topical Powder 85 GM BTL (12:56)
[2024-12-10] MEDS: Fluticasone NASAL SPRAY 16 GM BTL NS ×2 (14:25→19:39)
[2024-12-10 14:55] LABS: BE (Venous) 11 mmol/L (-2-3); HCO3 (Venous) 35 mmol/L (23-28); O2 Sat (Venous) 93 %; TCO2 (Venous) 32 mmol/L (24-29); pCO2 (Venous) 55 mmHg (41-51); pH (Venous) 7.41 (7.31-7.41); pO2 (Venous) 64 mmHg
[2024-12-10] MEDS: Sodium Chloride 0.9% for Inhalation 3 ML VIAL UPD (15:43)
[2024-12-10] MEDS: Lactated Ringers 500 ML IV (15:46)
--- NOTE | 2024-12-10 15:48 | W.POCUS ---
Pocus Exam Limited Cardiac Exam DATE OF EXAM: 12/10/24 TIME OF EXAM: 18:05 PROVIDER THAT PERFORMED THE STUDY: Kermit Shaw REASON FOR EXAM: Dyspnea and Other (Fluid volume status eval) indication: hypoxia VISUALIZED STRUCTURES: four chambers, left atrium, left ventricle, LVOT, right atrium, right ventricle, mitral valve, Interventricular septum and IVC VIEW OBTAINED: Apical 4-Chamber, Parasternal long-axis, Parasternal short-axis and Subxiphoid PERTINENT FINDINGS/IMPRESSION: IVC inspiratory collapsability (IVC diameter decreased ) and Other (Kissing sign RV--) Fluid volume depletion - will stop diuresis Exam complete Limited Thoracic Lung Exam DATE OF EXAM: 12/10/24 TIME OF EXAM: 15:50 PROVIDER THAT PERFORMED THE STUDY: Kermit Shaw REASON FOR EXAM: Hypoxia VISUALIZED STRUCTURES: right anterior, left anterior, right lateral, left lateral, right posterior and left posterior PERTINENT FINDINGS/IMPRESSION: B-lines/left side and B-lines/right side (more prominent ); no pneumonia noted, no pleural effusion on the left and no pleural effusion on the right Exam complete
--- NOTE | 2024-12-10 15:49 | W.PALLCONSUL ---
Date of service: 12/10/24 Time of Service: 14:00 History of Present Illness Narrative: Ms. Moya is an 84 y/o F currently hospitalized at [facility] r/t PNA and acute hypoxic resp failure; PMHx sig for HTN, CKD, CHF w/A fib, DM, cognitive deficits, COPD(?), ASHLYN (on CPAP 4 years); present today daughter/guardian Mary and granddaughter Erika Hospital Course: presented to ED on 12/09 w/increased respiratory effort, for previous 4 days had new O2 requirement, was started on abx/prednisone at the [facility] where she lives; oxygen levels in 80's on arrival, concern w/CHF exacerbation, diuresed and put on BiPAP, tolerating well; transferred from [place] to ICU this morning d/t respiratory concerns; increased BP this morning - working w/resp therapy, not able to titrate off O2, lower than 4L; tolerating all therapies, able to clear some old stuff out of lungs, however the treatments aren't fun and she is exhausted, on max supports of what they can do currently - she has been tired, answers limited to one to two words, agreeable, non-confrontational per [facility] staff: multiple CODE conversations, resulting in multiple changes over last two years, report COLST from 2022 w/ELECTROLESS PLATER preference indicated, however after reviewed again w/newly established guardians and patient, shared decision making to be DNR/I, but do transfer, avoid invasive interventions. - Nita has a long standing history of not using CPAP as recommended, report varies from not comfortable, unable to use, nocturia, being afraid of others coming into her room while sleeping; most recently refusing PT at [facility] - she is typically very easy going, go with the flow, brief answers; uses 4 wheel walker, independently transfers self; most recently has had decreased activity and going out, preferring to spend more time in room Mary provides all further information Relevant recent history: Nita relocated to [place] from [place] 4 years ago, after concerns for inadequate care; moved into the [facility], where she has been since then. She had been doing really well there, socializing, engaged, happy, however over last year there has been a decline, most recently 2 mos ago her brother , along with losing several friends at the [facility], there has been a further decline; less engaged, motivated, more fatigue Historically Nita does not want to upset people, she is agreeable and will avoid conflict. Some concerns w/family members pushing their preferences and wants on Nita. Increasing her anxiety and fear. Also concern that not all family members are on the same page Mary lives in [place]. If Nita's life expectancy was limited, or would be considering pivot to hospice, Mary would prefer to have Nita move into her home with hospice supports confirms above w/GOC preferences/conversations regarding CODE status and COLST; Mary feels that Nita would want to continue treatment at this time an remain in hospital and keep trying to get better. Nita is engaged w/RT during both visit to room. Assessment and Plan Assessment and plan (1) Goals of care, counseling/discussion: Status: Acute Assessment and plan: - Reviewed previous conversations regarding GOC, code status, etc. current COLST uploaded in chart: DNR/I, avoid invasive interventions, okay w/transfer and treating reversible illnesses - reviewed recent history, recent acute decline in previous week, appropriate to maintain hope/optimism may have acute recovery w/correct interventions - however given her overall bigger picture, w/decline over months, she may also not make a recovery or improvement. She also may find that treatments are too much, too exhausting, and not want to participate. Support her choice in this, especially given her previous requests for ELECTROLESS PLATER style care. - reviewed safety plan w/family visiting, reviewed w/staff as well. will have low threshold for removing guests pending Nita's response to this Current plan to continue current treatment, including presenting for CT for PNA eval today, continue treatments as long as she tolerates them and wants to engage, follow her lead on if she does not want to to them. Reassess in 1-2 days. If no improvement/decline pivot to comfort directed care, w/potential discharge to Mary's home on hospice, added to watch list (2) Hypoxic respiratory failure: Status: Acute Assessment and plan: O2 goals 88-92% continue O2 and NIV, CPAP overnight POCUS this afternoon w/sig PNA, currently on ceftriaxone and doxy CT scan this afternoon (3) ASHLYN (obstructive sleep apnea): Status: Chronic Assessment and plan: chronically does not like using CPAP continue CPAP as tolerated (4) Cough: Status: Acute Assessment and plan: worsening most recently started on prednisone and abx outpatient prior to ED presentation (5) COPD (chronic obstructive pulmonary disease): Assessment and plan: continue home meds now w/PNA dx (6) Palliative care patient: Status: Acute Assessment and plan: PC will continue to follow Nita closely during this hospitalization -plan for touch tomorrow to check in on status, improvements, if need to pivot to ELECTROLESS PLATER -f/u Sunday to review more in depth GOC regarding overall picture and current POC Review of Systems Narrative: as per HPI PFSH All Active Problems (Updated 12/10/24 @ 16:31 by Cheryl Gracia NP) Palliative care patient (Acute) Goals of care, counseling/discussion (Acute) CHF exacerbation (Acute) Hypoxic respiratory failure (Acute) HTN (hypertension) (Chronic) ASHLYN (obstructive sleep apnea) (Chronic) Acute bronchitis (Acute) Hypertensive heart disease (Acute) with heart failure Acute gastritis without bleeding (Acute) Chronic obstructive pulmonary disease with (acute) lower respiratory infection (Acute) Cough (Acute) Cognitive communication deficit (Acute) Zoster without complications (Acute) Hyperlipidemia (Acute) Peripheral vascular disease (Chronic) Spinal stenosis (Acute) Allergic rhinitis (Acute) Insomnia (Acute) Osteoarthritis of knee (Acute) Chronic kidney disease (CKD) (Chronic) stage 3 Left leg pain (Acute) Tremor (Acute) Infected sebaceous cyst of skin (Acute) Chronic diarrhea (Acute) Coronary artery disease (Chronic) Sleep apnea (Acute) severe ASHLYN sleep study 11/10/21 at [facility], CPAP therapy suggested RH Diastolic heart failure (Acute) Obesity (Chronic) PAF (paroxysmal atrial fibrillation) (Acute) Acute on chronic heart failure (Acute) Diabetes mellitus (Chronic) Medical History COPD (chronic obstructive pulmonary disease) Type 2 diabetes mellitus Nausea and vomiting in adult CHF (congestive heart failure) Colitis Gastroenteritis Retinopathy Vitamin D deficiency Mixed hyperlipidemia JASON (generalized anxiety disorder) Depressive disorder HTN (hypertension) with goal to be determined Surgical History H/O heart artery stent (~2019) [facility] History of cardiac cath (~2019) Family History Sister Diabetes Hyperlipidemia Hypertension Social History Smoking/Tobacco Use Status: Former Tobacco Use Smoking risk assessment performed?: Yes Alcohol Intake: never Drug use: Never Substance use type: does not use Housing: retirement Number of Children: 4 What is your relationship status?: Panel score (0-1 are the most socially isolated patients): 0 Do you feel safe at home: Yes Additional Social history: [place] Exam Narrative Exam Narrative: General: older adult, chronically ill/frail appearing female, lying in ICU bed Resp: labored, initially w/mask and neb treatment, transitions to NC later; cough, wet, nonproductive Psych: limited verbal engagement, follows commands, pleasant Results Last Vital Signs Temp 98.4 F 12/10/24 12:48 Pulse 82 12/10/24 15:24 Resp 15 12/10/24 15:24 BP 119/79 12/10/24 14:07 Pulse Ox 88 L 12/10/24 15:24 Labs 12/09/24 14:30 12/10/24 08:30 Labs: Laboratory Results - last 24 hr 12/09/24 12/09/24 12/09/24 15:32 19:12 20:25 VBG pH VBG pCO2 VBG pO2 VBG HCO3 VBG Total CO2 VBG O2 Saturation VBG Base Excess Sodium Potassium Chloride Carbon Dioxide Anion Gap BUN Creatinine Est GFR (CKD-EPI 2020) Glucose Calcium Troponin I 9 10 Urine Color Yellow Urine Clarity Clear Urine pH 5.5 Ur Specific [place] 1.010 Urine Protein Negative Urine Ketones Negative Urine Blood Negative Urine Nitrite Negative Urine Bilirubin Negative Urine Urobilinogen 0.2 Ur Leukocyte Esterase Trace H Urine RBC Negative Urine WBC 0-2 Ur Epithelial Cells Negative Urine Crystals Negative Urine Bacteria Negative Urine Casts Negative Urine Mucus Negative Ur Culture Indicated? No Urine Glucose Negative 12/10/24 12/10/24 08:30 14:47 VBG pH 7.41 7.41 VBG pCO2 56 H 55 H VBG pO2 72 64 VBG HCO3 35 H 35 H VBG Total CO2 32 H VBG O2 Saturation > 99 93 VBG Base Excess 10 H 11 H Sodium 143 Potassium 4.0 Chloride 101 Carbon Dioxide 35.5 H Anion Gap 6.5 BUN 27 H Creatinine 1.5 H Est GFR (CKD-EPI 2020) 34.36 Glucose 352 H Calcium 9.7 Troponin I Urine Color Urine Clarity Urine pH Ur Specific [place] Urine Protein Urine Ketones Urine Blood Urine Nitrite Urine Bilirubin Urine Urobilinogen Ur Leukocyte Esterase Urine RBC Urine WBC Ur Epithelial Cells Urine Crystals Urine Bacteria Urine Casts Urine Mucus Ur Culture Indicated? Urine Glucose Time Spent Time Spent with Patient Time Spent(min): 120
[2024-12-10] MEDS: DOXYCYCLINE 100 MG in Normal Saline 100 ML IVPB (15:52)
[2024-12-10] MEDS: cefTRIAXone 2 GM/50 ML BAG IVPB (15:53)
[2024-12-10] MEDS: Insulin Glargine 300 UNITS/3 ML PEN 20 UNITS SC (19:32)
[2024-12-10] MEDS: Melatonin 3 MG TAB PO (19:34)
[2024-12-10] MEDS: Omeprazole 20 MG CAPCR PO (19:34)
[2024-12-10] MEDS: Calcium Carbonate *TUMS* 500 MG CHEW 250 MG PO (19:38)
[2024-12-11] VITALS (27 sets, daily range): BP systolic 115–171; BP diastolic 52–107; PULSE 69–76; RESP 5–24; TEMP 36.6; O2SAT 84–97
[2024-12-11] MEDS: Albuterol/Ipratropium 3 ML UPD VIAL UPD ×4 (01:59→19:53)
[2024-12-11] MEDS: DOXYCYCLINE 100 MG in Normal Saline 100 ML IVPB ×2 (04:02→16:50)
[2024-12-11] MEDS: Budesonide/Formoterol 160/4.5 6 GM 60 PUFF INH IH ×2 (08:15→19:52)
[2024-12-11] MEDS: Tiotropium Bromide-Respimat 10 PUFF INH 2 PUFF IH (08:16)
[2024-12-11] MEDS: Sodium Chloride 0.9% for Inhalation 3 ML VIAL UPD ×2 (08:16→14:16)
[2024-12-11] MEDS: Metoclopramide 10 MG TAB 5 MG PO ×2 (08:30→16:50)
[2024-12-11] MEDS: predniSONE 20 MG TAB 40 MG PO (08:31)
[2024-12-11] MEDS: Labetalol 100 MG TAB PO ×3 (08:31→19:52)
[2024-12-11] MEDS: Isosorbide Mononitrate 30 MG TABCR PO (08:31)
[2024-12-11] MEDS: Lactobacillus Acidophilus CAP 1 CAP PO (08:31)
[2024-12-11] MEDS: Atorvastatin 40 MG TAB PO (08:31)
[2024-12-11] MEDS: Acetaminophen 500 MG TAB 1000 MG PO ×3 (08:31→19:51)
[2024-12-11] MEDS: Apixaban 2.5 MG TAB 5 MG PO ×2 (08:31→19:51)
[2024-12-11] MEDS: busPIRone 5 MG TAB PO ×2 (08:32→19:52)
[2024-12-11] MEDS: Pregabalin 50 MG CAP PO ×3 (08:32→19:52)
[2024-12-11] MEDS: Escitalopram 10 MG TAB PO (08:32)
[2024-12-11] MEDS: Cholecalciferol (Vitamin D3) 1,000 UNIT TAB 4000 UNITS PO (08:33)
[2024-12-11] MEDS: Insulin Glargine 300 UNITS/3 ML PEN 48 UNITS SC (08:34)
[2024-12-11] MEDS: Insulin Aspart 300 UNITS/3 ML PEN SC ×3 (08:34→17:06)
[2024-12-11] MEDS: Normal Saline Flush 10 ML SYR IVP ×2 (08:35→19:54)
--- NOTE | 2024-12-11 08:54 | PDOC.CMPRO ---
Date of service: 12/11/24 Time of Service: 08:55 Care Management Progress Note Discharge Potential Discharge Needs: Other (coordinated return to SNF) Anticipated Barriers to Discharge: None Identified Patient/Family Education Needs: Review discharge instructions, discuss Ask Me Three Transportation: Private vehicle Plan: Anticipate Nita will return to the [facility], where she resides, once medically cleared. She will likely transport via private vehicle by family vs w/c van, depending on mobility at time of discharge. She will follow up with her PCP and discharge plan of care. CM will continue to follow. Social Determinants of Health Screening Will the Patient Participate in the Screening?: Unable to obtain Social Determinants of Health Comments([facility] Details): pt at skilled nursing reports its okay there, Its not bad
--- NOTE | 2024-12-11 09:56 | PGE_ITS ---
Date of Service Date of service: 12/11/24 Time of Service: 09:56 Assessment and Plan Assessment and plan (1) Goals of care, counseling/discussion: Status: Acute Assessment and plan: - Reviewed previous conversations regarding GOC, code status, etc. current COLST uploaded in chart: DNR/I, avoid invasive interventions, okay w/transfer and treating reversible illnesses - reviewed recent history, recent acute decline in previous week, appropriate to maintain hope/optimism may have acute recovery w/correct interventions - however given her overall bigger picture, w/decline over months, she may also not make a recovery or improvement. She also may find that treatments are too much, too exhausting, and not want to participate. Support her choice in this, especially given her previous requests for COMPUTER ENGINEERING TECHNICIAN style care. - reviewed safety plan w/family visiting, reviewed w/staff as well. will have low threshold for removing guests pending Nita's response to this Current plan to continue current treatment, including presenting for CT for PNA eval today, continue treatments as long as she tolerates them and wants to engage, follow her lead on if she does not want to to them. Reassess in 1-2 days. If no improvement/decline pivot to comfort directed care, w/potential discharge to Mary's home on hospice, added to watch list (2) Hypoxic respiratory failure: Status: Acute Assessment and plan: O2 goals 88-92% continue O2 and NIV, CPAP overnight POCUS this afternoon w/sig PNA, currently on ceftriaxone and doxy CT scan this afternoon results of ct scan MPRESSION: 1. Bronchial wall thickening with mucous plugging. This can be seen with bronchitis. 2. No focal consolidating infiltrates are seen. 3. Scattered pulmonary nodules. The largest measures 5 mm. Solid nodules smaller than 6 mm do not require routine follow-up in all patients with high clinical risk; however, some nodules smaller than 6 mm with suspicious morphology, upper lobe location, or both may warrant follow-up at 12 months (grade 2A; weak recommendation, high-quality evidence). (Kinga et al., 2017) (3) ASHLYN (obstructive sleep apnea): Status: Chronic Assessment and plan: chronically does not like using CPAP continue CPAP as tolerated (4) Cough: Status: Acute Assessment and plan: worsening most recently started on prednisone and abx outpatient prior to ED presentation (5) COPD (chronic obstructive pulmonary disease): Assessment and plan: continue home meds now w/PNA dx (6) Palliative care patient: Status: Acute Assessment and plan: PC will continue to follow Nita closely during this hospitalization -plan for touch tomorrow to check in on status, improvements, if need to pivot to COMPUTER ENGINEERING TECHNICIAN -f/u Sunday to review more in depth GOC regarding overall picture and current POC (7) Type 2 diabetes mellitus: Assessment and plan: Pt with elevated bg 300-348-300. Pt's increase most likely 2/2 steroid use as well as underlying medical conditions causing physiological stress. Increas long actin insulin in both am/pm doses Subjective Subjective Interval history since last seen: Pt seen and examined in her room this am. POC d/w pt as well as bedside nurse during MDR. No new complaint Exam Narrative Exam Narrative: GEN: Alert and oriented, BiPAP in place. No acute distress at rest. LUNGS: course crackles bilaterally posterior bases, diffuse expiratory wheezing. CV: Irregularly irregular with 1/6 murmur, no gallops, or rubs. ABD: soft, nontender and nondistended. EXT: no cyanosis, clubbing, warm. Trace geno edema PSYCH: normal mood and affect Objective Last Vital Signs Temp 36.5 C 12/10/24 18:50 Pulse 71 12/11/24 08:27 Resp 16 12/11/24 08:09 BP 171/76 H 12/11/24 08:07 Pulse Ox 90 L 12/11/24 08:25 Laboratory Results - last 24 hr 12/10/24 14:47 VBG pH 7.41 VBG pCO2 55 H VBG pO2 64 VBG HCO3 35 H VBG Total CO2 32 H VBG O2 Saturation 93 VBG Base Excess 11 H Time Spent with Patient Time Spent with Patient: 35-49 minutes Time was spent: preparing to see the patient(eg.review tests), obtaining and/or reviewing separately otained hiistory, ordering medications,tests, procedures, referring, communicating with other health home care physical therapist, indepentently interpreting results, counseling the patient and care coordination
--- NOTE | 2024-12-11 12:25 | CMPROGNOTE_ITS ---
Date of service: 12/11/24 Time of Service: 12:25 Care Management Progress Note Progress Note Text Progress Note Text: Nita was awake and sitting up in her bed. She was still requiring 4L of O2. Her daughter Mary Tsai was in the room with her at the time. Both were pleasant and engaged in conversation. Nita mentioned still feeling congested and was having a productive cough that was barrett in color. Per Mary, this was an improvement in color of sputum as it had been described as dark and tarry previously. Mary inquired about Cristiana from Palliative as she had some questions for her. CM will let Mary know that Cristiana will check in tomorrow (12/12). Discharge Potential Discharge Needs: Other (Follow up with [facility] provider) Anticipated Barriers to Discharge: None Identified Patient/Family Education Needs: Review discharge instructions, discuss Ask Me Three Transportation: Private vehicle (Mary Tsai (daughter) will drive her.) Plan: Anticipate Nita will return to the [facility] once medical stable. She will follow up with the facility provider and continue per her plan of care. Transportation will be provided by her daughter. CM will continue to follow. Social Determinants of Health Screening Will the Patient Participate in the Screening?: Unable to obtain Social Determinants of Health Comments([facility] Details): pt at half-way reports its okay there, Its not bad
[2024-12-11] MEDS: Polyethylene Glycol 3350 17 GM PACKET PO (13:32)
[2024-12-11] MEDS: Docusate Sodium 100 MG CAP PO (13:33)
[2024-12-11] MEDS: cefTRIAXone 2 GM/50 ML BAG IVPB (16:50)
--- NOTE | 2024-12-11 19:30 | NUR.NOTE ---
Nursing Note: At approximately 1930, a Clarisa Wyman called ICU requesting information on patient; caller was not on HIPAA form, spoke to patient concerning identity of caller and patient verified caller is [id number]. Patient gave verbal approval for nursing staff to speak with [id number] and to tell her anything she needs to know. Confirmed and verified this with patient, spoke with [id number] and answered questions concerning patient status and care.
[2024-12-11] MEDS: Omeprazole 20 MG CAPCR PO (19:52)
[2024-12-11] MEDS: Melatonin 3 MG TAB PO (19:52)
[2024-12-11] MEDS: Insulin Glargine 300 UNITS/3 ML PEN 25 UNITS SC (20:33)
[2024-12-11] MEDS: Fluticasone NASAL SPRAY 16 GM BTL NS (20:33)
[2024-12-12] VITALS (20 sets, daily range): BP systolic 115–201; BP diastolic 70–119; PULSE 66–134; RESP 5–22; TEMP 36.2–37.1; O2SAT 92–96
[2024-12-12] MEDS: Albuterol/Ipratropium 3 ML UPD VIAL UPD ×4 (02:14→20:43)
[2024-12-12] MEDS: DOXYCYCLINE 100 MG in Normal Saline 100 ML IVPB ×2 (03:59→17:07)
[2024-12-12 06:16] LABS: Abs Immature Grans 0.04 10^3/uL (0.0-0.06); Absolute Basophil Count 0.01 10^3/uL (0.0-0.2); Absolute Eosinophil Count 0.01 10^3/uL (0.0-0.7); Absolute Lymphocyte Count 1.29 10^3/uL (1.2-3.4); Absolute Monocyte Count 0.83 10^3/uL (0.1-0.8); Basophils % 0.1 %; Eosinophils % 0.1 %; HCT 38.4 % (36.0-46.0); HGB 12.7 g/dL (11.2-15.7); Immature Grans % 0.5 %; Lymphocytes % 15.4 %; MCHC 33.1 % (32.0-36.0); MCV 91 fL (80-95); MPV 10.2 fL (8.0-11.0); Monocytes % 9.9 %; Platelet Count 219 10^3/uL (130-400); RBC 4.23 10^6/uL (3.93-5.22); RDW 12.9 % (11.7-14.6); RDW-SD 42.5 fL; WBC 8.38 10^3/uL (4.4-10.8)
[2024-12-12 06:39] LABS: ALT 16 U/L (14-59); AST 15 U/L (15-37); Alkaline Phosphatase 98 U/L (46-116); Anion Gap 4.5 mmol/L (3-11); BUN 38 mg/dL (7-18); Bilirubin, Total 0.3 mg/dL (0.2-1.0); CO2 37.5 mmol/L (21.0-32.0); CREATININE 1.6 mg/dL (0.55-1.02); Calcium 9.6 mg/dL (8.5-10.1); Chloride 104 mmol/L (98-107); Glucose 188 mg/dL (74-106); Potassium 3.5 mmol/L (3.5-5.1); Sodium 146 mmol/L (136-145); Total Protein 6.5 g/dL (6.4-8.2)
[2024-12-12] MEDS: Tiotropium Bromide-Respimat 10 PUFF INH 2 PUFF IH (08:32)
[2024-12-12] MEDS: Budesonide/Formoterol 160/4.5 6 GM 60 PUFF INH IH ×2 (08:32→20:45)
[2024-12-12] MEDS: Sodium Chloride 0.9% for Inhalation 3 ML VIAL UPD ×2 (08:32→14:19)
[2024-12-12] MEDS: Cholecalciferol (Vitamin D3) 1,000 UNIT TAB 4000 UNITS PO (08:35)
[2024-12-12] MEDS: Labetalol 100 MG TAB PO ×3 (08:35→20:44)
[2024-12-12] MEDS: Isosorbide Mononitrate 30 MG TABCR PO (08:36)
[2024-12-12] MEDS: Atorvastatin 40 MG TAB PO (08:36)
[2024-12-12] MEDS: Lactobacillus Acidophilus CAP 1 CAP PO (08:36)
[2024-12-12] MEDS: busPIRone 5 MG TAB PO ×2 (08:36→20:45)
[2024-12-12] MEDS: Metoclopramide 10 MG TAB 5 MG PO ×2 (08:36→16:01)
[2024-12-12] MEDS: Acetaminophen 500 MG TAB 1000 MG PO ×3 (08:36→20:44)
[2024-12-12] MEDS: Apixaban 2.5 MG TAB 5 MG PO (08:36)
[2024-12-12] MEDS: predniSONE 20 MG TAB 40 MG PO (08:36)
[2024-12-12] MEDS: Pregabalin 50 MG CAP PO ×3 (08:36→20:56)
[2024-12-12] MEDS: Escitalopram 10 MG TAB PO (08:36)
[2024-12-12] MEDS: Insulin Aspart 300 UNITS/3 ML PEN SC ×3 (08:40→17:16)
[2024-12-12] MEDS: Normal Saline Flush 10 ML SYR IVP ×3 (08:41→20:46)
[2024-12-12] MEDS: Insulin Glargine 300 UNITS/3 ML PEN 55 UNITS SC (08:41)
--- NOTE | 2024-12-12 09:42 | PGE_ITS ---
Date of Service Date of service: 12/12/24 Time of Service: 09:42 Assessment and Plan Assessment and plan (1) Goals of care, counseling/discussion: Status: Acute Assessment and plan: - Reviewed previous conversations regarding GOC, code status, etc. current COLST uploaded in chart: DNR/I, avoid invasive interventions, okay w/transfer and treating reversible illnesses - reviewed recent history, recent acute decline in previous week, appropriate to maintain hope/optimism may have acute recovery w/correct interventions - however given her overall bigger picture, w/decline over months, she may also not make a recovery or improvement. She also may find that treatments are too much, too exhausting, and not want to participate. Support her choice in this, especially given her previous requests for [facility]AL HYGIENIST style care. - reviewed safety plan w/family visiting, reviewed w/staff as well. will have low threshold for removing guests pending Nita's response to this Current plan to continue current treatment, including presenting for CT for PNA eval today, continue treatments as long as she tolerates them and wants to engage, follow her lead on if she does not want to to them. Reassess in 1-2 days. If no improvement/decline pivot to comfort directed care, w/potential discharge to [facility] hosp[facility], added to watch list (2) Hypoxic respiratory failure: Status: Acute Assessment and plan: O2 goals 88-92% continue O2 and NIV, CPAP overnight POCUS this afternoon w/sig PNA, currently on ceftriaxone and doxy CT scan this afternoon results of ct scan MPRESSION: 1. Bronchial wall thickening with mucous plugging. This can be seen with bronchitis. 2. No focal consolidating infiltrates are seen. 3. Scattered pulmonary nodules. The largest measures 5 mm. Solid nodules smaller than 6 mm do not require routine follow-up in all patients with high clinical risk; however, some nodules smaller than 6 mm with suspicious morphology, upper lobe location, or both may warrant follow-up at 12 months (grade 2A; weak recommendation, high-quality evidence). (Kinga et al., 2017) This is part of the Pulm note from 09.09.24 83 year old female who returns for follow up of COPD and ASHLYN. Her past medical history includes ASHLYN, PAF and right sided heart failure. She is followed by sleep medicine, last visit was 08/30/2023. She has been somewhat compliant with CPAP (~60%). At her last visit she was order an ABG and PFTs to assess for OHS but I do not see this was completed. She also was switched from trelegy to Breztri. Since her last visit, she completed PFT's which revealed moderate obstruction but a significant bronchodilator response and normal spirometry after the bronchodilator indicating asthma. Today, she feels the Breztri works well. She feels that her secretions are thick and dry. Assessment & Plan (1) COPD (chronic obstructive pulmonary disease): (2) ASHLYN (obstructive sleep apnea): Plan 83 year old female referred to pulmonary for ASHLYN with possible OHS and COPD. PFT's reveal moderate obstruction that is reversible with a bronchodilator which is seen in asthma. She is on Breztri and should continue this. I provided her with a vibraPEP to use after nebulizer treatments. She demonstrated use of this today and it helped loosen secretions. Asthma - continue breztri - rinse mouth out afterwards - continue albuterol PRN - continue nebs BID and PRN ASHLYN - continue with CPAP - continue to follow with sleep medicine Plan Detail Follow Up: 3 Months (COPD) Total time on date of encounter, ([id number] and non [id number]) (minutes): 35 Time was spent: reviewing prior notes and diagnostics, providing direct patient care, ordering diagnostics and/or referrals, documenting today's visit and updating the EMR (3) ASHLYN (obstructive sleep apnea): Status: Chronic Assessment and plan: chronically does not like using CPAP continue CPAP as tolerated (4) Cough: Status: Acute Assessment and plan: worsening most recently started on prednisone and abx outpatient prior to ED presentation 12/12/24 Also added mucinex for symptom relief (5) COPD (chronic obstructive pulmonary disease): Assessment and plan: continue home meds now w/PNA dx (6) Palliative care patient: Status: Acute Assessment and plan: PC will continue to follow Nita closely during this hospitalization -plan for touch tomorrow to check in on status, improvements, if need to pivot to [facility] HYGIENIST -f/u Sunday to review more in depth GOC regarding overall picture and current POC (7) Type 2 diabetes mellitus: Assessment and plan: Pt with elevated bg 300-348-300. Pt's increase most likely 2/2 steroid use as well as underlying medical conditions causing physiological stress. Increas long actin insulin in both am/pm doses 12/12/24 Pt had elevated BG last pm (318/348/300) but this am was 151. Continue current regimen until more data points are available (8) CHF exacerbation: Status: Acute Assessment and plan: Echo done 12/10/24, awaiting read. Subjective Subjective Interval history since last seen: Pt seen and examined in her room this am. POC d/w pt as well as her Daughter who was at bedside. POC also d/w bedside nurse during ICU huddle. Per Daughter, the plan on dc is to travel to [place] where her son owns a SNF of some kind Exam Narrative Exam Narrative: GEN: Alert and oriented, BiPAP in place. No acute distress at rest. LUNGS: course crackles bilaterally posterior bases, diffuse expiratory wheezing. CV: Irregularly irregular with 1/6 murmur, no gallops, or rubs. ABD: soft, nontender and nondistended. EXT: no cyanosis, clubbing, warm. Trace geno edema PSYCH: normal mood and affect Objective Last Vital Signs Temp 36.4 C L 12/12/24 02:30 Pulse 70 12/12/24 08:30 Resp 16 12/12/24 08:30 BP 184/70 H 12/12/24 07:35 Pulse Ox 93 12/12/24 08:30 Laboratory Results - last 24 hr 12/12/24 05:30 WBC 8.38 RBC 4.23 Hgb 12.7 Hct 38.4 MCV 91 MCH 30.0 MCHC 33.1 RDW 12.9 Plt Count 219 MPV 10.2 Immature Gran % 0.5 Neutrophils % 74.0 Lymphocytes % 15.4 Monocytes % 9.9 Eosinophils % 0.1 Basophils % 0.1 Nucleated RBC % 0.0 Absolute Neutrophils 6.20 Absolute Lymphocytes 1.29 Absolute Monocytes 0.83 H Absolute Eosinophils 0.01 Absolute Basophils 0.01 Sodium 146 H Potassium 3.5 Chloride 104 Carbon Dioxide 37.5 H Anion Gap 4.5 BUN 38 H Creatinine 1.6 H Est GFR (CKD-EPI 2020) 31.80 Glucose 188 H Calcium 9.6 Total Bilirubin 0.3 AST 15 ALT 16 Alkaline Phosphatase 98 Total Protein 6.5 Albumin 3.0 L Time Spent with Patient Time Spent with Patient: 25-34 minutes Time was spent: preparing to see the patient(eg.review tests), obtaining and/or reviewing separately otained hiistory, ordering medications,tests, procedures, referring, communicating with other health customer care team coach, indepentently interpreting results, counseling the patient and care coordination
[2024-12-12 10:13] LABS: BE (Venous) 10 mmol/L (-2-3); HCO3 (Venous) 35 mmol/L (23-28); O2 Sat (Venous) 85 %; TCO2 (Venous) 31 mmol/L (24-29); pCO2 (Venous) 56 mmHg (41-51); pO2 (Venous) 51 mmHg
[2024-12-12] MEDS: guaiFENesin 600 MG TABCR PO ×2 (10:21→20:44)
--- NOTE | 2024-12-12 11:26 | W.PC.ACHO ---
Registration Status: Primary Language: Preferred Language: ED Information & Data Chief Complaint SOB 12/09/24 20:18 Triage Note congestion/cough started 12/09/24 14:05 this AM, wet crackles throughout. Given duonebs @ [facility], flu/covid swab was negative. EMS gave 1 duoneb and started CPAP Medical / Surgical History (Last Reviewed 12/10/24 @ 16:25 by Cheryl Gracia NP) COPD (chronic obstructive pulmonary disease) Type 2 diabetes mellitus Nausea and vomiting in adult CHF (congestive heart failure) Colitis Gastroenteritis Retinopathy Vitamin D deficiency Mixed hyperlipidemia JASON (generalized anxiety disorder) Depressive disorder HTN (hypertension) with goal to be determined (Last Reviewed 12/10/24 @ 16:25 by Cheryl Gracia NP) H/O heart artery stent (~2019) History of cardiac cath (~2019) Most Recent Vital Signs Temperature 37.1 C 12/12/24 07:45 Temperature Source Temporal Artery Scan 12/12/24 07:45 Pulse 73 12/12/24 11:00 Pulse 73 12/12/24 11:00 Respiratory Rate 15 12/12/24 11:00 Respiratory Effort Incrsd Work of Breathing 12/09/24 19:25 Respiratory Depth Shallow 12/09/24 19:25 Respiratory Pattern Normal 12/09/24 19:25 Blood Pressure 140/76 12/12/24 10:01 Blood Pressure Mean 95 12/12/24 10:01 Blood Pressure Position Sitting 12/09/24 14:33 Pulse Oximetry 95 12/12/24 11:00 Oxygen Delivery Method Nasal Cannula 12/12/24 08:58 Oxygen Flow Rate 2 12/12/24 08:58 Fraction of Inspired Oxygen (FIO2) 28 12/12/24 08:58 Pain Level 0 12/09/24 19:25 Comment in no distress 12/09/24 14:33 Allergies codeine Adverse Reaction (Intermediate, Verified 12/09/24 15:12) rash Precautions Isolation PUI 12/09/24 14:33 Active Medications Generic Name Dose Route Start Last Admin Trade Name Freq PRN Reason Stop Dose Admin Acetaminophen 1,000 mg 12/09/24 20:00 12/12/24 08:36 Acetaminophen 500 Mg Tab PO 1,000 mg TID RENE Administration Acidophilus/Pectin 1 cap 12/10/24 08:30 12/12/24 08:36 Lactobacillus Acidophilus Cap PO 1 cap DAILY RENE Administration Albuterol Sulfate 2.5 mg 12/09/24 19:51 12/10/24 09:55 Albuterol 2.5 Mg/3 Ml Inh Soln Vial UPD 2.5 mg Q2H PRN PRN Administration Albuterol/Ipratropium 3 ml 12/10/24 08:00 12/12/24 08:30 Albuterol/Ipratropium 3 Ml Upd Vial UPD 3 ml Q6H RENE Administration Atorvastatin Calcium 40 mg 12/10/24 08:30 12/12/24 08:36 Atorvastatin 40 Mg Tab PO 40 mg DAILY RENE Administration Budesonide/Formoterol Fumarate 2 puff 12/10/24 08:30 12/12/24 08:32 Budesonide/Formoterol 160/4.5 6 Gm 60 Puff Inh IH 2 puffs BID RENE Administration Buspirone HCl 5 mg 12/09/24 20:00 12/12/24 08:36 Buspirone 5 Mg Tab PO 5 mg BID RENE Administration Calcium Carbonate 250 mg 12/09/24 20:14 12/10/24 19:38 Calcium Carbonate *Tums* 500 Mg Chew PO 250 mg BID PRN PRN Administration Cholecalciferol 4,000 units 12/10/24 08:30 12/12/24 08:35 Cholecalciferol (Vitamin D3) 1,000 Unit Tab PO 4,000 units DAILY RENE Administration Docusate Sodium 100 mg 12/09/24 19:51 12/11/24 13:33 Docusate Sodium 100 Mg Cap PO 100 mg TID PRN PRN Administration Escitalopram Oxalate 10 mg 12/10/24 08:30 12/12/24 08:36 Escitalopram 10 Mg Tab PO 10 mg DAILY RENE Administration Fluticasone Propionate 0 gm 12/10/24 08:30 12/12/24 08:41 Fluticasone Nasal [place] 16 Gm Btl NS Not Given BID RENE Guaifenesin 600 mg 12/12/24 10:00 12/12/24 10:21 Guaifenesin 600 Mg Tabcr PO 600 mg BID RENE Administration Ceftriaxone Sodium/Dextrose 2 gm in 50 mls @ 100 mls/hr 12/10/24 16:00 12/11/24 17:30 Rocephin IVPB Infused Q24H RENE Infusion Doxycycline Hyclate 100 mg/ 100 mls @ 100 mls/hr 12/10/24 16:00 12/12/24 05:05 Sodium Chloride IVPB Infused Q12H RENE Infusion Insulin Aspart 0 units 12/09/24 19:51 12/12/24 08:40 Insulin Aspart 300 Units/3 Ml Pen SC 3 units 0800,1200,1700 RENE Administration Protocol Insulin Glargine 55 units 12/12/24 08:30 12/12/24 08:41 Insulin Glargine 300 Units/3 Ml Pen SC 55 unit QAM RENE Administration Insulin Glargine 25 units 12/11/24 20:00 12/11/24 20:33 Insulin Glargine 300 Units/3 Ml Pen SC 25 units QPM RENE Administration Isosorbide Mononitrate 30 mg 12/10/24 08:30 12/12/24 08:36 Isosorbide Mononitrate 30 Mg Tabcr PO 30 mg DAILY RENE Administration Labetalol HCl 100 mg 12/09/24 20:00 12/12/24 08:35 Labetalol 100 Mg Tab PO 100 mg TID RENE Administration Melatonin 3 mg 12/09/24 20:00 12/11/24 19:52 Melatonin 3 Mg Tab PO 3 mg HS RENE Administration Metoclopramide HCl 5 mg 12/09/24 20:30 12/12/24 08:36 Metoclopramide 10 Mg Tab PO 5 mg BID AC RENE Administration Omeprazole 20 mg 12/09/24 20:00 12/11/24 19:52 Omeprazole 20 Mg Capcr PO 20 mg HS RENE Administration Polyethylene Glycol 17 gm 12/09/24 20:11 12/11/24 13:32 Polyethylene Glycol 3350 17 Gm Packet PO 17 gm DAILY PRN PRN Administration Prednisone 40 mg 12/10/24 08:30 12/12/24 08:36 Prednisone 20 Mg Tab PO 40 mg DAILY RENE Administration Pregabalin 50 mg 12/09/24 20:00 12/12/24 08:36 Pregabalin 50 Mg Cap PO 50 mg TID RENE Administration Sodium Chloride 0 ml 12/09/24 20:00 12/12/24 08:41 Normal Saline Flush 10 Ml Syr IVP 20 ml BID RENE Administration Sodium Chloride 3 ml 12/10/24 10:07 12/12/24 08:32 Sodium Chloride 0.9% For Inhalation 3 Ml Vial UPD 3 ml Q6H PRN PRN Administration Tiotropium Galva 2 puff 12/10/24 08:30 12/12/24 08:32 Tiotropium Galva-Respimat 10 Puff Inh IH 2 puffs DAILY RENE Administration IV IV Catheter Type [LT hand] Saline Lock IV Catheter Type [lateral lf Saline Lock forearm] IV Catheter Type [Right Wrist] Saline Lock IV Catheter Type [Left Forearm Saline Lock ] IV Catheter Gauge [LT hand] 20 IV Catheter Gauge [lateral lf 20 forearm] IV Catheter Gauge [Right Wrist 22 ] IV Catheter Gauge [Left 18 Forearm] Diagnostics 12/12/24 12/12/24 Range/Units 10:07 05:30 WBC 8.38 (4.4-10.8) 10^3/uL RBC 4.23 (3.93-5.22) 10^6/uL Hgb 12.7 (11.2-15.7) g/dL Hct 38.4 (36.0-46.0) % MCV 91 (80-95) fL MCH 30.0 (27.0-33.0) pg MCHC 33.1 (32.0-36.0) % RDW 12.9 (11.7-14.6) % Plt Count 219 (130-400) 10^3/uL MPV 10.2 (8.0-11.0) fL Immature Gran % 0.5 % Neutrophils % 74.0 % Lymphocytes % 15.4 % Monocytes % 9.9 % Eosinophils % 0.1 % Basophils % 0.1 % Nucleated RBC % 0.0 (0.0-0.3) % Absolute Neutrophils 6.20 (1.2-6.7) 10^3/uL Absolute Lymphocytes 1.29 (1.2-3.4) 10^3/uL Absolute Monocytes 0.83 H (0.1-0.8) 10^3/uL Absolute Eosinophils 0.01 (0.0-0.7) 10^3/uL Absolute Basophils 0.01 (0.0-0.2) 10^3/uL VBG pH 7.40 (7.31-7.41) VBG pCO2 56 H (41-51) mmHg VBG pO2 51 mmHg VBG HCO3 35 H (23-28) mmol/L VBG Total CO2 31 H (24-29) mmol/L VBG O2 Saturation 85 % VBG Base Excess 10 H (-2-3) mmol/L Sodium 146 H (136-145) mmol/L Potassium 3.5 (3.5-5.1) mmol/L Chloride 104 (98-107) mmol/L Carbon Dioxide 37.5 H (21.0-32.0) mmol/L Anion Gap 4.5 (3-11) mmol/L BUN 38 H (7-18) mg/dL Creatinine 1.6 H (0.55-1.02) mg/dL Est GFR (CKD-EPI 2020) 31.80 (mL/min/1.73m2) Glucose 188 H (74-106) mg/dL Calcium 9.6 (8.5-10.1) mg/dL Total Bilirubin 0.3 (0.2-1.0) mg/dL AST 15 (15-37) U/L ALT 16 (14-59) U/L Alkaline Phosphatase 98 (46-116) U/L Total Protein 6.5 (6.4-8.2) g/dL Albumin 3.0 L (3.4-5.0) g/dL [id number] Documentation Fingerstick Glucose Start: 12/09/24 19:51 Freq: .ACHS Status: Active Protocol: Activity Type Activity Date Activity User E-sign Co-sign Detail Recorded Client Recorded Date Recorded By Document 12/12/24 07:15 BKG DAEMON(3) [id number] 12/12/24 07:17 BKG DAEMON(4) Intake and Output - 24 Hour Total 12/09/24 13:32 thru 12/12/24 08:34 Intake Total 5341.000 Output Total 3050 Balance 2291.000 Weight 109.3 kg Intake: IV 1321.000 Oral 4020 Output: Urine 3050 Other: Urine Color Yellow Urine Appearance Cloudy Sediment Urine Odor Normal Comment Patient had an unmeasured voiding amount during bowel movement of unknown quality due to mixture w/ bowel movement. Stool Size Copious Stool Characteristics Formed Falls Risk Assessment History of Falls Previous History 12/09/24 19:25 Contributing Factors Confusion,Unstable, 12/09/24 19:25 Impairments,Incontinence, Medications Ambulatory Aids Uses ambulatory device + 12/09/24 19:25 Tubes/Lines With any additional score 12/09/24 19:25 Gait Evaluation W/any additional score 12/09/24 19:25 Cognition Cognitive impairment 12/09/24 19:25 Fall Total Score 115 12/09/24 19:25 Level of Risk Maximum Risk 12/09/24 19:25 Problems (Last Reviewed 12/10/24 @ 16:25 by Cheryl Gracia NP) Palliative care patient (Acute) Goals of care, counseling/discussion (Acute) CHF exacerbation (Acute) Hypoxic respiratory failure (Acute) HTN (hypertension) (Chronic) ASHLYN (obstructive sleep apnea) (Chronic) Cough (Acute) Hyperlipidemia (Acute) Chronic kidney disease (CKD) (Chronic) Sleep apnea (Acute) PAF (paroxysmal atrial fibrillation) (Acute) Acute on chronic heart failure (Acute) Diabetes mellitus (Chronic) Notes 12/11/24 19:30 (created 12/11/24 23:16) Nursing Notes by Karlos Pérez Nursing Note: At approximately 1930, a Clarisa Wyman called ICU requesting information on patient; caller was not on HIPAA form, spoke to patient concerning identity of caller and patient verified caller is [id number]. Patient gave verbal approval for nursing staff to speak with [id number] and to tell her anything she needs to know. Confirmed and verified this with patient, spoke with [id number] and answered questions concerning patient status and care. Initialized on 12/11/24 23:16 - END OF NOTE 12/10/24 07:09 Nursing Notes by Alethea Washburn Addendum entered by Alethea Washburn 12/10/24 14:06: Duplicate EKG order cancelled. Dr. Jeter aware. Original Note: Access chart to reconcile EKG orders with EKG's in [place]. Nursing Note: Initialized on 12/10/24 07:09 - END OF NOTE 12/09/24 14:52 Respiratory by Thu Oliver 12/09/2024 Pt placed on BIPAP for WOB 10/5 24%. Pt states chest pain, RN notified. Pt is has coarse breath sounds with some wheeze. MD to order nebulizer. Initialized on 12/09/24 14:52 - END OF NOTE v v v v v v v v v Sending and/or Receiving Nurses: Please use comment section below to note any information pertinent to the patient hand-off not included above. Information / Comments: ladder scan showed PVR of [phone]. Contacting hospitalist Report received from: Nyla @ ICU, pt. was transferred from ICU 222 to MS Rm 229 at [id number]
--- NOTE | 2024-12-12 12:23 | PCPN_ITS ---
Date of service: 12/12/24 Time of Service: 12:23 Assessment and Plan Assessment and plan (1) Goals of care, counseling/discussion: Status: Acute Assessment and plan: She is a DNR/DNI. Nita was too sleepy to engage in the visit. The plan is to continue treatment for now. Consider [facility] ACC[facility] DIRECTOR/hospice if she is not improving. She just came out of the ICU today. Mary does not want her to go back to the [facility]. Discussed that if the plan is more comfort-focused care, we could get hospice in to help care for her at the [facility] or at Mary's home. Placement at a different facility could be considered but this would not hold up her discharge. She needs more time to determine what direction she is going in. Palliative to f/u on Sunday. (2) Hypoxic respiratory failure: Status: Acute (3) ASHLYN (obstructive sleep apnea): Status: Chronic Assessment and plan: chronically does not like using CPAP continue CPAP as tolerated (4) Cough: Status: Acute Assessment and plan: worsening most recently started on prednisone and abx outpatient prior to ED presentation (5) COPD (chronic obstructive pulmonary disease): Assessment and plan: continue home meds now w/PNA dx (6) Palliative care patient: Status: Acute Assessment and plan: PC will continue to follow Nita closely during this hospitalization Palliative to see her on Sunday. Subjective Subjective Interval history since last seen: Nita was seen in her hospital room with her daughter, Mary present. Nita was sleeping and unable to awaken enough to engage in the visit. Staff report that she did not sleep well last night. She moved out of the ICU to a med/surg bed today. Mary shared concerns that she does not want her mother to return to the [facility]. The family is discussing moving her to [place] with her son and [id number] who have a group home and they have a room available for Nita. One of Nita's daughters does not want her to go to [place] and this has caused some issues in the family. Nita is not in a position to make the trip to [place] at this point. There has been some discussion about Nita possibly pivoting to [facility]/hospice care. Mary feels it is still early to make this decision, which seems reasonable. Her breathing is clearly not near her baseline yet. Discharge to [facility] or [facility] home on hospice service could be considered depending on how she does over the weekend. Spoke to CM about possibly sending referrals to other facilities, however, if she is ready for discharge prior to this being set up, it would not hold up her discharge. Will have Palliative f/u on Sunday. Exam Narrative Exam Narrative: General: older, well-nourished female, appears chronically ill/frail, sleeping in her recliner. She opened her eyes briefly but did not awaken enough to engage in the visit. Resp: loud, congested sounding, does not appear to be in distress, not wearing CPAP. Ext: moves extremities freely Psych:too sleepy to engage in the visit. Objective Last Vital Signs Temp 36.2 C L 12/12/24 11:27 Pulse 72 12/12/24 11:27 Resp 22 12/12/24 11:27 BP 149/70 H 12/12/24 11:27 Pulse Ox 94 12/12/24 11:27 Laboratory Results - last 24 hr 12/12/24 12/12/24 05:30 10:07 WBC 8.38 RBC 4.23 Hgb 12.7 Hct 38.4 MCV 91 MCH 30.0 MCHC 33.1 RDW 12.9 Plt Count 219 MPV 10.2 Immature Gran % 0.5 Neutrophils % 74.0 Lymphocytes % 15.4 Monocytes % 9.9 Eosinophils % 0.1 Basophils % 0.1 Nucleated RBC % 0.0 Absolute Neutrophils 6.20 Absolute Lymphocytes 1.29 Absolute Monocytes 0.83 H Absolute Eosinophils 0.01 Absolute Basophils 0.01 VBG pH 7.40 VBG pCO2 56 H VBG pO2 51 VBG HCO3 35 H VBG Total CO2 31 H VBG O2 Saturation 85 VBG Base Excess 10 H Sodium 146 H Potassium 3.5 Chloride 104 Carbon Dioxide 37.5 H Anion Gap 4.5 BUN 38 H Creatinine 1.6 H Est GFR (CKD-EPI 2020) 31.80 Glucose 188 H Calcium 9.6 Total Bilirubin 0.3 AST 15 ALT 16 Alkaline Phosphatase 98 Total Protein 6.5 Albumin 3.0 L
[2024-12-12] MEDS: cefTRIAXone 2 GM/50 ML BAG IVPB (16:00)
--- NOTE | 2024-12-12 17:51 | CMPROGNOTE_ITS ---
Date of service: 12/12/24 Time of Service: 17:51 Care Management Progress Note Progress Note Text Progress Note Text: Nita was sleeping when CM attempted to meet with her; her daughter, Mary was in the room, and visited with CM. Per report, Nita didn't sleep well overnight, so she has been very tired today. Mary expressed that she would prefer her mother not return to the [facility]. CM discussed this with her, informing her that as Nita is a [place] resident, her plan would be to return to her home (the [facility]) once she is medically stable. CM can send referrals to other facilities for consideration, but this would be for parts counterman placement (lateral level of care), which there are limited beds in the community. Mary feels it is important that she remain in the catchment area of palliative care and [facility], and she is happy with the local providers. This would limit her choices to [facility] and [facility]; CM will send referrals to these facilities. CM requested a PT consult to determine if she would benefit f rom short term rehab, at the [facility] or another facility. Mary stated that she would like to relocate her mother to [place], where her son and daughter in law could take care of her, in their penitentiary. Per palliative care, she is not well enough to take that far of a trip at this time. She will continue to be closely monitored. CM will continue to follow. Discharge Potential Discharge Needs: Other (coordinated return to SNF) Anticipated Barriers to Discharge: None Identified Patient/Family Education Needs: Review discharge instructions, discuss Ask Me Three Transportation: Private vehicle Plan: Anticipate Nita will return to the [facility] once medical stable. She will follow up with the facility provider and continue per her plan of care. Transportation will be provided by her daughter. CM will continue to follow. Social Determinants of Health Screening Will the Patient Participate in the Screening?: Unable to obtain Social Determinants of Health Comments([facility] Details): pt at group home reports its okay there, Its not bad
[2024-12-12] MEDS: Melatonin 3 MG TAB PO (20:44)
[2024-12-12] MEDS: Apixaban 5 MG TAB PO (20:45)
[2024-12-12] MEDS: Omeprazole 20 MG CAPCR PO (20:45)
[2024-12-12] MEDS: Insulin Glargine 300 UNITS/3 ML PEN 25 UNITS SC (20:53)
[2024-12-12] MEDS: Fluticasone NASAL SPRAY 16 GM BTL NS (20:57)
[2024-12-13] VITALS (15 sets, daily range): BP systolic 118–203; BP diastolic 69–93; PULSE 68–85; RESP 3–24; TEMP 35.7–36.5; O2SAT 89–96
[2024-12-13] MEDS: Albuterol/Ipratropium 3 ML UPD VIAL UPD ×4 (02:10→20:26)
[2024-12-13] MEDS: DOXYCYCLINE 100 MG in Normal Saline 100 ML IVPB (04:26)
[2024-12-13] MEDS: Normal Saline Flush 10 ML SYR IVP ×2 (04:27→20:11)
[2024-12-13 06:44] LABS: Abs Immature Grans 0.03 10^3/uL (0.0-0.06); Absolute Basophil Count 0.02 10^3/uL (0.0-0.2); Absolute Eosinophil Count 0.01 10^3/uL (0.0-0.7); Absolute Lymphocyte Count 1.24 10^3/uL (1.2-3.4); Absolute Monocyte Count 0.73 10^3/uL (0.1-0.8); Absolute Neutrophil Count 4.92 10^3/uL (1.2-6.7); Basophils % 0.3 %; Eosinophils % 0.1 %; HGB 13.1 g/dL (11.2-15.7); Immature Grans % 0.4 %; Lymphocytes % 17.8 %; MCH 29.7 pg (27.0-33.0); MCHC 32.8 % (32.0-36.0); MCV 91 fL (80-95); MPV 9.9 fL (8.0-11.0); Monocytes % 10.5 %; Neutrophils % 70.9 %; Platelet Count 235 10^3/uL (130-400); RBC 4.41 10^6/uL (3.93-5.22); RDW 12.8 % (11.7-14.6); WBC 6.95 10^3/uL (4.4-10.8)
[2024-12-13 07:13] LABS: ALT 22 U/L (14-59); AST 12 U/L (15-37); Albumin 3.1 g/dL (3.4-5.0); Alkaline Phosphatase 99 U/L (46-116); Anion Gap 7.8 mmol/L (3-11); BUN 30 mg/dL (7-18); Bilirubin, Total 0.4 mg/dL (0.2-1.0); CO2 34.2 mmol/L (21.0-32.0); CREATININE 1.1 mg/dL (0.55-1.02); Calcium 9.7 mg/dL (8.5-10.1); Chloride 105 mmol/L (98-107); Estimated GFR 49.86 (mL/min/1.73m2); Glucose 200 mg/dL (74-106); Potassium 3.8 mmol/L (3.5-5.1); Sodium 147 mmol/L (136-145); Total Protein 6.6 g/dL (6.4-8.2)
[2024-12-13] MEDS: Acetaminophen 500 MG TAB 1000 MG PO ×3 (08:12→20:11)
[2024-12-13] MEDS: Cholecalciferol (Vitamin D3) 1,000 UNIT TAB 4000 UNITS PO (08:12)
[2024-12-13] MEDS: Escitalopram 10 MG TAB PO (08:13)
[2024-12-13] MEDS: Pregabalin 50 MG CAP PO ×3 (08:13→20:11)
[2024-12-13] MEDS: Lactobacillus Acidophilus CAP 1 CAP PO (08:13)
[2024-12-13] MEDS: Isosorbide Mononitrate 30 MG TABCR PO (08:13)
[2024-12-13] MEDS: Apixaban 5 MG TAB PO ×2 (08:15→20:11)
[2024-12-13] MEDS: busPIRone 5 MG TAB PO ×2 (08:16→20:11)
[2024-12-13] MEDS: Labetalol 100 MG TAB PO ×3 (08:16→20:11)
[2024-12-13] MEDS: Metoclopramide 10 MG TAB 5 MG PO (08:16)
[2024-12-13] MEDS: predniSONE 20 MG TAB 40 MG PO (08:16)
[2024-12-13] MEDS: guaiFENesin 600 MG TABCR PO ×2 (08:16→20:11)
[2024-12-13] MEDS: Insulin Aspart 300 UNITS/3 ML PEN SC ×3 (08:27→16:57)
[2024-12-13] MEDS: Atorvastatin 40 MG TAB PO (09:31)
[2024-12-13] MEDS: Fluticasone NASAL SPRAY 16 GM BTL NS ×2 (09:31→20:08)
[2024-12-13] MEDS: Tiotropium Bromide-Respimat 10 PUFF INH 2 PUFF IH (09:37)
[2024-12-13] MEDS: Budesonide/Formoterol 160/4.5 6 GM 60 PUFF INH IH ×2 (09:38→20:27)
[2024-12-13] MEDS: Insulin Glargine 300 UNITS/3 ML PEN 55 UNITS SC (09:42)
--- NOTE | 2024-12-13 14:09 | W.PM.PROGNOT ---
Date of Service Date of service: 12/13/24 Time of Service: 14:09 Assessment and Plan Assessment and plan (1) Goals of care, counseling/discussion: Status: Acute Assessment and plan: She is a DNR/DNI. Nita was too sleepy to engage in the visit. The plan is to continue treatment for now. Consider FLOT[employer] TANK OPERATOR/hospice if she is not improving. She just came out of the ICU today. Mary does not want her to go back to the [facility]. Discussed that if the plan is more comfort-focused care, we could get hospice in to help care for her at the [facility] or at Mary's home. Placement at a different facility could be considered but this would not hold up her discharge. She needs more time to determine what direction she is going in. Palliative to f/u on Sunday. 12/13/24 Currently the plan is to move the pt to [place] to live with her son who runs a SNF/Domicile. Pt will need to be optimized prior to embarking on this trip (2) Hypoxic respiratory failure: Status: Acute Assessment and plan: c/w supplemental oxygen as needed. Wean as appropriate (3) ASHLYN (obstructive sleep apnea): Status: Chronic Assessment and plan: chronically does not like using CPAP continue CPAP as tolerated (4) Cough: Status: Acute Assessment and plan: worsening most recently started on prednisone and abx outpatient prior to ED presentation (5) COPD (chronic obstructive pulmonary disease): Assessment and plan: continue home meds now w/PNA dx (6) Palliative care patient: Status: Acute Assessment and plan: PC will continue to follow Nita closely during this hospitalization Palliative to see her on Sunday. (7) Pneumonia: Status: Acute Assessment and plan: Pt currently on rocephin and zmax. There is concern that the pt has lost her IV access and I will need to d/w bedside nurse. CT done on 12/10/24 did not show significant pneumonia and the cxr was mostly benign. Will stop iv abx and just go with zmax oral for a few more days Subjective Subjective Interval history since last seen: Pt seen and examined in her room this am. POC d/w pt as well as daughter who was at bedside. POC also d/w bedside nurse during MDR. Exam Narrative Exam Narrative: GEN: Alert and oriented, BiPAP in place. No acute distress at rest. LUNGS: course crackles bilaterally posterior bases, diffuse expiratory wheezing. CV: Irregularly irregular with 1/6 murmur, no gallops, or rubs. ABD: soft, nontender and nondistended. EXT: no cyanosis, clubbing, warm. Trace geno edema PSYCH: normal mood and affect Objective Last Vital Signs Temp 35.9 C L 12/13/24 11:31 Pulse 77 12/13/24 14:01 Resp 18 12/13/24 03:53 BP 148/71 H 12/13/24 14:01 Pulse Ox 93 12/13/24 11:51 Laboratory Results - last 24 hr 12/13/24 06:18 WBC 6.95 RBC 4.41 Hgb 13.1 Hct 40.0 MCV 91 MCH 29.7 MCHC 32.8 RDW 12.8 Plt Count 235 MPV 9.9 Immature Gran % 0.4 Neutrophils % 70.9 Lymphocytes % 17.8 Monocytes % 10.5 Eosinophils % 0.1 Basophils % 0.3 Nucleated RBC % 0.0 Absolute Neutrophils 4.92 Absolute Lymphocytes 1.24 Absolute Monocytes 0.73 Absolute Eosinophils 0.01 Absolute Basophils 0.02 Sodium 147 H Potassium 3.8 Chloride 105 Carbon Dioxide 34.2 H Anion Gap 7.8 BUN 30 H Creatinine 1.1 H Est GFR (CKD-EPI 2020) 49.86 Glucose 200 H Calcium 9.7 Total Bilirubin 0.4 AST 12 L ALT 22 Alkaline Phosphatase 99 Total Protein 6.6 Albumin 3.1 L Time Spent with Patient Time Spent with Patient: <25 minutes Time was spent: preparing to see the patient(eg.review tests), obtaining and/or reviewing separately otained hiistory, ordering medications,tests, procedures, referring, communicating with other health critical care unit manager, indepentently interpreting results, counseling the patient and care coordination
[2024-12-13] MEDS: Azithromycin 250 MG TAB PO (14:28)
--- NOTE | 2024-12-13 15:38 | PT.INNT ---
PT Notes Visit Reasons: CHF,pulmonary congestion,acute hypoxic resp failur Attempted PT evaluation x2 on this date. Pt declined both attempts stating she was too tired and needed sleep. Nursing reported she had been up to the commode with use of FWW and 1 assist. Will reapproach on 12/14/24.
[2024-12-13] MEDS: Insulin Glargine 300 UNITS/3 ML PEN 25 UNITS SC (20:09)
[2024-12-13] MEDS: Omeprazole 20 MG CAPCR PO (20:11)
[2024-12-13] MEDS: Melatonin 3 MG TAB PO (20:11)
[2024-12-14] VITALS (19 sets, daily range): BP systolic 120–164; BP diastolic 63–99; PULSE 62–76; RESP 3–24; TEMP 36.1–36.7; O2SAT 89–96
[2024-12-14] MEDS: Albuterol/Ipratropium 3 ML UPD VIAL UPD ×4 (01:54→19:47)
[2024-12-14] MEDS: Acetaminophen 500 MG TAB 1000 MG PO ×3 (08:24→20:00)
[2024-12-14] MEDS: Fluticasone NASAL SPRAY 16 GM BTL NS ×2 (08:24→19:59)
[2024-12-14] MEDS: Lactobacillus Acidophilus CAP 1 CAP PO (08:24)
[2024-12-14] MEDS: Isosorbide Mononitrate 30 MG TABCR PO (08:25)
[2024-12-14] MEDS: predniSONE 20 MG TAB 40 MG PO (08:25)
[2024-12-14] MEDS: Apixaban 5 MG TAB PO ×2 (08:25→20:00)
[2024-12-14] MEDS: Cholecalciferol (Vitamin D3) 1,000 UNIT TAB 4000 UNITS PO (08:25)
[2024-12-14] MEDS: busPIRone 5 MG TAB PO ×2 (08:25→20:00)
[2024-12-14] MEDS: guaiFENesin 600 MG TABCR PO ×2 (08:25→20:00)
[2024-12-14] MEDS: Escitalopram 10 MG TAB PO (08:25)
[2024-12-14] MEDS: Labetalol 100 MG TAB PO ×3 (08:26→20:00)
[2024-12-14] MEDS: Atorvastatin 40 MG TAB PO (08:26)
[2024-12-14] MEDS: Metoclopramide 10 MG TAB 5 MG PO ×2 (08:26→17:00)
[2024-12-14] MEDS: Pregabalin 50 MG CAP PO ×3 (08:26→20:00)
[2024-12-14] MEDS: Azithromycin 250 MG TAB PO (08:26)
[2024-12-14] MEDS: Budesonide/Formoterol 160/4.5 6 GM 60 PUFF INH IH ×2 (08:44→19:50)
[2024-12-14] MEDS: Tiotropium Bromide-Respimat 10 PUFF INH 2 PUFF IH (08:44)
[2024-12-14] MEDS: Insulin Glargine 300 UNITS/3 ML PEN 55 UNITS SC (10:06)
[2024-12-14] MEDS: Insulin Aspart 300 UNITS/3 ML PEN SC ×2 (11:55→17:00)
--- NOTE | 2024-12-14 13:10 | PGE_ITS ---
Date of Service Date of service: 12/14/24 Time of Service: 13:10 Assessment and Plan Assessment and plan (1) Goals of care, counseling/discussion: Status: Acute Assessment and plan: She is a DNR/DNI. Nita was too sleepy to engage in the visit. The plan is to continue treatment for now. Consider [facility]INE[facility] PIG BREEDER/hospice if she is not improving. She just came out of the ICU today. Mary does not want her to go back to the [facility]. Discussed that if the plan is more comfort-focused care, we could get hospice in to help care for her at the [facility] or at Mary's home. Placement at a different facility could be considered but this would not hold up her discharge. She needs more time to determine what direction she is going in. Palliative to f/u on Sunday. 12/13/24 Currently the plan is to move the pt to [place] to live with her son who runs a SNF/Domic[employer]. Pt will need to be optimized prior to embarking on this trip (2) Hypoxic respiratory failure: Status: Acute Assessment and plan: c/w supplemental oxygen as needed. Wean as appropriate (3) ASHLYN (obstructive sleep apnea): Status: Chronic Assessment and plan: chronically does not like using CPAP continue CPAP as tolerated (4) Cough: Status: Acute Assessment and plan: worsening most recently started on prednisone and abx outpatient prior to ED presentation (5) COPD (chronic obstructive pulmonary disease): Assessment and plan: continue home meds now w/PNA dx (6) Palliative care patient: Status: Acute Assessment and plan: PC will continue to follow Nita closely during this hospitalization Palliative to see her on Sunday. (7) Pneumonia: Status: Acute Assessment and plan: Pt currently on rocephin and zmax. There is concern that the pt has lost her IV access and I will need to d/w bedside nurse. CT done on 12/10/24 did not show significant pneumonia and the cxr was mostly benign. Will stop iv abx and just go with zmax oral for a few more days 12/14/24 Zithromax Subjective Subjective Interval history since last seen: Pt seen and examined in her room, resting comfortably. POC d/w bedside nurse Exam Const General: healthy appearing, well developed and well groomed [facility] Head: normocephalic Ears: external ears normal General nose exam: external nose normal and no nasal discharge Face and sinus: normal facial exam Mouth: lip normal Neck Neck: normal visual inspection Resp Effort & Inspection: normal respiratory effort Skin General skin exam: no rashes or lesions noted Objective Last Vital Signs Temp 36.5 C 12/14/24 11:48 Pulse 70 12/14/24 11:48 Resp 18 12/14/24 11:48 BP 143/63 H 12/14/24 11:48 Pulse Ox 91 L 12/14/24 11:48 Time Spent with Patient Time Spent with Patient: 25-34 minutes Time was spent: preparing to see the patient(eg.review tests), obtaining and/or reviewing separately otained hiistory, ordering medications,tests, procedures, referring, communicating with other health rn transitional care, indepentently in terpreting results, counseling the patient and care coordination
--- NOTE | 2024-12-14 13:48 | PT.INIE ---
PT Notes Visit Reasons: CHF,pulmonary congestion,acute hypoxic resp failur Physical Therapy Inpatient Initial Evaluation Date: 12/14/2024 Referring Doctor: Dr. Aguilar PT Orders: PT CONSULT: PT evaluation and treat Precautions: Titrate O2 to keep sats 88 to 92% CPAP, IV access Patient Profile/Admitting Diagnosis: Patient is 84-year-old female presented to the emergency department from the [facility] with increased shortness of breath requiring NIV and increased O2 chest x-ray revealed interstitial edema. Patient initially transferred to ICU unit for medical management and monitoring. Patient treated with NIV, Lasix, prednisone taper. Patient diagnosed with CHF COPD exacerbation and hypoxic respiratory failure. PMHX: CHF exacerbation (Acute) Hypoxic respiratory failure (Acute) HTN (hypertension) (Chronic) ASHLYN (obstructive sleep apnea) (Chronic) Acute bronchitis (Acute) Hypertensive heart disease (Acute) with heart failureAcute gastritis without bleeding (Acute) Chronic obstructive pulmonary disease with (acute) lower respiratory infection (Acute) Cough (Acute) Cognitive communication deficit (Acute) Zoster without complications (Acute) Hyperlipidemia (Acute) Peripheral vascular disease (Chronic) Spinal stenosis (Acute) Allergic rhinitis (Acute) Insomnia (Acute) Osteoarthritis of knee (Acute) Chronic kidney disease (CKD) (Chronic) stage 3Left leg pain (Acute) Tremor (Acute) Infected sebaceous cyst of skin (Acute) Chronic diarrhea (Acute) Coronary artery disease (Chronic) Sleep apnea (Acute) severe ASHLYN sleep study 11/10/21 at [facility], CPAP therapy suggested RHDiastolic heart failure (Acute) Obesity (Chronic) PAF (paroxysmal atrial fibrillation) (Acute) Acute on chronic heart failure (Acute) Diabetes mellitus (Chronic) Medical History COPD (chronic obstructive pulmonary disease) Type 2 diabetes mellitus Nausea and vomiting in adult CHF (congestive heart failure) Colitis Gastroenteritis Retinopathy Vitamin D deficiency Mixed hyperlipidemia JASON (generalized anxiety disorder) Depressive disorder HTN (hypertension) with goal to be determined Surgical History H/O heart artery stent (~2019) [facility] History of cardiac cath (~2019) Social History/Home Situation: Patient resides at the [facility]. She utilizes a four-wheel walker for transfers and ambulation she walks daily in her room to and from the bathroom with 1 assist/supervision and walks once a day in the hallway longer distances approximately 250 feet in which she rests 1 time on her rollator/4 wheeled walker. Patient does not use oxygen. Patient has CPAP however does not consistently use it. She is assist for ADLs and att[facility]. Equipment Owned/DME: Electric recliner, rollator, CPAP Subjective: Patient reports intermittent low back pain denies pain at this time Objective: [] General Observation: Reclined in chair with oxygen in place at 1 L via nasal cannula. Her daughter visiting Mental Status: Alert and oriented x 4, cooperative, able to follow all instructions. Patient agreeable to participate in evaluation Pain: Denies ROM: [] BUE: WFL BLE WFL Strength: [] BUE >/=to 3/5 BLE >/=to 3/5 Sensation: Intact Bed Mobility/Transfers: [] Supine to sit min assist Sit to supine mod assist lower extremities Sit to stand CGA Stand to sit CGA Bed to chair CGA with FWW Gait: Ambulates with FWW 40 feet with reciprocal pattern increased weightbearing through bilateral upper extremities, wide base of support, demonstrates adequate foot clearance, slight shortness of breath noted after ambulation with 1 L O2 via nasal cannula Balance: [] Static Sitting: Normal Dynamic Sitting: Fair plus Static Standing: Fair plus with upper extremity support Dynamic Standing: Fair with upper extremity support Special Tests: [] Mobility Limitations Standardized Measure [] [facility]-PAC 6 clicks Basic Mobility Inpatient Short Form: [] Raw Score: 15 CMS Score: 57.70% Informed Consent/Education: Patient and daughter instructed in purpose of PT consult. Assessment: Patient is 84-year-old female presenting with dyspnea on exertion O2 dependent during functional tasks. Patient noted at rest on 1 L to be 96% therefore O2 removed sats maintained at 93% on room air. However reduced during ambulation to 86% therefore replaced oxygen at 1 L nurse notified sats returned to 93%. Patient presents with clinical signs and symptoms consistent with current/admitting diagnoses that have resulted to mobility limitations, gait instability, generalized weakness, and impairment of motor control as demonstrated by the following impairment level findings: 1. Decreased strength to UE/BLE major muscle groups 2. Impaired standing balance 3. Impaired functional activity tolerance 4. Supplemental O2 required during functional tasks Impairments are contributing to the following functional limitations: 1. Inability to safely ambulate without assistive device 2. Increase completion time for mobility ADL performance 3. Increased fall risk 4. Decline in transfer skills 5. AM-PAC score Patient is assessed as a moderate complexity based on the following: History: 84-year-old female with impairment level findings, functional limitations, and past medical history as indicated above Examination: Demonstrable impairment in strength, balance, and mobility level with underlying impairments and functional limitations as documented above Presentation: Evolving Decision Making: Moderate Goals: 1. Bed mobility contact-guard assist of 1 2. Transfers with FWW supervision 3. Ambulation with FWW 150 feet with supervision Plan of Care/Treatment Plan: 1-2x/day, 7 days/week x 1 week. Plan of care has been reviewed with the [employer] APPLICATION DEVELOPER providing the service under Physical Therapy direction. Initiate Physical Therapy intervention for strengthening, bed mobility, transfers, gait, stairs, balance training, use of assistive device. DISCHARGE RECOMMENDATIONS: Return to the [facility] with skilled PT to resume/return to prior level of function TREATMENT CODE/TIME: [id number], [id number] Thank you for the opportunity to participate in the care of this patient. [facility]
[2024-12-14] MEDS: Melatonin 3 MG TAB PO (20:00)
[2024-12-14] MEDS: Omeprazole 20 MG CAPCR PO (20:00)
[2024-12-14] MEDS: Insulin Glargine 300 UNITS/3 ML PEN 25 UNITS SC (20:01)
[2024-12-15] VITALS (8 sets, daily range): BP systolic 114–190; BP diastolic 80–96; PULSE 61–73; RESP 5–22; TEMP 36.1–36.6; O2SAT 91–98
[2024-12-15] MEDS: Albuterol 2.5 MG/3 ML INH SOLN VIAL UPD (01:54)
[2024-12-15] MEDS: Budesonide/Formoterol 160/4.5 6 GM 60 PUFF INH IH (08:35)
[2024-12-15] MEDS: Albuterol/Ipratropium 3 ML UPD VIAL UPD (08:36)
[2024-12-15] MEDS: Tiotropium Bromide-Respimat 10 PUFF INH 2 PUFF IH (08:36)
[2024-12-15] MEDS: Sodium Chloride 0.9% for Inhalation 3 ML VIAL UPD ×2 (08:47→11:13)
[2024-12-15 09:22] LABS: Abs Immature Grans 0.04 10^3/uL (0.0-0.06); Absolute Basophil Count 0.02 10^3/uL (0.0-0.2); Absolute Eosinophil Count 0.16 10^3/uL (0.0-0.7); Absolute Lymphocyte Count 1.72 10^3/uL (1.2-3.4); Absolute Monocyte Count 0.56 10^3/uL (0.1-0.8); Absolute Neutrophil Count 4.31 10^3/uL (1.2-6.7); Basophils % 0.3 %; Eosinophils % 2.3 %; HCT 42.6 % (36.0-46.0); HGB 13.8 g/dL (11.2-15.7); Immature Grans % 0.6 %; Lymphocytes % 25.3 %; MCH 29.9 pg (27.0-33.0); MCHC 32.4 % (32.0-36.0); MCV 92 fL (80-95); MPV 9.8 fL (8.0-11.0); Monocytes % 8.2 %; Neutrophils % 63.3 %; Platelet Count 229 10^3/uL (130-400); RBC 4.62 10^6/uL (3.93-5.22); RDW 12.9 % (11.7-14.6); RDW-SD 43.8 fL; WBC 6.81 10^3/uL (4.4-10.8)
[2024-12-15] MEDS: Cholecalciferol (Vitamin D3) 1,000 UNIT TAB 4000 UNITS PO (09:28)
[2024-12-15] MEDS: predniSONE 20 MG TAB 40 MG PO (09:28)
[2024-12-15] MEDS: busPIRone 5 MG TAB PO (09:29)
[2024-12-15] MEDS: Atorvastatin 40 MG TAB PO (09:29)
[2024-12-15] MEDS: Labetalol 100 MG TAB PO ×2 (09:29→14:04)
[2024-12-15] MEDS: Acetaminophen 500 MG TAB 1000 MG PO ×2 (09:29→14:05)
[2024-12-15] MEDS: Azithromycin 250 MG TAB PO (09:29)
[2024-12-15] MEDS: Apixaban 5 MG TAB PO (09:29)
[2024-12-15] MEDS: Escitalopram 10 MG TAB PO (09:29)
[2024-12-15] MEDS: Pregabalin 50 MG CAP PO ×2 (09:29→14:04)
[2024-12-15] MEDS: Metoclopramide 10 MG TAB 5 MG PO (09:30)
[2024-12-15] MEDS: Lactobacillus Acidophilus CAP 1 CAP PO (09:30)
[2024-12-15] MEDS: guaiFENesin 600 MG TABCR PO (09:30)
[2024-12-15] MEDS: Insulin Glargine 300 UNITS/3 ML PEN 55 UNITS SC (09:32)
[2024-12-15 09:50] LABS: ALT 25 U/L (14-59); AST 12 U/L (15-37); Alkaline Phosphatase 92 U/L (46-116); Anion Gap 6.8 mmol/L (3-11); BUN 26 mg/dL (7-18); Bilirubin, Total 0.7 mg/dL (0.2-1.0); CO2 32.2 mmol/L (21.0-32.0); CREATININE 1.1 mg/dL (0.55-1.02); Calcium 9.8 mg/dL (8.5-10.1); Chloride 106 mmol/L (98-107); Estimated GFR 49.86 (mL/min/1.73m2); Glucose 155 mg/dL (74-106); Potassium 3.5 mmol/L (3.5-5.1); Sodium 145 mmol/L (136-145); Total Protein 6.4 g/dL (6.4-8.2)
--- NOTE | 2024-12-15 09:54 | DM INPTCON_ITS ---
Date of service: 12/15/24 Time of Service: 14:50 Diabetes Inpatient Consult Reason for Visit: received consult request re: diabetes education DESCRIPTION/ASSESSMENT: pt is 84yo female who resides in [facility]. Most recent A1c 8.7% last april with hx of 8's and 9's over the last 2 years. Home diabetes meds include dulaglutide weekly, sliding scale insulin aspart at meals for correction and 4 units for carb coverage and inslin glargine 48u HS. Also takes prednisone. Fasting glucose has trended down over admission with 349 on 12/03 down to 155 this morning. Fingersticks jumping around from 60's-324 at meals. INTERVENTION: insulin aspart can be considered to help better control glucose beween meals at 1 unit per 15g carbs. PLAN: will monitor glucose and po intake - discharge anticipated 12/15 to [place] [facility] where insulin management can be adjusted to her individual goal considering PMH and age. Time Spent in Nutritional Counseling and Treatment: 5 min
[2024-12-15] MEDS: Fluticasone NASAL SPRAY 16 GM BTL NS (09:58)
--- NOTE | 2024-12-15 12:09 | PT.INTREAT ---
Date of service: 12/15/24 Time of Service: 10:45 PT Notes Visit Reasons: CHF,pulmonary congestion,acute hypoxic resp failur Inpatient Physical Therapy Treatment Note [facility] Date: 12/15/2024 SUBJECTIVE: Glad to get up and walk. Back is bothering after walking 40ft, but after taking a short 3 minute seated break she was willing to walk back to room. Precautions: Titrate O2 to keep sats 88 to 92% CPAP, IV access OBJECTIVE: ? PAIN: Low back and side discomfort with ambulation today. VITALS: Monitored with telemetry. O2 noted to stay between 95% to 97% on RA t/o ambulation, with HR staying in the 60-70 b/m range. ? Therapeutic Activities ([id number]): Direct one-on-one instruction in dynamic activities to improve functional performance. ? BED MOBILITY/TRANSFERS? Up in chair when I arrived to patient's room. ? Sit-stand: CGA? Stand-sit: CGA? GAIT? Assistive Device: FWW, with w/c follow ? Weight bearing: Full Assist: CGA ? Distance:? 40ft x 2, with short 2-3 minute seated break due to back/ side pain and mild SOB? Deviation: Slow controlled movement.? ASSESSMENT:? Tolerated session well with good effort given. PLAN: Continue to focus on functional mobility training for improved ADLs. TREATMENT CODE/TIME: [id number] - 10:50 to 11:10 am DISCHARGE RECOMMENDATION: Return to [facility] [place].
--- NOTE | 2024-12-15 14:10 | PDOC.CMDIS ---
Date of service: 12/15/24 Time of Service: 14:12 LACE Index Scoring Tool Questions: Length of Stay (in days): 4 - 6 Was the patient admitted via the E.D.?: Yes Comorbidities: Diabetes w/o Complication, Congestive Heart Failure, Chronic Pulmonary Disease and Liver or Renal Disease E.D. Visits: 0 Answers: Total Score: 12 Risk of Readmission: High Risk Care Management Discharge Plan Reason for Hospitalization: CHF, pulmonary congestion, acute hypoxic resp failure Discharge Plan: Nita will discharge home to the [facility] where she resides by [facility] private vehicle coordinated by CM. The discharge plan was discussed with Nita and Mary, her guardian, who are in agreement with the plan. Nita will follow up with facility providers and her discharge plan of care. Patient/Family Education Needs: Review discharge instructions and plan to follow up after discharge. Discuss ask me three. Services Needed at Discharge: Intermediate Facility (Return to the [facility]) and Transportation ([facility] private vehicle) Services Needed at Discharge: Intermediate Facility (Return to [facility]) and Transportation ([facility] private vehicle ) SDOH Health Related Social Needs: No Data to Display
--- NOTE | 2024-12-15 14:14 | DSE_ITS ---
Date of service: 12/15/24 Time of Service: 14:14 DS: Diagnosis Discharge Diagnosis (1) Goals of care, counseling/discussion: Status: Acute (2) Hypoxic respiratory failure: Status: Acute (3) ASHLYN (obstructive sleep apnea): Status: Chronic (4) Cough: Status: Acute (5) COPD (chronic obstructive pulmonary disease): (6) Palliative care patient: Status: Acute (7) Pneumonia: Status: Acute Discharge Plan Disposition [facility] Dis[facility] Condition: Stable Discharge Details Reason For Visit: CHF,pulmonary congestion,acute hypoxic resp failur Admit Date/Time: 12/09/24 16:35 Admit Provider: Dg Aguilar Attending Provider: Dg Aguilar Primary Care Provider: Janeen Weldon Hospital Course Hospital Course: Pt was admitted to the hospitalist service for copd/sob/ashlyn/on home cpap. Pt improved to the point that she was able to transfer [facility]. At the time of DC, the plan was to go eventually to [place] where her son own's a SNF of some type. No cultures are pending. This 84 years old female patient with a PMHx of COPD, diastolic heart failure, CAD, On home CPAP for ASHLYN, hypoventiilation, obesity, atrial fibrillation on apixaban, HTN, CKD, hyperlipidemia , DM II, presented to the ED via EMS from the [facility] today for evaluation of shortness of breath starting a couple of weeks ago and worsening today. non-tachycardic, normotensive , afebrile , hypoxic with Sat 86% resolving with NIV in the ED, the patient reported blurred vision, headache, shortness of breath,orthopnea, diarrhea; denied chest pain, cough, increased sputum production,nausea, vomiting, dysuria. Workup in the ED showed increased bilat interstitial marking pointing to interstitial edema VS pneumonitis. CBC and chemistry were unremarkable with Cr at 1.6 closed to baseline 1.4. The patient was admitted to the medical surgical floor w telemetry to the hospitalist service for working diagnostic of exacerbation of CHF with possible worsening systolic function, hypoxic respiratory failure, SOB. DNR/DNI status confirmed. Assessment and plan (1) Hypoxic respiratory failure: Status: Acute Assessment and plan: On presentation - new O2 requirement with use of NIV Wean O2 and NIV as tolerated for sat 88-92% Most likely d/t point 2 VS PE as the patient is on Eliquis for atrial fibrillation and also resolving with supplemental O2 W/o fever, leukocytosis , coughing , sputum production most likely not COPD exacerbation or pneumonia. Moreover URVP was negative Considering POCUS when available (2) CHF exacerbation: Status: Acute Assessment and plan: XR pointing to interstitial edema with reported orthopnea, despite the lack of swelling in the lower ext., we might consider a worsening of her diastolic heart failure. faint cardiac wheezing Will continue IV lasix while being cautious with dosing d/t CKD BMP in AM CPAP/BIPAP (3) PAF (paroxysmal atrial fibrillation): Status: Acute Assessment and plan: On eliquis and home beta susan (4) Hyperlipidemia: Status: Acute Assessment and plan: No on medicine opt (5) Chronic kidney disease (CKD): Status: Chronic Assessment and plan: Stable will continue to monitor BMP in AM (6) Sleep apnea: Status: Acute Assessment and plan: CPAP at home Continue CPAP/BIPAP as per RT for CHF (7) COPD (chronic obstructive pulmonary disease): Assessment and plan: On home medicine regimen with Breztri PRN nebs This might be d/t an exacerbation of her COPD: will add methylprednisolone 125 mg x1 then daily prednisone taper- will hold off antibiotics for now (8) HTN (hypertension): Status: Chronic Assessment and plan: On home med regimen (9) Diabetes mellitus: Status: Chronic Assessment and plan: Gluc AC & HS w home dose bolus insulin and SSI coverage Echo done on 12/10/24 shows EF of 60% Home Meds and New Rx's Prescriptions: New prednisone 20 mg tablet 20 mg PO DAILY Qty: 10 0RF Continued escitalopram oxalate 10 mg tablet 10 mg PO DAILY ondansetron HCl 4 mg tablet 4 mg PO DAILY Scot-Tussin Diabetes 10 mg/5 mL liquid 10 mg PO Q4H PRN apixaban 2.5 mg tablet 5 mg PO BID insulin glargine [Basaglar KwikPen U-100 Insulin] 100 unit/mL (3 mL) insulin pen 48 unit subcut QAM Patient Comments: 01/30/24 per [facility] also 14 units QPM. RH tramadol 50 mg tablet 100 mg PO QHS buspirone 10 mg tablet 5 mg PO BID Patient Comments: 01/30/24 per [facility] list RH isosorbide mononitrate 30 mg tablet extended release 24 hr 30 mg PO DAILY acetaminophen 500 mg tablet 1,000 mg PO TID omeprazole 20 mg capsule,delayed release(DR/EC) 20 mg PO HS Biotene Dry Mouth Oral Rinse Mouthwash 15 ml mucous membrane BID-QID PRN Rx Instructions: swish for 15-30 secs , then spit out; do not swallow insulin glargine [Basaglar KwikPen U-100 Insulin] 100 unit/mL (3 mL) insulin pen 14 unit subcut QPM insulin aspart U-100 100 unit/mL (3 mL) insulin pen 4 unit subcut TID ipratropium-albuterol 0.5 mg-3 mg(2.5 mg base)/3 mL solution for nebulization 3 ml inhalation BID Saccharomyces boulardii [Daily Probiotic (S. boulardii)] 250 mg capsule 250 mg PO DAILY torsemide 20 mg tablet 20 mg PO BID Rx Instructions: 3 tablets (60mg) by mouth twice daily melatonin 3 mg tablet 3 mg PO HS Trulicity 1.5 mg/0.5 mL pen injector 1.5 mg subcut QWEEK atorvastatin 40 mg tablet 40 mg PO DAILY nitroglycerin 0.4 mg tablet, sublingual 0.4 mg sublingual Q5-15M PRN Rx Instructions: do not exceed 3 doses per episode albuterol sulfate [Ventolin HFA] 90 mcg/actuation HFA aerosol inhaler 2 inh inhalation BID cholecalciferol (vitamin D3) 50 mcg (2,000 unit) capsule 4,000 unit PO DAILY labetalol 100 mg tablet 100 mg PO TID loperamide 2 mg capsule 2 mg PO Q6H PRN Antacid Calcium 215 mg calcium (500 mg) tablet,chewable 215 mg PO BID PRN insulin aspart U-100 [Novolog U-100 Insulin aspart] 100 unit/mL solution See Rx Instructions subcut QAC PRN Rx Instructions: subcutaneously before meals PRN; fluticasone propionate 50 mcg/actuation spray,suspension See Rx Instructions intranasal DIRECTED Rx Instructions: intranasally as directed; administer into each nostril metoclopramide HCl 5 mg tablet 5 mg PO BID cyanocobalamin (vitamin B-12) 1,000 mcg/mL Solution 1,000 mcg SUBCUT QMONTH polyethylene glycol 3350 [Miralax] 17 gram/dose powder 17 g PO DAILY PRN pregabalin [Lyrica] 50 mg capsule 50 mg PO TID Breztri Aerosphere 160-9-4.8 mcg/actuation HFA aerosol inhaler 2 inh INHALATION BID No Action insulin glargine [Basaglar KwikPen U-100 Insulin] 100 unit/mL (3 mL) insulin pen 48 unit subcut QAM Discharge Instructions Referrals: Janeen Weldon [Primary Care Provider] - (follow up in 3-5 days) Activity:: Activity as Tolerated Equipment/Supplies:: No Equipment Needed Diet:: As Tolerated Discharge Orders Discharge Orders: Discharge Order (Routine); Ordered 12/15/24 Ordered By: Dg Aguilar DS: Summary Time Spent with Patient providing and/or coordinating discharge services: Greater than 30 minutes Status at Discharge Functional status at discharge: uses cane/walker Overall status at discharge: patient is progressing back to baseline Mental Status: mental status grossly normal Speech and Movement: speech and movement normal Mood: congruent mood Affect: normal affect Quality:SDOH Health Related Social Needs: No Data to Display Exam Narrative Exam Narrative: GEN: Alert and oriented, BiPAP in place. No acute distress at rest. LUNGS: course crackles bilaterally posterior bases, diffuse expiratory wheezing, sound like some upper airway congestion CV: Irregularly irregular with 1/6 murmur, no gallops, or rubs. ABD: soft, nontender and nondistended. EXT: no cyanosis, clubbing, warm. Trace geno edema PSYCH: normal mood and affect Psych Mental Status: mental status grossly normal Speech and Movement: speech and movement normal Mood: congruent mood Affect: normal affect DS: Data Vitals/I&O Vitals and I&O: Vital Signs Temperature 36.1 C L 12/15/24 13:21 Temperature Source Temporal Artery Scan 12/15/24 13:21 Pulse 70 12/15/24 13:21 Pulse 73 12/12/24 11:00 Respiratory Rate 20 12/15/24 13:21 Respiratory Effort Incrsd Work of Breathing 12/09/24 19:25 Respiratory Depth Shallow 12/09/24 19:25 Respiratory Pattern Normal 12/09/24 19:25 Blood Pressure 136/82 12/15/24 13:21 Blood Pressure Mean 95 12/12/24 10:01 Blood Pressure Position Sitting 12/09/24 14:33 Pulse Oximetry 95 12/15/24 13:21 Oxygen Delivery Method Room Air 12/15/24 13:21 Oxygen Flow Rate 0 12/15/24 13:21 Fraction of Inspired Oxygen (FIO2) 21 12/15/24 08:43 Pain Level 4 12/15/24 13:21 Comment RN(charge nurse) aware 12/15/24 08:03 Intake & Output 12/14/24 12/15/24 12/15/24 23:59 11:59 23:59 Intake Total 490 / 490 360 / 360 Output Total 350 / 950 Balance 140 / -460 360 / 360 Weight 111 kg Intake: Oral 490 / 490 360 / 360 Output: Urine 350 / 950 Other: Urine Color Yellow Urine Appearance Clear Data Completed and Pending Labs on day of discharge: Labs from last 24 hours 12/15/24 09:15 WBC 6.81 RBC 4.62 Hgb 13.8 Hct 42.6 MCV 92 MCH 29.9 MCHC 32.4 RDW 12.9 Plt Count 229 MPV 9.8 Immature Gran % 0.6 Neutrophils % 63.3 Lymphocytes % 25.3 Monocytes % 8.2 Eosinophils % 2.3 Basophils % 0.3 Nucleated RBC % 0.0 Absolute Neutrophils 4.31 Absolute Lymphocytes 1.72 Absolute Monocytes 0.56 Absolute Eosinophils 0.16 Absolute Basophils 0.02 Sodium 145 Potassium 3.5 Chloride 106 Carbon Dioxide 32.2 H Anion Gap 6.8 BUN 26 H Creatinine 1.1 H Est GFR (CKD-EPI 2020) 49.86 Glucose 155 H Calcium 9.8 Total Bilirubin 0.7 AST 12 L ALT 25 Alkaline Phosphatase 92 Total Protein 6.4 Albumin 3.0 L PFSH All Active Problems (Updated 12/15/24 @ 14:13 by Dg Aguilar MD) Pneumonia (Acute) Palliative care patient (Acute) Goals of care, counseling/discussion (Acute) CHF exacerbation (Acute) Hypoxic respiratory failure (Acute) HTN (hypertension) (Chronic) ASHLYN (obstructive sleep apnea) (Chronic) Acute bronchitis (Acute) Hypertensive heart disease (Acute) with heart failure Acute gastritis without bleeding (Acute) Chronic obstructive pulmonary disease with (acute) lower respiratory infection (Acute) Cough (Acute) Cognitive communication deficit (Acute) Zoster without complications (Acute) Hyperlipidemia (Acute) Peripheral vascular disease (Chronic) Spinal stenosis (Acute) Allergic rhinitis (Acute) Insomnia (Acute) Osteoarthritis of knee (Acute) Chronic kidney disease (CKD) (Chronic) stage 3 Left leg pain (Acute) Tremor (Acute) Infected sebaceous cyst of skin (Acute) Chronic diarrhea (Acute) Coronary artery disease (Chronic) Sleep apnea (Acute) severe ASHLYN sleep study 11/10/21 at [facility], CPAP therapy suggested RH Diastolic heart failure (Acute) Obesity (Chronic) PAF (paroxysmal atrial fibrillation) (Acute) Acute on chronic heart failure (Acute) Diabetes mellitus (Chronic) Medical History COPD (chronic obstructive pulmonary disease) Type 2 diabetes mellitus Nausea and vomiting in adult CHF (congestive heart failure) Colitis Gastroenteritis Retinopathy Vitamin D deficiency Mixed hyperlipidemia JASON (generalized anxiety disorder) Depressive disorder HTN (hypertension) with goal to be determined Surgical History H/O heart artery stent (~2019) [facility] History of cardiac cath (~2019) Family History Sister Diabetes Hyperlipidemia Hypertension Social History Smoking/Tobacco Use Status: Former Tobacco Use Smoking risk assessment performed?: Yes Alcohol Intake: never Drug use: Never Substance use type: does not use [facility] Number of Children: 4 What is your relationship status?: Panel score (0-1 are the most socially isolated patients): 0 Do you feel safe at home: Yes Additional Social history: Sobeida Time Spent with Patient Time Spent with Patient: 45-69 minutes Time was spent: preparing to see the patient(eg.review tests), obtaining and/or reviewing separately otained hiistory, ordering medications,tests, procedures, referring, communicating with other health plant health care technician, indepentently interpreting results, counseling the patient and care coordination
== END 2024-12-15 14:33 | disposition skilled nursing facility (03) | DRG 291 ==
LOC: ER 14:03 → ICU 19:47 → MS 12-12 11:10
PROVIDERS: Family Medicine; Admitting Provider Hospitalist; Emergency Provider Emergency Medicine; PCP Internal Medicine; Responsible Provider Hospitalist; Visit Provider Hospitalist
DX: I13.0 Hypertensive heart and chronic kidney disease with heart failure and stage 1 through stage 4 chronic kidney disease, or unspecified chronic kidney disease (principal); I50.33 Acute on chronic diastolic (congestive) heart failure; J96.01 Acute respiratory failure with hypoxia; J18.9 Pneumonia, unspecified organism; J44.0 Chronic obstructive pulmonary disease with (acute) lower respiratory infection; J44.1 Chronic obstructive pulmonary disease with (acute) exacerbation; Z68.42 Body mass index [BMI] 45.0-49.9, adult; I48.0 Paroxysmal atrial fibrillation; E87.5 Hyperkalemia; G47.33 Obstructive sleep apnea (adult) (pediatric); R41.89 Other symptoms and signs involving cognitive functions and awareness; I73.9 Peripheral vascular disease, unspecified; M48.00 Spinal stenosis, site unspecified; E66.9 Obesity, unspecified; I25.10 Atherosclerotic heart disease of native coronary artery without angina pectoris; K52.9 Noninfective gastroenteritis and colitis, unspecified; N18.30 Chronic kidney disease, stage 3 unspecified; G47.00 Insomnia, unspecified; J30.9 Allergic rhinitis, unspecified; E11.22 Type 2 diabetes mellitus with diabetic chronic kidney disease; E78.2 Mixed hyperlipidemia; F41.1 Generalized anxiety disorder; F32.A Depression, unspecified; Z95.5 Presence of coronary angioplasty implant and graft; Z66 Do not resuscitate; Z79.01 Long term (current) use of anticoagulants; Z79.4 Long term (current) use of insulin
CPT/HCPCS: 00123; 36415; 51798; 71250; 76604; 80048; 80053; 82805; 87637; 93005; 93308; 94618; 94640; 94669; 94761; 96374; 97162; 97530; 99285; 71045; 81003; 81015; 83735; 83880; 84484; 85025; 93010; 93306; 94660; 94664; 94667; 94668; 94760; 99223; 99232; 99233; 99239; J0696; J1815; J1940; J2919; J7512; J7613; J7620

== ENCOUNTER 2024-12-24 17:26 | Outpatient (REF) | payer MEDICARE, MEDICAID, SELFPAY ==
[2024-12-24 18:27] LABS: Abs Immature Grans 0.07 10^3/uL (0.0-0.06); Absolute Basophil Count 0.02 10^3/uL (0.0-0.2); Absolute Eosinophil Count 0.08 10^3/uL (0.0-0.7); Absolute Lymphocyte Count 1.12 10^3/uL (1.2-3.4); Absolute Monocyte Count 0.63 10^3/uL (0.1-0.8); Absolute Neutrophil Count 7.54 10^3/uL (1.2-6.7); Basophils % 0.2 %; Eosinophils % 0.8 %; HCT 41.8 % (36.0-46.0); HGB 13.3 g/dL (11.2-15.7); Immature Grans % 0.7 %; Lymphocytes % 11.8 %; MCH 29.7 pg (27.0-33.0); MCHC 31.8 % (32.0-36.0); MCV 93 fL (80-95); MPV 10.4 fL (8.0-11.0); Monocytes % 6.7 %; Neutrophils % 79.8 %; Platelet Count 250 10^3/uL (130-400); RBC 4.48 10^6/uL (3.93-5.22); RDW 13.2 % (11.7-14.6); RDW-SD 44.9 fL; WBC 9.46 10^3/uL (4.4-10.8)
[2024-12-24 18:43] LABS: ALT 25 U/L (14-59); AST 9 U/L (15-37); Albumin 3.3 g/dL (3.4-5.0); Alkaline Phosphatase 93 U/L (46-116); Anion Gap 8.6 mmol/L (3-11); BUN 34 mg/dL (7-18); Bilirubin, Total 0.3 mg/dL (0.2-1.0); CO2 34.4 mmol/L (21.0-32.0); CREATININE 1.8 mg/dL (0.55-1.02); Chloride 98 mmol/L (98-107); Estimated GFR 27.61 (mL/min/1.73m2); Glucose 400 mg/dL (74-106); NT-proBNP 777 pg/mL (<300); Potassium 4.1 mmol/L (3.5-5.1); Sodium 141 mmol/L (136-145)
[2024-12-24 19:38] LABS: Hemoglobin A1C 10.8 % (<5.7)
== END 2024-12-24 17:27 | disposition home or self-care (01) ==
LOC: LBN 17:26
PROVIDERS: PCP Internal Medicine; Visit Provider Nurse Practitioner Gerontology
DX: E11.40 Type 2 diabetes mellitus with diabetic neuropathy, unspecified (principal); I50.22 Chronic systolic (congestive) heart failure; N18.32 Chronic kidney disease, stage 3b; E83.42 Hypomagnesemia
CPT/HCPCS: 80053; 83036; 83880; 85025

== ENCOUNTER → 2024-12-25 12:29 | Outpatient (BNVA) | payer MEDICARE, MEDICAID, SELFPAY | PROVIDERS: PCP Internal Medicine; Referring Provider Internal Medicine; Visit Provider Physician Assistant Surgical | DX: J44.9 Chronic obstructive pulmonary disease, unspecified (principal); G47.33 Obstructive sleep apnea (adult) (pediatric); I50.33 Acute on chronic diastolic (congestive) heart failure; I48.0 Paroxysmal atrial fibrillation; R53.83 Other fatigue | CPT/HCPCS: 99214 ==

== ENCOUNTER 2024-12-27 10:23 | Emergency (ER) | payer MEDICARE, MEDICAID, SELFPAY ==
[2024-12-27] VITALS (16 sets, daily range): BP systolic 157–158; BP diastolic 79–99; PULSE 70–81; RESP 15–18; TEMP 36.5; O2SAT 89–94
--- NOTE | 2024-12-27 10:15 | RT.EKG_ITS ---
APPROVED REPORT Exam: Resting ECG Reason for Exam: syncope Patient Location: E HR:79 bpm ECG Measurements Heart Rate 79 AXIS OH 79 P 0 QRSd 159 QRS 4 QT 445 T 45 QTc 509 Conclusion Sinus rhythm...normal P axis, V-rate 60- 99 Right bundle branch block...QRSd>120, terminal axis(90,270) Probable left ventricular hypertrophy...(RaVL+SV3)xQRSd >300 Inferior infarct, old...Q >35mS, II III aVF
--- NOTE | 2024-12-27 10:30 | DI.RAD_ITS ---
Exam(s) XR CHEST 2V PA LATERAL EXAM: XR CHEST 2V PA LATERAL CLINICAL HISTORY: ?pneumonia TECHNIQUE: 2D digital imaging was performed of the chest. Two images were obtained. And lateral vi ews were obtained. COMPARISON: CR XR PORTABLE CHEST AP from 03/21/2022 CR XR PORTABLE CHEST AP from 07/11/2022 CR XR PORTABLE CHEST AP from 12/09/[address] CHEST WO from 12/10/2024 FINDINGS: There are low lung volumes.The patient is rotated. MEDIASTINUM: Normal. HEART: Normal. PULMONARY VASCULATURE: Normal. LUNGS: Clear. PLEURAL SPACE: No pleural effusion or pneumothorax. BONE:Within normal limits for the patient's age. OTHER FINDINGS:Normal. IMPRESSION: No acute pulmonary findings. DATA REPOSITORY: RADIATION DOSE DELIVERED:
--- NOTE | 2024-12-27 10:40 | ED.GENADUL_ITS ---
Discharge Plan Disposition Patient Disposition: Intermediate Facility(SNF) Condition: Stable Discharge Details Clinical Impression: Syncope Primary Care Provider: Janeen Weldon ED Provider: Jabari Regalado Shepherd Meds and New Rx's Prescriptions: Continued escitalopram oxalate 10 mg tablet 10 mg PO DAILY ondansetron HCl 4 mg tablet 4 mg PO DAILY apixaban 2.5 mg tablet 2.5 mg PO BID buspirone 10 mg tablet 5 mg PO BID Patient Comments: 01/30/24 per [facility] list RH isosorbide mononitrate 30 mg tablet extended release 24 hr 30 mg PO DAILY acetaminophen 500 mg tablet 1,000 mg PO TID omeprazole 20 mg capsule,delayed release(DR/EC) 20 mg PO HS insulin glargine [Basaglar KwikPen U-100 Insulin] 100 unit/mL (3 mL) insulin pen 14 unit subcut QPM insulin glargine [Basaglar KwikPen U-100 Insulin] 100 unit/mL (3 mL) insulin pen 48 unit subcut QAM insulin aspart U-100 100 unit/mL (3 mL) insulin pen 4 unit subcut TID ipratropium-albuterol 0.5 mg-3 mg(2.5 mg base)/3 mL solution for nebulization 3 ml inhalation BID Saccharomyces boulardii [Daily Probiotic (S. boulardii)] 250 mg capsule 250 mg PO DAILY melatonin 3 mg tablet 3 mg PO HS Trulicity 1.5 mg/0.5 mL pen injector 1.5 mg subcut QWEEK torsemide 20 mg tablet 80 mg PO BID Rx Instructions: 3 tablets (60mg) by mouth twice daily prednisone 10 mg tablet 10 mg PO DAILY Qty: 34 0RF Patient Comments: 4 tabs Rx Instructions: Take 40mg (4 tablets) one a day for 4 days, 30mg (3 tablets) once a day for 3 days, 20mg (2 tablets) once a day for 3 days , 10mg (1 tablet) for 2 days, 5mg (0.5 tablets) for 2 days atorvastatin 40 mg tablet 40 mg PO DAILY nitroglycerin 0.4 mg tablet, sublingual 0.4 mg sublingual Q5-15M PRN Rx Instructions: do not exceed 3 doses per episode albuterol sulfate [Ventolin HFA] 90 mcg/actuation HFA aerosol inhaler 2 inh inhalation BID Antacid Calcium 215 mg calcium (500 mg) tablet,chewable 215 mg PO BID PRN insulin aspart U-100 [Novolog U-100 Insulin aspart] 100 unit/mL solution See Rx Instructions subcut QAC PRN Rx Instructions: subcutaneously before meals PRN; fluticasone propionate 50 mcg/actuation spray,suspension See Rx Instructions intranasal DIRECTED Rx Instructions: intranasally as directed; administer into each nostril metoclopramide HCl 5 mg tablet 5 mg PO BID labetalol 100 mg tablet 100 mg PO BID cyanocobalamin (vitamin B-12) 1,000 mcg/mL Solution 1,000 mcg SUBCUT QMONTH polyethylene glycol 3350 [Miralax] 17 gram/dose powder 17 g PO DAILY PRN pregabalin [Lyrica] 50 mg capsule 50 mg PO TID Breztri Aerosphere 160-9-4.8 mcg/actuation HFA aerosol inhaler 2 inh INHALATION BID prednisone 20 mg tablet 20 mg PO DAILY Qty: 10 0RF azithromycin 250 mg tablet 250 mg PO DAILY Patient Comments: 5 days Discharge Instructions Additional Instructions: Your blood work and x-ray did not show any significant concerning findings at this time. Make sure you are drinking plenty fluids to stay hydrated. Follow- up with your primary care provider this week. If you feel more ill or have new symptoms such as high fevers return to the emergency department for reevaluation. HPI General Mode of arrival: EMS . Date/Time Provider Initiated Documentation: 12/27/24 10:29 . Limitations to Documentation: no limitations . Information obtained by: patient . History of Present Illness 84 year old F presents to the emergency department with the chief complaint of passed out while having a bowel movement, described as moderate, Patient started experiencing this hour(s) (1) and it has been now resolved. No relieving factors improve symptom(s), Patient notes syncope; denies chest pain, cough, fever/chills, nausea/vomiting and shortness of breath. Patient did receive the following treatments prior to arrival, none Related Data Home Medications ?Medication ?Instructions ?Recorded ?Confirmed albuterol sulfate 90 mcg/actuation 2 inh inhalation BID 05/23/21 12/27/24 aerosol inhaler (Ventolin HFA) atorvastatin 40 mg tablet 40 mg PO DAILY 05/23/21 12/27/24 nitroglycerin 0.4 mg sublingual 0.4 mg sublingual Q5-15M PRN 05/23/21 12/27/24 tablet cyanocobalamin (vitamin B-12) 1,000 mcg subcut QMONTH 09/19/21 12/27/24 1,000 mcg/mL injection solution calcium carbonate (Antacid Calcium) 215 mg PO BID PRN 09/07/22 12/27/24 ondansetron HCl 4 mg tablet 4 mg PO DAILY 10/26/22 12/27/24 polyethylene glycol 3350 17 17 g PO DAILY PRN 10/26/22 12/27/24 gram/dose oral powder (Miralax) escitalopram oxalate 10 mg tablet 10 mg PO DAILY 01/30/23 12/27/24 insulin aspart U-100 100 unit/mL See Rx Instructions subcut QAC PRN 01/30/23 12/27/24 subcutaneous solution (Novolog U-100 Insulin aspart) buspirone 10 mg tablet 5 mg PO BID 01/30/24 12/27/24 isosorbide mononitrate 30 mg 30 mg PO DAILY 01/30/24 12/27/24 tablet,extended release 24 hr fluticasone propionate 50 See Rx Instructions intranasal 02/08/24 12/27/24 mcg/actuation nasal DIRECTED spray,suspension insulin aspart U-100 100 unit/mL 4 unit subcut TID 02/28/24 12/27/24 (3 mL) subcutaneous pen insulin glargine 100 unit/mL (3 14 unit subcut QPM 02/28/24 12/27/24 mL) subcutaneous pen (Basaglar KwikPen U-100 Insulin) insulin glargine 100 unit/mL (3 48 unit subcut QAM 02/28/24 12/27/24 mL) subcutaneous pen (Basaglar KwikPen U-100 Insulin) ipratropium 0.5 mg-albuterol 3 mg 3 ml inhalation BID 02/28/24 12/27/24 (2.5 mg base)/3 mL nebulization soln metoclopramide HCl 5 mg tablet 5 mg PO BID 02/28/24 12/27/24 omeprazole 20 mg capsule,delayed 20 mg PO HS 02/28/24 12/27/24 release budesonide 160 mcg-glycopyr 9 2 inh inhalation BID 05/13/24 12/27/24 mcg-formot 4.8 mcg/actuation HFA inhaler (Breztri Aerosphere) Saccharomyces boulardii 250 mg 250 mg PO DAILY 06/05/24 12/27/24 capsule (Daily Probiotic (S. boulardii)) acetaminophen 500 mg tablet 1,000 mg PO TID 09/09/24 12/27/24 dulaglutide 1.5 mg/0.5 mL 1.5 mg subcut QWEEK 09/09/24 12/27/24 subcutaneous pen injector (Trulicity) melatonin 3 mg tablet 3 mg PO HS 09/09/24 12/27/24 pregabalin 50 mg capsule (Lyrica) 50 mg PO TID 09/09/24 12/27/24 prednisone 20 mg tablet 20 mg PO DAILY #10 tabs 12/15/24 12/27/24 apixaban 2.5 mg tablet 2.5 mg PO BID 12/25/24 12/27/24 labetalol 100 mg tablet 100 mg PO BID 12/25/24 12/27/24 prednisone 10 mg tablet 10 mg PO DAILY #34 tabs 12/25/24 12/27/24 torsemide 20 mg tablet 80 mg PO BID 12/25/24 12/27/24 azithromycin 250 mg tablet 250 mg PO DAILY 12/27/24 12/27/24 Previous Rx's ?Medication ?Instructions ?Recorded prednisone 20 mg tablet 20 mg PO DAILY #10 tabs 12/15/24 prednisone 10 mg tablet 10 mg PO DAILY #34 tabs 12/25/24 Allergies Allergy/AdvReac Type Severity Reaction Status Date / Time codeine AdvReac Intermediate rash Verified 12/27/24 10:36 General Stated Complaint: [id number] JENNIFER: 3 Review of Systems All systems reviewed & are unremarkable except as noted in HPI and below Constitutional Constitutional: Denies chills, Denies fever(s) and Reports weakness Cardiovascular Cardiovascular: Denies chest pain, Denies dyspnea and Reports other (syncope) Respiratory Respiratory: Reports cough and Denies dyspnea Gastrointestinal Gastrointestinal: Denies abdominal pain, Denies nausea and Denies vomiting Neurologic Neurologic: Reports weakness Exam Const General: no acute distress Orientation: alert and awake HENFL Head: normal to inspection Ears: external ears normal and TM's normal bilaterally General nose exam: external nose normal Mouth: oral mucosae normal Eyes General: appearance normal, both eyes and all related structures Neck Neck: normal visual inspection Resp Effort & Inspection: normal respiratory effort Auscultation: clear to auscultation bilaterally Cardio Jugular venous pressure: no JVD Rate: regular rate GI Palpation: soft and nontender Neuro General: patient alert and patient awake Extrem General: no calf tenderness bilaterally Course Vital Signs Vital signs: Vital Signs Temperature 36.5 C 12/27/24 10:32 Pulse 79 12/27/24 10:32 Respiratory Rate 16 12/27/24 10:32 Blood Pressure 157/99 H 12/27/24 10:32 Pulse Oximetry 93 12/27/24 10:32 Temperature 36.5 C 12/27/24 10:32 Temperature Source Oral 12/27/24 10:32 Pulse 79 12/27/24 10:32 Respiratory Rate 16 12/27/24 10:32 Blood Pressure 157/99 H 12/27/24 10:32 Blood Pressure Position Sitting 12/27/24 10:32 Pulse Oximetry 93 12/27/24 10:32 Oxygen Delivery Method Room Air 12/27/24 10:32 Oxygen Flow Rate 0 12/27/24 10:32 Pain Level 3 12/27/24 10:32 Medical Decision Making 84-year-old female with history of hypertension, obstructive sleep apnea, chronic kidney disease, heart failure, COPD on oxygen who resides at the [facility] and comes in after syncope. She says that she was having a bowel movement when she lost consciousness for few minutes. There was no reported seizure-like activity. She denies ever having chest pain or difficulty breathing. She is stable on arrival, she says she has been feeling generally weak and sleepy. No unilateral weakness. No changes in vision or speech. She is moving all extremities equally, pupils equal reactive to light, extraocular eye movements are intact and she has no facial droop. NIH was 0 on my exam. She has clear lung sounds. She was seen by pulmonology earlier this week and placed on azithromycin and prednisone. She has noted a dry cough intermittently. I suspect defecation syncope but will check a CBC, CMP, troponins and chest x-ray given her cough. She has no headache and did not fall and has no signs on exam to suggest CVA so do not feel imaging of her head is indicated. Patient stable and currently asymptomatic. Labs show no emergent findings, creatinine is 1.8 which seems to range from 1.1-1.8 when checked., has indeterminate procalcitonin. No fever or leukocytosis so I doubt sepsis. She was started on azithromycin yesterday by pulmonology and advised to continue this. I discussed results with her and treatment for discharge I think is reasonable given reassuring workup. She will follow-up with PCP and return precautions given Differential Diagnosis Differential Diagnosis: Vasovagal syncope, anemia, NSTEMI Medical Records Medical records reviewed: Yes I reviewed the patient's medical records. Lab Data Lab results reviewed: Yes I reviewed the patient's lab results. ECG Data Attestation: I personally reviewed and interpreted this ECG (s) as follows: Prior ECG tracings: available for review Interpretation: Sinus rhythm, rate 79, no STEMI Quality:SDOH Health Related Social Needs: No Data to Display [facility] All Active Problems (Updated 12/27/24 @ 12:31 by Jabari Regalado MD) Syncope (Chronic) Palliative care patient (Acute) Goals of care, counseling/discussion (Acute) HTN (hypertension) (Chronic) ASHLYN (obstructive sleep apnea) (Chronic) Acute bronchitis (Acute) Hypertensive heart disease (Acute) with heart failure Acute gastritis without bleeding (Acute) Chronic obstructive pulmonary disease with (acute) lower respiratory infection (Acute) Cough (Acute) Cognitive communication deficit (Acute) Zoster without complications (Acute) Hyperlipidemia (Acute) Peripheral vascular disease (Chronic) Spinal stenosis (Acute) Allergic rhinitis (Acute) Insomnia (Acute) Osteoarthritis of knee (Acute) Chronic kidney disease (CKD) (Chronic) stage 3 Left leg pain (Acute) Tremor (Acute) Infected sebaceous cyst of skin (Acute) Chronic diarrhea (Acute) Coronary artery disease (Chronic) Sleep apnea (Acute) severe ASHLYN sleep study 11/10/21 at [facility], CPAP therapy suggested RH Diastolic heart failure (Acute) Obesity (Chronic) PAF (paroxysmal atrial fibrillation) (Acute) Acute on chronic heart failure (Acute) Diabetes mellitus (Chronic) Medical History COPD (chronic obstructive pulmonary disease) Type 2 diabetes mellitus Nausea and vomiting in adult CHF (congestive heart failure) Colitis Gastroenteritis Retinopathy Vitamin D deficiency Mixed hyperlipidemia JASON (generalized anxiety disorder) Depressive disorder HTN (hypertension) with goal to be determined Surgical History H/O heart artery stent (~2019) [facility] History of cardiac cath (~2019) Family History Sister Diabetes Hyperlipidemia Hypertension Social History Smoking/Tobacco Use Status: Former Tobacco Use Smoking risk assessment performed?: Yes Alcohol Intake: never Drug use: Never Substance use type: does not use Housing: halfway Number of Children: 4 What is your relationship status?: Panel score (0-1 are the most socially isolated patients): 0 Do you feel safe at home: Yes Additional Social history: Sobeida
[2024-12-27 10:51] LABS: BE (Venous) 9 mmol/L (-2-3); HCO3 (Venous) 34 mmol/L (23-28); O2 Sat (Venous) 93 %; TCO2 (Venous) 30 mmol/L (24-29); pCO2 (Venous) 52 mmHg (41-51); pH (Venous) 7.42 (7.31-7.41); pO2 (Venous) 63 mmHg
[2024-12-27 10:53] LABS: Abs Immature Grans 0.06 10^3/uL (0.0-0.06); Absolute Basophil Count 0.04 10^3/uL (0.0-0.2); Absolute Eosinophil Count 0.22 10^3/uL (0.0-0.7); Absolute Lymphocyte Count 1.17 10^3/uL (1.2-3.4); Absolute Monocyte Count 0.65 10^3/uL (0.1-0.8); Absolute Neutrophil Count 8.12 10^3/uL (1.2-6.7); Basophils % 0.4 %; Eosinophils % 2.1 %; HCT 43.4 % (36.0-46.0); HGB 13.8 g/dL (11.2-15.7); Immature Grans % 0.6 %; Lymphocytes % 11.4 %; MCH 29.9 pg (27.0-33.0); MCHC 31.8 % (32.0-36.0); MCV 94 fL (80-95); Monocytes % 6.3 %; Neutrophils % 79.2 %; Platelet Count 216 10^3/uL (130-400); RBC 4.62 10^6/uL (3.93-5.22); RDW 13.3 % (11.7-14.6); RDW-SD 45.6 fL; WBC 10.26 10^3/uL (4.4-10.8)
[2024-12-27 11:06] LABS: PTT Activated 23.9 sec (20.6-30.2); Prothrombin Time 10.4 sec (9.1-11.1)
[2024-12-27 11:19] LABS: ALT 27 U/L (14-59); AST 22 U/L (15-37); Albumin 3.3 g/dL (3.4-5.0); Alkaline Phosphatase 88 U/L (46-116); BUN 32 mg/dL (7-18); Bilirubin, Total 0.8 mg/dL (0.2-1.0); CREATININE 1.8 mg/dL (0.55-1.02); Calcium 9.2 mg/dL (8.5-10.1); Chloride 102 mmol/L (98-107); Estimated GFR 27.61 (mL/min/1.73m2); Glucose 201 mg/dL (74-106); Magnesium 2.1 mg/dL (1.8-2.4); NT-proBNP 275 pg/mL (<300); Sodium 141 mmol/L (136-145); Total Protein 6.3 g/dL (6.4-8.2); Troponin I 17 ng/L (<or=51)
[2024-12-27 11:21] LABS: Procalcitonin 0.65 ng/mL
[2024-12-27 12:16] LABS: Troponin I 11 ng/L (<or=51)
== END 2024-12-27 12:57 | disposition skilled nursing facility (03) ==
PROVIDERS: Emergency Provider Emergency Medicine; PCP Internal Medicine
DX: R55 Syncope and collapse (principal); E11.22 Type 2 diabetes mellitus with diabetic chronic kidney disease; I13.0 Hypertensive heart and chronic kidney disease with heart failure and stage 1 through stage 4 chronic kidney disease, or unspecified chronic kidney disease; N18.30 Chronic kidney disease, stage 3 unspecified; I50.32 Chronic diastolic (congestive) heart failure; I45.10 Unspecified right bundle-branch block; J44.9 Chronic obstructive pulmonary disease, unspecified; I48.91 Unspecified atrial fibrillation; E78.2 Mixed hyperlipidemia; Z95.5 Presence of coronary angioplasty implant and graft; Z79.4 Long term (current) use of insulin; Z79.85 Long-term (current) use of injectable non-insulin antidiabetic drugs; Z99.81 Dependence on supplemental oxygen; Z79.01 Long term (current) use of anticoagulants
CPT/HCPCS: 36415; 80053; 82805; 82962; 84145; 93005; 99285; 71046; 83735; 83880; 84484; 85025; 85610; 85730; 93010; 99284

== ENCOUNTER 2024-12-29 18:25 | Outpatient (REF) | payer MEDICARE, MEDICAID, SELFPAY ==
[2024-12-29 19:04] LABS: Abs Immature Grans 0.03 10^3/uL (0.0-0.06); Absolute Basophil Count 0.02 10^3/uL (0.0-0.2); Absolute Eosinophil Count 0.07 10^3/uL (0.0-0.7); Absolute Lymphocyte Count 1.88 10^3/uL (1.2-3.4); Absolute Monocyte Count 0.61 10^3/uL (0.1-0.8); Basophils % 0.3 %; HCT 44.7 % (36.0-46.0); Immature Grans % 0.4 %; Lymphocytes % 26.1 %; MCH 29.8 pg (27.0-33.0); MCHC 31.3 % (32.0-36.0); MCV 95 fL (80-95); MPV 10.9 fL (8.0-11.0); Monocytes % 8.5 %; Neutrophils % 63.7 %; Platelet Count 203 10^3/uL (130-400); RDW 13.7 % (11.7-14.6); RDW-SD 47.3 fL; WBC 7.21 10^3/uL (4.4-10.8)
[2024-12-29 19:22] LABS: ALT 25 U/L (14-59); AST 8 U/L (15-37); Albumin 3.6 g/dL (3.4-5.0); Alkaline Phosphatase 89 U/L (46-116); Anion Gap 4.9 mmol/L (3-11); BUN 36 mg/dL (7-18); Bilirubin, Total 0.7 mg/dL (0.2-1.0); CO2 36.1 mmol/L (21.0-32.0); CREATININE 1.7 mg/dL (0.55-1.02); Calcium 9.5 mg/dL (8.5-10.1); Chloride 103 mmol/L (98-107); Estimated GFR 29.57 (mL/min/1.73m2); Glucose 306 mg/dL (74-106); NT-proBNP 624 pg/mL (<300); Potassium 3.6 mmol/L (3.5-5.1); Sodium 144 mmol/L (136-145); Total Protein 6.2 g/dL (6.4-8.2)
== END 2024-12-29 18:26 | disposition home or self-care (01) ==
LOC: LBN 18:25
PROVIDERS: PCP Internal Medicine; Visit Provider Nurse Practitioner Gerontology
DX: I50.33 Acute on chronic diastolic (congestive) heart failure (principal); J18.9 Pneumonia, unspecified organism
CPT/HCPCS: 80053; 83880; 85025